=== PATIENT | male | born 1965 | race African-American/Black ===

== ENCOUNTER 2016-08-29 17:35 | Emergency (ER) | payer BC, OTHER ==
[2016-08-29 18:11] VITALS: BMI 27.8
--- NOTE | 2016-08-29 19:26 | PDOC ---
History of Present Illness - General History Source: Patient Exam Limitations: No Limitations - History of Present Illness Initial Comments: 08/29/16 20:18 The patient is a 51 year old male with a significant past medical history of hypertension, and ESRD on dialysis (, Thu), presenting to the Emergency Department with body ache, vomiting, and fever for four days. The patient reports that he has been vomiting multiple times per day, and is unable to keep down food. He also admits that it is difficult to keep down water, and admits to decreased urine output. He states that his fever was 101.8 at its highest. He reports that he is on dialysis, and went for treatment Thursday and this week. The patient denies sick contact. Patient denies cough. Patient denies chest pain , palpitations, and shortness of breath. Patient denies dysuria, or urinary urgency. PCP: Dr. 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) HTN: Yes Hypercholesterolemia: No HIV: No Liver Disease: No Suicide Attempt (Hx): No Seizures: No Thyroid Disease: No - Surgical History Abdominal Surgery: Yes (08/2007 KIDNEY TRANSPLANT-REJECTED) Appendectomy: No Cardiac Surgery: No Cholecystectomy: No Lung Surgery: No Neurologic Surgery: No Orthopedic Surgery: No - Immunization History Immunization Up to Date: Yes - Psycho/Social/Smoking Cessation Hx Anxiety: No Suicidal Ideation: No Smoking Status: No Smoking History: Never smoked Have you smoked in the past 12 months: No Number of Cigarettes Smoked Daily: 0 Cigars Per Day: 0 Hx Alcohol Use: No Drug/Substance Use Hx: No Substance Use Type: None Hx Substance Use Treatment: No <Peggy Foster - Last Filed: 08/30/16 04:21> - Past Medical History Allergies/Adverse Reactions: Allergies Allergy/AdvReac Type Severity Reaction Status Date / Time No Known Drug Allergies Allergy Verified 08/29/16 18:07 Home Medications: Ambulatory Orders Clonidine HCl [Catapres -] 0.3 mg PO BID tablet 11/19/14 Labetalol HCl [Normodyne -] 800 mg PO BID 01/11/15 Calcium Acetate [Phoslo -] 3 tab PO TIDCM 03/16/15 Amlodipine Besylate [Norvasc -] 10 mg PO DAILY tablet 11/17/15 Levofloxacin [Levaquin -] 500 mg PO DAILY #7 tablet 08/30/16 Metronidazole [Flagyl -] 500 mg PO TID #21 tablet 08/30/16 Review of Systems - Review of Systems Able to Perform ROS?: Yes Comments:: 08/29/16 20:19 GENERAL/CONSTITUTIONAL: + fever, + body aches. No weakness. HEAD, EYES, EARS, NOSE AND THROAT: No change in vision. No ear pain or discharge. No sore throat. CARDIOVASCULAR: No chest pain or shortness of breath. RESPIRATORY: No cough, wheezing, or hemoptysis. GASTROINTESTINAL: + nausea, + vomiting. No diarrhea or constipation. GENITOURINARY: No dysuria, frequency, or change in urination. MUSCULOSKELETAL: No joint or muscle swelling or pain. No neck or back pain. SKIN: No rash NEUROLOGIC: No headache, vertigo, loss of consciousness, or change in strength/ sensation. ENDOCRINE: + decreased urine output. No increased thirst. No abnormal weight change. HEMATOLOGIC/LYMPHATIC: No anemia, easy bleeding, or history of blood clots. ALLERGIC/IMMUNOLOGIC: No hives or skin allergy. <Martha Loomis - Last Filed: 08/29/16 20:17> *Physical Exam - Vital Signs Last Vital Signs Temp Pulse Resp BP Pulse Ox 101.8 F H 96 H 19 132/81 97 08/29/16 18:07 08/29/16 18:07 08/29/16 18:07 08/29/16 18:07 08/29/16 18:07 - Physical Exam Comments: 08/29/16 20:21 GENERAL: Warm to touch, awake, alert, and fully oriented, in no acute distress HEAD: No signs of trauma EYES: PERRLA, EOMI, sclera anicteric, conjunctiva clear ENT: Auricles normal inspection, hearing grossly normal, nares patent, oropharynx clear without exudates. Moist mucosa NECK: Neck lipoma at left trapezius. Normal ROM, supple, no lymphadenopathy, or JVD LUNGS: Breath sounds equal, clear to auscultation bilaterally. No wheezes, and no crackles HEART: Tachycardic and regular rhythm, normal S1 and S2, no murmurs, rubs or gallops ABDOMEN: Left and right sided abdominal tenderness. Soft, normoactive bowel sounds. No guarding, no rebound. No masses EXTREMITIES: Normal range of motion, no edema. No clubbing or cyanosis. No cords, erythema, or tenderness NEUROLOGICAL: Cranial nerves II through XII grossly intact. Normal speech, normal gait SKIN: Psoriatic rash to legs and arms bilaterally. Warm, Dry, normal turgor, no lesions noted. <Martha Loomis - Last Filed: 08/29/16 20:17> - Vital Signs Last Vital Signs Temp Pulse Resp BP Pulse Ox 101.8 F H 96 H 19 132/81 97 08/29/16 18:07 08/29/16 18:07 08/29/16 18:07 08/29/16 18:07 08/29/16 18:07 <Peggy Foster - Last Filed: 08/30/16 04:21> ED Treatment Course - LABORATORY CBC & Chemistry Diagram: 08/29/16 19:49 08/29/16 19:49 - ADDITIONAL ORDERS Additional order review: 08/29/16 19:49 RBC 3.78 L MCV 84.8 MCHC 33.2 RDW 15.0 MPV 7.9 Neutrophils % 85.5 H Lymphocytes % 4.1 L D Monocytes % 10.1 Eosinophils % 0.1 D Basophils % 0.2 <Martha Loomis - Last Filed: 08/29/16 20:17> - LABORATORY CBC & Chemistry Diagram: 08/29/16 19:49 08/29/16 20:58 <Peggy Foster - Last Filed: 08/30/16 04:21> Medical Decision Making - Medical Decision Making 08/30/16 03:12 Patient Name: Maryjo Clark THIS IS A PRELIMINARY REPORT FROM [facility] IMAGES: 397 EXAM DATE AND TIME: 2016-08-30 02:19:19.0 EXAM: CT ABDOMEN AND PELVIS WITHOUT CONTRAST Probable calcified right iliac fossa renal transplant. Atrophic [place] kidneys containing probable cysts. A 1.6 cm exophytic cyst in left lower pole is slightly complex, consider follow-up. Unremarkable pancreas and gallbladder. No bowel obstruction, colitis, diverticulitis or free air. Normal appendix. Small ascites. Small umbilical hernia containing fat. Small left pleural effusion. Renal osteodystrophy. Erosive changes bilateral sacroiliac joints. Liver dome incompletely seen. THIS DOCUMENT HAS BEEN ELECTRONICALLY SIGNED 08/30/16 04:16 Pt came with fever; nausea and vomiting x 4 days. Ongoing for 4 days and not getting better. Total body aches and pains, but he is influenza negative; CXR appears normal. CT abd/pelvis normal; however, I will treat with abx, as I cannot be certain that he does not have a bacterial infection of his gut. He doesnt seem to have a viral infection judging from the severity and length of his symptoms; not to mention the fact that his antibiotics will be removed from his blood stream every other day during dialysis. <Peggy Foster - Last Filed: 08/30/16 04:21> *DC/Admit/Observation/Transfer - Attestations Scribe Attestion: 08/29/16 20:28 Documentation prepared by Martha Loomis, acting as medical staff physician for Peggy Foster MD. <Martha Loomis - Last Filed: 08/29/16 20:17> - Discharge Dispostion Admit: No <Peggy Foster - Last Filed: 08/30/16 04:21> Diagnosis at time of Disposition: Gastroenteritis - Discharge Dispostion Disposition: HOME Condition at time of disposition: Stable - Prescriptions Prescriptions: Metronidazole [Flagyl -] 500 mg PO TID #21 tablet Levofloxacin [Levaquin -] 500 mg PO DAILY #7 tablet - Referrals Referrals: Magan Navarro MD [Primary Care Provider] - - Patient Instructions Printed Discharge Instructions: DI for Bacterial Gastroenteritis -- Adult
[2016-08-29] MEDS ORDERED: ACETAMINOPHEN 325 MG TABLET (FP) PO ONE (19:27)
[2016-08-29 19:59] LABS: BASOPHIL 0.2 % (0-2.0); EOSINOPHIL 0.1 % (0-4.5); MCH 28.2 pg (25.7-33.7); MCHC 33.2 g/dl (32.0-35.9); MEAN CELL VOLUME 84.8 fl (80-96); MEAN PLT VOLUME 7.9 fl (7.5-11.1); NEUTROPHILS 85.5 % (42.8-82.8); PLATELET COUNT 181 K/MM3 (134-434); WHITE BLOOD COUNT 9.5 K/mm3 (4.0-10.0)
[2016-08-29] MEDS ORDERED: ACETAMINOPHEN INJECTION 100 ML IVPB ONE (20:05)
[2016-08-29] MEDS ORDERED: ONDANSETRON 4 MG/2 ML VIAL ONE (20:05)
[2016-08-29] MEDS ORDERED: ONDANSETRON 4 MG/2 ML VIAL IVPB ONE (20:05)
[2016-08-29] MEDS ORDERED: ACETAMINOPHEN 1000 MG/100 ML VIAL (NON FORMULARY) IVPB ONE (20:05)
[2016-08-29] MEDS ORDERED: SODIUM CHLORIDE 0.9% 500 ML INFUS.BAG IV ONE (20:12)
[2016-08-29 20:23] LABS: ALBUMIN 3.5 g/dl (3.4-5.0); BILIRUBIN,TOTAL 0.7 mg/dL (0.2-1.0); CALCIUM 8.2 mg/dL (8.5-10.1); COCKROFT - GAULT 8.13; TOT PROT 7.5 g/dl (6.4-8.2)
[2016-08-29 20:58] LABS: CREATININE 12.9 mg/dL (0.7-1.3)
[2016-08-29 22:37] LABS: ALBUMIN 3.4 g/dl (3.4-5.0); BILIRUBIN,TOTAL 0.6 mg/dL (0.2-1.0); CALCIUM 8.1 mg/dL (8.5-10.1); TOT PROT 7.1 g/dl (6.4-8.2)
[2016-08-29 22:43] LABS: CREATININE 13.1 mg/dL (0.7-1.3)
[2016-08-29 23:53] VITALS: BP 128/68; PULSE 89; TEMP 99
[2016-08-29] MEDS ORDERED: METRONIDAZOLE 500 MG PREMIXED 100 ML IVPB ONE (23:59)
[2016-08-29] MEDS ORDERED: LEVOFLOXACIN 500 MG IVPB 100 ML IVPB ONE (23:59)
[2016-08-30] MEDS ORDERED: METRONIDAZOLE 500 MG PREMIXED 100 ML IVPB ONE (00:08)
[2016-08-30] MEDS ORDERED: LEVOFLOXACIN 500 MG IVPB 100 ML IVPB ONE (00:59)
--- NOTE | 2016-08-30 16:20 | EKG ---
Test Reason : Blood Pressure : / mmHG Vent. Rate : 085 BPM Atrial Rate : 085 BPM P-R Int : 170 ms QRS Dur : 102 ms QT Int : 436 ms P-R-T Axes : 074 -16 086 degrees QTc Int : 518 ms NORMAL SINUS RHYTHM POSSIBLE LEFT ATRIAL ENLARGEMENT LEFT VENTRICULAR HYPERTROPHY T WAVE ABNORMALITY, CONSIDER LATERAL ISCHEMIA PROLONGED QT ABNORMAL ECG WHEN COMPARED WITH ECG OF 15-DEC-2015 16:37, NON-SPECIFIC CHANGE IN ST SEGMENT IN LATERAL LEADS QT HAS LENGTHENED Confirmed by DILCIA ROMERO MD ([id number]) on 08/30/2016 4:20:03 PM Referred By: Confirmed By:DILCIA ROMERO MD
== END 2016-08-30 03:33 | disposition home or self-care (01) ==
LOC: JER 17:35
PROC: 3E03329 Introduction of Other Anti-infective into Peripheral Vein, Percutaneous Approach (ICD-10-PCS; principal; 2016-08-29)
PROC: 3E03329 Introduction of Other Anti-infective into Peripheral Vein, Percutaneous Approach (ICD-10-PCS; 2016-08-29)
PROC: 3E033NZ Introduction of Analgesics, Hypnotics, Sedatives into Peripheral Vein, Percutaneous Approach (ICD-10-PCS; 2016-08-29)
PROC: 3E033GC Introduction of Other Therapeutic Substance into Peripheral Vein, Percutaneous Approach (ICD-10-PCS; 2016-08-29)
DX: K52.9 Noninfective gastroenteritis and colitis, unspecified (principal); I12.0 Hypertensive chronic kidney disease with stage 5 chronic kidney disease or end stage renal disease; N18.6 End stage renal disease; N17.8 Other acute kidney failure; Z99.2 Dependence on renal dialysis
CPT/HCPCS: 36415; 71020-TC; 74176-TC; 80053; 82150; 83605; 83690; 85025; 87040; 87186; 87804; 93005; 93010; 99284-25

== ENCOUNTER 2016-08-30 09:02 | Inpatient (IN) | payer OTHER, BC ==
[2016-08-30 09:07] VITALS: BMI 27.8
[2016-08-30] MEDS ORDERED: ONDANSETRON 4 MG/2 ML VIAL IVPUSH ONE (09:58)
--- NOTE | 2016-08-30 09:58 | PDOC ---
History of Present Illness - General History Source: Patient, Old Records Exam Limitations: No Limitations <Jackie Romo - Last Filed: 08/30/16 11:40> - General History Source: Patient Exam Limitations: No Limitations - History of Present Illness Initial Comments: 08/30/16 10:08 The patient is a 51 year old male with a significant past medical history of ESRD (on dialysis Thursday, , Thursday) who presents to the ER as a revisit for positive culture. Patient visited this ER yesterday for generalized body ache, vomiting, and fever for several days. Patient states he was given a dose of vancomycin and gentamicin on . Blood cultures came back positive for gram positive bacteria today, and he was referred to the ER for admission. Patient states his body aches resolved today, but he reports feeling dizziness, nausea, and a headache. Patient says his fever at home was 98.3. He also has not been able to tolerate any solid PO for the past three days. Surgical History: Kidney Transplant in 2007, stopped functioning in 2010. Patient is not able to produce urine. PCP: Dr. 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) HTN: Yes Hypercholesterolemia: No HIV: No Liver Disease: No Suicide Attempt (Hx): No Seizures: No Thyroid Disease: No - Surgical History Abdominal Surgery: Yes (08/2007 KIDNEY TRANSPLANT-REJECTED) Appendectomy: No Cardiac Surgery: No Cholecystectomy: No Lung Surgery: No Neurologic Surgery: No Orthopedic Surgery: No - Immunization History Immunization Up to Date: Yes - Psycho/Social/Smoking Cessation Hx Anxiety: No Suicidal Ideation: No Smoking Status: No Smoking History: Never smoked Have you smoked in the past 12 months: No Number of Cigarettes Smoked Daily: 0 Cigars Per Day: 0 Hx Alcohol Use: No Drug/Substance Use Hx: No Substance Use Type: None Hx Substance Use Treatment: No <Jackie Romo - Last Filed: 08/30/16 11:40> <Darlene Lynch - Last Filed: 08/30/16 11:42> - Past Medical History Allergies/Adverse Reactions: Allergies Allergy/AdvReac Type Severity Reaction Status Date / Time No Known Drug Allergies Allergy Verified 08/30/16 09:07 Home Medications: Ambulatory Orders Amlodipine Besylate [Norvasc -] 10 mg PO DAILY 08/30/16 Clonidine HCl 0.3 mg PO Q12H 08/30/16 Labetalol HCl [Normodyne -] 200 mg PO Q8H 08/30/16 Review of Systems - Review of Systems Able to Perform ROS?: Yes Comments:: 08/30/16 10:08 GENERAL/CONSTITUTIONAL: Low grade fever. No chills. No weakness. HEAD, EYES, EARS, NOSE AND THROAT: No change in vision. No ear pain or discharge. No sore throat. CARDIOVASCULAR: No chest pain or shortness of breath. RESPIRATORY: No cough, wheezing, or hemoptysis. GASTROINTESTINAL: Nausea. No vomiting, diarrhea or constipation. GENITOURINARY: No dysuria, frequency, or change in urination. MUSCULOSKELETAL: No joint or muscle swelling or pain. No neck or back pain. SKIN: No rash NEUROLOGIC: Headache. No vertigo, loss of consciousness, or change in strength/ sensation. ENDOCRINE: No increased thirst. No abnormal weight change. HEMATOLOGIC/LYMPHATIC: No anemia, easy bleeding, or history of blood clots. ALLERGIC/IMMUNOLOGIC: No hives or skin allergy. <SyedDarlene - Last Filed: 08/30/16 11:42> *Physical Exam - Vital Signs Last Vital Signs Temp Pulse Resp BP Pulse Ox 98.3 F 79 20 116/65 98 08/30/16 09:03 08/30/16 09:03 08/30/16 09:03 08/30/16 09:03 08/30/16 09:03 <Jackie Romo - Last Filed: 08/30/16 11:40> - Vital Signs Last Vital Signs Temp Pulse Resp BP Pulse Ox 98.3 F 79 20 116/65 98 08/30/16 09:03 08/30/16 09:03 08/30/16 09:03 08/30/16 09:03 08/30/16 09:03 - Physical Exam Comments: GENERAL: Awake, alert, and fully oriented, in no acute distress HEAD: No signs of trauma EYES: PERRLA, EOMI, sclera anicteric, conjunctiva clear ENT: Auricles normal inspection, hearing grossly normal, nares patent, oropharynx clear without exudates. Moist mucosa NECK: Normal ROM, supple, no lymphadenopathy, JVD, or masses LUNGS: Breath sounds equal, clear to auscultation bilaterally. No wheezes, and no crackles HEART: Regular rate and rhythm, normal S1 and S2, no murmurs, rubs or gallops ABDOMEN: Superior pubic and RUQ tenderness, with no guarding, no rebound. Soft, normoactive bowel sounds. No masses. EXTREMITIES: Fistula in the left antecubital fossa. Normal range of motion, no edema. No clubbing or cyanosis. No cords, erythema, or tenderness NEUROLOGICAL: Cranial nerves II through XII grossly intact. Normal speech, normal gait SKIN: Warm, Dry, normal turgor, no rashes or lesions noted. <Darlene Lynch - Last Filed: 08/30/16 11:42> Heart Score/ECG Review - ST and T Comment:: 08/30/16 10:14 EKG read and reviewed by Dr. Romo: New ST depressions in 1L V5-V6 compared to the EKG in 2016. <Darlene Lynch - Last Filed: 08/30/16 11:42> ED Treatment Course - LABORATORY CBC & Chemistry Diagram: 08/30/16 10:00 08/30/16 10:00 <Jackie Romo - Last Filed: 08/30/16 11:40> - LABORATORY CBC & Chemistry Diagram: 08/30/16 10:00 08/30/16 10:00 <Darlene Lynch - Last Filed: 08/30/16 11:42> Medical Decision Making - Medical Decision Making 08/30/16 09:55 51-year-old male with history of hypertension, end-stage renal disease on hemodialysis Thursday and Thursday who presents to the emergency department for the second time in 24 hours for admission for positive blood cultures drawn in dialysis last . Differential diagnosis includes but is not limited to: Sepsis, bacteremia of unclear source, pneumonia electrolyte abnormality, toxic/metabolic derangement. Plan: 1. Labs 2. BP blood cultures 3. Lactate 4. Will admit to the hospital and the plan is to have the patient received vancomycin and gentamicin at dialysis later today 5. Observe and reevaluate <Jackie Romo - Last Filed: 08/30/16 11:40> *DC/Admit/Observation/Transfer - Discharge Dispostion Admit: Yes - Attestations Physician Attestion: 08/30/16 09:58 I, Dr. Jackie Romo, attest that the scribes documentation that appears above has been prepared under my direction and personally reviewed by me in its entirety. I confirmed that the note above accurately reflects all work, treatment, procedures, and medical decision-making performed by me. <Jackie Romo - Last Filed: 08/30/16 11:40> - Attestations Scribe Attestion: 08/30/16 10:19 Documentation prepared by Darlene Lynch, acting as medical instrument cable fabricator for Jackie Romo MD. <Darlene Lynch - Last Filed: 08/30/16 11:42> Diagnosis at time of Disposition: Bacteremia, Nausea, ESRD (end stage renal disease) on dialysis - Referrals Referrals: Magan Navarro MD [Primary Care Provider] -
[2016-08-30] MEDS ORDERED: ONDANSETRON 4 MG/2 ML VIAL ONE (10:09)
[2016-08-30 10:21] LABS: MCH 28.2 pg (25.7-33.7); MCHC 32.9 g/dl (32.0-35.9); MEAN CELL VOLUME 85.8 fl (80-96); PLATELET COUNT 159 K/MM3 (134-434); RDW 15.3 % (11.9-15.9); WHITE BLOOD COUNT 8.1 K/mm3 (4.0-10.0)
[2016-08-30 11:16] LABS: ALBUMIN 3.3 g/dl (3.4-5.0); BILIRUBIN,TOTAL 0.5 mg/dL (0.2-1.0); CALCIUM 8.1 mg/dL (8.5-10.1); COCKROFT - GAULT 7.18; TOT PROT 7.2 g/dl (6.4-8.2)
--- NOTE | 2016-08-30 11:22 | CONSULT ---
Consult - text type - Consultation Consultation Note: Renal Consult for ESRD on HD/Bactermia This is a 51 year old Gentleman with PMhx of ESRD on HD (TTS), Hypertension, Hx of Renal Transplant (now not functioning), Psoraisis who presents with Fever, Nausea, Abd dicomfort with blood cultures that were postive for Gram + Bactermia in HD unit. PMhx: as above Allergies: NKDA Family Hx: NC Social Hx: No T/A/D ROS: + Fever, abd pain, Nausea. + Loss of apetite. Home Meds: Home Medications Medication Instructions Recorded Amlodipine Besylate [Norvasc -] 10 mg PO DAILY 08/30/16 Clonidine HCl 0.3 mg PO Q12H 08/30/16 Labetalol HCl [Normodyne -] 200 mg PO Q8H 08/30/16 Vital Signs Temperature 98.3 F 08/30/16 09:03 Pulse Rate 79 08/30/16 09:03 Respiratory Rate 20 08/30/16 09:03 Blood Pressure 116/65 08/30/16 09:03 O2 Sat by Pulse Oximetry (%) 98 08/30/16 09:03 Intake & Output 08/27/16 08/28/16 08/29/16 08/30/16 23:59 23:59 23:59 23:59 Weight 183 lb Gen: NAD, awake and alert HEENT: NC/AT CVS: RRR, No M/R Lungs: CTA Abd" soft NT/ND Ext: No edmea, psorasis on legs Access: Left arm AVF CBC, BMP 08/30/16 10:00 Current Medications Epoetin Segun (Procrit -) 4,000 unit SQ ONCE ONE Stop: 08/30/16 10:58 Heparin Sodium (Porcine) (Heparin -) 1,000 unit IVPUSH ONCE ONE Stop: 08/30/16 10:58 Vancomycin HCl 1,000 mg/ (Dextrose) 250 mls @ 250 mls/hr IVPB ONCE ONE PRN Reason: Protocol Stop: 08/30/16 11:58 a/p 51 year old Gentleman with PMhx of ESRD on HD (TTS), Hypertension, Hx of Renal Transplant (now not functioning), Psoraisis who presents with Fever, Nausea, Abd dicomfort with blood cultures that were postive for Gram + Bactermia in HD unit. #Gram + Bactermia/Fever/Abd pain ? Source (skin vs. dialysis access related) Final Species not identified yet Will follow up with outpatient HD unit CT of the abd performed, results pending will redose Vanco after HD today repeat cultures sent today #ESRD on HD for HD today UF To dry weight Dose all meds for intermittent HD Full consult to follow Gonzalo Barros DO
[2016-08-30 11:29] LABS: CREATININE 14.6 mg/dL (0.7-1.3)
[2016-08-30 12:00] LABS: TROPONIN I 0.09 ng/ml (0.00-0.05)
[2016-08-30 13:15] LABS: ANISOCYTOSIS 1+; HYPOCHROMIA 1+; MICROCYTOSIS 1+; PLATELET ESTIMATE ADEQUATE (NORMAL); POIKILOCYTOSIS 1+; SCHISTOCYTES 1+; TEAR DROP CELLS RARE
[2016-08-30 13:16] LABS: BURR CELLS 1+; OVALOCYTES 1+
[2016-08-30] MEDS: LABETALOL HCL 200 MG TABLET (FP) PO SCH (15:27)
--- NOTE | 2016-08-30 16:19 | EKG ---
Test Reason : Blood Pressure : / mmHG Vent. Rate : 070 BPM Atrial Rate : 070 BPM P-R Int : 194 ms QRS Dur : 110 ms QT Int : 460 ms P-R-T Axes : 065 -13 076 degrees QTc Int : 496 ms NORMAL SINUS RHYTHM MINIMAL VOLTAGE CRITERIA FOR LVH, MAY BE NORMAL VARIANT SEPTAL INFARCT , AGE UNDETERMINED ABNORMAL ECG WHEN COMPARED WITH ECG OF 29-AUG-2016 20:52, NONSPECIFIC T WAVE ABNORMALITY NO LONGER EVIDENT IN ANTERIOR LEADS Confirmed by DILCIA ROMERO MD ([id number]) on 08/30/2016 4:18:41 PM Referred By: Confirmed By:DILCIA ROMERO MD
[2016-08-30 18:01] LABS: TROPONIN I 0.09 ng/ml (0.00-0.05)
[2016-08-30] MEDS ORDERED: PT OWN MED DRAWER 7, Y5N ONE ×2 (18:16→21:06)
[2016-08-30] MEDS ORDERED: HEPARIN NA (PORCINE) 5,000 UNITS/ML 1ML VIAL IVPUSH ONE (21:15)
[2016-08-30] MEDS ORDERED: VANCOMYCIN 1 GRAM (PRE-DOCKED) 250 ML IVPB ONE (21:15)
[2016-08-30] MEDS ORDERED: EPOETIN ALFA SQ ONE (21:15)
[2016-08-30 22:38] LABS: TROPONIN I 0.08 ng/ml (0.00-0.05)
[2016-08-31] MEDS: cloNIDine HCL 0.1 MG TABLET PO SCH ×3 (02:03→22:53)
[2016-08-31] MEDS: LABETALOL HCL 200 MG TABLET (FP) PO SCH ×4 (02:04→22:53)
[2016-08-31 08:07] LABS: MCH 29.1 pg (25.7-33.7); MCHC 34.5 g/dl (32.0-35.9); MEAN CELL VOLUME 84.5 fl (80-96); MEAN PLT VOLUME 7.8 fl (7.5-11.1); PLATELET COUNT 173 K/MM3 (134-434); RDW 15.2 % (11.9-15.9); WHITE BLOOD COUNT 6.3 K/mm3 (4.0-10.0)
--- NOTE | 2016-08-31 08:31 | HP ---
Admitting History and Physical - Primary Care Physician PCP: Magan Navarro - Admission Chief Complaint: ESRD. BACTEREMIA History Source: Medical Record - Past Medical History Cardiovascular: Yes: HTN, Hyperlipdemia Renal/: Yes: Renal Failure, Hemodialysis Dermatology: Yes: Psoriasis - Past Surgical History Past Surgical History: Yes: AV Fistula/Graft, Kidney Transplant (failed) - Advance Directives Advance Directives: Yes: Health Care Proxy - Smoking History Smoking history: Never smoked Have you smoked in the past 12 months: No Aproximately how many cigarettes per day: 0 - Alcohol/Substance Use Hx Alcohol Use: No - Social History ADL: Independent History of Recent Travel: No Home Medications - Allergies Allergies/Adverse Reactions: Allergies Allergy/AdvReac Type Severity Reaction Status Date / Time No Known Drug Allergies Allergy Verified 08/30/16 09:07 - Home Medications Home Medications: Ambulatory Orders Amlodipine Besylate [Norvasc -] 10 mg PO DAILY 08/30/16 Clonidine HCl 0.3 mg PO Q12H 08/30/16 Labetalol HCl [Normodyne -] 200 mg PO Q8H 08/30/16 Review of Systems - Review of Systems Constitutional: denies: Chills, Fever Cardiovascular: denies: Chest Pain Respiratory: denies: SOB Gastrointestinal: denies: Abdominal Pain Physical Examination Vital Signs: Vital Signs Temperature 98.4 F 08/31/16 06:10 Pulse Rate 80 08/31/16 06:10 Respiratory Rate 16 08/31/16 06:10 Blood Pressure 136/75 08/31/16 06:10 O2 Sat by Pulse Oximetry (%) 96 08/30/16 21:00 Constitutional: Yes: Calm Neck: Yes: WNL Cardiovascular: Yes: WNL Respiratory: Yes: WNL Gastrointestinal: Yes: WNL Edema: No Labs: CBC, BMP 08/31/16 07:00 Imaging - Results EKG: Report Reviewed Problem List - Problems (1) Bacteremia Code(s): R78.81 - BACTEREMIA (2) ESRD (end stage renal disease) on dialysis Code(s): N18.6 - END STAGE RENAL DISEASE Z99.2 - DEPENDENCE ON RENAL DIALYSIS (3) Nausea Code(s): R11.0 - NAUSEA (4) HTN (hypertension) Code(s): I10 - ESSENTIAL (PRIMARY) HYPERTENSION (5) Elevated troponin Code(s): R74.8 - ABNORMAL LEVELS OF OTHER SERUM ENZYMES Assessment/Plan The patient is a 51 year old male with a significant past medical history of ESRD (on dialysis Thursday, , Thursday) who presents to the ER as a revisit for positive culture. Patient visited this ER yesterday for generalized body ache, vomiting, and fever for several days. Patient states he was given a dose of vancomycin and gentamicin on . Blood cultures came back positive for gram positive bacteria today, and he was referred to the ER for admission. Patient states his body aches resolved today, but he reports feeling dizziness, nausea, and a headache. Patient says his fever at home was 98.3. He also has not been able to tolerate any solid PO for the past three days. Surgical History: Kidney Transplant in 2007, stopped functioning in 2010. Patient is not able to produce urine. PCP: Dr. Navarro (1) Bacteremia Code(s): R78.81 - BACTEREMIA ID CONSULTED Tmax 99 WBC NEG F/U CULTURES ABx ON HOLD (GIVEN IV ABx PRIOR TO ADMIT) (2) ESRD (end stage renal disease) on dialysis Code(s): N18.6 - END STAGE RENAL DISEASE Z99.2 - DEPENDENCE ON RENAL DIALYSIS RENAL ON CASE HD (3) Nausea Code(s): R11.0 - NAUSEA CONSIDER ZOFRAN IF REOCCUR (4) HTN (hypertension) Code(s): I10 - ESSENTIAL (PRIMARY) HYPERTENSION (5) Elevated troponin Code(s): R74.8 - ABNORMAL LEVELS OF OTHER SERUM ENZYMES NO HYPOTENSION EKG UNREMARKABLE -> F/U REPEAT LIKELY 2/2 ESRD BUT NOT ELEVATED 2015 CARDIO CONSULT APPRECIATED PASTOR JARRETT
--- NOTE | 2016-08-31 08:39 | CONSULT ---
Consult - text type - Consultation Consultation Note: CARDIOLOGY ASKED BY DR. Monsalve TO SEE PT. 51 YO MAN 08/30/16 POSITIVE BLOOD CULTURES. PT SEEN, EXAMINED ECG X RAYS REVIEWED. WORKING DX MINIMAL ELEVATION OF TROPONIN LEVEL DUE TO END STAGE RENAL DISEASE. HIGHLY DOUBT ASYMPTOMATIC ACUTE MYOCARDIAL ISCHEMIA/INFARCTION. STAPH BACTEREMIA DIFF DX: A-V FISTULA DIALYSIS NOST LIKELY SOURCE DOUBT SKIN ETIOLOGY. REC OBTAIN PRIOR DATA, ECG STRESS TEST ETC NOT PRESENTLY AVAILABLE FOR REVIEW. REPEAT ECG. ANTIBIOTICS DICTATED BY CULTURES. DIRECTED BY ID/IM. THANKS. FULL NOTE DICTATED. WILL FOLLOW
[2016-08-31 08:40] LABS: ALBUMIN 3.5 g/dl (3.4-5.0); BILIRUBIN,TOTAL 0.6 mg/dL (0.2-1.0); CALCIUM 8.1 mg/dL (8.5-10.1); TOT PROT 7.7 g/dl (6.4-8.2)
[2016-08-31 08:47] LABS: COCKROFT - GAULT 11.52
[2016-08-31 08:51] LABS: CREATININE 9.1 mg/dL (0.7-1.3)
[2016-08-31] MEDS: amLODIPine BESYLATE 10 MG TABLET (FP) PO SCH (10:28)
--- NOTE | 2016-08-31 15:04 | PN ---
Progress Note (short form) - Note Progress Note: ID Consult dictated Staph bacteremia ESRD Await final blood c/s result Start nafcillin 2gm q4h Echocardiogram Repeat BC, ESR CRP at HD
--- NOTE | 2016-08-31 15:58 | CONS ---
DATE OF CONSULTATION: 08/31/[address] Giraldo to see patient. PATIENT PROFILE: The patient is a 51-year-old man admitted on August 30, 2016, because of positive blood cultures. The patient has no known heart disease. There is no history of a myocardial infarction, angina, or congestive heart failure. He reports undergoing a stress approximately 1 year ago, which was normal. The details of that evaluation are not available. He has been maintained on hemodialysis now for about 10 years. A renal transplant had failed. He was admitted with complaints of fever and reports of a positive blood culture for gram-positive organisms. Because of the positive blood culture, the hemodialysis unit advised him to come to the emergency room for hospitalization. The patient never had chest pain, shortness of breath, palpitations, or syncope. A troponin level of 0.08 was detected and a cardiology consultation was requested. There is a prior history of hypertension. There is no history of diabetes. The present medications include amlodipine 10 mg per day, Catapres 0.3 mg b.i.d., and labetalol 200 mg b.i.d. ALLERGIES: None. FAMILY HISTORY: There is no family history of a myocardial infarction or sudden . Both his parents are alive. A sister has no known heart disease. SOCIAL HISTORY: There is no history of smoking or illicit drug use. PRIOR MEDICAL HISTORY: End-stage renal disease on hemodialysis, gastroesophageal reflux, anemia, secondary hyperparathyroidism, vitamin D deficiency. REVIEW OF SYSTEMS: General: Positive for fever. No chills. Gastrointestinal: No melena. Positive nausea. Pulmonary: No hemoptysis. Cardiac: No edema, no orthopnea. Neurological: No focal deficit. DATABASE: The electrocardiogram demonstrates sinus rhythm, left atrial abnormality, nonspecific ST and T-wave changes. Chest x-ray is pending at the time of this dictation. A CAT scan is also pending at the time of this dictation. Laboratory studies of note includes a white blood cell count of 6.3, hematocrit 31%, platelet count 173,000. The troponin level is 0.08 to 0.09. The CPK level is 254 to 198. The MV CPK is 1.5. The glucose is 115. IMPRESSION: The working diagnosis is minimal elevation of the troponin level secondary to end-stage renal disease. I highly doubt the presence of an asymptomatic acute myocardial ischemic infarct or infarction. The staphylococcus bacteremia would be most likely to be related to the AV fistula and dialysis procedure as the culprit source. A skin etiology would be a diagnostic consideration, however, the physical findings are not suggestive of this diagnosis. I doubt the presence of endocarditis. I have recommended the followin. Obtain prior data, electrocardiograms, previous stress test, etcetera, not presently available for review. 2. Repeat electrocardiogram. 3. Echocardiogram. 4. Antibiotics dictated by cultures. 5. Workup and therapy addressed by Internal Medicine and Infectious Disease. Thank you for allowing me to take part in the care of this pleasant patient. Will follow along with you. SANDRO PADILLA M.D. PRAVEEN/[id number] cc: Karin Dominguez MD
[2016-08-31 16:15] LABS: PLATELET ESTIMATE ADEQUATE (NORMAL); POLYCHROMASIA 1+
[2016-08-31 16:16] LABS: HYPOCHROMIA 1+
--- NOTE | 2016-08-31 16:36 | CONS ---
DATE OF CONSULTATION: DATE OF DICTATION: 08/31/2016 The patient is evaluated for positive blood cultures. The patient has a history of end-stage renal disease, on hemodialysis. He reports developing nausea and vomiting approximately 4 days prior to admission, associated with fever to 101.8. He had been seen in the emergency room, where he was evaluated. Cultures were obtained and were positive for staphylococcus species. He was asked to return. Preliminarily blood isolate is identified as methicillin-sensitive Staphylococcus aureus. He received a dose of vancomycin late last evening. Presently he feels much better. He has no complaints of abdominal pain. He denies any recurrent nausea or vomiting. He had been treated with Levaquin and Flagyl for suspected acute gastroenteritis. Patient has a history of bacteremias in the past. He had a polymicrobial bacteremia in July of 2014, which was from a suspected skin source. In addition, he was treated for bacteremia in 2005. Past medical history positive for end-stage renal disease, on hemodialysis; hypertension; psoriasis. PAST SURGICAL HISTORY: Status post renal transplant, with rejection, in 2007. No known allergies. Medication includes Catapres, Normodyne, Norvasc, Levaquin, Flagyl. SOCIAL HISTORY: Former smoker. SYSTEMS REVIEW: Neurologic: No loss of consciousness, seizure activity, focal weakness. Cardiac: Negative chest pain or palpitations. Respiratory: Negative cough or sputum production. Gastrointestinal: As per HPI. Genitourinary: End-stage renal disease, on hemodialysis. LABORATORY DATA: White count 6.3, hematocrit 30.8, platelet count 173. Blood cultures preliminarily methicillin-sensitive Staphylococcus aureus. PHYSICAL EXAMINATION: General: He is awake and alert. He is not acutely toxic appearing. Vital Signs: Temperature 98.3. T-max 101.8. Blood pressure 133/66. Pulse 74, regular. Respirations 16 per minute. Eyes: Sclerae anicteric. Heart Sounds: S1, S2. No murmur. Lungs: Clear. Abdomen: Soft. No tenderness elicited. No mass, rebound or rigidity. Extremities: An AV fistula is present in the left upper extremity. There is no erythema, warmth, or evidence of infection. He does have psoriasis involving both upper and lower extremities; however, there are no obvious areas of skin infection. IMPRESSION: 1. Positive blood culture, staphylococcus species, likely bacteremia secondary to skin source. 2. End-stage renal disease, on hemodialysis. 3. History of staphylococcus bacteremias in the past. 4. Psoriasis. Suspect skin source for staphylococcus bacteremia, namely his moderately severe psoriasis. The AV fistula does not appear to be infected at the time. Await final blood culture results. Start nafcillin 2 g IV piggyback every 4 hours. Echocardiogram. Repeat blood cultures. Add hemodialysis. Obtain sedimentation rate, C-reactive protein. Thank you for the kind referral. CORRINE LAST M.D. [id number]
[2016-08-31] MEDS: NAFCILLIN - 2 GM in DEXTROSE 5%-WATER - 100 ML IVPB SCH ×2 (18:20→22:53)
[2016-09-01] MEDS ORDERED: PT OWN MED DRAWER 7, Y5N ONE ×4 (01:32→21:04)
[2016-09-01] MEDS: NAFCILLIN - 2 GM in DEXTROSE 5%-WATER - 100 ML IVPB SCH ×6 (02:17→21:24)
[2016-09-01] MEDS: LABETALOL HCL 200 MG TABLET (FP) PO SCH ×3 (06:22→21:25)
[2016-09-01 08:56] LABS: BASOPHIL 1.1 % (0-2.0); EOSINOPHIL 11.5 % (0-4.5); MCHC 32.7 g/dl (32.0-35.9); MEAN CELL VOLUME 85.6 fl (80-96); MEAN PLT VOLUME 8.1 fl (7.5-11.1); NEUTROPHILS 50.8 % (42.8-82.8); PLATELET COUNT 193 K/MM3 (134-434); RDW 15.2 % (11.9-15.9); WHITE BLOOD COUNT 4.9 K/mm3 (4.0-10.0)
[2016-09-01 09:10] LABS: ALBUMIN 3.2 g/dl (3.4-5.0); CALCIUM 7.8 mg/dL (8.5-10.1)
[2016-09-01 09:19] LABS: BILIRUBIN,TOTAL 0.8 mg/dL (0.2-1.0); COCKROFT - GAULT 8.67; TOT PROT 6.9 g/dl (6.4-8.2)
[2016-09-01 09:35] LABS: CREATININE 12.1 mg/dL (0.7-1.3)
[2016-09-01] MEDS ORDERED: ASPIRIN COATED 81 MG TABLET.EC PO SCH (10:00)
[2016-09-01] MEDS: cloNIDine HCL 0.1 MG TABLET PO SCH ×2 (10:33→21:24)
[2016-09-01] MEDS: amLODIPine BESYLATE 10 MG TABLET (FP) PO SCH (10:33)
--- NOTE | 2016-09-01 10:36 | PN ---
Progress Note (short form) - Note Progress Note: Renal Follow up for ESRD on HD PT seen and examined at the bedside awake and alert no acute complaints feels better, no sob, chest pain, fever, chills Vital Signs Temperature 97.1 F L 09/01/16 08:44 Pulse Rate 62 09/01/16 08:44 Respiratory Rate 18 09/01/16 08:44 Blood Pressure 140/90 09/01/16 08:44 O2 Sat by Pulse Oximetry (%) 96 08/31/16 21:00 Intake & Output 08/29/16 08/30/16 08/31/16 09/01/16 23:59 23:59 23:59 23:59 Intake Total 120 1420 300 Balance 120 1420 300 Weight 183 lb Gen: NAD, awake and alert HEENT: NC/AT CVS: RRR, No M/R Lungs: CTA Abd" soft NT/ND Ext: No edmea, psorasis on legs Access: Left arm AVF CBC, BMP 09/01/16 07:10 09/01/16 07:10 Current Medications Amlodipine Besylate (Norvasc -) 10 mg PO DAILY [facility] Last Admin: 08/31/16 10:28 Dose: 10 mg Clonidine (Catapres -) 0.3 mg PO BID [facility] Last Admin: 08/31/16 22:53 Dose: 0.3 mg Epoetin Segun (Epogen -) 4,000 units IVPUSH ONCE ONE Stop: 09/02/16 06:01 Heparin Sodium (Porcine) (Heparin -) 1,000 unit IVPUSH ONCE ONE Stop: 09/02/16 06:01 Nafcillin Sodium 2 gm/ (Dextrose) 100 mls @ 100 mls/hr IVPB Q4H-IV [facility] PRN Reason: Protocol Last Admin: 09/01/16 06:22 Dose: 100 mls/hr Vancomycin HCl 1,000 mg/ (Dextrose) 250 mls @ 250 mls/hr IVPB ONCE ONE PRN Reason: Protocol Stop: 09/02/16 06:59 Labetalol HCl (Normodyne -) 200 mg PO TID [facility] Last Admin: 09/01/16 06:22 Dose: 200 mg a/p 51 year old Gentleman with PMhx of ESRD on HD (TTS), Hypertension, Hx of Renal Transplant (now not functioning), Psoraisis who presents with Fever, Nausea, Abd discomfort with blood cultures that were positive for Gram + Bactermia in HD unit. #Gram + Bactermia/Fever/Abd pain Blood cultures report from HD unit obtained : MSSA Culture report left in the front of the chart Will plan to redose Vanco with HD unless otherwise instructed by ID Check 2D ECHO Cultures from admission w/o growth to date #ESRD on HD for dialysis tomorrow with UF as tolerated will continue MWF schedule #CKD related Anemia Continue MALCOLM with HD Gonzalo Barros DO
--- NOTE | 2016-09-01 11:21 | PN ---
Progress Note, Physician Chief Complaint: No complaints. History of Present Illness: 51M hx HTN, ESRD on HD s/p RTX failed 2010 back on HD and off immunosupressives admitted with fever and gm positive cocci bacteremia. No chest pain, othopnea, pnd or edema. Baseline exercise tolerance is excellent. Reports normal EF by echo and normal stress test last year for RTX evaluation. - Current Medication List Current Medications: Active Medications Amlodipine Besylate (Norvasc -) 10 mg PO DAILY [facility] Last Admin: 09/01/16 10:33 Dose: 10 mg Clonidine (Catapres -) 0.3 mg PO BID [facility] Last Admin: 09/01/16 10:33 Dose: 0.3 mg Epoetin Segun (Epogen -) 4,000 units IVPUSH ONCE ONE Stop: 09/02/16 06:01 Heparin Sodium (Porcine) (Heparin -) 1,000 unit IVPUSH ONCE ONE Stop: 09/02/16 06:01 Nafcillin Sodium 2 gm/ (Dextrose) 100 mls @ 100 mls/hr IVPB Q4H-IV [facility] PRN Reason: Protocol Last Admin: 09/01/16 10:37 Dose: 100 mls/hr Vancomycin HCl 1,000 mg/ (Dextrose) 250 mls @ 250 mls/hr IVPB ONCE ONE PRN Reason: Protocol Stop: 09/02/16 06:59 Labetalol HCl (Normodyne -) 200 mg PO TID [facility] Last Admin: 09/01/16 06:22 Dose: 200 mg - Objective Vital Signs: Vital Signs Temperature 97.1 F L 09/01/16 08:44 Pulse Rate 62 09/01/16 08:44 Respiratory Rate 18 09/01/16 08:44 Blood Pressure 140/90 09/01/16 08:44 O2 Sat by Pulse Oximetry (%) 96 08/31/16 21:00 Eyes: Yes: WNL, Conjunctiva Clear HENT: Yes: WNL, Atraumatic, Normocephalic Neck: Yes: WNL, Supple, Trachea Midline Cardiovascular: Yes: WNL, Regular Rate and Rhythm Respiratory: Yes: WNL, Regular, CTA Bilaterally Gastrointestinal: Yes: WNL, Normal Bowel Sounds ...Rectal Exam: Yes: Deferred Musculoskeletal: Yes: WNL Extremities: Yes: WNL Edema: No Integumentary: Yes: WNL Neurological: Yes: WNL, Alert, Oriented ...Motor Strength: WNL Psychiatric: Yes: WNL Additional Findings/Remarks: left arm fistula Labs: CBC, BMP 09/01/16 07:10 09/01/16 07:10 - ....Imaging EKG: Report Reviewed (unremarkable for ischemia.) Problem List - Problems (1) Elevated troponin Assessment/Plan: Doubt ischemic heart disease. Reports stress test last year which was negative. No need for inpatient ischemia workup. Andi pattern is noncardiac, due to ESRD. Code(s): R74.8 - ABNORMAL LEVELS OF OTHER SERUM ENZYMES (2) Bacteremia Assessment/Plan: Echo pending, may need CONSTANCE if no source can be identified. Continue ABX per ID. Code(s): R78.81 - BACTEREMIA (3) HTN (hypertension) Assessment/Plan: Controlled on current medications. Code(s): I10 - ESSENTIAL (PRIMARY) HYPERTENSION Qualifiers: Hypertension type: essential hypertension Qualified Code(s): I10 - Essential (primary) hypertension
--- NOTE | 2016-09-01 21:19 | PN ---
Progress Note, Physician Chief Complaint: NO DISTRESS - Current Medication List Current Medications: Active Medications Amlodipine Besylate (Norvasc -) 10 mg PO DAILY [facility] Last Admin: 09/01/16 10:33 Dose: 10 mg Clonidine (Catapres -) 0.3 mg PO BID [facility] Last Admin: 09/01/16 10:33 Dose: 0.3 mg Epoetin Segun (Epogen -) 4,000 units IVPUSH ONCE ONE Stop: 09/02/16 06:01 Heparin Sodium (Porcine) (Heparin -) 1,000 unit IVPUSH ONCE ONE Stop: 09/02/16 06:01 Nafcillin Sodium 2 gm/ (Dextrose) 100 mls @ 100 mls/hr IVPB Q4H-IV [facility] PRN Reason: Protocol Last Admin: 09/01/16 17:32 Dose: 100 mls/hr Vancomycin HCl 1,000 mg/ (Dextrose) 250 mls @ 250 mls/hr IVPB ONCE ONE PRN Reason: Protocol Stop: 09/02/16 06:59 Labetalol HCl (Normodyne -) 200 mg PO TID [facility] Last Admin: 09/01/16 15:34 Dose: 200 mg - Objective Vital Signs: Vital Signs Temperature 98.3 F 09/01/16 19:02 Pulse Rate 77 09/01/16 19:02 Respiratory Rate 20 09/01/16 19:02 Blood Pressure 121/72 09/01/16 19:02 O2 Sat by Pulse Oximetry (%) 97 09/01/16 09:00 Constitutional: Yes: Calm Neck: Yes: WNL Cardiovascular: Yes: WNL Respiratory: Yes: WNL Gastrointestinal: Yes: WNL Edema: No Labs: CBC, BMP 09/01/16 07:10 09/01/16 07:10 Problem List - Problems (1) Bacteremia Code(s): R78.81 - BACTEREMIA (2) ESRD (end stage renal disease) on dialysis Code(s): N18.6 - END STAGE RENAL DISEASE Z99.2 - DEPENDENCE ON RENAL DIALYSIS (3) Nausea Code(s): R11.0 - NAUSEA (4) HTN (hypertension) Code(s): I10 - ESSENTIAL (PRIMARY) HYPERTENSION Qualifiers: Hypertension type: essential hypertension Qualified Code(s): I10 - Essential (primary) hypertension (5) Elevated troponin Code(s): R74.8 - ABNORMAL LEVELS OF OTHER SERUM ENZYMES Assessment/Plan The patient is a 51 year old male with a significant past medical history of ESRD (on dialysis Thursday, , Thursday) who presents to the ER as a revisit for positive culture. Patient visited this ER yesterday for generalized body ache, vomiting, and fever for several days. Patient states he was given a dose of vancomycin and gentamicin on . Blood cultures came back positive for gram positive bacteria today, and he was referred to the ER for admission. Patient states his body aches resolved today, but he reports feeling dizziness, nausea, and a headache. Patient says his fever at home was 98.3. He also has not been able to tolerate any solid PO for the past three days. Surgical History: Kidney Transplant in 2007, stopped functioning in 2010. Patient is not able to produce urine. PCP: Dr. Navarro (1) Bacteremia Code(s): R78.81 - BACTEREMIA ID CONSULT APPRECIATED CULTURES NEG ECHO DOES NOT SHOW VEGETATIONS -> F/U CONSTANCE (2) ESRD (end stage renal disease) on dialysis Code(s): N18.6 - END STAGE RENAL DISEASE Z99.2 - DEPENDENCE ON RENAL DIALYSIS RENAL ON CASE HD (3) Nausea Code(s): R11.0 - NAUSEA CONSIDER ZOFRAN IF REOCCUR (4) HTN (hypertension) Code(s): I10 - ESSENTIAL (PRIMARY) HYPERTENSION (5) Elevated troponin Code(s): R74.8 - ABNORMAL LEVELS OF OTHER SERUM ENZYMES NO HYPOTENSION EKG UNREMARKABLE -> F/U REPEAT LIKELY 2/2 ESRD BUT NOT ELEVATED 2015 CARDIO CONSULT APPRECIATED PASTOR JARRETT
[2016-09-02] MEDS: NAFCILLIN - 2 GM in DEXTROSE 5%-WATER - 100 ML IVPB SCH ×5 (02:50→15:31)
[2016-09-02 06:06] LABS: HEP B SURFACE AB Reactive (.)
--- NOTE | 2016-09-02 06:51 | PN ---
[id number] Besylate (Norvasc -) 10 mg PO DAILY [facility] Last Admin: 09/01/16 10:33 Dose: 10 mg Clonidine (Catapres -) 0.3 mg PO BID [facility] Last Admin: 09/01/16 21:24 Dose: 0.3 mg Epoetin Segun (Epogen -) 4,000 units IVPUSH ONCE ONE Stop: 09/02/16 08:01 Heparin Sodium (Porcine) (Heparin -) 1,000 unit IVPUSH ONCE ONE Stop: 09/02/16 07:01 Nafcillin Sodium 2 gm/ (Dextrose) 100 mls @ 100 mls/hr IVPB Q4H-IV [facility] PRN Reason: Protocol Last Admin: 09/02/16 02:50 Dose: 100 mls/hr Vancomycin HCl (Vancomycin (Pre-Docked)) 250 mls @ 250 mls/hr IVPB ONCE ONE PRN Reason: Protocol Stop: 09/02/16 08:59 Labetalol HCl (Normodyne -) 200 mg PO TID [facility] Last Admin: 09/01/16 21:25 Dose: 200 mg - Objective Vital Signs: Vital Signs Temperature 97.3 F L 09/01/16 22:00 Pulse Rate 63 09/01/16 22:00 Respiratory Rate 20 09/01/16 22:00 Blood Pressure 153/85 09/01/16 22:00 O2 Sat by Pulse Oximetry (%) 97 09/01/16 21:00 Neck: Yes: WNL Cardiovascular: Yes: WNL Respiratory: Yes: WNL Gastrointestinal: Yes: WNL Labs: CBC, BMP 09/01/16 07:10 09/01/16 07:10 Problem List - Problems (1) Bacteremia Code(s): R78.81 - BACTEREMIA (2) ESRD (end stage renal disease) on dialysis Code(s): N18.6 - END STAGE RENAL DISEASE Z99.2 - DEPENDENCE ON RENAL DIALYSIS (3) Nausea Code(s): R11.0 - NAUSEA (4) HTN (hypertension) Code(s): I10 - ESSENTIAL (PRIMARY) HYPERTENSION Qualifiers: Hypertension type: essential hypertension Qualified Code(s): I10 - Essential (primary) hypertension (5) Elevated troponin Code(s): R74.8 - ABNORMAL LEVELS OF OTHER SERUM ENZYMES Assessment/Plan The patient is a 51 year old male with a significant past medical history of ESRD (on dialysis Thursday, , Thursday) who presents to the ER as a revisit for positive culture. Patient visited this ER yesterday for generalized body ache, vomiting, and fever for several days. Patient states he was given a dose of vancomycin and gentamicin on . Blood cultures came back positive for gram positive bacteria today, and he was referred to the ER for admission. Patient states his body aches resolved today, but he reports feeling dizziness, nausea, and a headache. Patient says his fever at home was 98.3. He also has not been able to tolerate any solid PO for the past three days. Surgical History: Kidney Transplant in 2007, stopped functioning in 2010. Patient is not able to produce urine. PCP: Dr. Navarro (1) Bacteremia Code(s): R78.81 - BACTEREMIA ID CONSULT APPRECIATED CULTURES NEG ECHO DOES NOT SHOW VEGETATIONS -> F/U CONSTANCE (2) ESRD (end stage renal disease) on dialysis Code(s): N18.6 - END STAGE RENAL DISEASE Z99.2 - DEPENDENCE ON RENAL DIALYSIS RENAL ON CASE HD (3) Nausea Code(s): R11.0 - NAUSEA CONSIDER ZOFRAN IF REOCCUR (4) HTN (hypertension) Code(s): I10 - ESSENTIAL (PRIMARY) HYPERTENSION (5) Elevated troponin Code(s): R74.8 - ABNORMAL LEVELS OF OTHER SERUM ENZYMES LIKELY 2/2 ESRD BUT NOT ELEVATED 2015 CARDIO CONSULT APPRECIATED [facility]GE KOLBY
[2016-09-02] MEDS ORDERED: HEPARIN NA (PORCINE) 5,000 UNITS/ML 1ML VIAL IVPUSH ONE (07:00)
[2016-09-02] MEDS: LABETALOL HCL 200 MG TABLET (FP) PO SCH ×3 (07:18→13:36)
[2016-09-02] MEDS ORDERED: EPOETIN ALFA 2,000 UNITS/1 ML VIAL IVPUSH ONE (08:00)
[2016-09-02] MEDS ORDERED: VANCOMYCIN 1 GRAM (PRE-DOCKED) 250 ML IVPB ONE (08:00)
[2016-09-02 08:54] LABS: BASOPHIL 1.3 % (0-2.0); EOSINOPHIL 11.5 % (0-4.5); MCH 27.6 pg (25.7-33.7); MCHC 32.4 g/dl (32.0-35.9); MEAN CELL VOLUME 85.3 fl (80-96); MEAN PLT VOLUME 8.3 fl (7.5-11.1); NEUTROPHILS 55.4 % (42.8-82.8); PLATELET COUNT 212 K/MM3 (134-434); WHITE BLOOD COUNT 5.6 K/mm3 (4.0-10.0)
[2016-09-02 09:18] LABS: ALBUMIN 3.1 g/dl (3.4-5.0); BILIRUBIN,TOTAL 0.7 mg/dL (0.2-1.0); CALCIUM 7.5 mg/dL (8.5-10.1); COCKROFT - GAULT 7.13; MAGNESIUM 2.3 mg/dL (1.8-2.4); TOT PROT 6.7 g/dl (6.4-8.2)
[2016-09-02 09:44] LABS: PHOSPHOROUS 4.3 mg/dL (2.5-4.9)
--- NOTE | 2016-09-02 10:33 | PN ---
Progress Note (short form) - Note Progress Note: Renal Follow up for ESRD on HD PT seen and examined during dialysis no acute complaints no sob, chest pain, fever or chills BP stable, access with good function goal UF is 2.5L Vital Signs Temperature 97.4 F L 09/02/16 08:10 Pulse Rate 70 09/02/16 08:45 Respiratory Rate 18 09/02/16 08:45 Blood Pressure 160/101 09/02/16 08:45 O2 Sat by Pulse Oximetry (%) 97 09/01/16 21:00 Intake & Output 08/30/16 08/31/16 09/01/16 09/02/16 23:59 23:59 23:59 23:59 Intake Total 120 1420 1400 300 Balance 120 1420 1400 300 Weight 183 lb Gen: NAD, awake and alert HEENT: NC/AT CVS: RRR, No M/R Lungs: CTA Abd" soft NT/ND Ext: No edmea, psorasis on legs Access: Left arm AVF CBC, BMP 09/02/16 08:15 09/02/16 08:15 Laboratory Tests 09/02/16 08:15 Calcium 7.5 L Phosphorus 4.3 D Magnesium 2.3 Albumin 3.1 L Current Medications Amlodipine Besylate (Norvasc -) 10 mg PO DAILY [facility] Last Admin: 09/01/16 10:33 Dose: 10 mg Clonidine (Catapres -) 0.3 mg PO BID [facility] Last Admin: 09/01/16 21:24 Dose: 0.3 mg Nafcillin Sodium 2 gm/ (Dextrose) 100 mls @ 100 mls/hr IVPB Q4H-IV [facility] PRN Reason: Protocol Last Admin: 09/02/16 06:50 Dose: 100 mls/hr Labetalol HCl (Normodyne -) 200 mg PO TID [facility] Last Admin: 09/02/16 07:18 Dose: Not Given a/p 51 year old Gentleman with PMhx of ESRD on HD (TTS), Hypertension, Hx of Renal Transplant (now not functioning), Psoraisis who presents with Fever, Nausea, Abd discomfort with blood cultures that were positive for Gram + Bactermia in HD unit. #Gram + Bactermia/Fever/Abd pain MSSA seen in blood cultures from outside dialysis unit inpatient cultures w/o growth to get IV vanco today with HD ID to follow up for outpatient Abx recommendations #ESRD on HD tolerating HD well today UF as tolerated #Aneurysm in access arm Vascular follow up as outpatient #CKD related Anemia Continue MALCOLM with HD Gonzalo Barros DO
[2016-09-02 10:42] LABS: CREATININE 14.7 mg/dL (0.7-1.3)
--- NOTE | 2016-09-02 10:58 | PN ---
Progress Note, Physician Chief Complaint: No complaints. History of Present Illness: 51M hx HTN, ESRD on HD s/p RTX failed 2010 back on HD and off immunosupressives admitted with fever and gm positive cocci bacteremia. No chest pain, othopnea, pnd or edema. Baseline exercise tolerance is excellent. Reports normal EF by echo and normal stress test last year for RTX evaluation. - Current Medication List Current Medications: Active Medications Amlodipine Besylate (Norvasc -) 10 mg PO DAILY [facility] Last Admin: 09/01/16 10:33 Dose: 10 mg Clonidine (Catapres -) 0.3 mg PO BID [facility] Last Admin: 09/01/16 21:24 Dose: 0.3 mg Nafcillin Sodium 2 gm/ (Dextrose) 100 mls @ 100 mls/hr IVPB Q4H-IV [facility] PRN Reason: Protocol Last Admin: 09/02/16 06:50 Dose: 100 mls/hr Labetalol HCl (Normodyne -) 200 mg PO TID [facility] Last Admin: 09/02/16 07:18 Dose: Not Given - Objective Vital Signs: Vital Signs Temperature 97.4 F L 09/02/16 08:10 Pulse Rate 81 09/02/16 10:15 Respiratory Rate 18 09/02/16 10:15 Blood Pressure 143/75 09/02/16 10:15 O2 Sat by Pulse Oximetry (%) 97 09/01/16 21:00 Eyes: Yes: WNL, Conjunctiva Clear HENT: Yes: WNL, Atraumatic, Normocephalic Neck: Yes: WNL, Supple, Trachea Midline Cardiovascular: Yes: WNL, Regular Rate and Rhythm Respiratory: Yes: WNL, Regular, CTA Bilaterally Gastrointestinal: Yes: WNL, Normal Bowel Sounds Musculoskeletal: Yes: WNL Extremities: Yes: WNL Edema: No Integumentary: Yes: WNL Neurological: Yes: WNL, Alert, Oriented ...Motor Strength: WNL Psychiatric: Yes: WNL Additional Findings/Remarks: left arm fistula Labs: CBC, BMP 09/02/16 08:15 09/02/16 08:15 Problem List - Problems (1) Elevated troponin Assessment/Plan: Doubt ischemic heart disease. Reports stress test last year which was negative. No need for inpatient ischemia workup. Andi pattern is noncardiac, due to ESRD. Code(s): R74.8 - ABNORMAL LEVELS OF OTHER SERUM ENZYMES (2) Bacteremia Assessment/Plan: Echo pending, may need CONSTANCE if no source can be identified. Continue ABX per ID. Code(s): R78.81 - BACTEREMIA (3) HTN (hypertension) Assessment/Plan: Controlled on current medications. Code(s): I10 - ESSENTIAL (PRIMARY) HYPERTENSION Qualifiers: Hypertension type: essential hypertension Qualified Code(s): I10 - Essential (primary) hypertension
[2016-09-02 13:07] VITALS: BP 156/92; PULSE 69
[2016-09-02] MEDS ORDERED: ACETAMINOPHEN 325 MG TABLET (FP) PO PRN (13:13)
[2016-09-02] MEDS ORDERED: PT OWN MED DRAWER 7, Y5N ONE (13:25)
[2016-09-02] MEDS: cloNIDine HCL 0.1 MG TABLET PO SCH (13:29)
[2016-09-02] MEDS: amLODIPine BESYLATE 10 MG TABLET (FP) PO SCH (13:29)
[2016-09-02] MEDS ORDERED: ceFAZolin SODIUM 1 GM VIAL IM ONE (14:28)
--- NOTE | 2016-09-02 14:28 | PN ---
Progress Note, Physician History of Present Illness: Doing well No complaints No fever/ chills No c/o chest pain/ dyspnea - Current Medication List Current Medications: Active Medications Acetaminophen (Tylenol -) 650 mg PO Q6H PRN PRN Reason: FEVER OR PAIN Last Admin: 09/02/16 13:28 Dose: 650 mg Amlodipine Besylate (Norvasc -) 10 mg PO DAILY [facility] Last Admin: 09/02/16 13:29 Dose: 10 mg Clonidine (Catapres -) 0.3 mg PO BID [facility] Last Admin: 09/02/16 13:29 Dose: 0.3 mg Nafcillin Sodium 2 gm/ (Dextrose) 100 mls @ 100 mls/hr IVPB Q4H-IV [facility] PRN Reason: Protocol Last Admin: 09/02/16 12:14 Dose: Not Given Labetalol HCl (Normodyne -) 200 mg PO TID [facility] Last Admin: 09/02/16 13:36 Dose: Not Given - Objective Vital Signs: Vital Signs Temperature 97.4 F L 09/02/16 08:10 Pulse Rate 69 09/02/16 13:06 Respiratory Rate 18 09/02/16 13:06 Blood Pressure 156/92 09/02/16 13:06 O2 Sat by Pulse Oximetry (%) 98 09/02/16 09:00 Constitutional: Yes: No Distress Eyes: Yes: Conjunctiva Clear Cardiovascular: Yes: Regular Rate and Rhythm, S1, S2 Respiratory: Yes: CTA Bilaterally Gastrointestinal: Yes: Normal Bowel Sounds, Soft. No: Tenderness Edema: No Integumentary: Yes: Other (+ psoriasis) Labs: CBC, BMP 09/02/16 08:15 09/02/16 08:15 Assessment/Plan Staph aureus bacteremia, likely skin source ESRD Repeat BC, echo negative Substitute cefazolin 2gm after each HD x 4weeks
[2016-09-02 14:39] VITALS: TEMP 98.1
[2016-09-02] MEDS ORDERED: CEFAZOLIN 2 GM/D5W 50 ML IVPB ONE (15:15)
--- NOTE | 2016-09-02 18:44 | DS ---
Physical Examination Vital Signs: Vital Signs Temperature 98.1 F 09/02/16 14:39 Pulse Rate 69 09/02/16 13:06 Respiratory Rate 18 09/02/16 13:06 Blood Pressure 156/92 09/02/16 13:06 O2 Sat by Pulse Oximetry (%) 98 09/02/16 09:00 Neck: Yes: WNL Cardiovascular: Yes: WNL Respiratory: Yes: WNL Gastrointestinal: Yes: WNL Edema: No Labs: CBC, BMP 09/02/16 08:15 09/02/16 08:15 Discharge Summary Reason For Visit: BACTEREMIA, ESRD ON DIALYSIS, NAUSEA Current Active Problems Bacteremia (Acute) ESRD (end stage renal disease) on dialysis (Acute) Elevated troponin (Acute) Nausea (Acute) Hospital Course: The patient is a 51 year old male with a significant past medical history of ESRD (on dialysis Thursday, , Thursday) who presents to the ER as a revisit for positive culture. Patient visited this ER yesterday for generalized body ache, vomiting, and fever for several days. Patient states he was given a dose of vancomycin and gentamicin on . Blood cultures came back positive for gram positive bacteria today, and he was referred to the ER for admission. Patient states his body aches resolved today, but he reports feeling dizziness, nausea, and a headache. Patient says his fever at home was 98.3. He also has not been able to tolerate any solid PO for the past three days. Surgical History: Kidney Transplant in 2007, stopped functioning in 2010. Patient is not able to produce urine. PCP: Dr. Navarro (1) Bacteremia Code(s): R78.81 - BACTEREMIA ID CONSULT APPRECIATED -> LIKELY SKIN SOURCE CULTURES NEG ECHO DOES NOT SHOW VEGETATIONS -> CONSTANCE OUTPT IV ABx WITH HD x 4 WEEKS (2) ESRD (end stage renal disease) on dialysis Code(s): N18.6 - END STAGE RENAL DISEASE Z99.2 - DEPENDENCE ON RENAL DIALYSIS RENAL ON CASE HD (3) Nausea Code(s): R11.0 - NAUSEA CONSIDER ZOFRAN IF REOCCUR (4) HTN (hypertension) Code(s): I10 - ESSENTIAL (PRIMARY) HYPERTENSION (5) Elevated troponin Code(s): R74.8 - ABNORMAL LEVELS OF OTHER SERUM ENZYMES LIKELY 2/2 ESRD BUT NOT ELEVATED 2016 CARDIO CONSULT APPRECIATED DISCHARGE 1. F/U WITH PCP & CARDIO IN 1 WEEK 2. 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
== END 2016-09-02 19:33 | disposition home or self-care (01) | DRG 871 ==
LOC: JER 09:02 → JERBED 11:40 → J5S 14:59
PROVIDERS: ADMIT Family Medicine; ATTEND Family Medicine
PROC: 5A1D60Z (ICD-10-PCS; principal; 2016-09-02)
DX: R78.81 Bacteremia (principal); N18.6 End stage renal disease; I12.0 Hypertensive chronic kidney disease with stage 5 chronic kidney disease or end stage renal disease; Z99.2 Dependence on renal dialysis; D63.1 Anemia in chronic kidney disease
CPT/HCPCS: 36415; 80053; 82550; 82553; 83605; 83735; 84100; 84484; 85025; 86704; 86706; 86708; 87040; 87340; 93005; 93010; 93306-TC; 99283-25; J0885; J1644

== ENCOUNTER 2016-10-06 11:18 | Day surgery (SDC) | payer OTHER, BC ==
[2016-10-03 08:53] VITALS: BMI 27.8
[2016-10-06 12:05] LABS: INR 1.16 (0.82-1.09); PROTHROMBIN TIME (PATIENT) 12.8 SEC (9.98-11.88)
[2016-10-06 12:08] LABS: ACTIVATED PTT 36.6 SECONDS (26.9-34.4)
--- NOTE | 2016-10-06 12:41 | HP ---
Satellite H - Chief Complaint Chief Complaint: Left arm thrombosed venous aneurysm History of Present Illness: 51 yo male with ESRD on HD. Left arm fistula developed venous aneurysm. Exclusion and PTFE bybass performed several months ago. Residual thrombosed venous aneurysm now ready for excision. History Source: Medical Record Limitations to Obtaining History: No Limitations - Past Medical History Allergies/Adverse Reactions: Allergies Allergy/AdvReac Type Severity Reaction Status Date / Time No Known Drug Allergies Allergy Verified 10/06/16 11:58 Cardiovascular: Yes: HTN, Hyperlipdemia Renal/: Yes: Renal Failure, Hemodialysis Dermatology: Yes: Psoriasis Additional Medical History: hx mrsa and mssa bacteremia 2005 while he had permacath. hs bacteremia? with right chest wall cellulitis in 2011. CONSTANCE august 2011 is negative for vegetation - Current Medications Current Medications: Home Medications Medication Instructions Recorded Amlodipine Besylate [Norvasc -] 10 mg PO DAILY 08/30/16 Clonidine HCl 0.3 mg PO Q12H 08/30/16 Labetalol HCl [Normodyne -] 200 mg PO Q8H 08/30/16 Acetaminophen [Tylenol .Regular 650 mg PO Q6H PRN #0 tablet 09/02/16 Strength -] Satellite Physical Exam - Physical Examination Vital Signs: Vital Signs Period Temp Pulse Resp BP Sys/Romeo Pulse Ox Last 24 Hr 98.2 F 75 20 144/78 97 General Appearance: Alert & Oriented x3 Lung: Clear to auscultation Heart: Regular rate & rhythm Abdomen: Soft Extremities: No edema, Other (Large thrombosed venous aneurysm distal left upper arm. Patent AV graft underneath.) Satellite Impression/Plan - Impression/Plan Impression: Left arm thrombosed venous aneurysm Operative Procedure: Excision Left arm thrombosed venous aneurysm Date to be Performed: 10/06/16
[2016-10-06] MEDS ORDERED: LIDOCAINE HCL 1%, 10 MG/ML (20ML VIAL) IJ ONE (14:23)
[2016-10-06] MEDS ORDERED: POVIDONE-IODINE OINTMENT 10% - 28.4 GM TUBE TP ONE (14:23)
--- NOTE | 2016-10-06 14:23 | OP ---
Operative Note - Note: Operative Date: 10/06/16 Pre-Operative Diagnosis: Thrombosed venous aneurysm left arm Operation: Excsion venous aneurysm left arm Findings: Distal cephalic vein fistula with aneurysmal dilatation. Post-Operative Diagnosis: Same as Pre-op Surgeon: Joe Kaur Anesthesiologist/POLICE WORKER: Jack Raza Anesthesia: Fractional Specimens Removed: Vein aneurysm and skin Estimated Blood Loss (mls): 15
[2016-10-06] MEDS ORDERED: ACETAMINOPHEN 325 MG TABLET (FP) PO PRN ×2 (14:24→14:46)
[2016-10-06] MEDS ORDERED: OXYCODONE/APAP 5/325MG COMBO TABLET PO PRN (14:24)
[2016-10-06] MEDS ORDERED: oxyCODONE HCL 5 MG TABLET PO PRN (14:46)
[2016-10-06 15:14] VITALS: TEMP 97.8
[2016-10-06] MEDS ORDERED: oxyCODONE HCL 5 MG TABLET ONE (16:08)
[2016-10-06] MEDS ORDERED: ACETAMINOPHEN 325 MG TABLET (FP) ONE (17:03)
[2016-10-06 17:53] VITALS: BP 141/81; PULSE 66
--- NOTE | 2016-10-08 14:18 | PATH ---
Surgical Pathology Report Patient Name: AMANDA GONZÁLES [facility]. Rec. #: [id number] /Age/Gender: 1965 (Age: 51) / M Account: [id number] Location: [facility] SURGICAL Taken: 10/06/2016 Received: 10/07/2016 Reported: 10/08/2016 Physicians: Joe Kaur M.D. Specimen(s) Received VENOUS ANEURYSM LEFT ARM Clinical History Venous aneurysm left arm Final Diagnosis VENOUS ANEURYSM, LEFT ARM, EXCISION: MARKEDLY DILATED SUBCUTANEOUS BLOOD VESSEL WITH LUMINAL THROMBUS AND FOCAL INTIMAL CALCIFICATIONS, CONSISTENT WITH ANEURYSM. Electronically Signed Ken Garcia M.D. Gross Description Received in formalin labeled "aneurysm left arm" is a 6.5 cm in length x 3.7 cm in diameter dilated vessel with an attached 8.5 x 3.4 cm brown, elliptical portion of skin. Sectioning reveals red brown blood clot and focally calcified segura plaque within the vessel. Lacing Cutter sections are submitted in 2 cassettes DL/10/07/2016 saudi/10/07/2016
--- NOTE | 2016-10-18 12:37 | OP ---
DATE OF OPERATION: 10/06/2016 SURGEON: Joe Wade MD OPERATION: Excision of thrombosed venous aneurysm, left arm. PREOPERATIVE DIAGNOSIS: Thrombosed venous aneurysm, left arm. POSTOPERATIVE DIAGNOSIS: Thrombosed venous aneurysm, left arm. ANESTHESIA: Fractional. ANESTHESIOLOGIST: Jack Raza MD OPERATIVE FINDINGS: At the site of old AV fistula were several large venous aneurysms in the left upper arm. OPERATIVE PROCEDURE: Following routine patient identification with side and site verification, intravenous sedation was established. The left arm was prepped with ChloraPrep. Time-out was performed. Xylocaine 1% was infiltrated over the areas of venous aneurysm. An elliptical incision was made over the largest aneurysm. It was carried down using cautery through subcutaneous tissues to the wall of the vein. The vein was then with sharp and blunt dissection from the surrounding tissues and excised. The distal end was ligated with Vicryl tie. The wound was irrigated, closed with interrupted suture of 3-0 Vicryl in the subcutaneous tissues and skin lucía. Sterile dressing was applied, and the patient was taken to the recovery area in stable condition. JOE WADE M.D. [id number]
== END 2016-10-06 18:05 | disposition home or self-care (01) ==
LOC: JASU-SURG 11:18
PROVIDERS: ATTEND Surgery
PROC: 05BF0ZZ Excision of Left Cephalic Vein, Open Approach (ICD-10-PCS; principal; 2016-10-06 13:00)
DX: I77.0 Arteriovenous fistula, acquired (principal); I12.0 Hypertensive chronic kidney disease with stage 5 chronic kidney disease or end stage renal disease; N18.6 End stage renal disease; Z94.0 Kidney transplant status
CPT/HCPCS: 36415; 84132; 85610; 85730; 88304-TC; 94760

== ENCOUNTER 2016-10-19 10:44 | Inpatient (IN) | payer OTHER, BC ==
--- NOTE | 2016-10-19 11:03 | PDOC ---
History of Present Illness - General History Source: Patient, Old Records Exam Limitations: No Limitations - History of Present Illness Initial Comments: 10/19/16 11:44 The patient is a 51 year old male with past medical history of hypertension and ESRD (on dialysis TTS) who presents to the ED with complaints of fever and body aches for one day. Tmax was 102.6 in ER. The patient states his symptoms began after receiving dialysis yesterday. He also complains of diffuse abdominal pain and episodes of vomiting. He reports taking two tylenol at 9 am today. The patient relates his symptoms to a similar episode two months ago where he had positive blood cultures for Staph aureus. He also notes that he recently had surgery two weeks ago for an abscess on his left arm. He denies any chest pain or shortness of breath. 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 Patient is unable to produce urine. Supervisor Intermediates: Dr. Gonzalo Barros PCP: Dr. Navarro <Becka Larios - Last Filed: 10/19/16 15:20> <Brigida Dukes - Last Filed: 10/19/16 16:43> - General Chief Complaint: SIRS, Suspected/Possible Stated Complaint: BODYACHES Time Seen by Provider: 10/19/16 10:58 Past History <Becka Larios - Last Filed: 10/19/16 15:20> - Past Medical History Anemia: No Asthma: No Cancer: No Cardiac Disorders: No CVA: No COPD: No CHF: No Dementia: No Diabetes: No Dialysis: Yes (, , SAT) GI Disorders: No Disorders: Yes (DOES NOT VOID, ESRD, 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, t,t,sat) HTN: Yes Hypercholesterolemia: No HIV: No Liver Disease: No Suicide Attempt (Hx): No Seizures: No Thyroid Disease: No - Surgical History Abdominal Surgery: Yes (08/2007 KIDNEY TRANSPLANT-2011REJECTED) Appendectomy: No Cardiac Surgery: No Cholecystectomy: No Lung Surgery: No Neurologic Surgery: No Orthopedic Surgery: No - Immunization History Immunization Up to Date: Yes - Psycho/Social/Smoking Cessation Hx Anxiety: No Suicidal Ideation: No Smoking Status: No Smoking History: Never smoked Have you smoked in the past 12 months: No Number of Cigarettes Smoked Daily: 0 Cigars Per Day: 0 Information on smoking cessation initiated: No Hx Alcohol Use: No Drug/Substance Use Hx: No Substance Use Type: None Hx Substance Use Treatment: No <ErnstBrigida - Last Filed: 10/19/16 16:43> - Past Medical History Allergies/Adverse Reactions: Allergies Allergy/AdvReac Type Severity Reaction Status Date / Time No Known Drug Allergies Allergy Verified 10/19/16 10:50 Home Medications: Ambulatory Orders Amlodipine Besylate [Norvasc -] 10 mg PO DAILY 08/30/16 Clonidine HCl 0.3 mg PO Q12H 08/30/16 Labetalol HCl [Normodyne -] 200 mg PO Q8H 08/30/16 Review of Systems - Review of Systems Able to Perform ROS?: Yes Comments:: 10/19/16 11:45 GENERAL/CONSTITUTIONAL: Present: fever, chills HEAD, EYES, EARS, NOSE AND THROAT: No change in vision. No ear pain or discharge. No sore throat. CARDIOVASCULAR: No chest pain or shortness of breath. RESPIRATORY: No cough, wheezing, or hemoptysis. GASTROINTESTINAL: Present: nausea, vomiting, abdominal pain No diarrhea or constipation. GENITOURINARY: No dysuria, frequency, or change in urination. MUSCULOSKELETAL: Present: body aches SKIN: No rash NEUROLOGIC: No headache, vertigo, loss of consciousness, or change in strength/ sensation. ENDOCRINE: No increased thirst. No abnormal weight change. HEMATOLOGIC/LYMPHATIC: No anemia, easy bleeding, or history of blood clots. ALLERGIC/IMMUNOLOGIC: No hives or skin allergy. All Other Systems: Reviewed and Negative <Becka Larios - Last Filed: 10/19/16 15:20> *Physical Exam - Vital Signs Last Vital Signs Temp Pulse Resp BP Pulse Ox 102.6 F H 98 H 18 149/79 98 10/19/16 10:52 10/19/16 10:52 10/19/16 10:52 10/19/16 10:52 10/19/16 10:52 - Physical Exam Comments: 10/19/16 11:52 GENERAL: Well appearing. Awake, alert, and fully oriented, in no acute distress HEAD: No signs of trauma EYES: PERRLA, EOMI, sclera anicteric, conjunctiva clear ENT: Auricles normal inspection, hearing grossly normal, nares patent, oropharynx clear without exudates. Moist mucosa NECK: Normal ROM, supple, no lymphadenopathy, JVD, or masses LUNGS: Breath sounds equal, clear to auscultation bilaterally. No wheezes, and no crackles HEART: Tachycardic, regular rhythm no murmurs, no rubs or gallops ABDOMEN: Soft, diffuse mild tenderness, normoactive bowel sounds. No guarding, no rebound. No masses. EXTREMITIES: Left upper arm with AV fistula, positive thrill. Healing surgical wound to distal upper left arm, no cellulitis and no drainage. Normal range of motion, no edema. No clubbing or cyanosis. No cords, erythema, or tenderness NEUROLOGICAL: Cranial nerves II through XII grossly intact. Normal speech, normal gait SKIN: Warm, Dry, normal turgor, psoriatic rash to extremities bilaterally. <Becka Larios - Last Filed: 10/19/16 15:20> - Vital Signs Last Vital Signs Temp Pulse Resp BP Pulse Ox 102.6 F H 98 H 18 149/79 98 10/19/16 10:52 10/19/16 10:52 10/19/16 10:52 10/19/16 10:52 10/19/16 10:52 <Brigida Dukes - Last Filed: 10/19/16 16:43> Heart Score/ECG Review - ECG Intrepretation Comment:: 10/19/16 14:55 ECG obtained at 14:41 Normal sinus at [address] and T wave abnormality. <HarrietBecka - Last Filed: 10/19/16 15:20> ED Treatment Course - LABORATORY CBC & Chemistry Diagram: 10/19/16 11:40 10/19/16 11:40 - RADIOLOGY Radiograph Interpretation: 10/19/16 11:51 Chest X-ray as reviewed by Dr. Begum reports no acute pathology. 10/19/16 14:37 CT Scan of abdomen as reviewed by Dr. Gonzalez reports no definite acute pathology. <HarrietBecka - Last Filed: 10/19/16 15:20> - LABORATORY CBC & Chemistry Diagram: 10/19/16 11:40 10/19/16 11:40 <Brigida Dukes - Last Filed: 10/19/16 16:43> Medical Decision Making - Medical Decision Making 10/19/16 14:45 Phone call placed to Dr. Bahena, covering for Dr. Navarro. Awaiting call back. 10/19/16 15:[address] Bahena and case was discussed. <Becka Larios - Last Filed: 10/19/16 15:20> - Medical Decision Making Pt with prior history of bacteremia in August requiring inpatient hospitalization. He has recent history of LUE abscess that was I&D'd in the OR by Dr. Kaur. The wound is intact, no drainage, no cellulitis surrounding it. This may have been the point of entry for bacteria. No other obvious source of fever found. Patient does not make urine. CXR and CT a/p no acute findings. He has leukocytosis on CBC. Will treat with empiric abx and admit. <Brigida Dukes - Last Filed: 10/19/16 16:43> *DC/Admit/Observation/Transfer - Attestations Scribe Attestion: 10/19/16 11:46 Documentation prepared by Becka Larios, acting as emergency medical technician for Brigida Dukes MD. <Becka Larios - Last Filed: 10/19/16 15:20> - Discharge Dispostion Admit: Yes <Brigida Dukes - Last Filed: 10/19/16 16:43> Diagnosis at time of Disposition: Fever Qualifiers: Fever type: unspecified Qualified Code(s): R50.9 - Fever, unspecified - Discharge Dispostion Condition at time of disposition: Guarded - Referrals Referrals: Magan Navarro MD [Primary Care Provider] -
[2016-10-19] MEDS ORDERED: OXYCODONE/APAP 5/325MG COMBO TABLET PO ONE (11:41)
[2016-10-19] MEDS ORDERED: ACETAMINOPHEN 325 MG TABLET (FP) ONE ×2 (11:43→15:40)
[2016-10-19] MEDS ORDERED: OXYCODONE/APAP 5/325MG COMBO TABLET ONE (11:44)
[2016-10-19 11:53] LABS: MCH 28.5 pg (25.7-33.7); MCHC 32.6 g/dl (32.0-35.9); MEAN CELL VOLUME 87.5 fl (80-96); MEAN PLT VOLUME 7.9 fl (7.5-11.1); PLATELET COUNT 199 K/MM3 (134-434); RDW 18.2 % (11.9-15.9); WHITE BLOOD COUNT 16.2 K/mm3 (4.0-10.0)
[2016-10-19] MEDS ORDERED: VANCOMYCIN 1,000 MG in DEXTROSE 5%-WATER - 250 ML IVPB ONE (12:03)
[2016-10-19] MEDS ORDERED: PIPERACILLIN/TAZOB 3.375 GM 3.375 GM in DEXTROSE 5%-WATER - 50 ML IVPB ONE (12:03)
[2016-10-19 12:05] LABS: VENOUS PH 7.41 (7.32-7.42)
[2016-10-19 12:07] LABS: VENOUS BLOOD GAS HCO3 20.8 meq/L (19-25)
[2016-10-19 12:09] LABS: INR 1.51 (0.82-1.09); PROTHROMBIN TIME (PATIENT) 16.8 SEC (9.98-11.88)
[2016-10-19] MEDS ORDERED: PIPERACILLIN/TAZOB 3.375 GM 50 ML IVPB ONE (12:10)
[2016-10-19 12:11] LABS: ACTIVATED PTT 35.8 SECONDS (26.9-34.4)
[2016-10-19] MEDS ORDERED: VANCOMYCIN 1 GRAM (PRE-DOCKED) 250 ML IVPB ONE (12:11)
[2016-10-19 12:23] LABS: ANISOCYTOSIS 1+; METAMYELOCYTE 1 % (0-2); MICROCYTOSIS 1+; PLATELET COMMENT2 NO CLUMPING NOTED; PLATELET ESTIMATE ADEQUATE (NORMAL)
[2016-10-19 12:24] LABS: ALBUMIN 3.5 g/dl (3.4-5.0); ANION GAP 17 (8-16); BILIRUBIN,TOTAL 0.4 mg/dL (0.2-1.0); CALCIUM 8.2 mg/dL (8.5-10.1); CO2 21 mmol/L (21-32); GLUCOSE,RANDOM 95 mg/dL (74-106); SGPT/ALT 9 U/L (12-78); TOT PROT 7.4 g/dl (6.4-8.2)
[2016-10-19 12:30] LABS: ALK PHOS 152 U/L (45-117); COCKROFT - GAULT 8.59
[2016-10-19 12:37] LABS: SGOT/AST 16 U/L (15-37)
[2016-10-19 12:38] LABS: CREATININE 12.2 mg/dL (0.7-1.3)
[2016-10-19] MEDS ORDERED: morphine CARPU-JECT 2 MG/1 ML DISP.SYRIN IVPUSH ONE (15:29)
[2016-10-19] MEDS ORDERED: ACETAMINOPHEN 500 MG TABLET (FP) PO ONE (15:29)
[2016-10-19] MEDS ORDERED: morphine CARPU-JECT 2 MG/1 ML DISP.SYRIN ONE (15:38)
[2016-10-19] MEDS ORDERED: PATIENT'S OWN MEDICATION (NON-FORMULARY) (Clonidine Hcl [Clonidine Hcl] 0.2 MG) PO SCH (16:15)
[2016-10-19] MEDS ORDERED: cloNIDine HCL 0.1 MG TABLET PO SCH (16:15)
[2016-10-19] MEDS ORDERED: LABETALOL HCL 200 MG TABLET (FP) PO SCH (16:15)
[2016-10-19 20:52] VITALS: BMI 34.4
[2016-10-19] MEDS: ACETAMINOPHEN 325 MG TABLET (FP) PO PRN ×2 (21:29→21:31)
[2016-10-19] MEDS: LABETALOL HCL 200 MG TABLET (FP) PO SCH (21:31)
[2016-10-19] MEDS: HEPARIN NA (PORCINE) 5,000 UNITS/ML 1ML VIAL SQ SCH ×2 (21:31→21:34)
[2016-10-19] MEDS: cloNIDine HCL 0.1 MG TABLET PO SCH (21:43)
[2016-10-19] MEDS: oxyCODONE HCL 5 MG TABLET PO PRN (22:52)
[2016-10-20] MEDS: oxyCODONE HCL 5 MG TABLET PO PRN ×2 (06:14→22:17)
[2016-10-20] MEDS: LABETALOL HCL 200 MG TABLET (FP) PO SCH ×3 (06:14→22:16)
[2016-10-20 07:18] LABS: BASOPHIL 0.4 % (0-2.0); EOSINOPHIL 0.1 % (0-4.5); MCH 28.4 pg (25.7-33.7); MCHC 32.5 g/dl (32.0-35.9); MEAN CELL VOLUME 87.4 fl (80-96); MEAN PLT VOLUME 7.8 fl (7.5-11.1); NEUTROPHILS 87.1 % (42.8-82.8); PLATELET COUNT 176 K/MM3 (134-434); RDW 17.6 % (11.9-15.9)
[2016-10-20 07:23] LABS: ALBUMIN 3.1 g/dl (3.4-5.0); BILIRUBIN,TOTAL 0.5 mg/dL (0.2-1.0); CALCIUM 7.9 mg/dL (8.5-10.1); TOT PROT 6.9 g/dl (6.4-8.2)
--- NOTE | 2016-10-20 07:25 | EKG ---
Test Reason : Blood Pressure : / mmHG Vent. Rate : 084 BPM Atrial Rate : 084 BPM P-R Int : 190 ms QRS Dur : 098 ms QT Int : 378 ms P-R-T Axes : 075 -25 077 degrees QTc Int : 446 ms NORMAL SINUS RHYTHM LEFTWARD AXIS MINIMAL VOLTAGE CRITERIA FOR LVH, MAY BE NORMAL VARIANT NONSPECIFIC ST AND T WAVE ABNORMALITY ABNORMAL ECG WHEN COMPARED WITH ECG OF 30-AUG-2016 09:55, NO SIGNIFICANT CHANGE WAS FOUND Confirmed by BIRDIE DUMONT MD (2016) on 10/20/2016 7:24:45 AM Referred By: Confirmed By:BIRDIE DUMONT MD
[2016-10-20 07:29] LABS: COCKROFT - GAULT 8.41
[2016-10-20 07:37] LABS: CREATININE 15.4 mg/dL (0.7-1.3)
--- NOTE | 2016-10-20 10:13 | CONSULT ---
Consult - text type - Consultation Consultation Note: Renal Consult for ESRD on HD This is a 51 year old Gentleman with PMhx of ESRD on HD (TTS), Hypertension, Hx of Renal Transplant (now not functioning), Psoriasis who presents with subjective Fever, Nausea, Abd discomfort after dialysis and admitted for r/o recurrent bactermia. Pt s/p recent hospital admission for MSSA bactermia with suspected source as the skin breakdown from psoriasis. Last dose of Ancef as outpatient was 09/26. Pt states that he feels better today. No fevers now. s/p Vanco and Zosyn on presentation. Blood cultures sent, no results yet. No N/V/D. Has tenderness on left arm and back with noticeable swelling. Last dialysis was Thursday. PMhx: as above Allergies: NKDA Family Hx: NC Social Hx: No T/A/D ROS: + Fever, abd pain, Nausea. + Loss of apetite. Home Meds: Home Medications Medication Instructions Recorded RX: Amlodipine Besylate [Norvasc -] 10 mg PO DAILY 08/30/16 RX: Clonidine HCl 0.3 mg PO Q12H 08/30/16 RX: Labetalol HCl [Normodyne -] 200 mg PO Q8H 08/30/16 Vital Signs Temperature 98.8 F 10/20/16 06:00 Pulse Rate 79 10/20/16 06:00 Respiratory Rate 24 10/20/16 06:00 Blood Pressure 137/75 10/20/16 06:00 O2 Sat by Pulse Oximetry (%) 100 10/19/16 18:32 Intake & Output 10/17/16 10/18/16 10/19/16 10/20/16 23:59 23:59 23:59 23:59 Intake Total 300 400 Balance 300 400 Weight 226 lb 2 oz Gen: NAD HEENT: NC/AT, MMM, No JVD CVS: RRR, No M/R Lungs: CTA, no rales or wheeze Abd: soft NT/ND Ext: Trace edema, Psoriasis with some small cuts, Right UE swelling. Access: Left arm AVF + thrill, Rajan on Aneurysm removal site. CBC, BMP 10/20/16 06:15 10/20/16 06:15 Laboratory Tests 10/20/16 06:15 Calcium 7.9 L Albumin 3.1 L Current Medications Acetaminophen (Tylenol -) 650 mg PO Q4H PRN PRN Reason: FEVER OR PAIN Last Admin: 10/19/16 21:29 Dose: 650 mg Amlodipine Besylate (Norvasc -) 10 mg PO DAILY [facility] Clonidine (Catapres -) 0.2 mg PO BID [facility] Last Admin: 10/19/16 21:43 Dose: 0.2 mg Heparin Sodium (Porcine) (Heparin -) 5,000 unit SQ BID [facility] Last Admin: 10/19/16 21:34 Dose: Not Given Vancomycin HCl (Vancomycin (Pre-Docked)) 250 mls @ 166.667 mls/hr IVPB ONCE ONE PRN Reason: Protocol Stop: 10/20/16 10:45 Labetalol HCl (Normodyne -) 200 mg PO TID [facility] Last Admin: 10/20/16 06:14 Dose: 200 mg Oxycodone HCl (Roxicodone -) 5 mg PO Q6H PRN Last Admin: 10/20/16 06:14 Dose: 5 mg A/P 51 year old Gentleman with PMhx of ESRD on HD (TTS), Hypertension, Hx of Renal Transplant (now not functioning), Psoraisis who presents with Fever, Nausea, Abd discomfort after dialysis and admitted for r/o recurrent bactermia. #Fever r/o recurrent bactermia Cultures sent and are pending s/p Vanco and Zosyn Will redose vanco with HD today pending levels #ESRD on HD/Hyperkalemia Last Hd was Thursday Given moderate hyperkalemia will plan for dialysis today Renal diet Trend BMP daily #Hypertension Continue Clonidine, Labetalol, Amlodpine Goal BP < 140/90 Thank You Denny Barros
[2016-10-20] MEDS: cloNIDine HCL 0.1 MG TABLET PO SCH ×2 (11:01→22:16)
[2016-10-20] MEDS: amLODIPine BESYLATE 10 MG TABLET (FP) PO SCH (11:02)
[2016-10-20] MEDS: HEPARIN NA (PORCINE) 5,000 UNITS/ML 1ML VIAL SQ SCH ×2 (11:04→22:16)
--- NOTE | 2016-10-20 11:26 | PN ---
Progress Note (short form) - Note Progress Note: ID consult dictated imp/reccd 51 year old man with psoriasis on HD via left AVF recent excision of thrombosed aneurysm 10/06 left arm recently finished cefazolin on 09/26 for MSSA bacteremia felt to be secondary to skin source (psoriasis) now admitted with fever after HD on Thursday with myalgia, right arm pain and swelling extending to right chest wall and back also nausea and vomiting had ct abd/pelvis in ed- unrevealing- N/V resolved cultures drawn and given vanco/zosyn now feels better but with persistent swelling of the right upper arm and upper chest pe notable for the swelling of the right upper arm with induration and pain/ induration extending to the right chest wall no ecchymoses fever r/o recurrent bacteremia swelling right arm and chest wall- d/w renal, will get ct scan with contrast prior to HD today vanco by levels fortaz (empiric gn coverage) f/u cultures esrd/hd recent MSSA bacteremia Problem List - Problems (1) Fever Code(s): R50.9 - FEVER, UNSPECIFIED Qualifiers: Fever type: unspecified Qualified Code(s): R50.9 - Fever, unspecified (2) Cellulitis of right upper arm Code(s): L03.113 - CELLULITIS OF RIGHT UPPER LIMB (3) ESRD (end stage renal disease) on dialysis Code(s): N18.6 - END STAGE RENAL DISEASE Z99.2 - DEPENDENCE ON RENAL DIALYSIS (4) History of staph septicemia Code(s): Z86.19 - PERSONAL HISTORY OF OTHER INFECTIOUS AND PARASITIC DISEASES (5) Psoriasis Code(s): L40.9 - PSORIASIS, UNSPECIFIED
--- NOTE | 2016-10-20 13:03 | HP ---
Admitting History and Physical - Admission History of Present Illness: 51 year old male with past medical history of hypertension and ESRD (on dialysis TTS) who presents to the ED with complaints of fever and body aches for one day. Tmax was 102.6 in ER. The patient states his symptoms began after receiving dialysis yesterday. He also complains of diffuse abdominal pain and episodes of vomiting. He reports taking two tylenol at 9 am today. The patient relates his symptoms to a similar episode two months ago where he had positive blood cultures for Staph aureus. He also notes that he recently had surgery two weeks ago for an abscess on his left arm. He denies any chest pain or shortness of breath. This am c/o rt axilla swelling and pain - Past Medical History Cardiovascular: Yes: HTN, Hyperlipdemia Renal/: Yes: Renal Failure, Hemodialysis Dermatology: Yes: Psoriasis - Past Surgical History Past Surgical History: Yes: AV Fistula/Graft, Kidney Transplant (failed) - Smoking History Smoking history: Never smoked Have you smoked in the past 12 months: No Aproximately how many cigarettes per day: 0 - Alcohol/Substance Use Hx Alcohol Use: No - Social History ADL: Independent History of Recent Travel: No Home Medications - Allergies Allergies/Adverse Reactions: Allergies Allergy/AdvReac Type Severity Reaction Status Date / Time No Known Drug Allergies Allergy Verified 10/19/16 10:50 - Home Medications Home Medications: Ambulatory Orders Amlodipine Besylate [Norvasc -] 10 mg PO DAILY 08/30/16 Clonidine HCl 0.3 mg PO Q12H 08/30/16 Labetalol HCl [Normodyne -] 200 mg PO Q8H 08/30/16 Review of Systems - Review of Systems Constitutional: reports: Fever, Night Sweats Cardiovascular: denies: Chest Pain Respiratory: denies: SOB Gastrointestinal: denies: Abdominal Pain Musculoskeletal: reports: Extremity Pain, Other (rt axilla pain and swelling) Physical Examination Vital Signs: Vital Signs Temperature 98.7 F 10/20/16 09:00 Pulse Rate 79 10/20/16 09:00 Respiratory Rate 20 10/20/16 09:00 Blood Pressure 143/88 10/20/16 09:00 O2 Sat by Pulse Oximetry (%) 100 10/20/16 09:00 Cardiovascular: Yes: Regular Rate and Rhythm Respiratory: Yes: Regular, CTA Bilaterally Gastrointestinal: Yes: Normal Bowel Sounds, Soft Extremities: Yes: Other (rt axilla pain and swelling) Labs: CBC, BMP 10/20/16 06:15 10/20/16 06:15 Problem List - Problems (1) Fever Assessment/Plan: iv abx culturs id consult Code(s): R50.9 - FEVER, UNSPECIFIED Qualifiers: Fever type: unspecified Qualified Code(s): R50.9 - Fever, unspecified (2) Cellulitis of right upper arm Assessment/Plan: iv abx Code(s): L03.113 - CELLULITIS OF RIGHT UPPER LIMB (3) ESRD (end stage renal disease) on dialysis Assessment/Plan: renal consult dialysis Code(s): N18.6 - END STAGE RENAL DISEASE Z99.2 - DEPENDENCE ON RENAL DIALYSIS (4) Axillary swelling Assessment/Plan: ct scan Code(s): M79.89 - OTHER SPECIFIED SOFT TISSUE DISORDERS
[2016-10-20] MEDS ORDERED: VANCOMYCIN 1 GRAM (PRE-DOCKED) 250 ML IVPB ONE (15:45)
[2016-10-20] MEDS: CEFTAZIDIME PENTAHYDRATE 1 GM in DEXTROSE 5%-WATER - 50 ML IVPB SCH (19:02)
[2016-10-21] MEDS: LABETALOL HCL 200 MG TABLET (FP) PO SCH ×3 (06:24→21:58)
[2016-10-21 07:06] LABS: BASOPHIL 0.4 % (0-2.0); EOSINOPHIL 1.3 % (0-4.5); MCHC 33.3 g/dl (32.0-35.9); MEAN CELL VOLUME 87.2 fl (80-96); MEAN PLT VOLUME 7.8 fl (7.5-11.1); NEUTROPHILS 79.2 % (42.8-82.8); PLATELET COUNT 167 K/MM3 (134-434); RDW 17.8 % (11.9-15.9); WHITE BLOOD COUNT 8.3 K/mm3 (4.0-10.0)
[2016-10-21 07:28] LABS: CALCIUM 8.6 mg/dL (8.5-10.1); PHOSPHOROUS 7.8 mg/dL (2.5-4.9)
[2016-10-21 07:33] LABS: COCKROFT - GAULT 12.58
[2016-10-21 07:36] LABS: CREATININE 10.3 mg/dL (0.7-1.3)
[2016-10-21] MEDS ORDERED: PT OWN MED DRAWER 7, Y5N ONE (09:36)
[2016-10-21] MEDS: CEFTAZIDIME PENTAHYDRATE 1 GM in DEXTROSE 5%-WATER - 50 ML IVPB SCH (09:37)
[2016-10-21] MEDS: cloNIDine HCL 0.1 MG TABLET PO SCH ×2 (09:37→21:57)
[2016-10-21] MEDS: HEPARIN NA (PORCINE) 5,000 UNITS/ML 1ML VIAL SQ SCH ×3 (09:37→22:01)
[2016-10-21] MEDS: amLODIPine BESYLATE 10 MG TABLET (FP) PO SCH (09:37)
[2016-10-21] MEDS ORDERED: cefTAZidime PENTAHYDRATE 1 GM/50ML PRE-DOCKED (RESTRICTED TO ID) IVPB SCH (10:00)
--- NOTE | 2016-10-21 11:34 | PN ---
Progress Note (short form) - Note Progress Note: Renal Follow up for ESRD on HD Pt seen and examined at the bedside awake and alert no sob, chest pain right arm remains swollen US and CT findings noted Vital Signs Temperature 97.5 F L 10/21/16 05:53 Pulse Rate 76 10/21/16 05:53 Respiratory Rate 18 10/21/16 05:53 Blood Pressure 133/81 10/21/16 05:53 O2 Sat by Pulse Oximetry (%) 99 10/20/16 21:00 Intake & Output 10/18/16 10/19/16 10/20/16 10/21/16 23:59 23:59 23:59 23:59 Intake Total 300 950 200 Balance 300 950 200 Weight 226 lb 2 oz Gen: NAD CVS: RRR, No M/R Lungs: CTA, no rales or wheeze Abd: soft NT/ND Ext: Trace edema, Psoriasis with some small cuts, Right UE swelling. Access: Left arm AVF + thrill, Rajan on Aneurysm removal site. CBC, BMP 10/21/16 06:20 10/21/16 06:20 Laboratory Tests 10/21/16 06:20 Calcium 8.6 Phosphorus 7.8 H D Current Medications Acetaminophen (Tylenol -) 650 mg PO Q4H PRN PRN Reason: FEVER OR PAIN Last Admin: 10/19/16 21:29 Dose: 650 mg Amlodipine Besylate (Norvasc -) 10 mg PO DAILY [facility] Last Admin: 10/21/16 09:37 Dose: 10 mg Clonidine (Catapres -) 0.2 mg PO BID [facility] Last Admin: 10/21/16 09:37 Dose: 0.2 mg Heparin Sodium (Porcine) (Heparin -) 5,000 unit SQ BID [facility] Last Admin: 10/21/16 09:37 Dose: 5,000 unit Ceftazidime 1 gm/ Dextrose 50 mls @ 100 mls/hr IVPB DAILY [facility] Last Admin: 10/21/16 09:37 Dose: 100 mls/hr Labetalol HCl (Normodyne -) 200 mg PO TID [facility] Last Admin: 10/21/16 06:24 Dose: 200 mg Oxycodone HCl (Roxicodone -) 5 mg PO Q6H PRN Last Admin: 10/20/16 22:17 Dose: 5 mg A/P 51 year old Gentleman with PMhx of ESRD on HD (TTS), Hypertension, Hx of Renal Transplant (now not functioning), Psoraisis who presents with Fever, Nausea, Abd discomfort after dialysis and admitted for r/o recurrent bactermia. #Fever r/o recurrent bactermia Cultures w/o growth to date ID following s/p Vanco will redose as per ID recs #ESRD on HD/Hyperkalemia s/p HD yesterday (off schedule) because of high K no acute indication for dialysis today will check labs in am tomorrow, if K is acceptable will plan for next HD on #Hypertension Continue Clonidine, Labetalol, Amlodpine Goal BP < 140/90 #IJ/Subclavian thrombosis/Enlarged LN's ? related to prior Hd catheter placement will consult Vascular unclear if pt need intervention or A/C LNs likely enlarged due to poor drainage from arm Denny Barros
--- NOTE | 2016-10-21 12:45 | PN ---
Progress Note (short form) - Note Progress Note: still with right arm swelling, also right chest wall induration no fever Vital Signs Period Temp Pulse Resp BP Sys/Romeo Pulse Ox Last 24 Hr 97.5 F-98.2 F 70-82 18-20 125-160/74-100 99-99 cor-rrr lungs-clear abd soft, nt ext psoriasis plaques unchanged CBC, BMP 10/21/16 06:20 10/21/16 06:20 Microbiology 10/19/16 11:04 Blood - Peripheral Venous Blood Culture - Preliminary NO GROWTH OBTAINED AFTER 48 HOURS, INCUBATION TO CONTINUE FOR 3 DAYS. 10/19/16 11:04 Blood - Peripheral Venous Blood Culture - Preliminary NO GROWTH OBTAINED AFTER 48 HOURS, INCUBATION TO CONTINUE FOR 3 DAYS. imp/reccd fever/swelling right arm/chest/axilla area 51 year old man with psoriasis on HD via left AVF recent excision of thrombosed aneurysm 10/06 left arm recently finished cefazolin on 09/26 for MSSA bacteremia felt to be secondary to skin source (psoriasis) ct scan and duplex noted- agree with vascular evaluation continue vancomycin with HD, continue fortaz esrd/hd recent MSSA bacteremia Problem List - Problems (1) Fever Code(s): R50.9 - FEVER, UNSPECIFIED Qualifiers: Fever type: unspecified Qualified Code(s): R50.9 - Fever, unspecified (2) Cellulitis of right upper arm Code(s): L03.113 - CELLULITIS OF RIGHT UPPER LIMB (3) ESRD (end stage renal disease) on dialysis Code(s): N18.6 - END STAGE RENAL DISEASE Z99.2 - DEPENDENCE ON RENAL DIALYSIS (4) History of staph septicemia Code(s): Z86.19 - PERSONAL HISTORY OF OTHER INFECTIOUS AND PARASITIC DISEASES (5) Psoriasis Code(s): L40.9 - PSORIASIS, UNSPECIFIED
--- NOTE | 2016-10-21 13:55 | CONS ---
INFECTIOUS DISEASE CONSULTATION: DATE OF CONSULTATION: DATE OF DICTATION: 10/20/2016 REQUESTED BY: Faisal Bahena MD DICTATED BY: Bharat Macedo MD HISTORY OF PRESENT ILLNESS: This is a 51-year-old man who has been on dialysis since 2005. He did have a renal transplant that failed, and dialysis was resumed. He has a history of psoriasis as well. Recent methicillin staph bacteremia in August of 2016 at which time he was felt to have a skin source and treated with cephazolin, which he completed on September 26. He recently underwent an excision of a non-functioning thrombosed aneurysm in his left arm on the 06 of October. He went to dialysis on Thursday. Shortly thereafter he developed fevers, chills and myalgias. He started having a lot of body aches. His fever was 102.6 in the emergency room. He took some Tylenol. He started having abdominal pain and vomiting, and he presented to the emergency room. As well, he reports that at the same this happened, he noted he had pain and swelling of his right arm, which extended into his right chest wall. He had blood cultures drawn. He had a CAT scan of his abdomen and pelvis that was negative, and he received vancomycin and Zosyn in the emergency room. He is currently feeling better. PAST MEDICAL HISTORY: Notable for hypertension, end-stage renal disease/on dialysis. He has a history as well of hypertension. SURGICAL HISTORY: Notable for left AV fistula, and he is status post failed kidney transplant in 2010. ALLERGIES: He has no known drug allergies. MEDICATIONS: He takes amlodipine, clonidine and labetalol as an outpatient. SOCIAL HISTORY: He is . He lives with his . There is no history of any cigarette or substance use. PHYSICAL EXAM: General: He is awake and alert. Vital signs: His T-max is 102.6. Current temperature is 98.8. Pulse is 79. Blood pressure is 137/75. Respiratory rate is 24. HEENT exam: He is normocephalic. His eyes are anicteric. He has no conjunctival hemorrhages. His neck is supple. He has no thrush. Lungs: Clear to auscultation. Heart: Regular rate and rhythm. Abdomen: Soft, nontender. Extremities: Without edema. He has some induration of his right upper arm. He has some induration, as well, of his right chest wall extending to the area below his right axilla and around to his back. There is minimal erythema, and there is no fluctuance. Skin exam: He has some psoriasis of both his hands. He has large psoriatic plaques on his legs for which he is using steroids and getting further therapy, and he has some mild psoriasis of both his elbows. LABS: Notable for a white count on admission of 16.2, this morning 12. Hemoglobin is 12. Platelets are 176. INR is 1.5. His BUN and creatinine are 63 and 15.4. LFTs are normal. Blood cultures are pending. SUMMARY: In summary, this is a 51-year-old man with fever. Concerns would include recurrent bacteremia. The swelling of the right arm and chest wall is noted. End stage renal disease, on dialysis. PLAN: 1. Discussed with renal. 2. We will get a CAT scan with contrast prior to dialysis today. 3. Would follow his vancomycin dosing by levels, which I discussed with renal as well. 4. Would give him empiric gram negative coverage with Fortaz and follow up his cultures. BHARAT MACEDO M.D. [id number]
--- NOTE | 2016-10-21 16:59 | CONSULT ---
<Fabiola Marques - Last Filed: 10/22/16 15:26> - Consultation REQUESTING PROVIDER: Dr. Kaur CONSULT REQUEST: We have been asked to surgically evaluate this patient for right IJ clot. PCP:Douglas Zapata HISTORY OF PRESENT ILLNESS:The patient is a 51 yo male with ESRD on HD via a left upper extremity fistula. He had recent surgery at [facility] for an excision of LUE thrombosed venous aneurysm. On Thursday he developed joint villela, fever and abd pain with nausea. He came to the ER for evaluation and was admitted. During his admission his LUE was noted to be swollen and further studies were completed which revealed right internal jugular clot. He states that his right arm/chest/hand over the past years has been swollen from time to time and sypically improves on its own. He hasn't had any workup regarding this in the past. He has had previous permacath's in his right chest in the past. No fevers or coughs expect for this current illness/admission. He was noted to have a fever to 102.6 upon admission. PMHx: HTN, ESRD, psoriasis PSHx: Kidney transplant, LUE fistula Home Medications Medication Instructions Recorded Amlodipine Besylate [Norvasc -] 10 mg PO DAILY 08/30/16 Clonidine HCl 0.3 mg PO Q12H 08/30/16 Labetalol HCl [Normodyne -] 200 mg PO Q8H 08/30/16 Allergies Allergy/AdvReac Type Severity Reaction Status Date / Time No Known Drug Allergies Allergy Verified 10/19/16 10:50 REVIEW OF SYSTEMS: CONSTITUTIONAL: Improved: fever, chills CARDIOVASCULAR: Absent: chest pain, palpitations(recently seen by pre assembly wirer for routine appointment) RESPIRATORY: Absent: cough, shortness of breath GASTROINTESTINAL: Improved: abdominal pain, nausea, vomiting GENITOURINARY: Pt states that he doesn't make urine MUSCULOSKELETAL: Improved: joint pain. Right upper arm/chest tenderness with palpation SKIN: Present: chronic sores to lower ext HEMATOLOGIC/IMMUNOLOGIC: Absent: easily bleeding, bruising, denies history of clots/bleeding disorder in his family. NEUROLOGIC: Absent: headache, seizure PHYSICAL EXAM: GENERAL: Awake, alert, and fully oriented, in no acute distress. HEAD: Normal with no signs of trauma. EYES: sclera anicteric, conjunctiva clear. NECK: Normal ROM, supple without lymphadenopathy, JVD, or masses. left shoulder soft tissue mass, non-tender LUNGS: Clear to auscultation bilat anteriorly. No wheezes, and no crackles. No accessory muscle use. HEART: Regular rate and rhythm. No murmurs ABDOMEN: Soft, nontender, not distended, normoactive bowel sounds. Umbilical hernia defect, non-tender and reducible. MUSCULOSKELETAL: Normal ROM at all joints. No bony deformities or tenderness. No CVA tenderness. UPPER EXTREMITIES: 2+ pulses, warm, well-perfused. No cyanosis. Cap refill <2 seconds. LUE with palpable thrill. Rajan at anticubital region intact, clean and dry. RUE: with chronic changes to skin(thickened in appearance) no erythema from inner/upper aspect to right chest wall nipple line. Tissue appears soft, tender to right chest wall with fullnes/lymphandenopathy. Hand not swollen. LOWER EXTREMITIES: 2+ pulses, warm, well-perfused. No calf tenderness. No peripheral edema. chronic changes to lower ext, no erythema or drainged noted. NEUROLOGICAL: Normal speech, gait not observed. PSYCH: Cooperative. Good eye contact. Appropriate mood and affect. SKIN: Warm, dry, normal turgor, no rashes or lesions noted. Vital Signs Temperature 98.1 F 10/21/16 14:21 Pulse Rate 71 10/21/16 14:21 Respiratory Rate 18 10/21/16 09:00 Blood Pressure 122/72 10/21/16 14:21 O2 Sat by Pulse Oximetry (%) 99 10/21/16 09:00 Lab Results WBC 8.3 K/mm3 (4.0-10.0) D 10/21/16 06:20 RBC 4.21 M/mm3 (4.00-5.60) 10/21/16 06:20 Hgb 12.2 GM/dL (11.7-16.9) 10/21/16 06:20 Hct 36.7 % (35.4-49) 10/21/16 06:20 MCV 87.2 fl (80-96) 10/21/16 06:20 MCHC 33.3 g/dl (32.0-35.9) 10/21/16 06:20 RDW 17.8 % (11.9-15.9) H 10/21/16 06:20 Plt Count 167 K/MM3 (134-434) 10/21/16 06:20 Sodium 135 mmol/L (136-145) L 10/21/16 06:20 Potassium 4.2 mmol/L (3.5-5.1) D 10/21/16 06:20 Chloride 94 mmol/L (98-107) L 10/21/16 06:20 Carbon Dioxide 31 mmol/L (21-32) D 10/21/16 06:20 Anion Gap 10 (8-16) 10/21/16 06:20 BUN 42 mg/dL (7-18) H D 10/21/16 06:20 Creatinine 10.3 mg/dL (0.7-1.3) H* D 10/21/16 06:20 Random Glucose 88 mg/dL (74-106) 10/21/16 06:20 Calcium 8.6 mg/dL (8.5-10.1) 10/21/16 06:20 INR 1.51 (0.82-1.09) H D 10/19/16 11:40 Microbiology 10/19/16 11:04 Blood - Peripheral Venous Blood Culture - Preliminary NO GROWTH OBTAINED AFTER 48 HOURS, INCUBATION TO CONTINUE FOR 3 DAYS. 10/19/16 11:04 Blood - Peripheral Venous Blood Culture - Preliminary NO GROWTH OBTAINED AFTER 48 HOURS, INCUBATION TO CONTINUE FOR [address]: no pulmonary masses or effusion Upper ext CT: edematous changes to UE, axilla, chest wall with thrombus in the right IJ/subclavian junction. Right axilarry lymphadenopathy Duplex of right upper ext: nonocclusive right interna jugular clot. with patency of axillary, brachial, subclavian veins. Problem List - Problems (1) Axillary swelling Assessment/Plan: Pt with chronic right axillary/chest wall swelling. Admitted with sepsis and treated for a right upper extremity cellulitis. Studies revelaed chronic edematous changes to subcutaneous tissue in the region, right axially lymphadenopathy, and right IJ clot. I spoke with Dr. Kaur and he has reviewed the studies. The clot is most likely present because of the h/o of permcath placement and chronic venous hypertension to this area. At this time there is no need for anticoagulation. Plan as per the medical team is IX abx, reimage right arm and plan for possilbe right axillary biopsy Code(s): M79.89 - OTHER SPECIFIED SOFT TISSUE DISORDERS Visit type - Case Type Case Type: ED Admission - Emergency Emergency Visit: Yes ED Registration Date: 10/19/16 Care time: The patient presented to the Emergency Department on the above date and was hospitalized for further evaluation of their emergent condition. - New patient This patient is new to me today: Yes Date on this admission: 10/22/16 - Critical Care Critical Care patient: No <Joe Kaur - Last Filed: 10/22/16 18:19> - Consultation REQUESTING PROVIDER: CONSULT REQUEST: We have been asked to surgically evaluate this patient for ( specify). PCP:Douglas Zapata HISTORY OF PRESENT ILLNESS: PMHx: PSHx: Home Medications Medication Instructions Recorded Amlodipine Besylate [Norvasc -] 10 mg PO DAILY 08/30/16 Clonidine HCl 0.3 mg PO Q12H 08/30/16 Labetalol HCl [Normodyne -] 200 mg PO Q8H 08/30/16 Acetaminophen [Tylenol .Regular 650 mg PO Q4H PRN #0 tablet 10/22/16 Strength -] Labetalol HCl [Normodyne -] 200 mg PO TID tablet 10/22/16 Allergies Allergy/AdvReac Type Severity Reaction Status Date / Time No Known Drug Allergies Allergy Verified 10/19/16 10:50 REVIEW OF SYSTEMS: CONSTITUTIONAL: Absent: fever, chills, diaphoresis, generalized weakness, malaise, loss of appetite, weight change CARDIOVASCULAR: Absent: chest pain, syncope, palpitations, irregular heart rate, lightheadedness , peripheral edema RESPIRATORY: Absent: cough, shortness of breath, dyspnea with exertion, wheezing, stridor, hemoptysis GASTROINTESTINAL: Absent: abdominal pain, abdominal distension, nausea, vomiting, diarrhea, constipation, melena, hematochezia GENITOURINARY: Absent: dysuria, frequency, urgency, hesitancy, hematuria, flank pain, genital pain MUSCULOSKELETAL: Absent: myalgia, arthralgia, joint swelling, back pain, neck pain SKIN: Absent: rash, itching, pallor HEMATOLOGIC/IMMUNOLOGIC: Absent: easy bleeding, easy bruising, lymphadenopathy NEUROLOGIC: Absent: headache, focal weakness, paresthesias, dizziness, unsteady gait, seizure, mental status changes, bladder or bowel incontinence PSYCHIATRIC: Absent: anxiety, depression, suicidal or homicidal ideation, hallucinations. PHYSICAL EXAM: GENERAL: Awake, alert, and fully oriented, in no acute distress. HEAD: Normal with no signs of trauma. EYES: PERRL, sclera anicteric, conjunctiva clear. NECK: Normal ROM, supple without lymphadenopathy, JVD, or masses. LUNGS: Clear to auscultation bilat anteriorly. No wheezes, and no crackles. No accessory muscle use. HEART: Regular rate and rhythm. No murmurs ABDOMEN: Soft, nontender, not distended, normoactive bowel sounds, no guarding, no rebound, no masses. No organomegaly. MUSCULOSKELETAL: Normal ROM at all joints. No bony deformities or tenderness. No CVA tenderness. UPPER EXTREMITIES: 2+ pulses, warm, well-perfused. No cyanosis. Cap refill <2 seconds. No peripheral edema. LOWER EXTREMITIES: 2+ pulses, warm, well-perfused. No calf tenderness. No peripheral edema. NEUROLOGICAL: Normal speech, gait not observed. PSYCH: Cooperative. Good eye contact. Appropriate mood and affect. SKIN: Warm, dry, normal turgor, no rashes or lesions noted. Vital Signs Temperature 98.0 F 10/22/16 14:44 Pulse Rate 70 10/22/16 14:44 Respiratory Rate 20 10/22/16 06:24 Blood Pressure 133/62 10/22/16 14:44 O2 Sat by Pulse Oximetry (%) 99 10/21/16 21:00 Lab Results WBC 8.3 K/mm3 (4.0-10.0) D 10/21/16 06:20 RBC 4.21 M/mm3 (4.00-5.60) 10/21/16 06:20 Hgb 12.2 GM/dL (11.7-16.9) 10/21/16 06:20 Hct 36.7 % (35.4-49) 10/21/16 06:20 MCV 87.2 fl (80-96) 10/21/16 06:20 MCHC 33.3 g/dl (32.0-35.9) 10/21/16 06:20 RDW 17.8 % (11.9-15.9) H 10/21/16 06:20 Plt Count 167 K/MM3 (134-434) 10/21/16 06:20 Sodium 136 mmol/L (136-145) 10/22/16 07:30 Potassium 4.0 mmol/L (3.5-5.1) 10/22/16 07:30 Chloride 94 mmol/L (98-107) L 10/22/16 07:30 Carbon Dioxide 25 mmol/L (21-32) 10/22/16 07:30 Anion Gap 17 (8-16) H 10/22/16 07:30 BUN 59 mg/dL (7-18) H D 10/22/16 07:30 Creatinine 13.4 mg/dL (0.7-1.3) H* D 10/22/16 07:30 Random Glucose 81 mg/dL (74-106) 10/22/16 07:30 Calcium 8.3 mg/dL (8.5-10.1) L 10/22/16 07:30 INR 1.51 (0.82-1.09) H D 10/19/16 11:40 History and exam reviewed with staff. 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 No new thrombus identified on multiple imaging studies. Cause of right arm swelling, lymphadenopathy and fever unclear but is not likely due to venous disease. Left arm surgical site is clean and dry, wound healing well. AV graft is functioning well. No anticoagulation indicated at this time. I will follow in my office.
--- NOTE | 2016-10-21 19:31 | PN ---
Progress Note, Physician Chief Complaint: PATIENT AWAKE ALERT NAD - Current Medication List Current Medications: Active Medications Acetaminophen (Tylenol -) 650 mg PO Q4H PRN PRN Reason: FEVER OR PAIN Last Admin: 10/19/16 21:29 Dose: 650 mg Amlodipine Besylate (Norvasc -) 10 mg PO DAILY [facility] Last Admin: 10/21/16 09:37 Dose: 10 mg Clonidine (Catapres -) 0.2 mg PO BID [facility] Last Admin: 10/21/16 09:37 Dose: 0.2 mg Heparin Sodium (Porcine) (Heparin -) 5,000 unit SQ BID [facility] Last Admin: 10/21/16 09:37 Dose: 5,000 unit Ceftazidime 1 gm/ Dextrose 50 mls @ 100 mls/hr IVPB DAILY [facility] Last Admin: 10/21/16 09:37 Dose: 100 mls/hr Labetalol HCl (Normodyne -) 200 mg PO TID [facility] Last Admin: 10/21/16 13:43 Dose: 200 mg Oxycodone HCl (Roxicodone -) 5 mg PO Q6H PRN Last Admin: 10/20/16 22:17 Dose: 5 mg - Objective Vital Signs: Vital Signs Temperature 98.1 F 10/21/16 14:21 Pulse Rate 71 10/21/16 14:21 Respiratory Rate 18 10/21/16 09:00 Blood Pressure 122/72 10/21/16 14:21 O2 Sat by Pulse Oximetry (%) 99 10/21/16 09:00 Constitutional: Yes: No Distress Eyes: Yes: WNL HENT: Yes: WNL Neck: Yes: WNL Cardiovascular: Yes: WNL Respiratory: Yes: WNL Gastrointestinal: Yes: WNL Genitourinary: Yes: WNL, Other Musculoskeletal: Yes: WNL Extremities: Yes: WNL Edema: No Peripheral Pulses WNL: Yes Integumentary: Yes: Erythema, Other Wound/Incision: Yes: [place] Intact (LEFT ARM) Neurological: Yes: Other ...Motor Strength: LLE, RLE Psychiatric: Yes: WNL Labs: CBC, BMP 10/21/16 06:20 10/21/16 06:20 INR, PTT INR 1.51 (0.82-1.09) H D 10/19/16 11:40 Problem List - Problems (1) Axillary swelling Code(s): M79.89 - OTHER SPECIFIED SOFT TISSUE DISORDERS (2) Fever Code(s): R50.9 - FEVER, UNSPECIFIED Qualifiers: Fever type: unspecified Qualified Code(s): R50.9 - Fever, unspecified (3) History of staph septicemia Code(s): Z86.19 - PERSONAL HISTORY OF OTHER INFECTIOUS AND PARASITIC DISEASES (4) Psoriasis Code(s): L40.9 - PSORIASIS, UNSPECIFIED (5) Bacteremia Code(s): R78.81 - BACTEREMIA (6) Cellulitis of right upper arm Code(s): L03.113 - CELLULITIS OF RIGHT UPPER LIMB (7) ESRD (end stage renal disease) on dialysis Code(s): N18.6 - END STAGE RENAL DISEASE Z99.2 - DEPENDENCE ON RENAL DIALYSIS Assessment/Plan IV ABX PER ID VASC SX F/U APPRECIATED NO NEED TO TREAT UPPER EXTREMITY THROMBUS WHICH IS LIKELY SECONDARY TO PERMA CATH PLACEMENT HD PER RENAL CHANGE TO PO ABX PER ID DC PLANNING TOMORROW
[2016-10-22] MEDS: LABETALOL HCL 200 MG TABLET (FP) PO SCH ×2 (06:19→14:00)
[2016-10-22 09:21] LABS: CALCIUM 8.3 mg/dL (8.5-10.1); COCKROFT - GAULT 9.67
[2016-10-22 09:23] LABS: CREATININE 13.4 mg/dL (0.7-1.3)
[2016-10-22] MEDS ORDERED: PT OWN MED DRAWER 7, Y5N ONE (10:13)
[2016-10-22] MEDS: CEFTAZIDIME PENTAHYDRATE 1 GM in DEXTROSE 5%-WATER - 50 ML IVPB SCH (10:24)
[2016-10-22] MEDS: amLODIPine BESYLATE 10 MG TABLET (FP) PO SCH (10:24)
[2016-10-22] MEDS: cloNIDine HCL 0.1 MG TABLET PO SCH (10:26)
[2016-10-22] MEDS: HEPARIN NA (PORCINE) 5,000 UNITS/ML 1ML VIAL SQ SCH (10:27)
--- NOTE | 2016-10-22 10:31 | DS ---
Physical Examination Vital Signs: Vital Signs Temperature 97.5 F L 10/22/16 06:24 Pulse Rate 60 10/22/16 06:24 Respiratory Rate 20 10/22/16 06:24 Blood Pressure 148/88 10/22/16 06:24 O2 Sat by Pulse Oximetry (%) 99 10/21/16 21:00 Constitutional: Yes: No Distress Eyes: Yes: WNL HENT: Yes: WNL Neck: Yes: WNL Cardiovascular: Yes: WNL Respiratory: Yes: WNL Gastrointestinal: Yes: WNL Renal/: Yes: WNL Musculoskeletal: Yes: Joint Swelling Extremities: Yes: Deformity Edema: Yes Edema: RUE: 2+ Peripheral Pulses WNL: Yes Integumentary: Yes: Other Wound/Incision: Yes: Félix Intact (TENDER RIGHT UPPER EXTREMITY, WITH FÉLIX LEFT ARM INTACT ANC CLEAN) Neurological: Yes: Other ...Motor Strength: RUE Psychiatric: Yes: Other Labs: CBC, BMP 10/21/16 06:20 10/22/16 07:30 Discharge Summary Reason For Visit: FEVER Current Active Problems Axillary swelling (Acute) Fever (Acute) History of staph septicemia (Acute) Psoriasis (Acute) Procedures: Principal: DOPPLER RUE Other Procedures: LABS/HD Hospital Course: ADMITTED WITH RIGHT UPPER EXTREMITY SWELLING, WITH CHRONIC CHANGES TO RIGHT ARM FROM PERMA CATH AND VENOUS HTN IN PAST. VASC SX FOLLOW UP AND WORKUP OUTPATIENT Condition: Fair - Instructions Diet, Activity, Other Instructions: RENAL DIET VASC SX F/U SEE PMD DR TIDWELL IN 1 WEEK Referrals: Magan Tidwell MD [Primary Care Provider] - Disposition: HOME - Home Medications Comprehensive Discharge Medication List: Ambulatory Orders Amlodipine Besylate [Norvasc -] 10 mg PO DAILY 08/30/16 Clonidine HCl 0.3 mg PO Q12H 08/30/16 Labetalol HCl [Normodyne -] 200 mg PO Q8H 08/30/16
--- NOTE | 2016-10-22 12:40 | PN ---
Progress Note (short form) - Note Progress Note: feels well, less swelling of th right arm noted Vital Signs Period Temp Pulse Resp BP Sys/Romeo Pulse Ox Last 24 Hr 97.5 F-98.4 F 60-71 20-20 122-148/72-88 99 cor-rrr lungs clear abd soft,nt ext less swelling right upper arm CBC, BMP 10/21/16 06:20 10/22/16 07:30 Microbiology 10/19/16 11:04 Blood - Peripheral Venous Blood Culture - Preliminary NO GROWTH OBTAINED AFTER 48 HOURS, INCUBATION TO CONTINUE FOR 3 DAYS. 10/19/16 11:04 Blood - Peripheral Venous Blood Culture - Preliminary NO GROWTH OBTAINED AFTER 48 HOURS, INCUBATION TO CONTINUE FOR 3 DAYS. a/p fever/swelling right arm/chest/axilla area -improving 51 year old man with psoriasis on HD via left AVF recent excision of thrombosed aneurysm 10/06 left arm recently finished cefazolin on 09/26 for MSSA bacteremia felt to be secondary to skin source (psoriasis) awaiting vascular opinion regarding right IJ clot would continue vancomycin with HD another week for soft tissue infection will need f/u of axillary adenopathy as outpt esrd/hd recent MSSA bacteremia Problem List - Problems (1) Fever Code(s): R50.9 - FEVER, UNSPECIFIED Qualifiers: Fever type: unspecified Qualified Code(s): R50.9 - Fever, unspecified (2) Cellulitis of right upper arm Code(s): L03.113 - CELLULITIS OF RIGHT UPPER LIMB (3) ESRD (end stage renal disease) on dialysis Code(s): N18.6 - END STAGE RENAL DISEASE Z99.2 - DEPENDENCE ON RENAL DIALYSIS (4) History of staph septicemia Code(s): Z86.19 - PERSONAL HISTORY OF OTHER INFECTIOUS AND PARASITIC DISEASES (5) Psoriasis Code(s): L40.9 - PSORIASIS, UNSPECIFIED
--- NOTE | 2016-10-22 13:49 | PN ---
Progress Note (short form) - Note Progress Note: Renal Follow up for ESRD on HD Pt seen and examined at the bedside no acute complaints mild tenderness in Right ARM Vital Signs Temperature 97.5 F L 10/22/16 06:24 Pulse Rate 60 10/22/16 06:24 Respiratory Rate 20 10/22/16 06:24 Blood Pressure 148/88 10/22/16 06:24 O2 Sat by Pulse Oximetry (%) 99 10/21/16 21:00 Intake & Output 10/19/16 10/20/16 10/21/16 10/22/16 23:59 23:59 23:59 23:59 Intake Total 474 366 5974 200 Balance 742 273 7628 200 Weight 226 lb 2 oz Gen: NAD CVS: RRR, No M/R Lungs: CTA, no rales or wheeze Abd: soft NT/ND Ext: Trace edema, Psoriasis with some small cuts, Right UE swelling. Access: Left arm AVF + thrill, [place] on Aneurysm removal site. CBC, BMP 10/21/16 06:20 10/22/16 07:30 Laboratory Tests 10/22/16 07:30 Calcium 8.3 L Current Medications Acetaminophen (Tylenol -) 650 mg PO Q4H PRN PRN Reason: FEVER OR PAIN Last Admin: 10/19/16 21:29 Dose: 650 mg Amlodipine Besylate (Norvasc -) 10 mg PO DAILY [facility] Last Admin: 10/22/16 10:24 Dose: 10 mg Clonidine (Catapres -) 0.2 mg PO BID [facility] Last Admin: 10/22/16 10:26 Dose: 0.2 mg Heparin Sodium (Porcine) (Heparin -) 5,000 unit SQ BID [facility] Last Admin: 10/22/16 10:27 Dose: 5,000 unit Labetalol HCl (Normodyne -) 200 mg PO TID [facility] Last Admin: 10/22/16 06:19 Dose: 200 mg Oxycodone HCl (Roxicodone -) 5 mg PO Q6H PRN Last Admin: 10/20/16 22:17 Dose: 5 mg A/P 51 year old Gentleman with PMhx of ESRD on HD (TTS), Hypertension, Hx of Renal Transplant (now not functioning), Psoraisis who presents with Fever, Nausea, Abd discomfort after dialysis and admitted for r/o recurrent bactermia. #Fever/Cellulitis cultures w/o growth to continue Vanco with HD for 1 more week as per ID #ESRD on HD/Hyperkalemia no acute indication for [employer] today next treatment tomorrow as outpatient #Hypertension Continue Clonidine, Labetalol, Amlodpine Goal BP < 140/90 #IJ/Subclavian thrombosis/Enlarged LN's Vascular follow up repaet CT in 3-4 weeks no A/C as per vascular sx Denny Barros
[2016-10-22 14:49] VITALS: BP 133/62; PULSE 70; TEMP 98
--- NOTE | 2016-10-22 18:32 | PN ---
Progress Note (short form) - Note Progress Note: Pt seen with Dr. Leonard today. lucía removed from left UE incision and steri-strips, 4x4 and tegaderm applied. Problem List - Problems (1) Axillary swelling Code(s): M79.89 - OTHER SPECIFIED SOFT TISSUE DISORDERS
[2016-10-23 14:15] LABS: HEP B SURFACE AB Reactive (.)
== END 2016-10-22 19:36 | disposition home or self-care (01) | DRG 602 ==
LOC: JER 10:44 → JERBED 16:52 → J6S 19:58
PROVIDERS: ADMIT Family Medicine; ATTEND Family Medicine
PROC: 5A1D00Z (ICD-10-PCS; principal; 2016-10-20)
DX: L03.113 Cellulitis of right upper limb (principal); N18.6 End stage renal disease; I12.0 Hypertensive chronic kidney disease with stage 5 chronic kidney disease or end stage renal disease; Z94.0 Kidney transplant status; I82.C21 Chronic embolism and thrombosis of right internal jugular vein; R50.9 Fever, unspecified; Z99.2 Dependence on renal dialysis; E87.5 Hyperkalemia; L40.9 Psoriasis, unspecified
CPT/HCPCS: 36415; 71010-TC; 71260-TC; 73201-TC-RT; 74176-TC; 80048; 80053; 82550; 82553; 82803; 83605; 83615; 84100; 84484; 85025; 85610; 85730; 86611; 86704; 86706; 86708; 86803; 87040; 87340; 93005; 93010; 93971; 99285-25; G0480; J0735; J1644

== ENCOUNTER 2017-08-09 10:26 | Inpatient (IN) | payer OTHER, BC ==
[2017-08-09] MEDS ORDERED: ONDANSETRON 4 MG/2 ML VIAL IVPUSH ONE (10:55)
[2017-08-09] MEDS ORDERED: SODIUM CHLORIDE 1,000 ML IV STA (10:55)
--- NOTE | 2017-08-09 10:55 | PDOC ---
History of Present Illness - General Chief Complaint: Vomiting/Diarrhea Stated Complaint: PAIN Time Seen by Provider: 08/09/17 10:36 - History of Present Illness Initial Comments: 08/09/17 11:19 Pt. is a 52 y/o M Hx ESRD on Dialysis Tu, Marleny, Sat, HTN, who presents to the ED c/o fevers, body aches, N/V/D since Thursday08/07/17. Pt states he began to feel ill on Thursday with body aches and fevers. He measured his fever at home to be a MAXIMUM TEMPERATURE of 101.5. He states that he also had some vomiting associated with his body aches. Patient states he did not feel well yesterday so he missed his dialysis treatment. Today he states that his abdominal pain nausea and vomiting or worse. Denies hematemesis, hematochezia, lightheadedness , dizziness, chest pain, shortness of breath, difficulty breathing. PCP: Dr. Navarro Renal: Dr. 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, t,t,sat) GI Disorders: No Disorders: Yes HTN: Yes Hypercholesterolemia: No Liver Disease: No Seizures: No Thyroid Disease: No - Surgical History Abdominal Surgery: Yes (08/2007 KIDNEY TRANSPLANT-2011REJECTED) Appendectomy: No Cardiac Surgery: No Cholecystectomy: No Lung Surgery: No Neurologic Surgery: No Orthopedic Surgery: No - Immunization History Immunization Up to Date: Yes - Suicide/Smoking/Psychosocial Hx Smoking Status: No Smoking History: Never smoked Have you smoked in the past 12 months: No Number of Cigarettes Smoked Daily: 0 Cigars Per Day: 0 Hx Alcohol Use: No Drug/Substance Use Hx: No Substance Use Type: None Hx Substance Use Treatment: No Review of Systems - Review of Systems Able to Perform ROS?: Yes Comments:: 08/09/17 12:41 CONSTITUTIONAL: Present: fever, body aches Absent: chills, diaphoresis, generalized weakness, malaise, loss of appetite HEENT: Absent: rhinorrhea, nasal congestion, throat pain, throat swelling, difficulty swallowing, mouth swelling, ear pain, eye pain, visual Changes CARDIOVASCULAR: Absent: chest pain, loss of consciousness, palpitations, irregular heart rate, peripheral edema RESPIRATORY: Absent: cough, shortness of breath, dyspnea with exertion, orthopnea, wheezing, stridor, hemoptysis GASTROINTESTINAL: Present: abdominal pain, nausea, vomiting, diarrhea Absent: abdominal distension , constipation, melena, hematochezia GENITOURINARY: Absent: dysuria, frequency, urgency, hesitancy, hematuria, flank pain, genital pain MUSCULOSKELETAL: Absent: myalgia, arthralgia, joint swelling SKIN: Absent: rash, itching, pallor HEMATOLOGIC/IMMUNOLOGIC: Absent: easy bleeding, easy bruising, lymphadenopathy, frequent infections ENDOCRINE: Absent: unexplained weight gain, unexplained weight loss, heat intolerance, cold intolerance NEUROLOGIC: Absent: headache, focal weakness or paresthesias, dizziness, unsteady gait, seizure, mental status changes, bladder or bowel incontinence PSYCHIATRIC: Absent: anxiety, depression, suicidal or homicidal ideation, hallucinations. Is the patient limited [place] proficient: No *Physical Exam - Vital Signs Last Vital Signs Temp Pulse Resp BP Pulse Ox 100.2 F H 97 H 19 159/114 96 08/09/17 10:27 08/09/17 10:27 08/09/17 10:27 08/09/17 10:27 08/09/17 10:27 - Physical Exam Comments: 08/09/17 12:57 GENERAL: Well developed, well nourished. Awake and alert. Mild distress, holding abdomen. HEENT: Normocephalic, atraumatic. PERRLA, EOMI. No conjunctival pallor. Sclera are non- icteric. Moist mucous membranes. Oropharynx is clear. NECK: Supple. Full ROM. No JVD. Carotid pulses 2+ and symmetric, without bruits. No thyromegaly. No lymphadenopathy. CARDIOVASCULAR: Regular rate and rhythm. No murmurs, rubs, or gallops. Distal pulses are 2+ and symmetric. PULMONARY: No evidence of respiratory distress. Lungs clear to auscultation bilaterally. No wheezing, rales or rhonchi. ABDOMINAL: Diffuse abdominal tenderness with no focal findings. Soft. Non-distended. No rebound or guarding. No organomegaly. Normoactive bowel sounds. MUSCULOSKELETAL Normal range of motion at all joints. No bony deformities or tenderness. No CVA tenderness. EXTREMITIES: No cyanosis. No clubbing. No edema. No calf tenderness. SKIN: Warm and dry. Normal capillary refill. No rashes. No jaundice. NEUROLOGICAL: Alert, awake, appropriate. Cranial nerves 2-12 intact. No deficits to light touch and temperature in face, upper extremities and lower extremities. No motor deficits in the in face, upper extremities and lower extremities. Normoreflexic in the upper and lower extremities. Normal speech. Toes are down- going bilaterally. Gait is normal without ataxia. PSYCHIATRIC: Cooperative. Good eye contact. Appropriate mood and affect. Heart Score/ECG Review - ECG Intrepretation Rhythm: Regular Rhythm - Telferner Telferner: Normal - ST and T Non Specific ST-T Wave changes: Yes T Wave Elevation Suggest: Electrolyte Imbalance - ECG Impressions Normal ECG: No Electrolyte Imbalance: Electrolyte Imbalance (Hyperkalemia) ED Treatment Course - LABORATORY CBC & Chemistry Diagram: 08/09/17 10:59 08/09/17 10:59 Medical Decision Making - Medical Decision Making 08/09/17 11:29 Patient is a 52-year-old male past medical history end-stage renal disease, dialysis Thursday and Thursday, who presents emergency department today with 2 days of generalized body aches, fevers, nausea, vomiting and diarrhea. Exam shows diffuse abdominal tenderness with no focal findings. Given constitutional symptoms most likely a viral syndrome. We will obtain lab works as patient missed dialysis on Thursday. Potential uremia exacerbating the nausea and vomiting. 1.CBC, CMP, PT/INR, EKG, chest x-ray, blood cultures 2.IV fluids, Zofran, ofirmev 3.reevaluate 08/09/17 12:31 Potassium critically high at 6.5, BUN 82, sodium 130. Calcium gluconate, D50, 3 units of insulin, sodium bicarbonate, albuterol given to stabilize the potassium. Patient with EKG changes, peaked T waves most likely due to his hyperkalemia. No leukocytosis to suggest bacterial infection. Most likely viral syndrome. Spoke with patient's torpedo shooter Dr. Barros who recommends dialysis at this time. Will call in the dialysis team. We will admit patient to observation paged Dr. Zapata's service for Dr. Navarro 08/09/17 13:[address] Zapata's TERESA Jaramillo. Agrees with plan and will admit the patient to Med/Surg for observation s/p dialysis. 08/09/17 13:24 Pt. off of the floor for dialysis. 08/09/17 14:35 *DC/Admit/Observation/Transfer Diagnosis at time of Disposition: ESRD (end stage renal disease) on dialysis, Hyperkalemia, End-stage renal disease needing dialysis Abdominal pain Qualifiers: Abdominal location: generalized Qualified Code(s): R10.84 - Generalized abdominal pain - Discharge Dispostion Condition at time of disposition: Stable Admit: Yes - Referrals - Patient Instructions - Post Discharge Activity
[2017-08-09] MEDS ORDERED: ACETAMINOPHEN 1000 MG/100 ML VIAL (NON FORMULARY) IVPB ONE (10:56)
--- NOTE | 2017-08-09 11:02 | PDOC ---
*Physical Exam - Vital Signs Last Vital Signs Temp Pulse Resp BP Pulse Ox 100.2 F H 97 H 19 159/114 96 08/09/17 10:27 08/09/17 10:27 08/09/17 10:27 08/09/17 10:27 08/09/17 10:27 Heart Score/ECG Review #1 ECG reviewed & interpreted by me at: 11:10 08/09/17 11:24 NSR 90, LVH, peaked T waves V2-V4, biphasic T wave V5-V6, J point elevation V2- V3, QTC 457 msec ED Treatment Course - LABORATORY CBC & Chemistry Diagram: 08/13/17 10:30 08/13/17 10:30 Medical Decision Making - Medical Decision Making 08/09/17 11:02 Pt seen by the Advanced Practice Provider under my direct supervision Ancillary studies reviewed I agree with plan as outlined by the Advanced Practice Provider TERESA Sebastian *DC/Admit/Observation/Transfer Diagnosis at time of Disposition: ESRD (end stage renal disease) on dialysis, Hyperkalemia, Abdominal pain, End- stage renal disease needing dialysis - Discharge Dispostion Condition at time of disposition: Stable - Referrals - Patient Instructions - Post Discharge Activity
[2017-08-09] MEDS ORDERED: ACETAMINOPHEN INJECTION 100 ML IVPB ONE (11:06)
[2017-08-09] MEDS ORDERED: ONDANSETRON 4 MG/2 ML VIAL ONE (11:06)
[2017-08-09 11:30] LABS: HEMATOCRIT 33.7 % (35.4-49); RDW 17.3 % (11.9-15.9); WHITE BLOOD COUNT 9.9 K/mm3 (4.0-10.0)
[2017-08-09 11:42] LABS: INR 1.25 (0.82-1.09); PROTHROMBIN TIME (PATIENT) 14.1 SEC (9.98-11.88)
[2017-08-09 11:51] LABS: BASO % 0.8 % (0-2.0); HEMOGLOBIN 11.3 GM/dL (11.7-16.9); LYMPH % 3.7 % (8-40); MCH 29.5 pg (25.7-33.7); MCHC 33.5 g/dl (32.0-35.9); MEAN CELL VOLUME 88.2 fl (80-96); MEAN PLT VOLUME 8.5 fl (7.5-11.1); NEUT % 86.5 % (42.8-82.8); PLATELET COUNT 202 K/MM3 (134-434); RBC 3.82 M/mm3 (4.00-5.60)
[2017-08-09 11:53] LABS: ALBUMIN 3.6 g/dl (3.4-5.0); ANION GAP 23 (8-16); BLOOD UREA NITROGEN 87 mg/dL (7-18); CHLORIDE 95 mmol/L (98-107); CO2 12 mmol/L (21-32); GLUCOSE,RANDOM 96 mg/dL (74-106); SGOT/AST 15 U/L (15-37); SGPT/ALT 20 U/L (12-78); SODIUM 130 mmol/L (136-145)
[2017-08-09 12:00] LABS: ALK PHOS 261 U/L (45-117); BILIRUBIN,TOTAL 0.4 mg/dL (0.2-1.0); TOT PROT 7.7 g/dl (6.4-8.2)
[2017-08-09 12:02] LABS: CREATININE 18.5 mg/dL (0.7-1.3)
[2017-08-09 12:03] LABS: POTASSIUM 6.5 mmol/L (3.5-5.1)
[2017-08-09] MEDS ORDERED: CALCIUM GLUCONATE 10% - 1,000 MG/10 ML VIAL IVPUSH ONE (12:12)
[2017-08-09] MEDS ORDERED: DEXTROSE 50%-WATER - 25 GM/50 ML VIAL IVPUSH ONE (12:14)
[2017-08-09] MEDS ORDERED: ALBUTEROL SO4 2.5/IPRATROPIUM 0.5 INH SOL 3 ML VIAL.NEB. NEB ONE ×2 (12:14→12:29)
[2017-08-09] MEDS ORDERED: INSULIN REGULAR HUMAN 100 UNITS/ML *VIAL IVPUSH ONE (12:14)
[2017-08-09] MEDS ORDERED: DEXTROSE 50%-WATER 25 GM/50 ML DISP.SYRIN ONE (12:18)
[2017-08-09] MEDS ORDERED: CALCIUM GLUCONATE 10% - 1,000 MG/10 ML VIAL ONE (12:18)
[2017-08-09] MEDS ORDERED: INSULIN REGULAR HUMAN 100 UNITS/ML *VIAL ONE (12:19)
[2017-08-09] MEDS ORDERED: INSULIN (NOVOLOG) ASPART 100 UNITS/ML 10ML VIAL ONE (12:21)
[2017-08-09] MEDS ORDERED: SODIUM BICARBONATE 8.4% 50 MEQ/50 ML DISP.SYRIN IVPUSH ONE (12:26)
[2017-08-09] MEDS ORDERED: SODIUM BICARBONATE 8.4% - 50 ML ONE (12:34)
[2017-08-09 12:44] LABS: LIPASE 191 U/L (73-393)
[2017-08-09] MEDS ORDERED: SODIUM CHLORIDE 250 ML IV PRN (14:17)
[2017-08-09] MEDS ORDERED: HEPARIN NA (PORCINE) 5,000 UNITS/ML 1ML VIAL IVPUSH ONE (14:45)
[2017-08-09] MEDS: amLODIPine BESYLATE 10 MG TABLET (FP) PO SCH (15:28)
[2017-08-09] MEDS: cloNIDine HCL 0.1 MG TABLET PO SCH ×2 (15:28→23:16)
[2017-08-09 17:32] VITALS: BMI 28.3
--- NOTE | 2017-08-09 17:32 | EKG ---
Test Reason : Blood Pressure : / mmHG Vent. Rate : 090 BPM Atrial Rate : 090 BPM P-R Int : 192 ms QRS Dur : 114 ms QT Int : 374 ms P-R-T Axes : 077 -22 083 degrees QTc Int : 457 ms NORMAL SINUS RHYTHM POSSIBLE LEFT ATRIAL ENLARGEMENT LEFT VENTRICULAR HYPERTROPHY NONSPECIFIC T WAVE ABNORMALITY ABNORMAL ECG WHEN COMPARED WITH ECG OF 19-OCT-2016 14:41, NO SIGNIFICANT CHANGE WAS FOUND Confirmed by NICK SWEENEY, DILCIA ([id number]) on 08/09/2017 5:32:29 PM Referred By: Confirmed By:DILCIA ROMERO MD
--- NOTE | 2017-08-09 21:30 | HP ---
Admitting History and Physical - Primary Care Physician PCP: Douglas Zapata - Admission Chief Complaint: Missed Dialysis, Fever, Bodyaches History of Present Illness: This is a 52 y/o man with a past medical history of ESRD (HD- T, , ). Who presents to the ED s/p missed HD secondary to having subjective fevers 102 and generalized bodyaches x 4 days. Patient reports having flu- like symptoms. Patient denies SOB, CP, and palpitations. Patient denies N/V/D, constipation. History Source: Patient Limitations to Obtaining History: No Limitations - Past Medical History Cardiovascular: Yes: HTN, Hyperlipdemia Renal/: Yes: Renal Failure, Hemodialysis Dermatology: Yes: Psoriasis - Past Surgical History Past Surgical History: Yes: AV Fistula/Graft, Kidney Transplant (failed) - Smoking History Smoking history: Never smoked Have you smoked in the past 12 months: No Aproximately how many cigarettes per day: 0 - Alcohol/Substance Use Hx Alcohol Use: No History of Substance Use: reports: None - Social History Usual Living Arrangement: Yes: Alone ADL: Independent History of Recent Travel: No Home Medications - Allergies Allergies/Adverse Reactions: Allergies Allergy/AdvReac Type Severity Reaction Status Date / Time No Known Drug Allergies Allergy Verified 08/09/17 10:27 - Home Medications Home Medications: Ambulatory Orders Amlodipine Besylate [Norvasc -] 10 mg PO DAILY 08/30/16 Clonidine HCl 0.3 mg PO Q12H 08/30/16 Labetalol HCl [Normodyne -] 200 mg PO TID tablet 10/22/16 Calcium Acetate [Phoslo -] 1,334 mg PO TIDCM 08/09/17 Family Disease History - Family Disease History Family History: Unable to Obtain Review of Systems - Review of Systems Constitutional: reports: Chills, Fever, Loss of Appetite Eyes: reports: No Symptoms HENT: reports: Nasal Congestion Neck: reports: No Symptoms Cardiovascular: reports: No Symptoms Respiratory: reports: Cough Gastrointestinal: reports: No Symptoms Genitourinary: reports: Other (does not produce urine) Breasts: reports: No Symptoms Reported Musculoskeletal: reports: Back Pain Integumentary: reports: No Symptoms Neurological: reports: No Symptoms Endocrine: reports: No Symptoms Hematology/Lymphatic: reports: No Symptoms Psychiatric: reports: No Symptoms Pain Intensity: 7 Physical Examination Vital Signs: Vital Signs Temperature 100.2 F H 03/18/18 17:15 Pulse Rate 100 H 08/09/17 17:15 Respiratory Rate 18 08/09/17 17:15 Blood Pressure 157/75 08/09/17 17:15 O2 Sat by Pulse Oximetry (%) 96 08/09/17 17:15 Constitutional: Yes: Mild Distress Eyes: Yes: WNL, Conjunctiva Clear, EOM Intact, PERRL HENT: Yes: WNL, Atraumatic, Normocephalic Neck: Yes: WNL, Supple, Trachea Midline Cardiovascular: Yes: WNL, Regular Rate and Rhythm, S1, S2 Respiratory: Yes: WNL, Regular, CTA Bilaterally Gastrointestinal: Yes: WNL, Normal Bowel Sounds, Soft ...Rectal Exam: Yes: Deferred Renal/: Yes: Other (makes no urine) Breast(s): Yes: WNL Musculoskeletal: Yes: Back Pain Extremities: Yes: WNL Edema: No Peripheral Pulses WNL: Yes Integumentary: Yes: Venous Stasis Changes Neurological: Yes: WNL, Alert, Oriented, Cran Nerves II-XII Intact ...Motor Strength: WNL Psychiatric: Yes: WNL, Alert, Oriented Labs: CBC, BMP 08/09/17 10:59 08/09/17 10:59 Laboratory Results - last 24 hr 08/09/17 08/09/17 08/09/17 10:50 10:59 10:59 WBC 9.9 RBC 3.82 L Hgb 11.3 L Hct 33.7 L MCV 88.2 MCH 29.5 MCHC 33.5 RDW 17.3 H Plt Count 202 D MPV 8.5 Neutrophils % 86.5 H Lymphocytes % 3.7 L D Monocytes % 9.0 Eosinophils % 0.0 D Basophils % 0.8 PT with INR 14.10 H INR 1.25 H Sodium Potassium Chloride Carbon Dioxide Anion Gap BUN Creatinine Creat Clearance w eGFR POC Glucometer Random Glucose Lactic Acid 1.1 Calcium Total Bilirubin AST ALT Alkaline Phosphatase Total Protein Albumin Lipase Hep C Ab Diagnostic HCV RNA PCR w/Genot Rflx 08/09/17 08/09/17 08/09/17 10:59 14:10 22:15 WBC RBC Hgb Hct MCV MCH MCHC RDW Plt Count MPV Neutrophils % Lymphocytes % Monocytes % Eosinophils % Basophils % PT with INR INR Sodium 130 L 135 L Potassium 6.5 H* D 5.1 D Chloride 95 L 92 L Carbon Dioxide 12 L D 26 D Anion Gap 23 H 17 H BUN 87 H D 52 H D Creatinine 18.5 H* D 12.1 H* D Creat Clearance w eGFR 2.73 POC Glucometer Random Glucose 96 105 Lactic Acid Calcium 8.0 L 8.1 L Total Bilirubin 0.4 AST 15 D ALT 20 D Alkaline Phosphatase 261 H D Total Protein 7.7 Albumin 3.6 Lipase 191 Hep C Ab Diagnostic Cancelled HCV RNA PCR w/Genot Rflx Cancelled 08/09/17 22:29 WBC RBC Hgb Hct MCV MCH MCHC RDW Plt Count MPV Neutrophils % Lymphocytes % Monocytes % Eosinophils % Basophils % PT with INR INR Sodium Potassium Chloride Carbon Dioxide Anion Gap BUN Creatinine Creat Clearance w eGFR POC Glucometer 113 Random Glucose Lactic Acid Calcium Total Bilirubin AST ALT Alkaline Phosphatase Total Protein Albumin Lipase Hep C Ab Diagnostic HCV RNA PCR w/Genot Rflx Current Medications Generic Name Dose Route Start Last Admin Trade Name Freq PRN Reason Stop Dose Admin Acetaminophen 650 mg 08/09/17 21:34 Tylenol - PO Q6H PRN FEVER Amlodipine Besylate 10 mg 08/09/17 14:45 08/09/17 15:28 Norvasc - PO 10 mg DAILY ORIANA Administration Clonidine 0.3 mg 08/09/17 22:00 08/09/17 23:16 Catapres - PO 0.3 mg BID ORIANA Administration Sodium Chloride 250 mls @ 3,000 mls/hr 08/09/17 14:17 Normal Saline - IV 08/10/17 14:17 PRN PRN Hypotension during Dialysis Labetalol HCl 200 mg 08/09/17 22:00 08/09/17 22:07 Normodyne - PO 200 mg BID ORIANA Administration Miscellaneous 1 each 08/10/17 22:00 Lidoderm Patch Removal MC 08/10/17 22:01 ONCE@2200 ONE Intake & Output 08/07/17 08/08/17 08/09/17 08/10/17 23:59 23:59 23:59 23:59 Intake Total 200 Balance 200 Weight 84.368 kg Imaging - Results Chest X-ray: Report Reviewed, Image Reviewed EKG: Report Reviewed (NSR, possible left Atrial Enlargement, LVH, Nonspecific T wave abnormality), Image Reviewed Assessment/Plan This is a 52 y/o man with ESRD (HD), who missed HD. Placed on Observation for ESRD, Hyperkalemia, Back Pain. Plan: 1. ESRD- Fluid Overload secondary to missed HD, Nephrology following, pt was dialyzed today, HD pending for tomorrow, Monitor BMP 2. Hyperkalemia- Likely secondary to ESRD, Hyperkalemia protocol given in ED, repeat BMP pending tonight, EKG- peaked Ts, 3. Back Pain- Tylenol prn, Lidoderm Patch 4. Flu like symptoms- Rapid Flu- negative, blood cultures-pending Visit type - Emergency Visit Emergency Visit: Yes ED Registration Date: 08/09/17 Care time: The patient presented to the Emergency Department on the above date and was hospitalized for further evaluation of their emergent condition. - New Patient This patient is new to me today: Yes Date on this admission: 08/10/17 - Critical Care Critical Care patient: No Hospitalist Screening - Colonoscopy Questionnaire Colonoscopy Questionnaire: Colonoscopy Questionnaire - Patient: 50 - 75 years old and never had a screening colonoscopy: Unknown History of colon or rectal polyps, or CA: No History of IBD, Crohn's disease or UC: No History of abdominal radiation therapy as a child: No - Relative: 1 with colon or rectal CA, or polyps at age 60 or younger: No Colon or rectal CA diagnosed at age 45 or younger: No Multiple relatives with colon or rectal CA: No - Outcome: Screening Result: Negative Screen
[2017-08-09] MEDS: LABETALOL HCL 200 MG TABLET (FP) PO SCH (22:07)
[2017-08-09] MEDS ORDERED: oxyCODONE HCL 5 MG TABLET PO ONE (22:15)
[2017-08-09] MEDS ORDERED: LIDOCAINE 5% TOPICAL PATCH TP ONE (22:15)
[2017-08-09 23:18] LABS: ANION GAP 17 (8-16); BLOOD UREA NITROGEN 52 mg/dL (7-18); CALCIUM 8.1 mg/dL (8.5-10.1); CHLORIDE 92 mmol/L (98-107); CO2 26 mmol/L (21-32); GLUCOSE,RANDOM 105 mg/dL (74-106); POTASSIUM 5.1 mmol/L (3.5-5.1); SODIUM 135 mmol/L (136-145)
[2017-08-09 23:25] LABS: CREATININE 12.1 mg/dL (0.7-1.3)
[2017-08-10] MEDS ORDERED: SODIUM CHLORIDE 250 ML IV PRN (06:34)
[2017-08-10] MEDS ORDERED: HEPARIN NA (PORCINE) 5,000 UNITS/ML 1ML VIAL IVPUSH ONE (07:00)
[2017-08-10] MEDS: ACETAMINOPHEN 325 MG TABLET (FP) PO PRN ×2 (07:44→21:42)
[2017-08-10] MEDS ORDERED: oxyCODONE HCL 5 MG TABLET PO PRN (08:39)
[2017-08-10] MEDS ORDERED: VANCOMYCIN 1,000 MG in DEXTROSE 5%-WATER - 250 ML IVPB ONE (09:15)
[2017-08-10] MEDS ORDERED: PT OWN MED DRAWER 7, Y5N ONE (11:16)
[2017-08-10] MEDS: amLODIPine BESYLATE 10 MG TABLET (FP) PO SCH (11:28)
[2017-08-10] MEDS: LABETALOL HCL 200 MG TABLET (FP) PO SCH ×2 (11:28→21:41)
[2017-08-10] MEDS: cloNIDine HCL 0.1 MG TABLET PO SCH ×2 (11:28→21:42)
--- NOTE | 2017-08-10 11:56 | PN ---
Progress Note (short form) - Note Progress Note: ID consult dictated 52 year old man esrd/hd admitted from home 08/09 with fever, chills, myalgia he reports symptoms began on evening after HD and have worsened since that time he was seen in ED and admitted- he had HD yesterday after which he developed sever left sided flank pain that has persisted no paresthesias, no motor weakness vomiting has resolved has psoriasis and is receiving light treatment from derm- also uses a spray steroid now with positive blood cultures imp/reccd gram positive bacteremia- agree with vancomycin, f/u cultures f/u levels repeat blood cultures in am echo agree with mri given paraspinal pain r/o osteo/abscess ?skin source, psoriasis psoriasis esrd/hd- daily vanco levelse Problem List - Problems (1) Bacteremia Code(s): R78.81 - BACTEREMIA (2) Psoriasis Code(s): L40.9 - PSORIASIS, UNSPECIFIED (3) ESRD (end stage renal disease) on dialysis Code(s): N18.6 - END STAGE RENAL DISEASE; Z99.2 - DEPENDENCE ON RENAL DIALYSIS
[2017-08-10] MEDS: morphine SULFATE 4 MG/ML VIAL IVPUSH PRN ×2 (13:19→20:14)
--- NOTE | 2017-08-10 13:35 | CONS ---
DATE OF CONSULTATION: HISTORY: This is a 52-year-old man who has been in dialysis since 2005. He also has a history of psoriasis. I know him from past hospitalizations. He has done well for the last year. He goes to dialysis on Tuesdays, , and Saturdays. This past after dialysis he felt unwell. He started having fever, chills, and myalgias with some nausea and vomiting. He did not attend dialysis on Thursday. He presented to the emergency room on the with the above complaints. He was evaluated in the ER. He was noted to be in need of dialysis and underwent a dialysis session after which he developed severe pain in his left flank, left paraspinal area. He also has fever this morning of 102. Blood cultures are positive for gram-positive cocci in clusters, and I am asked by the shoe repairer to see him. He is awake and alert and has no complaints. Prior to night, he has been doing quite well. He has a history of psoriasis for which he is under care with a night order selector in [place]. He has phototherapy as well he uses a steroid spray. He has not had any recent manipulations of his AV fistula. 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 He has a history of methicillin-sensitive Staphylococcus aureus bacteremia in August 2016 for which he was treated with cefazolin. It felt secondary to a skin source. PAST MEDICAL HISTORY: Notable for hypertension, end-stage renal disease on dialysis, history of hypertension. 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 He is status post failed kidney transplant in 2010. ALLERGIES: No known drug allergies. SOCIAL HISTORY: He is . He lives with his and children. No history of cigarette or substance use. MEDICATIONS: As an outpatient include labetalol, clonidine, PhosLo, and Norvasc. REVIEW OF SYSTEMS: His vomiting has stopped. His main complaint at this time is pain in his left paraspinal area. He has no diarrhea, and he does not urinate. PHYSICAL EXAMINATION: Vital Signs: His temperature is 102, pulse 83, blood pressure 147/86, respiratory rate 20, saturation 96%. General: He is alert in no distress. HEENT: He is normocephalic. His eyes are anicteric. He has no conjunctival hemorrhages. He has no thrush. Neck: Supple. Lungs: Clear to auscultation. Heart: Regular rate and rhythm. Skin: AV fistula is without any erythema or induration. He has on both his hands multiple psoriatic plaques. As well, he has extensive plaques on the anterior tibial surface of both legs. Abdomen: Soft, nontender. Extremities: Without edema. LABORATORIES: Notable for a white count of 9.9, hemoglobin 11.3, platelets 202. On admission his potassium was 6.5 and after dialysis was 5.1. Alkaline phosphatase at 261. Otherwise, LFTs are normal. Blood cultures 2/4 bottles have gram-positive cocci in clusters. Influenza screen is negative. Chest x-ray is normal. There is no infiltrate. In summary, this is a 52-year-old man with end-stage renal disease on dialysis, psoriasis now with gram-positive bacteremia. Concerns would include Staphylococcus aureus bacteremia, prior history of MSSA. Would agree with vancomycin. Follow up cultures. Follow up vancomycin level. Repeat blood cultures in the morning. Would check an echocardiogram. As discussed with Nephrology, would agree with the MRI of his back given the paraspinal pain to rule out osteomyelitis or abscess. A skin source certainly is possible, again, given the extensive psoriasis. We will make further recommendations based on his clinical course. We will follow his vancomycin levels daily. BHARAT MACEDO M.D. [id number]
--- NOTE | 2017-08-10 14:17 | PN ---
Progress Note, Physician Chief Complaint: no c/o chest pain or SOB c/o para spinal pain History of Present Illness: This is a 52 y/o man with a past medical history of ESRD (HD- T, , ). Who presents to the ED s/p missed HD secondary to having subjective fevers 102 and generalized bodyaches x 4 days. - Current Medication List Current Medications: Active Medications Acetaminophen (Tylenol -) 650 mg PO Q6H PRN PRN Reason: FEVER Last Admin: 08/10/17 07:44 Dose: 650 mg Amlodipine Besylate (Norvasc -) 10 mg PO DAILY [facility] Last Admin: 08/10/17 11:28 Dose: 10 mg Clonidine (Catapres -) 0.3 mg PO BID [facility] Last Admin: 08/10/17 11:28 Dose: 0.3 mg Sodium Chloride (Normal Saline -) 250 mls @ 3,000 mls/hr IV PRN PRN PRN Reason: Hypotension during Dialysis Stop: 08/10/17 14:17 Sodium Chloride (Normal Saline -) 250 mls @ 3,000 mls/hr IV PRN PRN PRN Reason: Hypotension during Dialysis Stop: 08/11/17 06:34 Labetalol HCl (Normodyne -) 200 mg PO BID [facility] Last Admin: 08/10/17 11:28 Dose: 200 mg Miscellaneous (Lidoderm Patch Removal) 1 each MC ONCE@2200 ONE Stop: 08/10/17 22:01 Morphine Sulfate (Morphine Sulfate) 4 mg IVPUSH Q4H PRN PRN Reason: PAIN LEVEL 7 - 10 Last Admin: 08/10/17 13:19 Dose: 4 mg - Objective Vital Signs: Vital Signs Temperature 102 F H 08/10/17 11:13 Pulse Rate 83 08/10/17 11:27 Respiratory Rate 20 08/10/17 11:13 Blood Pressure 147/86 08/10/17 11:27 O2 Sat by Pulse Oximetry (%) 96 08/10/17 11:13 Middle afged man not in distress, HEENT: Mm moist, anemia NECK: JVD +, No Bruit CHEST: Minimal basal crepts CVS: S1S2 R ABD: No distention, non tender Bs + EXT: AV fistula t place with thrill [employer]: AOx3 non focal Labs: CBC, BMP 08/09/17 10:59 08/09/17 22:15 INR, PTT INR 1.25 (0.82-1.09) H 08/09/17 10:59 Microbiology 08/09/17 11:15 Blood Culture - Preliminary Blood - Peripheral Venous Pending Organism 08/09/17 10:30 Blood Culture - Preliminary Blood - Peripheral Venous Pending Organism 08/09/17 10:59 Influenza Types A,B Antigen (PAOLA) - Final Nasopharyngeal Swab - Final Problem List - Problems (1) Fever Assessment/Plan: present with fever T max 102 blood culture grew Gram + Cocci on cluster , ID recommonded Vanco by level F/U Blood culture, C/O Rt Flank pain MRI spine to r/ O OM Code(s): R50.9 - FEVER, UNSPECIFIED (2) ESRD (end stage renal disease) on dialysis Assessment/Plan: Missed dialysis will resume evaluated by Nephrology consult Code(s): N18.6 - END STAGE RENAL DISEASE; Z99.2 - DEPENDENCE ON RENAL DIALYSIS (3) HTN (hypertension) Assessment/Plan: Cont all home meds Code(s): I10 - ESSENTIAL (PRIMARY) HYPERTENSION Qualifiers: Hypertension type: essential hypertension Qualified Code(s): I10 - Essential (primary) hypertension (4) Anemia in CKD (chronic kidney disease) Assessment/Plan: H/H stable Code(s): N18.9 - CHRONIC KIDNEY DISEASE, UNSPECIFIED; D63.1 - ANEMIA IN CHRONIC KIDNEY DISEASE (5) Hyperkalemia Assessment/Plan: mild due for HD Code(s): E87.5 - HYPERKALEMIA
--- NOTE | 2017-08-10 14:55 | CONSULT ---
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 Pt last had dialysis as a outpatient on w/o complication. Missed dialysis on Thursday because he was unwell. + fever of 102 at home. No CP , SOB. NO arrhea. No skin lesions. Pt started to have focal back pain in the hospital. + chills wit dialysis yesterday as inpatient. PMhx: as above Allergies: NKDA Family Hx: NC Social Hx: No T/A/D ROS: as per HPI, all other pertinent ros negative Home Medications Medication Instructions Recorded Amlodipine Besylate [Norvasc -] 10 mg PO DAILY 08/30/16 Clonidine HCl 0.3 mg PO Q12H 08/30/16 Labetalol HCl [Normodyne -] 200 mg PO TID tablet 10/22/16 Calcium Acetate [Phoslo -] 1,334 mg PO TIDCM 08/09/17 Vital Signs Temperature 102 F H 08/10/17 11:13 Pulse Rate 83 08/10/17 11:27 Respiratory Rate 20 08/10/17 11:13 Blood Pressure 147/86 08/10/17 11:27 O2 Sat by Pulse Oximetry (%) 96 08/10/17 11:13 Intake & Output 08/07/17 08/08/17 08/09/17 08/10/17 23:59 23:59 23:59 23:59 Intake Total 200 200 Output Total 0 Balance 200 200 Weight 84.368 kg NAD awake and alert RRR, No M/R CTA soft NT/ND + tenderness left lateral aspect of thorasic spine No LE edema + Psoriasis CBC, BMP 08/09/17 10:59 08/09/17 22:15 Current Medications Acetaminophen (Tylenol -) 650 mg PO Q6H PRN PRN Reason: FEVER Last Admin: 08/10/17 07:44 Dose: 650 mg Amlodipine Besylate (Norvasc -) 10 mg PO DAILY [facility] Last Admin: 08/10/17 11:28 Dose: 10 mg Clonidine (Catapres -) 0.3 mg PO BID [facility] Last Admin: 08/10/17 11:28 Dose: 0.3 mg Sodium Chloride (Normal Saline -) 250 mls @ 3,000 mls/hr IV PRN PRN PRN Reason: Hypotension during Dialysis Stop: 08/11/17 06:34 Labetalol HCl (Normodyne -) 200 mg PO BID [facility] Last Admin: 08/10/17 11:28 Dose: 200 mg Miscellaneous (Lidoderm Patch Removal) 1 each [facility] ONCE@2200 ONE Stop: 08/10/17 22:01 Morphine Sulfate (Morphine Sulfate) 4 mg IVPUSH Q4H PRN PRN Reason: PAIN LEVEL 7 - 10 Last Admin: 08/10/17 13:19 Dose: 4 mg A/P 52 year old gentleman with PMhx of ESRD on HD (TTS), Hx of Renal transplant ( 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 #Gram Positive Bacteremia Final ID pending will give IV Vanco, dose by levels ID consulted will get MRI of the thorasic spine to r/o lesion/osteomylitis repeat blood cultures with dialysis today #ESRD on HD with hyperkalemia s/p short dialysis yesterday, to have full session today UF as tolerated Dose all meds for intermittent HD #CKD related Anemia will hold MALCOLM for now as Hgb > 11 #Hypertension continue Labetalol, Clonidine, Amlodpine Thank you Will follow Gonzalo Barros DO
[2017-08-10 16:04] LABS: ANION GAP 14 (8-16); BLOOD UREA NITROGEN 61 mg/dL (7-18); CALCIUM 7.6 mg/dL (8.5-10.1); CHLORIDE 93 mmol/L (98-107); CO2 24 mmol/L (21-32); GLUCOSE,RANDOM 101 mg/dL (74-106); PHOSPHOROUS 6.9 mg/dL (2.5-4.9); POTASSIUM 5.7 mmol/L (3.5-5.1); SODIUM 131 mmol/L (136-145)
[2017-08-10 16:26] LABS: CREATININE 14.6 mg/dL (0.7-1.3)
[2017-08-10 16:34] LABS: HEMATOCRIT 31.5 % (35.4-49); HEMOGLOBIN 10.6 GM/dL (11.7-16.9); MCH 29.5 pg (25.7-33.7); MCHC 33.8 g/dl (32.0-35.9); MEAN CELL VOLUME 87.3 fl (80-96); MEAN PLT VOLUME 8.5 fl (7.5-11.1); PLATELET COUNT 158 K/MM3 (134-434); RBC 3.61 M/mm3 (4.00-5.60); RDW 17.2 % (11.9-15.9); WHITE BLOOD COUNT 8.8 K/mm3 (4.0-10.0)
[2017-08-10] MEDS ORDERED: LIDOCAINE PATCH REMOVAL MC ONE (22:00)
[2017-08-11] MEDS: morphine SULFATE 4 MG/ML VIAL IVPUSH PRN (06:16)
--- NOTE | 2017-08-11 08:37 | PN ---
Progress Note, Physician History of Present Illness: C/O BACK PAIN - Current Medication List Current Medications: Active Medications Acetaminophen (Tylenol -) 650 mg PO Q6H PRN PRN Reason: FEVER Last Admin: 08/10/17 21:42 Dose: 650 mg Amlodipine Besylate (Norvasc -) 10 mg PO DAILY [facility] Last Admin: 08/10/17 11:28 Dose: 10 mg Clonidine (Catapres -) 0.3 mg PO BID [facility] Last Admin: 08/10/17 21:42 Dose: 0.3 mg Labetalol HCl (Normodyne -) 200 mg PO BID [facility] Last Admin: 08/10/17 21:41 Dose: 200 mg Morphine Sulfate (Morphine Sulfate) 4 mg IVPUSH Q4H PRN PRN Reason: PAIN LEVEL 7 - 10 Last Admin: 08/11/17 06:16 Dose: 4 mg - Objective Vital Signs: Vital Signs Temperature 99.0 F 08/11/17 05:26 Pulse Rate 84 08/11/17 05:26 Respiratory Rate 21 08/11/17 05:26 Blood Pressure 125/86 08/11/17 05:26 O2 Sat by Pulse Oximetry (%) 97 08/10/17 22:42 Cardiovascular: Yes: Regular Rate and Rhythm Respiratory: Yes: Regular, CTA Bilaterally Gastrointestinal: Yes: Normal Bowel Sounds, Soft Labs: INR, PTT INR 1.25 (0.82-1.09) H 08/09/17 10:59 Problem List - Problems (1) Back pain Assessment/Plan: R/O OSTEO PO ABX PER ID CT SCAN--COULD NOT TOLERATE MRI Code(s): M54.9 - DORSALGIA, UNSPECIFIED (2) Abdominal pain Assessment/Plan: CT NOTED Code(s): R10.9 - UNSPECIFIED ABDOMINAL PAIN Qualifiers: Abdominal location: generalized Qualified Code(s): R10.84 - Generalized abdominal pain (3) ESRD (end stage renal disease) on dialysis Assessment/Plan: RENAL ON CASE Code(s): N18.6 - END STAGE RENAL DISEASE; Z99.2 - DEPENDENCE ON RENAL DIALYSIS (4) Bacteremia Assessment/Plan: Microbiology 08/10/17 13:40 Blood Culture - Preliminary Blood - Pre-Dialysis Pending Organism 08/10/17 13:40 Blood Culture - Preliminary Blood - Pre-Dialysis Pending Organism 08/09/17 11:15 Blood Culture - Preliminary Blood - Peripheral Venous Presumptive Mssa (Pbp2a Neg) 08/09/17 10:30 Blood Culture - Preliminary Blood - Peripheral Venous Presumptive Mssa (Pbp2a Neg) ABX PER ID Code(s): R78.81 - BACTEREMIA (5) Abnormal echocardiogram Assessment/Plan: CARDIOLOGY ON ABX Code(s): R93.1 - ABNORMAL FINDINGS ON DX IMAGING OF HEART AND COR CIRC
[2017-08-11 08:43] LABS: ANION GAP 16 (8-16); BLOOD UREA NITROGEN 35 mg/dL (7-18); CALCIUM 7.9 mg/dL (8.5-10.1); CHLORIDE 90 mmol/L (98-107); CO2 27 mmol/L (21-32); GLUCOSE,RANDOM 97 mg/dL (74-106); POTASSIUM 4.7 mmol/L (3.5-5.1); SODIUM 133 mmol/L (136-145)
[2017-08-11 08:58] LABS: HEMATOCRIT 31.5 % (35.4-49); HEMOGLOBIN 10.6 GM/dL (11.7-16.9); MCH 29.7 pg (25.7-33.7); MCHC 33.7 g/dl (32.0-35.9); MEAN CELL VOLUME 88.1 fl (80-96); MEAN PLT VOLUME 8.3 fl (7.5-11.1); PLATELET COUNT 164 K/MM3 (134-434); RBC 3.57 M/mm3 (4.00-5.60); RDW 16.9 % (11.9-15.9); WHITE BLOOD COUNT 9.5 K/mm3 (4.0-10.0)
--- NOTE | 2017-08-11 09:10 | PN ---
Progress Note (short form) - Note Progress Note: temps trending down now with left sided back pain radiating to left leg refused MRI yesterday vanco level 27 yesterday Vital Signs Period Temp Pulse Resp BP Sys/Romeo Pulse Ox Last 24 Hr 98.6 F-102 F 60-97 18-21 125-155/59-100 96-97 cor-rrr 2/6 darryl lungs clear abd soft,nt ext psoriatic plaques unchanged left paraspinal pain from lower thoracic to lumbar- radiating to left leg CBC, BMP 08/11/17 07:35 08/11/17 07:35 Microbiology 08/09/17 11:15 Blood - Peripheral Venous Blood Culture - Preliminary Presumptive Mssa (Pbp2a Neg) 08/09/17 10:30 Blood - Peripheral Venous Blood Culture - Preliminary Presumptive Mssa (Pbp2a Neg) 08/09/17 10:59 Nasopharyngeal Swab Influenza Types A,B Antigen (APOLA) - Final 08/09/17 10:59 Nasopharyngeal Swab - Final echo-abnl mitral valve a/p gram positive bacteremia- agree with vancomycin, f/u cultures- will start cefazolin for presumptive MSSA f/u levels repeat blood cultures sent echo abnl mitral valve-will need cardiology evaluation for possible CONSTANCE refused MRI- will d/w renal- ?ct scan thoracic and lumbar spine with contrast if MRI not feasible esr/crp ?skin source, psoriasis psoriasis esrd/hd- HD per renal Problem List - Problems (1) Bacteremia Code(s): R78.81 - BACTEREMIA (2) Psoriasis Code(s): L40.9 - PSORIASIS, UNSPECIFIED (3) ESRD (end stage renal disease) on dialysis Code(s): N18.6 - END STAGE RENAL DISEASE; Z99.2 - DEPENDENCE ON RENAL DIALYSIS
[2017-08-11 09:17] LABS: CREATININE 9.4 mg/dL (0.7-1.3)
[2017-08-11] MEDS ORDERED: PT OWN MED DRAWER 7, Y5N ONE (10:11)
[2017-08-11] MEDS: LABETALOL HCL 200 MG TABLET (FP) PO SCH ×2 (10:16→21:21)
[2017-08-11] MEDS: CEFAZOLIN 1 GM/D5W 1 GM/50 ML BAG IVPB SCH (10:17)
[2017-08-11] MEDS: cloNIDine HCL 0.1 MG TABLET PO SCH ×2 (10:18→21:21)
[2017-08-11] MEDS: amLODIPine BESYLATE 10 MG TABLET (FP) PO SCH (10:19)
[2017-08-11 11:22] LABS: ANISOCYTOSIS 2+; PLATELET ESTIMATE DECREASED; TARGET CELLS 1+
[2017-08-11] MEDS: CYCLOBENZAPRINE HCL 10 MG TABLET (FP) PO SCH ×2 (14:12→21:21)
[2017-08-11] MEDS: ACETAMINOPHEN 325 MG TABLET (FP) PO PRN ×2 (16:40→23:40)
--- NOTE | 2017-08-11 17:20 | CON.CARD ---
Consult Consult Specialty:: Cardiology - History of Present Illness Chief Complaint: Fever and possible endocarditis. History of Present Illness: 52 year old with ESRD on HD (TTS), Hx of Renal transplant now back on HD, Psoriasis with open wounds, Hypertension who presented from home with complaints of fever, abd pain N/V and found to have MSSA bacteremia. Had dialysis as a outpatient on w/o complication. Started feeling unwell thursday and missed dialysis on Thursday because he was unwell. + fever of 102 at home. Pt started to have focal back pain in the hospital. + chills wit dialysis yesterday as inpatient. An echocardiogram here showed a small mobile echodensity attached to the MV chordae. THere is mild MR. LV function is preserved. He was febrile today. - History Source History Provided By: Patient, Medical Record - Past Medical History Cardio/Vascular: Yes: HTN, Hyperlipdemia Renal/: Yes: Renal Failure, Hemodialysis Dermatology: Yes: Psoriasis Additional Medical History: hx mrsa and mssa bacteremia 2005 while he had permacath. hs bacteremia? with right chest wall cellulitis in 2011. CONSTANCE august 2011 is negative for vegetation - Past Surgical History Past Surgical History: Yes: AV Fistula/Graft, Kidney Transplant (failed) - Alcohol/Substance Use Hx Alcohol Use: No History of Substance Use: reports: None - Smoking History Smoking history: Never smoked Have you smoked in the past 12 months: No Aproximately how many cigarettes per day: 0 - Social History Usual Living Arrangement: Other (with family) ADL: Independent History of Recent Travel: No Home Medications - Allergies Allergies/Adverse Reactions: Allergies Allergy/AdvReac Type Severity Reaction Status Date / Time No Known Drug Allergies Allergy Verified 08/09/17 10:27 - Home Medications Home Medications: Ambulatory Orders Amlodipine Besylate [Norvasc -] 10 mg PO DAILY 08/30/16 Clonidine HCl 0.3 mg PO Q12H 08/30/16 Labetalol HCl [Normodyne -] 200 mg PO TID tablet 10/22/16 Calcium Acetate [Phoslo -] 1,334 mg PO TIDCM 08/09/17 Review of Systems - Review of Systems Constitutional: reports: Chills, Fever, Lethargy, Loss of Appetite Eyes: reports: No Symptoms HENT: reports: No Symptoms Neck: reports: No Symptoms Cardiovascular: denies: Chest Pain, Edema, Shortness of Breath Respiratory: denies: Cough Gastrointestinal: reports: No Symptoms Vital Signs: Vital Signs Temperature 100.2 F H 08/11/17 14:29 Pulse Rate 88 08/11/17 09:30 Respiratory Rate 24 08/11/17 09:30 Blood Pressure 149/80 08/11/17 14:29 O2 Sat by Pulse Oximetry (%) 97 08/11/17 08:00 Constitutional: Yes: Well Nourished, Mild Distress Eyes: Yes: Conjunctiva Clear HENT: Yes: Atraumatic, Normocephalic Neck: Yes: Supple, Trachea Midline Respiratory: Yes: Regular, CTA Bilaterally Cardiovascular: Yes: Regular Rate and Rhythm JVD: No Carotid Bruit: No PMI: Non-Displaced Heart Sounds: Yes: S1, S2 Murmur: No: Systolic Murmur Edema: No - Other Data Labs, Other Data: CBC, BMP 08/11/17 07:35 08/11/17 07:35 INR, PTT INR 1.25 (0.82-1.09) H 08/09/17 10:59 Echo: Image Reviewed Problem List - Problems (1) Bacteremia Code(s): R78.81 - BACTEREMIA Assessment/Plan On review of echocardiograms the Mitral echodensity was present on the last echocardiogram form 2017 although it is more prominent and larger now. Given clinical and echocardiographic findings likely has bacterial endocarditis. There is no evidence of valvular insufficiency. Unclear to me if [facility]ST[facility] will add additional information. Abx per ID.
--- NOTE | 2017-08-11 18:15 | PN ---
Progress Note (short form) - Note Progress Note: Renal follow up for ESRD on HD Pt seen and examined at the bedside sleeping at the bedside s/p CT unable to do MRI because of claustrophobia Vital Signs Temperature 100.2 F H 08/11/17 14:29 Pulse Rate 88 08/11/17 09:30 Respiratory Rate 24 08/11/17 09:30 Blood Pressure 149/80 08/11/17 14:29 O2 Sat by Pulse Oximetry (%) 97 08/11/17 08:00 NAD Sleeping CBC, BMP 08/11/17 07:35 08/11/17 07:35 Current Medications Acetaminophen (Tylenol -) 650 mg PO Q6H PRN PRN Reason: FEVER Last Admin: 08/11/17 16:40 Dose: 650 mg Amlodipine Besylate (Norvasc -) 10 mg PO DAILY [facility] Last Admin: 08/11/17 10:19 Dose: 10 mg Clonidine (Catapres -) 0.3 mg PO BID [facility] Last Admin: 08/11/17 10:18 Dose: 0.3 mg Cyclobenzaprine HCl (Flexeril -) 5 mg PO TID [facility] Last Admin: 08/11/17 14:12 Dose: 5 mg Cefazolin Sodium (Ancef 1 Gm Premixed Ivpb -) 1 gm in 50 mls @ 100 mls/hr IVPB DAILY [facility] Last Admin: 08/11/17 10:17 Dose: 100 mls/hr Labetalol HCl (Normodyne -) 200 mg PO BID [facility] Last Admin: 08/11/17 10:16 Dose: 200 mg Morphine Sulfate (Morphine Sulfate) 4 mg IVPUSH Q4H PRN PRN Reason: PAIN LEVEL 7 - 10 Last Admin: 08/11/17 06:16 Dose: 4 mg A/P 52 year old gentleman with PMhx of ESRD on HD (TTS), Hx of Renal transplant ( 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 #Gram Positive Bacteremia Pt growing MSSA continue Ancef dosed daily repeat cultures tomorrow with HD CT showed no definate collection discitis may still need MRI cardiology evalulation appericated, likely with endocarditis #ESRD on HD with hyperkalemia for dialysis tomorrow #CKD related Anemia trend CBC will give MALCOLM if Hgb less then 10 #Hypertension continue Labetalol, Clonidine, Amlodpine Thank you Will follow Gonzalo Barros DO
--- NOTE | 2017-08-11 19:49 | CONSULT ---
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 ESRD on HD after failed transplant. Maintained on amlodipine, clonidine, labetolol, phoslo. Admitted 08/09/17 after few days of fever causing him to miss 1 HD. Around the same time as he noted fever he had onset of Low Back Pain worse with weight-baring. Now denying radiating pain in the legs but chart does note Left leg radiation. Denies change in gait or balance at home. Unable to tolerate MRI. CT of Thoracic and lumbar spines show renal osteodystrophy and spondylytic changes. NOMI: No bruits. AV Fistula in the left arm. Severe psoriatic changes both shins with open wounds. Neg SLR to 90. No LS Palp tenderness NEURO: Mild OMS. Pt does not know the day or date. Recalls 2 of 3 at 3 mins. CN II-XII: Normal Motor: No drift. Norkmal distal strength. Mild proximal weakness right leg. Absent R KJ, Normal L KJ. Both AJ's absent. Toes downgoing Coord: No FTN Dystaxia Sensory: Decreased Vib both feet. Gait: Must semi-Highland on right knee to get OO Bed. Shuffling gait. IMP: Possible L4 radiculopathy on the right. R/O osteomyelitis/discitis SUGGEST: Check ESR, CRP Consider Bone scan and/or repeat CT in 4 days Physiatry consultation and EMG/NCS Continue antibiotics. Thank you very much, Gaston Sargent MD
[2017-08-12 00:06] LABS: HBSAG SCREEN Negative (Negative); HEP A AB, IGM Negative (Negative); HEP B CORE AB, TOT Negative (Negative)
[2017-08-12] MEDS: CYCLOBENZAPRINE HCL 10 MG TABLET (FP) PO SCH ×3 (06:14→22:26)
[2017-08-12] MEDS ORDERED: HEPARIN NA (PORCINE) 5,000 UNITS/ML 1ML VIAL IVPUSH ONE (08:00)
[2017-08-12] MEDS ORDERED: SODIUM CHLORIDE 250 ML IV PRN (08:00)
--- NOTE | 2017-08-12 09:06 | PN ---
Progress Note, Physician - Current Medication List Current Medications: Active Medications Acetaminophen (Tylenol -) 650 mg PO Q6H PRN PRN Reason: FEVER Last Admin: 08/11/17 23:40 Dose: 650 mg Amlodipine Besylate (Norvasc -) 10 mg PO DAILY [facility] Last Admin: 08/11/17 10:19 Dose: 10 mg Clonidine (Catapres -) 0.3 mg PO BID [facility] Last Admin: 08/11/17 21:21 Dose: 0.3 mg Cyclobenzaprine HCl (Flexeril -) 5 mg PO TID [facility] Last Admin: 08/12/17 06:14 Dose: 5 mg Cefazolin Sodium (Ancef 1 Gm Premixed Ivpb -) 1 gm in 50 mls @ 100 mls/hr IVPB DAILY [facility] Last Admin: 08/11/17 10:17 Dose: 100 mls/hr Labetalol HCl (Normodyne -) 200 mg PO BID [facility] Last Admin: 08/11/17 21:21 Dose: 200 mg Morphine Sulfate (Morphine Sulfate) 4 mg IVPUSH Q4H PRN PRN Reason: PAIN LEVEL 7 - 10 Last Admin: 08/11/17 06:16 Dose: 4 mg - Objective Vital Signs: Vital Signs Temperature 99.3 F 08/12/17 08:10 Pulse Rate 81 08/12/17 08:45 Respiratory Rate 18 08/12/17 08:45 Blood Pressure 135/80 08/12/17 08:45 O2 Sat by Pulse Oximetry (%) 95 08/12/17 04:00 Labs: CBC, BMP 08/11/17 07:35 08/11/17 07:35 INR, PTT INR 1.25 (0.82-1.09) H 08/09/17 10:59 Problem List - Problems (1) Back pain Code(s): M54.9 - DORSALGIA, UNSPECIFIED (2) Abdominal pain Code(s): R10.9 - UNSPECIFIED ABDOMINAL PAIN Qualifiers: Abdominal location: generalized Qualified Code(s): R10.84 - Generalized abdominal pain (3) ESRD (end stage renal disease) on dialysis Code(s): N18.6 - END STAGE RENAL DISEASE; Z99.2 - DEPENDENCE ON RENAL DIALYSIS (4) Bacteremia Code(s): R78.81 - BACTEREMIA (5) Abnormal echocardiogram Code(s): R93.1 - ABNORMAL FINDINGS ON DX IMAGING OF HEART AND COR CIRC
--- NOTE | 2017-08-12 09:45 | PN ---
Progress Note (short form) - Note Progress Note: temps trending down still with severe back pain on dialysis this am Vital Signs Period Temp Pulse Resp BP Sys/Romeo Pulse Ox Last 24 Hr 99.2 F-102.9 F 80-96 18-22 116-149/66-83 95-96 cor-rrr 2/6 darryl lungs clear abd soft,nt ext psoriatic plaques unchanged CBC, BMP 08/11/17 07:35 08/11/17 07:35 Microbiology 08/09/17 11:15 Blood - Peripheral Venous Blood Culture - Final Staphylococcus Aureus 08/09/17 10:30 Blood - Peripheral Venous Blood Culture - Final Staphylococcus Aureus 08/10/17 13:40 Blood - Pre-Dialysis Blood Culture - Preliminary Presumptive Mssa (Pbp2a Neg) 08/10/17 13:40 Blood - Pre-Dialysis Blood Culture - Preliminary Presumptive Mssa (Pbp2a Neg) 08/09/17 10:59 Nasopharyngeal Swab Influenza Types A,B Antigen (PAOLA) - Final 08/09/17 10:59 Nasopharyngeal Swab - Final ct scan thoracic and lumbar spine -no epidural abscess, no definite osteo echo-abnl mitral valve a/p MSSA bacteremia- r/o endocarditis, r/o vertebral osteo repeat blood cultures sent from HD today esr/crp echo abnl mitral valve-will need cardiology evaluation for possible CONSTANCE continue cefazolin ?skin source, psoriasis psoriasis esrd/hd- HD per renal Problem List - Problems (1) Bacteremia Code(s): R78.81 - BACTEREMIA (2) Psoriasis Code(s): L40.9 - PSORIASIS, UNSPECIFIED (3) ESRD (end stage renal disease) on dialysis Code(s): N18.6 - END STAGE RENAL DISEASE; Z99.2 - DEPENDENCE ON RENAL DIALYSIS
[2017-08-12 11:00] LABS: HEMATOCRIT 29.9 % (35.4-49); HEMOGLOBIN 10.1 GM/dL (11.7-16.9); MCH 29.4 pg (25.7-33.7); MCHC 33.7 g/dl (32.0-35.9); MEAN CELL VOLUME 87.1 fl (80-96); MEAN PLT VOLUME 8.4 fl (7.5-11.1); PLATELET COUNT 176 K/MM3 (134-434); RBC 3.44 M/mm3 (4.00-5.60); RDW 16.9 % (11.9-15.9); WHITE BLOOD COUNT 12.1 K/mm3 (4.0-10.0)
[2017-08-12] MEDS: morphine SULFATE 4 MG/ML VIAL IVPUSH PRN (11:04)
--- NOTE | 2017-08-12 11:20 | PN ---
Progress Note, Physician Chief Complaint: ESRD Fevers History of Present Illness: seen during dialysis lethargic but awake febrile yesterday seen by ID IV abx cultures: Microbiology 08/09/17 11:15 Blood - Peripheral Venous Blood Culture - Final Staphylococcus Aureus 08/09/17 10:30 Blood - Peripheral Venous Blood Culture - Final Staphylococcus Aureus 08/10/17 13:40 Blood - Pre-Dialysis Blood Culture - Preliminary Presumptive Mssa (Pbp2a Neg) 08/10/17 13:40 Blood - Pre-Dialysis Blood Culture - Preliminary Presumptive Mssa (Pbp2a Neg) 08/09/17 10:59 Nasopharyngeal Swab Influenza Types A,B Antigen (PAOLA) - Final 08/09/17 10:59 Nasopharyngeal Swab - Final - Current Medication List Current Medications: Active Medications Acetaminophen (Tylenol -) 650 mg PO Q6H PRN PRN Reason: FEVER Last Admin: 08/11/17 23:40 Dose: 650 mg Amlodipine Besylate (Norvasc -) 10 mg PO DAILY [facility] Last Admin: 08/11/17 10:19 Dose: 10 mg Clonidine (Catapres -) 0.3 mg PO BID [facility] Last Admin: 08/11/17 21:21 Dose: 0.3 mg Cyclobenzaprine HCl (Flexeril -) 5 mg PO TID [facility] Last Admin: 08/12/17 06:14 Dose: 5 mg Cefazolin Sodium (Ancef 1 Gm Premixed Ivpb -) 1 gm in 50 mls @ 100 mls/hr IVPB DAILY [facility] Last Admin: 08/11/17 10:17 Dose: 100 mls/hr Labetalol HCl (Normodyne -) 200 mg PO BID [facility] Last Admin: 08/11/17 21:21 Dose: 200 mg Morphine Sulfate (Morphine Sulfate) 4 mg IVPUSH Q4H PRN PRN Reason: PAIN LEVEL 7 - 10 Last Admin: 08/12/17 11:04 Dose: 4 mg - Objective Vital Signs: Vital Signs Temperature 99.3 F 08/12/17 08:10 Pulse Rate 97 H 08/12/17 10:45 Respiratory Rate 18 08/12/17 10:45 Blood Pressure 117/70 08/12/17 10:45 O2 Sat by Pulse Oximetry (%) 95 08/12/17 04:00 Constitutional: Yes: Well Nourished, No Distress, Calm Cardiovascular: Yes: Regular Rate and Rhythm Respiratory: Yes: Regular Gastrointestinal: Yes: Normal Bowel Sounds, Soft Musculoskeletal: Yes: WNL Extremities: Yes: WNL Edema: No Neurological: Yes: Alert Psychiatric: Yes: Alert Labs: CBC, BMP 08/12/17 08:15 INR, PTT INR 1.25 (0.82-1.09) H 08/09/17 10:59 Problem List - Problems (1) ESRD (end stage renal disease) on dialysis Assessment/Plan: -on Dialysis -nephrology consult appreciated Code(s): N18.6 - END STAGE RENAL DISEASE; Z99.2 - DEPENDENCE ON RENAL DIALYSIS (2) Fever Assessment/Plan: -seen by ID Microbiology: Microbiology 08/09/17 11:15 Blood - Peripheral Venous Blood Culture - Final Staphylococcus Aureus 08/09/17 10:30 Blood - Peripheral Venous Blood Culture - Final Staphylococcus Aureus 08/10/17 13:40 Blood - Pre-Dialysis Blood Culture - Preliminary Presumptive Mssa (Pbp2a Neg) 08/10/17 13:40 Blood - Pre-Dialysis Blood Culture - Preliminary Presumptive Mssa (Pbp2a Neg) 08/09/17 10:59 Nasopharyngeal Swab Influenza Types A,B Antigen (PAOLA) - Final 08/09/17 10:59 Nasopharyngeal Swab - Final -repeat BC pending -CXR unremarkable -IV abx -Seen by cardiology, suspicion of bacterial endocarditis -also seen by Neurology, suspicion of osteomyelitis of sacroiliac joints BL -MRI or repeat CT in 4 days -acetaminophen for fever >100.0 F Code(s): R50.9 - FEVER, UNSPECIFIED (3) Bacteremia Assessment/Plan: -repeat BC -ID on board -IV abx -labs -acetaminophen for fever >100.0 F Code(s): R78.81 - BACTEREMIA (4) HTN (hypertension) Assessment/Plan: -better controlled Code(s): I10 - ESSENTIAL (PRIMARY) HYPERTENSION Qualifiers: Hypertension type: essential hypertension Qualified Code(s): I10 - Essential (primary) hypertension (5) Bacterial endocarditis Assessment/Plan: -seen by cardiology -IV abx as per ID Code(s): I33.0 - ACUTE AND SUBACUTE INFECTIVE ENDOCARDITIS Assessment/Plan see problem list
[2017-08-12] MEDS ORDERED: PT OWN MED DRAWER 7, Y5N ONE ×2 (11:30→14:32)
[2017-08-12 12:14] LABS: ANION GAP 16 (8-16); BLOOD UREA NITROGEN 54 mg/dL (7-18); CALCIUM 7.9 mg/dL (8.5-10.1); CHLORIDE 89 mmol/L (98-107); CO2 26 mmol/L (21-32); GLUCOSE,RANDOM 99 mg/dL (74-106); PHOSPHOROUS 7.9 mg/dL (2.5-4.9); POTASSIUM 5.4 mmol/L (3.5-5.1); SODIUM 131 mmol/L (136-145)
--- NOTE | 2017-08-12 13:26 | PN ---
Progress Note (short form) - Note Progress Note: Renal follow up for ESRD on HD Pt seen and examined during dialysis has severe back pain Vital Signs Temperature 100.2 F H 08/11/17 14:29 Pulse Rate 88 08/11/17 09:30 Respiratory Rate 24 08/11/17 09:30 Blood Pressure 149/80 08/11/17 14:29 O2 Sat by Pulse Oximetry (%) 97 08/11/17 08:00 NAD groggy (just got pain meds) RRR CTA No LE edema CBC, BMP 08/12/17 08:15 08/12/17 09:40 Current Medications Acetaminophen (Tylenol -) 650 mg PO Q6H PRN PRN Reason: FEVER Last Admin: 08/11/17 23:40 Dose: 650 mg Amlodipine Besylate (Norvasc -) 10 mg PO DAILY [facility] Last Admin: 08/11/17 10:19 Dose: 10 mg Clonidine (Catapres -) 0.3 mg PO BID [facility] Last Admin: 08/11/17 21:21 Dose: 0.3 mg Cyclobenzaprine HCl (Flexeril -) 5 mg PO TID [facility] Last Admin: 08/12/17 06:14 Dose: 5 mg Heparin Sodium (Porcine) (Heparin -) 5,000 unit SQ BID [facility] Cefazolin Sodium (Ancef 1 Gm Premixed Ivpb -) 1 gm in 50 mls @ 100 mls/hr IVPB DAILY [facility] Last Admin: 08/11/17 10:17 Dose: 100 mls/hr Labetalol HCl (Normodyne -) 200 mg PO BID [facility] Last Admin: 08/11/17 21:21 Dose: 200 mg Morphine Sulfate (Morphine Sulfate) 4 mg IVPUSH Q4H PRN PRN Reason: PAIN LEVEL 7 - 10 Last Admin: 08/12/17 11:04 Dose: 4 mg A/P 52 year old gentleman with PMhx of ESRD on HD (TTS), Hx of Renal transplant ( 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 #Gram Positive Bacteremia with back pain Pt growing MSSA CT T and L spine w/o gross abnormalities case discussed with Dr Birch bone scan is sensative but may not be specific if pt has renal osteodystrophy will attempt to get a MRI with sedation as that may help to see nerve root impingement if pt will allow or repeat CT continue Abx as per ID repeat cultures drawn this am #ESRD on HD with hyperkalemia tolerating dialysis well #CKD related Anemia trend CBC will give MALCOLM if Hgb less then 10 #Hypertension continue Labetalol, Clonidine, Amlodpine Thank you Will follow Gonzalo Barros DO
[2017-08-12] MEDS: cloNIDine HCL 0.1 MG TABLET PO SCH ×2 (14:45→22:25)
[2017-08-12] MEDS: CEFAZOLIN 1 GM/D5W 1 GM/50 ML BAG IVPB SCH (14:45)
[2017-08-12] MEDS: LABETALOL HCL 200 MG TABLET (FP) PO SCH ×2 (14:46→22:26)
[2017-08-12] MEDS: amLODIPine BESYLATE 10 MG TABLET (FP) PO SCH (14:46)
[2017-08-12] MEDS: ACETAMINOPHEN 325 MG TABLET (FP) PO PRN (14:49)
[2017-08-12] MEDS ORDERED: HEPARIN NA (PORCINE) 5,000 UNITS/ML 1ML VIAL SQ SCH (22:00)
[2017-08-13] MEDS: CYCLOBENZAPRINE HCL 10 MG TABLET (FP) PO SCH (05:48)
[2017-08-13] MEDS: ACETAMINOPHEN 325 MG TABLET (FP) PO PRN (08:11)
[2017-08-13 08:22] VITALS: TEMP 101.5
[2017-08-13 08:56] LABS: BASO % 0.3 % (0-2.0); EOS % 0.4 % (0-4.5); HEMATOCRIT 32.6 % (35.4-49); HEMOGLOBIN 10.7 GM/dL (11.7-16.9); LYMPH % 6.1 % (8-40); MCH 29.2 pg (25.7-33.7); MCHC 32.8 g/dl (32.0-35.9); MEAN PLT VOLUME 8.5 fl (7.5-11.1); MONO % 12.5 % (3.8-10.2); NEUT % 80.7 % (42.8-82.8); PLATELET COUNT 209 K/MM3 (134-434); RBC 3.67 M/mm3 (4.00-5.60); RDW 17.3 % (11.9-15.9); WHITE BLOOD COUNT 12.1 K/mm3 (4.0-10.0)
[2017-08-13 09:12] LABS: CHLORIDE 93 mmol/L (98-107); SODIUM 137 mmol/L (136-145)
[2017-08-13 09:26] LABS: ANION GAP 17 (8-16); BLOOD UREA NITROGEN 44 mg/dL (7-18); CALCIUM 8.8 mg/dL (8.5-10.1); CO2 27 mmol/L (21-32); GLUCOSE,RANDOM 96 mg/dL (74-106); MAGNESIUM 2.4 mg/dL (1.8-2.4); PHOSPHOROUS 7.6 mg/dL (2.5-4.9)
[2017-08-13 09:31] LABS: CREATININE 10.1 mg/dL (0.7-1.3)
--- NOTE | 2017-08-13 09:55 | RAPID ---
Physical Examination Vital Signs: Vital Signs Temperature 101.5 F H 08/13/17 08:00 Pulse Rate 98 H 08/13/17 08:00 Respiratory Rate 22 08/13/17 08:00 Blood Pressure 114/72 08/13/17 08:00 O2 Sat by Pulse Oximetry (%) 97 08/13/17 04:00 BP: 138/73 HR: 103 O2: 99 on 5L (88 on RA) Findings/Remarks: Rapid Response called overhead. RN stated that patient was lethargic and appeared to have a change in mental status with poor responsiveness. Patient was minimally able to follow some commands but unable to speak. Constitutional: Yes: Other (A&O X 0. No response to commands.) Cardiovascular: Yes: Regular Rate and Rhythm, S1, S2 Respiratory: Yes: Regular, CTA Bilaterally Gastrointestinal: Yes: Normal Bowel Sounds, Soft Neurological: Yes: Other (Unable to follow commands. 1/5 hand strength.) Labs: CBC, BMP 08/13/17 07:45 08/13/17 07:45 NIH Stroke Scale - Last Known Well Date/Time & Onset Date Last Known Well: 08/13/17 - Initial Evaluation Level of consciousness: Not alert, requires repeat stimulation to attend Ask patient the month and their age: Both incorrect Ask patient to open & close eyes; make fist and let go: Obeys one correctly Best gaze (horizontal eye movement): Forced deviation Visual field testing: Bilateral hemianopia (blind including cortical blindness) Facial paresis (Show teeth/raise eyebrows/close eyes tight): Minor paralysis ( flattened nasolabial fold, asymmetry on smiling) Motor Function: Left Arm: No effort against gravity Motor Function: Right Arm: Some effort against gravity Motor Function: Left Leg: No effort against gravity Motor Function: Right Leg: No effort against gravity Limb Ataxia: Untestable (Joint fused or limb amputated), explain: Sensory(Use pinprick test arms,legs,trunk,face/side to side): Severe to total sensory loss Best language (Describe picture, name items, read sentences): Mute Dysarthria (read several words): Intubated or other physical barrierr, explain: (MUTE) Extinction and Inattention: Profound silvia-inattention or extinction to more than one modality - Total Score NIH Stroke Scale Score: 29 Rapid Response - Rapid Response Assessment: 52 year old M with pmh of ESRD on HD admitted with MRSA bacteremia presented with acute mental status change. R/o acute CVA, possibly embolic with ? vegetations on echocardiogram Will order: CBC CMP EKG TSH CARDIAC PROFILE CXR HEAD CT LIPID PROFILE SPEECH/SWALLOW EVALUATION TRANSFER TO ICU NEURO CONSULTED, BRAIN/NECK CTA PER NEURO PCP INFORMED
[2017-08-13 09:59] LABS: ARTERIAL BLD GAS O2 SATURATION 98.4 % (90-98.9); ARTERIAL BLOOD GAS BASE EXCESS 4.4 meq/l (-2-2); ARTERIAL BLOOD GAS PCO2 36.8 mmHg (35-45); ARTERIAL BLOOD GAS pH 7.49 (7.35-7.45)
[2017-08-13 10:00] LABS: ALLENS TEST POSITIVE
[2017-08-13 10:45] LABS: BASO % 0.5 % (0-2.0); EOS % 0.3 % (0-4.5); HEMOGLOBIN 10.4 GM/dL (11.7-16.9); LYMPH % 6.2 % (8-40); MCH 28.7 pg (25.7-33.7); MCHC 32.4 g/dl (32.0-35.9); MEAN CELL VOLUME 88.7 fl (80-96); MEAN PLT VOLUME 8.3 fl (7.5-11.1); MONO % 11.9 % (3.8-10.2); NEUT % 81.1 % (42.8-82.8); PLATELET COUNT 228 K/MM3 (134-434); RBC 3.61 M/mm3 (4.00-5.60); RDW 16.8 % (11.9-15.9); WHITE BLOOD COUNT 12.7 K/mm3 (4.0-10.0)
--- NOTE | 2017-08-13 11:00 | CONSULT ---
Admitting History and Physical - Primary Care Physician PCP: Aidee Kim - Admission History of Present Illness: Per EMR admission: This is a 52 y/o man with a past medical history of ESRD (HD- T, , ). Who presents to the ED s/p missed HD secondary to having subjective fevers 102 and generalized bodyaches x 4 days. Patient reports having flu- like symptoms. Patient denies SOB, CP, and palpitations. Patient denies N/V/D, constipation. Per ID 08/12 a/p MSSA bacteremia- r/o endocarditis, r/o vertebral osteo Selected Entries 08/11/17 08/11/17 08/11/17 05:26 08:00 09:30 Breakfast Supper Temperature 99.0 F 100.2 F H 101.8 F H 08/11/17 08/11/17 08/12/17 14:29 22:40 05:47 Breakfast Supper Temperature 100.2 F H 102.9 F H 99.2 F 08/12/17 08/12/17 08/12/17 08:00 08:10 14:30 Breakfast 0 Supper Temperature 98.4 F 99.3 F 08/12/17 08/12/17 08/12/17 14:58 19:18 22:00 Breakfast Supper 0 0 Temperature 101.2 F H 08/13/17 08/13/17 08/13/17 00:00 06:08 08:00 Breakfast Supper Temperature 101.4 F H 98.2 F 101.5 F H Laboratory Tests 08/12/17 08/13/17 08:15 07:45 WBC 12.1 H 12.1 H Rapid Response today for extreme lethargy/ non communicative. CT noted (-) History Source: Medical Record Limitations to Obtaining History: Clinical Condition - Past Medical History Cardiovascular: Yes: HTN, Hyperlipdemia Renal/: Yes: Renal Failure, Hemodialysis Dermatology: Yes: Psoriasis - Past Surgical History Past Surgical History: Yes: AV Fistula/Graft, Kidney Transplant (failed) - Smoking History Smoking history: Never smoked Have you smoked in the past 12 months: No Aproximately how many cigarettes per day: 0 - Alcohol/Substance Use Hx Alcohol Use: No History of Substance Use: reports: None - Social History ADL: Independent History of Recent Travel: No History - Admission Reason For Visit: ESRD ON DIALYSIS; ABDOMINAL PAIN; HYPERKALEMIA - Diagnostics CT Scan: Report Reviewed - General Ability to Follow Directions: Poor - Hearing Hearing: Normal Speech Evaluation - Communication Primary Language: [place] Communication: Yes: Non-Communicable Oral Expression Ability: Yes: Non-Verbal, Non-Vocal - Language/Auditory Comprehension Observation: Able to respond to yes/no queries: No, Comprehends Conversational Speech: No (No attempt at response) - Language/Verbal Expression Able to Respond to Simple Queries: Yes: Severely Impaired Able to Communicate Wants and Needs: Yes: Severely Impaired Functional Communication Status: Yes: Severely Impaired - Swallow Evaluation/Bedside Assessment Oral Secretions: Yes: WFL Recommendations - Speech Evaluation, Impression/Plan Impression: Eyes open. Pt does not follow directions or respond to y/n commands. Lips tightly pursed closed. Non verbal. Non vocal. No clear facial asymmetry. Pending Neurology,MRI. r/o cva/seizures/encephalopathy - Dysphagia Impressions/Plan Dysphagia Impressions: Risk of Aspiration, Too Lethargic to Assess *Silent aspiration: cannot be R/O at bedside Recommendations: Neuro Consult (pending) - Recommendations Diet Consistency: NPO Liquids: NPO
[2017-08-13] MEDS ORDERED: PT OWN MED DRAWER 7, Y5N ONE (11:05)
[2017-08-13 11:10] LABS: ANION GAP 10 (8-16); BLOOD UREA NITROGEN 46 mg/dL (7-18); CHLORIDE 96 mmol/L (98-107); CO2 31 mmol/L (21-32); GLUCOSE,RANDOM 100 mg/dL (74-106); POTASSIUM 4.8 mmol/L (3.5-5.1); SODIUM 137 mmol/L (136-145)
[2017-08-13 11:12] LABS: CHOLESTEROL 128 mg/dL (50-200); LDL CHOLESTEROL (ONLY SJRH) 54 mg/dL (5-100); TRIGLYCERIDES 176 mg/dL (35-160)
--- NOTE | 2017-08-13 11:12 | PN ---
Progress Note, Physician Chief Complaint: temp of 101.5 patient seen and examined events noted of rapid response patient is not talking he does open his eyes, not following commands arms are shaking moving his right leg code cook called ct scan head done plan to transfer to ICU spoke to his in detail - Current Medication List Current Medications: Active Medications Acetaminophen (Tylenol -) 650 mg PO Q6H PRN PRN Reason: FEVER Last Admin: 08/13/17 08:11 Dose: 650 mg Amlodipine Besylate (Norvasc -) 10 mg PO DAILY [facility] Last Admin: 08/12/17 14:46 Dose: 10 mg Clonidine (Catapres -) 0.3 mg PO BID [facility] Last Admin: 08/12/17 22:25 Dose: 0.3 mg Cyclobenzaprine HCl (Flexeril -) 5 mg PO TID [facility] Last Admin: 08/13/17 05:48 Dose: Not Given Heparin Sodium (Porcine) (Heparin -) 5,000 unit SQ BID [facility] Last Admin: 08/12/17 22:26 Dose: 5,000 unit Cefazolin Sodium (Ancef 1 Gm Premixed Ivpb -) 1 gm in 50 mls @ 100 mls/hr IVPB DAILY [facility] Last Admin: 08/12/17 14:45 Dose: 100 mls/hr Labetalol HCl (Normodyne -) 200 mg PO BID [facility] Last Admin: 08/12/17 22:26 Dose: 200 mg Morphine Sulfate (Morphine Sulfate) 4 mg IVPUSH Q4H PRN PRN Reason: PAIN LEVEL 7 - 10 Last Admin: 08/12/17 11:04 Dose: 4 mg - Objective Vital Signs: Vital Signs Temperature 101.5 F H 08/13/17 08:00 Pulse Rate 98 H 08/13/17 08:00 Respiratory Rate 22 08/13/17 08:00 Blood Pressure 114/72 08/13/17 08:00 O2 Sat by Pulse Oximetry (%) 97 08/13/17 04:00 Cardiovascular: Yes: Regular Rate and Rhythm, S1, S2 Respiratory: Yes: Diminished Gastrointestinal: Yes: Normal Bowel Sounds, Soft Extremities: Yes: Other (left arm AVF thrill) Edema: No Integumentary: Yes: Other (psoaritic plaques) Neurological: Yes: Lethargy, Other (not talking able to move both arms and right leg left leg decreased motor strenght) Labs: CBC, BMP 08/13/17 10:30 INR, PTT INR 1.25 (0.82-1.09) H 08/09/17 10:59 Problem List - Problems (1) Fever Assessment/Plan: change in mental status- toxic metabolic encephalopathy r/o stroke vs febrile seizures iv abx ct head done transfer to ICU to get head and neck CTA neurochecks q4 hrs [address] scan of the LS spine / bone scan MRI if patient can tolerate it dvt ppx Code(s): R50.9 - FEVER, UNSPECIFIED (2) Anemia in CKD (chronic kidney disease) Assessment/Plan: h/h stable Code(s): N18.9 - CHRONIC KIDNEY DISEASE, UNSPECIFIED; D63.1 - ANEMIA IN CHRONIC KIDNEY DISEASE (3) ESRD (end stage renal disease) on dialysis Assessment/Plan: HD per renal Code(s): N18.6 - END STAGE RENAL DISEASE; Z99.2 - DEPENDENCE ON RENAL DIALYSIS (4) HTN (hypertension) Assessment/Plan: holding parameters entered for the BP meds Code(s): I10 - ESSENTIAL (PRIMARY) HYPERTENSION
[2017-08-13 11:13] LABS: HDL CHOLESTEROL 23 mg/dL (40-60)
[2017-08-13] MEDS ORDERED: amLODIPine BESYLATE 10 MG TABLET (FP) PO SCH (11:18)
[2017-08-13] MEDS ORDERED: LABETALOL HCL 200 MG TABLET (FP) PO SCH (11:19)
--- NOTE | 2017-08-13 11:26 | PN ---
Progress Note, Physician Chief Complaint: ID ICU followup for this 52 year old male with ESRD and MSSA bacteremia brought down to ICU just now becasue of dramatic chcnge in mental status found to be poorly responsive. Currently getting cefazolin adjusted Cr Cl Nonverbal but moving extremities - Current Medication List Current Medications: Active Medications Acetaminophen (Tylenol -) 650 mg PO Q6H PRN PRN Reason: FEVER Last Admin: 08/13/17 08:11 Dose: 650 mg Amlodipine Besylate (Norvasc -) 10 mg PO DAILY [facility] Clonidine (Catapres -) 0.3 mg PO BID [facility] Last Admin: 08/12/17 22:25 Dose: 0.3 mg Cyclobenzaprine HCl (Flexeril -) 5 mg PO TID [facility] Last Admin: 08/13/17 05:48 Dose: Not Given Heparin Sodium (Porcine) (Heparin -) 5,000 unit SQ BID [facility] Last Admin: 08/12/17 22:26 Dose: 5,000 unit Cefazolin Sodium (Ancef 1 Gm Premixed Ivpb -) 1 gm in 50 mls @ 100 mls/hr IVPB DAILY [facility] Last Admin: 08/12/17 14:45 Dose: 100 mls/hr Labetalol HCl (Normodyne -) 200 mg PO BID [facility] Morphine Sulfate (Morphine Sulfate) 4 mg IVPUSH Q4H PRN PRN Reason: PAIN LEVEL 7 - 10 Last Admin: 08/12/17 11:04 Dose: 4 mg - Objective Vital Signs: Vital Signs Temperature 101.5 F H 08/13/17 08:00 Pulse Rate 98 H 08/13/17 08:00 Respiratory Rate 22 08/13/17 08:00 Blood Pressure 114/72 08/13/17 08:00 O2 Sat by Pulse Oximetry (%) 97 08/13/17 04:00 Constitutional: Yes: Well Nourished, No Distress Eyes: Yes: Conjunctiva Clear, Other (Ne petechiae) Cardiovascular: Yes: S1, S2 Respiratory: Yes: WNL, Regular, CTA Bilaterally Gastrointestinal: Yes: WNL, Normal Bowel Sounds, Soft. No: Splenomegaly, Tenderness Edema: No Integumentary: Yes: Other (Psoriatic plaques) Labs: CBC, BMP 08/13/17 10:30 INR, PTT INR 1.25 (0.82-1.09) H 08/09/17 10:59 Assessment/Plan Microbiology 08/09/17 11:15 Blood - Peripheral Venous Blood Culture - Final Staphylococcus Aureus 08/09/17 10:30 Blood - Peripheral Venous Blood Culture - Final Staphylococcus Aureus 08/12/17 08:15 Blood - Pre-Dialysis Blood Culture - Preliminary Pending Organism 08/12/17 08:15 Blood - Pre-Dialysis Blood Culture - Preliminary NO GROWTH OBTAINED AFTER 24 HOURS, INCUBATION TO CONTINUE FOR 4 DAYS. 08/10/17 13:40 Blood - Pre-Dialysis Blood Culture - Preliminary Staphylococcus Aureus 08/10/17 13:40 Blood - Pre-Dialysis Blood Culture - Preliminary Presumptive Mssa (Pbp2a Neg) Laboratory Tests 08/12/17 08/12/17 08/13/17 08:15 08:15 10:30 WBC 12.7 H Hgb 10.4 L Plt Count 228 ESR 73 H C-Reactive Protein 29.1 H Assessment Clinically suspect MSSA endocarditis with an acute neurological event ? stroke TIA CRP elevated Bacteremia as of day 3 yesterday and febrile ? vegetation on the chord seen Elevated TNI noted now Plan Repeat his blood cultures Neurology evaluation Head CT shows no acute CVA (noncontrast) Increase Cefazolin 2grs daily and Ertepenem 500mg daily Discussed with cardiology regarding consideration of transfer to cardiothoracic service keeping in mind he is at high risk for cardiothoracic surgery Zhane [place]
[2017-08-13 11:39] LABS: CREATININE 10.6 mg/dL (0.7-1.3)
[2017-08-13] MEDS ORDERED: CEFAZOLIN 2 GM/D5W 2 GM/50 ML ML IVPB SCH (12:00)
--- NOTE | 2017-08-13 12:36 | CONSULT ---
Consultation: REQUESTING PROVIDER: CONSULT REQUEST: We have been asked to medically evaluate this patient for ( specify). HISTORY OF PRESENT ILLNESS: Mr. Clark is a 52 yo male w/ pmh of HTN, psoriasis, and ESRD on T/R/Sat dialysis who presented to ED 08/09 w/ complaints of 2 days of fevers, body aches, and N/V/ D. Had a maximum temperature at home of 101.5, presented to ED as abdominal pain and nausea found to have worsened. Initially thought to be a viral syndrome , he was admitted to unit for dialysis due to critically high K of 6.5 with elevated BUN of 82. Additionally had peaked T waves on EKG. Calcium gluconate given in ER as well. 08/10 patient was found to have positive blood cultures (gram positive), was started on vancomycin w/ f/u cultures. Patient status was improving on vancomycin with downtrending temperatures. 08/11 Cardiac echo revealed small mobile echodensity attached to MV chordae. 08/13 Rapid Response was called as patient experienced dramatic change in mental status - was poorly responsive; able to follow some commands but largely non- verbal. Currently getting cefazolin adjusted Cr Cl. Head CT revealed no acute process; Head/Neck CTA ordered for further evaluation. [facility] contacted to transfer patient to tertiary care facility with cardiothoracic capabilities. ID increased Cefazolin to 2grs daily and Ertepenem 500mg daily. Patient scheduled for transfer on presentation to ICU REVIEW OF SYSTEMS: +Unable to obtain further PHYSICAL EXAMINATION Vital Signs - 24 hr 08/12/17 08/13/17 08/13/17 14:58 00:00 04:00 Temperature 101.2 F H 101.4 F H Pulse Rate 101 H 80 Respiratory 20 Rate Blood Pressure 124/72 140/70 O2 Sat by Pulse 97 Oximetry (%) 08/13/17 08/13/17 06:08 08:00 Temperature 98.2 F 101.5 F H Pulse Rate 91 H 98 H Respiratory 20 22 Rate Blood Pressure 118/69 114/72 O2 Sat by Pulse 95 Oximetry (%) GENERAL: Awake and responsive to some commands. HEAD: Normal with no signs of trauma. EYES: Pupils equal, round and reactive to light, extraocular movements intact, sclera anicteric, conjunctiva clear. No lid lag. EARS, NOSE, THROAT: Ears normal, nares patent, oropharynx clear without exudates. Moist mucous membranes. NECK: Normal range of motion, supple without lymphadenopathy, JVD, or masses. LUNGS: Breath sounds equal, clear to auscultation bilaterally. No wheezes, and no crackles. No accessory muscle use. HEART: +Tachycardic, Regular rhythm. Normal S1 and S2 without murmur, rub or gallop. ABDOMEN: Soft, nontender, not distended, normoactive bowel sounds, no guarding, no rebound, no masses. No hepatomegaly or splenomegaly. MUSCULOSKELETAL: +Effusion noted to left shoulder of unclear origin. +Bilateral lower extremities noted to have significant open sores to shins. Long standing for patient. Normal range of motion at all joints. No bony deformities or tenderness. No CVA tenderness. UPPER EXTREMITIES: 2+ pulses, warm, well-perfused. No cyanosis. No clubbing. Cap refill <2 seconds. No peripheral edema. LOWER EXTREMITIES: 2+ pulses, warm, well-perfused. No calf tenderness. No peripheral edema. NEUROLOGICAL: +Patient follows some simple commands but cannot respond appropriately or repeat words PSYCHIATRIC: +Minimally responsive - unable to assess further. SKIN: Warm, dry, normal turgor, no rashes or lesions besides noted above Laboratory Results - last 24 hr 08/12/17 08/13/17 08/13/17 08:15 05:44 07:45 WBC 12.1 H RBC 3.67 L Hgb 10.7 L Hct 32.6 L MCV 89.0 MCH 29.2 MCHC 32.8 RDW 17.3 H Plt Count 209 MPV 8.5 Neutrophils % 80.7 Lymphocytes % 6.1 L D Monocytes % 12.5 H Eosinophils % 0.4 D Basophils % 0.3 Anticoagulation Therapy Puncture Site ABG pH ABG pCO2 at Pt Temp ABG pO2 at Pt Temp ABG HCO3 ABG O2 Sat (Measured) ABG O2 Content ABG Base Excess [place] Test O2 Delivery Device Oxygen Flow Rate Vent Mode Vent Rate Mechanical Rate Pressure Support Vent Sodium 131 L Potassium 5.4 H Chloride 89 L Carbon Dioxide 26 Anion Gap 16 BUN 54 H D Creatinine 13.0 H* D POC Glucometer 101 Random Glucose 99 Calcium 7.9 L Phosphorus 7.9 H Magnesium Creatine Kinase Creatine Kinase Index CK-MB (CK-2) Troponin I Triglycerides Cholesterol Total LDL Cholesterol HDL Cholesterol TSH 03/08/13/17 08/13/17 07:45 09:41 09:55 WBC RBC Hgb Hct MCV MCH MCHC RDW Plt Count MPV Neutrophils % Lymphocytes % Monocytes % Eosinophils % Basophils % Anticoagulation Therapy No Result Required. Puncture Site Right radial ABG pH 7.49 H ABG pCO2 at Pt Temp 36.8 ABG pO2 at Pt Temp 121.0 H D ABG HCO3 27.5 H ABG O2 Sat (Measured) 98.4 ABG O2 Content 14.8 L ABG Base Excess 4.4 H [place] Test Positive O2 Delivery Device No Result Required. Oxygen Flow Rate Yes Vent Mode No Result Required. Vent Rate No Result Required. Mechanical Rate No Result Required. Pressure Support Vent No Result Required. Sodium 137 Potassium 5.0 Chloride 93 L Carbon Dioxide 27 Anion Gap 17 H BUN 44 H Creatinine 10.1 H* D POC Glucometer 97 Random Glucose 96 Calcium 8.8 Phosphorus 7.6 H Magnesium 2.4 Creatine Kinase Creatine Kinase Index CK-MB (CK-2) Troponin I Triglycerides Cholesterol Total LDL Cholesterol HDL Cholesterol TSH 08/13/17 08/13/17 08/13/17 10:30 10:30 10:30 WBC 12.7 H RBC 3.61 L Hgb 10.4 L Hct 32.0 L MCV 88.7 MCH 28.7 MCHC 32.4 RDW 16.8 H Plt Count 228 MPV 8.3 Neutrophils % 81.1 Lymphocytes % 6.2 L Monocytes % 11.9 H Eosinophils % 0.3 Basophils % 0.5 Anticoagulation Therapy Puncture Site ABG pH ABG pCO2 at Pt Temp ABG pO2 at Pt Temp ABG HCO3 ABG O2 Sat (Measured) ABG O2 Content ABG Base Excess [place] Test O2 Delivery Device Oxygen Flow Rate Vent Mode Vent Rate Mechanical Rate Pressure Support Vent Sodium 137 Potassium 4.8 Chloride 96 L Carbon Dioxide 31 Anion Gap 10 BUN 46 H Creatinine 10.6 H* POC Glucometer Random Glucose 100 Calcium 9.0 Phosphorus Magnesium Creatine Kinase 356 H Creatine Kinase Index 0.4 CK-MB (CK-2) 1.653 Troponin I 2.83 H* D Triglycerides 176 H D Cholesterol 128 Total LDL Cholesterol 54 HDL Cholesterol 23 L D TSH 0.27 L D Active Medications Generic Name Dose Route Start Last Admin Trade Name Freq PRN Reason Stop Dose Admin Acetaminophen 650 mg 08/09/17 21:34 08/13/17 08:11 Tylenol - PO 650 mg Q6H PRN Administration FEVER Amlodipine Besylate 10 mg 08/13/17 11:18 Norvasc - PO DAILY [facility] Clonidine 0.3 mg 08/09/17 22:00 08/12/17 22:25 Catapres - PO 0.3 mg BID [facility] Administration Cyclobenzaprine HCl 5 mg 08/11/17 14:00 08/13/17 05:48 Flexeril - PO Not Given TID [facility] Heparin Sodium (Porcine) 5,000 unit 08/12/17 22:00 08/12/17 22:26 Heparin - SQ 5,000 unit BID [facility] Administration Cefazolin Sodium/Dextrose 2 gm in 50 mls @ 200 mls/hr 08/13/17 12:00 Ancef 2 Gm Premixed Ivpb - IVPB DAILY [facility] Ertapenem 0.5 gm/ Sodium 50 mls @ 50 mls/hr 08/13/17 12:00 Chloride IVPB DAILY [facility] Protocol Labetalol HCl 200 mg 08/13/17 11:19 Normodyne - PO BID [facility] ASSESSMENT/PLAN: Mr. Clark is a 52 yo male w/ pmh of HTN and ESRD on T/R/Sat dialysis w/ gram positive bacteremia and mitral valve vegetation noted to have acute change in mental status today concerning for toxic metabolic encephalopathy vs stroke vs febrile seizures. AMS -IV ABX -Head CT/ Head/neck CTA -Transfer to [facility] in progress Visit type - Emergency Visit Emergency Visit: Yes ED Registration Date: 08/10/17 Care time: The patient presented to the Emergency Department on the above date and was hospitalized for further evaluation of their emergent condition. - New Patient This patient is new to me today: Yes Date on this admission: 08/13/17 - Critical Care Critical Care patient: Yes Total Critical Care Time (in minutes): 45 Critical Care Statement: The care of this patient involved high complexity decision making to prevent further life threatening deterioration of the patient 's condition and/or to evaluate & treat vital organ system(s) failure or risk of failure.
--- NOTE | 2017-08-13 13:05 | PN ---
Progress Note, Physician Chief Complaint: Transferred to ICU today. Found to become nonverbal and with Rt arm twitching. He is awake and can follow commands. Telem Sinus tachycardia History of Present Illness: 52 year old with ESRD on HD (TTS), Hx of Renal transplant now back on HD, Psoriasis with open wounds, Hypertension who presented from home with complaints of fever, abd pain N/V and found to have MSSA bacteremia. Had dialysis as a outpatient on w/o complication. Started feeling unwell thursday and missed dialysis on Thursday because he was unwell. + fever of 102 at home. Pt started to have focal back pain in the hospital. + chills with dialysis. An echocardiogram here showed a mobile echodensity attached to the MV chordae. THere is mild MR. LV function is preserved. Being treated for mitral endocarditis. He was febrile today. Bld Cx form 08/10 positive MSSA, 08/12 NGTD Still febrile - Current Medication List Current Medications: Active Medications Acetaminophen (Tylenol -) 650 mg PO Q6H PRN PRN Reason: FEVER Last Admin: 08/13/17 08:11 Dose: 650 mg Amlodipine Besylate (Norvasc -) 10 mg PO DAILY [facility] Clonidine (Catapres -) 0.3 mg PO BID [facility] Last Admin: 08/12/17 22:25 Dose: 0.3 mg Cyclobenzaprine HCl (Flexeril -) 5 mg PO TID [facility] Last Admin: 08/13/17 05:48 Dose: Not Given Heparin Sodium (Porcine) (Heparin -) 5,000 unit SQ BID [facility] Last Admin: 08/12/17 22:26 Dose: 5,000 unit Cefazolin Sodium/Dextrose (Ancef 2 Gm Premixed Ivpb -) 2 gm in 50 mls @ 200 mls /hr IVPB DAILY [facility] Ertapenem 0.5 gm/ Sodium (Chloride) 50 mls @ 50 mls/hr IVPB DAILY [facility] PRN Reason: Protocol Labetalol HCl (Normodyne -) 200 mg PO BID [facility] - Objective Vital Signs: Vital Signs Temperature 101.5 F H 08/13/17 08:00 Pulse Rate 98 H 08/13/17 08:00 Respiratory Rate 22 08/13/17 08:00 Blood Pressure 114/72 08/13/17 08:00 O2 Sat by Pulse Oximetry (%) 95 08/13/17 08:00 Constitutional: Yes: No Distress, Anxious HENT: Yes: Atraumatic, Normocephalic Neck: Yes: Supple, Trachea Midline Cardiovascular: Yes: Regular Rate and Rhythm, Tachycardia, Murmur (3/6 SM), S1, S2 Respiratory: Yes: Regular, CTA Bilaterally Gastrointestinal: Yes: Normal Bowel Sounds Edema: No Neurological: Yes: Alert, Aphasia, Confusion. No: Oriented, Facial Droop Labs: CBC, BMP 08/13/17 10:30 08/13/17 10:30 INR, PTT INR 1.25 (0.82-1.09) H 08/09/17 10:59 Problem List - Problems (1) Bacteremia Code(s): R78.81 - BACTEREMIA Assessment/Plan Mitral echodensity with persistent fevers and postivive Bld Cx suggest endocarditis. In view of concerning neurological findings the possibility of septic emboli is raised. He will be transferred to [facility] MICU. A repeat TTE and CONSTANCE should be planned. Thoracic imaging given he acute and severe pain may be needed to exclude infection of the spine. He may require high risk heart surgery. Avoid further narcotic use. cont Abx.
[2017-08-13 13:21] LABS: INR 1.42 (0.82-1.09)
[2017-08-13] MEDS ORDERED: ERTAPENEM SODIUM 0.5 GM in SODIUM CHLORIDE 50 ML IVPB SCH (13:30)
[2017-08-13 13:48] VITALS: BP 161/94; PULSE 104
--- NOTE | 2017-08-13 14:22 | PN ---
Teaching Attending Note Name of Resident: Torito Thurston ATTENDING PHYSICIAN STATEMENT I saw and evaluated the patient. I reviewed the resident's note and discussed the case with the resident. I agree with the resident's findings and plan as documented. SUBJECTIVE: Patient seen and examined. Clinical impression of embolic [employer] events due to Mitral Valve Endocarditis. Has been accepted to [facility] for further management and input from CT surgery. Intake & Output 08/10/17 08/11/17 08/12/17 08/13/17 23:59 23:59 23:59 23:59 Intake Total 450 850 550 200 Output Total 0 Balance 450 850 550 200 Last Vital Signs Temp Pulse Resp BP Pulse Ox 101.5 F H 104 H 17 161/94 95 08/13/17 08:00 08/13/17 12:00 08/13/17 12:00 08/13/17 12:00 08/13/17 08:00 Active Medications Acetaminophen (Tylenol -) 650 mg PO Q6H PRN PRN Reason: FEVER Last Admin: 08/13/17 08:11 Dose: 650 mg Amlodipine Besylate (Norvasc -) 10 mg PO DAILY [facility] Clonidine (Catapres -) 0.3 mg PO BID [facility] Last Admin: 08/12/17 22:25 Dose: 0.3 mg Cyclobenzaprine HCl (Flexeril -) 5 mg PO TID [facility] Last Admin: 08/13/17 05:48 Dose: Not Given Heparin Sodium (Porcine) (Heparin -) 5,000 unit SQ BID [facility] Last Admin: 08/12/17 22:26 Dose: 5,000 unit Cefazolin Sodium/Dextrose (Ancef 2 Gm Premixed Ivpb -) 2 gm in 50 mls @ 200 mls /hr IVPB DAILY [facility] Ertapenem 0.5 gm/ Sodium (Chloride) 50 mls @ 50 mls/hr IVPB DAILY [facility] PRN Reason: Protocol Labetalol HCl (Normodyne -) 200 mg PO BID [facility] GENERAL: Confused, moves all extremities HEAD: Normal with no signs of trauma. EYES: Pupils equal, round and reactive to light, sclera anicteric, conjunctiva clear. EARS, NOSE, THROAT: Ears normal, nares patent, oropharynx clear without exudates. Moist mucous membranes. NECK: Normal range of motion, supple without lymphadenopathy, JVD, or masses. LUNGS: Breath sounds equal, clear to auscultation bilaterally. No wheezes, and no crackles. No accessory muscle use. HEART: (+) Tachycardia, (+) ESM ABDOMEN: Soft, nontender, not distended, normoactive bowel sounds, no guarding, no rebound, no masses. No hepatomegaly or splenomegaly. MUSCULOSKELETAL: +Effusion noted to left shoulder, Bilateral lower extremities open sores to shins. UPPER EXTREMITIES: 2+ pulses, warm, well-perfused. No cyanosis. No clubbing. Cap refill <2 seconds. No peripheral edema. LOWER EXTREMITIES: 2+ pulses, warm, well-perfused. No calf tenderness. No peripheral edema. NEUROLOGICAL: Confused, moves all extremities Laboratory Results - last 24 hr 08/12/17 08/13/17 08/13/17 08:15 05:44 07:45 WBC 12.1 H RBC 3.67 L Hgb 10.7 L Hct 32.6 L MCV 89.0 MCH 29.2 MCHC 32.8 RDW 17.3 H Plt Count 209 MPV 8.5 Neutrophils % 80.7 Lymphocytes % 6.1 L D Monocytes % 12.5 H Eosinophils % 0.4 D Basophils % 0.3 Anticoagulation Therapy Puncture Site ABG pH ABG pCO2 at Pt Temp ABG pO2 at Pt Temp ABG HCO3 ABG O2 Sat (Measured) ABG O2 Content ABG Base Excess [place] Test O2 Delivery Device Oxygen Flow Rate Vent Mode Vent Rate Mechanical Rate Pressure Support Vent Sodium 131 L Potassium 5.4 H Chloride 89 L Carbon Dioxide 26 Anion Gap 16 BUN 54 H D Creatinine 13.0 H* D POC Glucometer 101 Random Glucose 99 Calcium 7.9 L Phosphorus 7.9 H Magnesium Creatine Kinase Creatine Kinase Index CK-MB (CK-2) Troponin I Triglycerides Cholesterol Total LDL Cholesterol HDL Cholesterol TSH 08/13/17 08/13/17 08/13/17 07:45 09:41 09:55 WBC RBC Hgb Hct MCV MCH MCHC RDW Plt Count MPV Neutrophils % Lymphocytes % Monocytes % Eosinophils % Basophils % Anticoagulation Therapy No Result Required. Puncture Site Right radial ABG pH 7.49 H ABG pCO2 at Pt Temp 36.8 ABG pO2 at Pt Temp 121.0 H D ABG HCO3 27.5 H ABG O2 Sat (Measured) 98.4 ABG O2 Content 14.8 L ABG Base Excess 4.4 H [place] Test Positive O2 Delivery Device No Result Required. Oxygen Flow Rate Yes Vent Mode No Result Required. Vent Rate No Result Required. Mechanical Rate No Result Required. Pressure Support Vent No Result Required. Sodium 137 Potassium 5.0 Chloride 93 L Carbon Dioxide 27 Anion Gap 17 H BUN 44 H Creatinine 10.1 H* D POC Glucometer 97 Random Glucose 96 Calcium 8.8 Phosphorus 7.6 H Magnesium 2.4 Creatine Kinase Creatine Kinase Index CK-MB (CK-2) Troponin I Triglycerides Cholesterol Total LDL Cholesterol HDL Cholesterol TSH 08/13/17 08/13/17 08/13/17 10:30 10:30 10:30 WBC 12.7 H RBC 3.61 L Hgb 10.4 L Hct 32.0 L MCV 88.7 MCH 28.7 MCHC 32.4 RDW 16.8 H Plt Count 228 MPV 8.3 Neutrophils % 81.1 Lymphocytes % 6.2 L Monocytes % 11.9 H Eosinophils % 0.3 Basophils % 0.5 Anticoagulation Therapy Puncture Site ABG pH ABG pCO2 at Pt Temp ABG pO2 at Pt Temp ABG HCO3 ABG O2 Sat (Measured) ABG O2 Content ABG Base Excess [place] Test O2 Delivery Device Oxygen Flow Rate Vent Mode Vent Rate Mechanical Rate Pressure Support Vent Sodium 137 Potassium 4.8 Chloride 96 L Carbon Dioxide 31 Anion Gap 10 BUN 46 H Creatinine 10.6 H* POC Glucometer Random Glucose 100 Calcium 9.0 Phosphorus Magnesium Creatine Kinase 356 H Creatine Kinase Index 0.4 CK-MB (CK-2) 1.653 Troponin I 2.83 H* D Triglycerides 176 H D Cholesterol 128 Total LDL Cholesterol 54 HDL Cholesterol 23 L D TSH 0.27 L D Problem List - Problems (1) Fever Assessment/Plan: Code(s): R50.9 - FEVER, UNSPECIFIED (2) Anemia in CKD (chronic kidney disease) Assessment/Plan: Code(s): N18.9 - CHRONIC KIDNEY DISEASE, UNSPECIFIED; D63.1 - ANEMIA IN CHRONIC KIDNEY DISEASE (3) ESRD (end stage renal disease) on dialysis Assessment/Plan: Code(s): N18.6 - END STAGE RENAL DISEASE; Z99.2 - DEPENDENCE ON RENAL DIALYSIS (4) HTN (hypertension) Assessment/Plan: Code(s): I10 - ESSENTIAL (PRIMARY) HYPERTENSION ASSESSMENT/PLAN: Arrangements have been made for transfer to [facility] for further treatment and evaluation by CT surgery in light of new neurologic findings ABX per ID Aspiration precautions O2 as needed VTE prophylaxis Dr Nava Critical care time spent in reviewing chart, evaluating patient and formulating plan - 36 minutes.
--- NOTE | 2017-08-13 14:33 | EKG ---
Test Reason : Blood Pressure : / mmHG Vent. Rate : 096 BPM Atrial Rate : 096 BPM P-R Int : 172 ms QRS Dur : 098 ms QT Int : 352 ms P-R-T Axes : 070 -22 079 degrees QTc Int : 444 ms NORMAL SINUS RHYTHM MINIMAL VOLTAGE CRITERIA FOR LVH, MAY BE NORMAL VARIANT BORDERLINE ECG WHEN COMPARED WITH ECG OF 09-AUG-2017 11:11, NO SIGNIFICANT CHANGE WAS FOUND Confirmed by GERALDO SWEENEY, KARO ([id number]) on 08/13/2017 2:33:24 PM Referred By: Confirmed By:KARO CHOW MD
--- NOTE | 2017-08-13 15:35 | PN ---
Progress Note (short form) - Note Progress Note: Renal follow up for ESRD on HD Pt seen and examined in the ICU events from this morning reviewed s/p CT head with IV contrast pt is awake but confused, groggy is at the bedside febrile this am Vital Signs Temperature 101.5 F H 08/13/17 08:00 Pulse Rate 104 H 08/13/17 12:00 Respiratory Rate 17 08/13/17 12:00 Blood Pressure 161/94 08/13/17 12:00 O2 Sat by Pulse Oximetry (%) 95 08/13/17 12:00 Intake & Output 08/10/17 08/11/17 08/12/17 08/13/17 23:59 23:59 23:59 23:59 Intake Total 450 850 550 200 Output Total 0 Balance 450 850 550 200 NAD confused, groggy RRR CTA no LE edema CBC, BMP 08/13/17 10:30 08/13/17 10:30 Current Medications Acetaminophen (Tylenol -) 650 mg PO Q6H PRN PRN Reason: FEVER Last Admin: 08/13/17 08:11 Dose: 650 mg Amlodipine Besylate (Norvasc -) 10 mg PO DAILY [facility] Clonidine (Catapres -) 0.3 mg PO BID [facility] Last Admin: 08/12/17 22:25 Dose: 0.3 mg Cyclobenzaprine HCl (Flexeril -) 5 mg PO TID [facility] Last Admin: 08/13/17 05:48 Dose: Not Given Heparin Sodium (Porcine) (Heparin -) 5,000 unit SQ BID [facility] Last Admin: 08/12/17 22:26 Dose: 5,000 unit Cefazolin Sodium/Dextrose (Ancef 2 Gm Premixed Ivpb -) 2 gm in 50 mls @ 200 mls /hr IVPB DAILY [facility] Ertapenem 0.5 gm/ Sodium (Chloride) 50 mls @ 50 mls/hr IVPB DAILY [facility] PRN Reason: Protocol Labetalol HCl (Normodyne -) 200 mg PO BID [facility] A/P 52 year old gentleman with PMhx of ESRD on HD (TTS), Hx of Renal transplant ( 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 #Gram Positive Bacteremia with back pain Repeat cultures from yesterday showed persistent gram positive cocci in clusters continue Abx as per ID for transfer to tertiary care center for eval of endocarditis any pyretics as needed #AMS/Lethargy etiology uncertain CT headed, CTA of head and neck negative as well ? related to Flexaril (consider holding for now) Neurology follow up #ESRD on HD with hyperkalemia tolerating dialysis well #CKD related Anemia will trend CBC, transfuse as needed #Hypertension continue Labetalol, Clonidine, Amlodpine Gonzalo Barros DO
== END 2017-08-13 13:30 | disposition short-term general hospital (02) | DRG 288 ==
LOC: JER 10:26 → JERBED 13:31 → J6S 16:34 → OBSVTOIN 08-10 14:10 → JICU 08-13 11:19
PROVIDERS: ADMIT Family Medicine; ATTEND Family Medicine
PROC: 5A1D70Z Performance of Urinary Filtration, Intermittent, Less than 6 Hours Per Day (ICD-10-PCS; principal; 2017-08-09)
DX: I33.0 Acute and subacute infective endocarditis (principal); N18.6 End stage renal disease; G93.41 Metabolic encephalopathy; R78.81 Bacteremia; I76 Septic arterial embolism; I12.0 Hypertensive chronic kidney disease with stage 5 chronic kidney disease or end stage renal disease; E87.5 Hyperkalemia; D63.1 Anemia in chronic kidney disease; L40.9 Psoriasis, unspecified; N25.0 Renal osteodystrophy; Z99.2 Dependence on renal dialysis; B96.89 Other specified bacterial agents as the cause of diseases classified elsewhere; B95.61 Methicillin susceptible Staphylococcus aureus infection as the cause of diseases classified elsewhere; Z53.29 Procedure and treatment not carried out because of patient's decision for other reasons; F40.240 Claustrophobia; M54.14 Radiculopathy, thoracic region
CPT/HCPCS: 36415; 36600; 70450-TC; 70496-TC; 70498-TC; 71045-TC-FY; 72130-TC; 72133-TC; 80048; 80053; 80061; 82550; 82553; 82803; 82962; 83605; 83690; 83721; 83735; 84100; 84443; 84484; 85025; 85027; 85610; 85651; 86140; 86704; 86706; 86708; 87040; 87186; 87340; 87804; 93005; 93010; 93306-TC; 99283-25; G0378; G0480; J0131; J0735; J1644; J7030

== ENCOUNTER 2018-09-19 07:26 | Emergency (ER) | payer OTHER, BC ==
[2018-09-19 07:32] VITALS: TEMP 98.5; BMI 27.6
[2018-09-19] MEDS ORDERED: ACETAMINOPHEN 1000 MG/100 ML VIAL (NON FORMULARY) IVPB ONE (08:45)
--- NOTE | 2018-09-19 09:13 | PDOC ---
History of Present Illness - General Chief Complaint: Pain Stated Complaint: ABD PAIN Time Seen by Provider: 09/19/18 08:43 History Source: Patient Exam Limitations: No Limitations - History of Present Illness Travel History: No Initial Comments: 09/19/18 09:04 53 y/o male with history of end-stage renal disease currently on dialysis Thursday and Thursday along with hypertension and rejected kidney transplant in 2010. Patient states for the past 3 weeks has had lower abdominal cramping intermittently along with diarrhea for the past week which she describes as brown watery stool. Patient denies fever, chills, nausea, weakness , or history of GI disorders such as colitis IBS or diverticulitis. Patient denies recent travel, recent illness, recent change in dialysis schedule or medication or recent sick contacts. Timing/Duration: reports: changing over time Quality: reports: mild, cramping Abdominal Pain Onset Location: reports: LLQ, periumbilical (lower) Pain Radiation: reports: no radiation Activities at Onset: reports: none Aggravating Factors: improves with: None Alleviating Factors: improves with: None Past History - Travel Traveled outside of the country in the last 30 days: No Close contact w/someone who was outside of country & ill: No - Past Medical History Allergies/Adverse Reactions: Allergies Allergy/AdvReac Type Severity Reaction Status Date / Time No Known Drug Allergies Allergy Verified 09/19/18 07:32 Home Medications: Ambulatory Orders Amlodipine Besylate [Norvasc -] 10 mg PO DAILY 08/30/16 Clonidine HCl 0.3 mg PO Q12H 08/30/16 Labetalol HCl [Normodyne -] 200 mg PO TID tablet 10/22/16 Calcium Acetate [Phoslo -] 1,334 mg PO TIDCM 08/09/17 levoFLOXacin [Levaquin] 750 mg PO DAILY #13 tab 09/19/18 metroNIDAZOLE [Flagyl -] 500 mg PO TID #42 tablet 09/19/18 Anemia: No Asthma: No Cancer: No Cardiac Disorders: No CVA: No COPD: No CHF: No Dementia: No Diabetes: No Dialysis: Yes (DOES NOT VOID, ESRD, 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, t,t,sat) GI Disorders: No Disorders: Yes HTN: Yes Hypercholesterolemia: No Liver Disease: No Seizures: No Thyroid Disease: No - Surgical History Abdominal Surgery: Yes (08/2007 KIDNEY TRANSPLANT-2011REJECTED) Appendectomy: No Cardiac Surgery: No Cholecystectomy: No Lung Surgery: No Neurologic Surgery: No Orthopedic Surgery: No - Immunization History Immunization Up to Date: Yes - Suicide/Smoking/Psychosocial Hx Smoking Status: No Smoking History: Never smoked Have you smoked in the past 12 months: No Number of Cigarettes Smoked Daily: 0 Cigars Per Day: 0 Hx Alcohol Use: No Drug/Substance Use Hx: No Substance Use Type: None Hx Substance Use Treatment: No Patient Lives Alone: Yes Lives with/in: lives alone Review of Systems - Review of Systems Able to Perform ROS?: No Constitutional: No: Symptoms Reported HEENTM: No: Symptoms Reported Respiratory: No: Symptoms reported Cardiac (ROS): No: Symptoms Reported ABD/GI: Yes: Diarrhea, Abdominal cramping. No: Nausea, Poor Appetite, Poor Fluid Intake, Vomiting : No: Symptoms Reported Musculoskeletal: No: Symptoms Reported Integumentary: No: Symptoms Reported Neurological: No: Symptoms reported *Physical Exam - Vital Signs Last Vital Signs Temp Pulse Resp BP Pulse Ox 98.5 F 79 18 165/98 99 09/19/18 07:29 09/19/18 07:29 09/19/18 07:29 09/19/18 07:29 09/19/18 07:29 - Physical Exam General Appearance: Yes: Nourished, Appropriately Dressed. No: Apparent Distress HEENT: negative: Pale Conjunctivae, Scleral Icterus (R), Scleral Icterus (L) Neck: positive: Supple Respiratory/Chest: positive: Lungs Clear, Normal Breath Sounds. negative: Respiratory Distress, Accessory Muscle Use Cardiovascular: positive: Regular Rhythm, Regular Rate. negative: Murmur Gastrointestinal/Abdominal: positive: Soft, Tenderness (left lower quadrant no rebound no guarding no distentionbowel sounds present throughout 4). negative : Hernia, Mass Musculoskeletal: negative: CVA Tenderness Extremity: negative: Pedal Edema Integumentary: positive: Normal Color, Dry, Warm Neurologic: positive: Motor Strength 5/5 (ambulatory) Heart Score/ECG Review - ECG Intrepretation Rhythm: Regular Rhythm (rate 74, sinus rhythm w/ 1st degree AV block, left axis deviation) ED Treatment Course - LABORATORY CBC & Chemistry Diagram: 09/19/18 09:20 09/19/18 09:20 Medical Decision Making - Medical Decision Making 09/19/18 09:18 Chief complaint: Left lower quadrant cramping 3 weeks now associated brown watery diarrhea intermittently for the past week. No GI history patient with history of end-stage renal and last dialysis was yesterday Exam: Left lower quadrant tenderness. Abdomen soft vital signs stable Plan: Labs, IV Tylenol EKG cardiac profile secondary to patient's history of elevated troponins earlier this year despite denying chest pain. Abdominal CT ordered without contrast 09/19/18 14:13 Laboratory Tests 10/19/16 08/13/17 09/19/18 11:40 10:30 09:20 WBC 11.3 H Hgb 11.4 L Hct 35.5 Neutrophils % 85.8 H Sodium Potassium Chloride Carbon Dioxide Anion Gap BUN Random Glucose AST ALT Creatine Kinase Creatine Kinase Index Troponin I 0.10 H 2.83 H* D Lipase 09/19/18 09:20 WBC Hgb Hct Neutrophils % Sodium 140 Potassium 4.6 Chloride 104 Carbon Dioxide 25 Anion Gap 11 BUN 42 H Random Glucose 94 AST 14 L ALT 13 Creatine Kinase 237 Creatine Kinase Index 1.2 Troponin I 0.[address] shows sigmoid diverticulitis and small amt of free fluid in the pelvis. Pt given iv levaquin and flagyl. Pt to be discharged home with the same 09/19/18 14:13 09/19/18 14:21 Selected Entries 09/19/18 11:20 Pulse Rate [ 78 Apical] Blood Pressure 162/87 [Right Arm] *DC/Admit/Observation/Transfer Diagnosis at time of Disposition: Diverticulitis - Discharge Dispostion Disposition: HOME Condition at time of disposition: Good - Prescriptions Prescriptions: levoFLOXacin [Levaquin] 750 mg PO DAILY #13 tab metroNIDAZOLE [Flagyl -] 500 mg PO TID #42 tablet - Referrals Referrals: Magan Navarro MD [Primary Care Provider] - Raz Harrison MD [Staff Physician] - - Patient Instructions Printed Discharge Instructions: DI for Diverticulitis, DI for Diverticulosis Additional Instructions: Please take Flagyl tonight and start levaquin tomorrow. Follow up with referred GI physician. Read over information about diverticulosis/itis - Post Discharge Activity
[2018-09-19] MEDS ORDERED: ACETAMINOPHEN INJECTION 100 ML IVPB ONE (09:28)
[2018-09-19 09:44] LABS: BASO % 0.3 % (0-2.0); EOS % 2.3 % (0-4.5); HEMATOCRIT 35.5 % (35.4-49); HEMOGLOBIN 11.4 GM/dL (11.7-16.9); LYMPH % 4.7 % (8-40); MCH 29.4 pg (25.7-33.7); MCHC 32.2 g/dl (32.0-35.9); MEAN CELL VOLUME 91.4 fl (80-96); MONO % 6.9 % (3.8-10.2); NEUT % 85.8 % (42.8-82.8); PLATELET COUNT 252 K/MM3 (134-434); RBC 3.89 M/mm3 (4.00-5.60); RDW 15.8 % (11.9-15.9); WHITE BLOOD COUNT 11.3 K/mm3 (4.0-10.0)
[2018-09-19 10:32] LABS: ALBUMIN 3.4 g/dl (3.4-5.0); ALK PHOS 102 U/L (45-117); ANION GAP 11 MMOL/L (8-16); BILIRUBIN,TOTAL 0.4 mg/dL (0.2-1); BLOOD UREA NITROGEN 42 mg/dL (7-18); CHLORIDE 104 mmol/L (98-107); CO2 25 mmol/L (21-32); GLUCOSE,RANDOM 94 mg/dL (74-106); LIPASE 171 U/L (73-393); MAGNESIUM 2.4 mg/dL (1.8-2.4); POTASSIUM 4.6 mmol/L (3.5-5.1); SGOT/AST 14 U/L (15-37); SGPT/ALT 13 U/L (13-61); SODIUM 140 mmol/L (136-145)
[2018-09-19 11:01] LABS: CREATININE 10.4 mg/dL (0.55-1.3)
[2018-09-19 13:51] VITALS: BP 162/87; PULSE 78
--- NOTE | 2018-09-19 15:21 | EKG ---
Test Reason : Blood Pressure : / mmHG Vent. Rate : 074 BPM Atrial Rate : 074 BPM P-R Int : 218 ms QRS Dur : 110 ms QT Int : 426 ms P-R-T Axes : 072 -32 095 degrees QTc Int : 472 ms SINUS RHYTHM WITH 1ST DEGREE A-V BLOCK POSSIBLE LEFT ATRIAL ENLARGEMENT LEFT AXIS DEVIATION LEFT VENTRICULAR HYPERTROPHY T WAVE ABNORMALITY, CONSIDER LATERAL ISCHEMIA PROLONGED QT ABNORMAL ECG WHEN COMPARED WITH ECG OF 13-AUG-2017 10:57, [place] INTERVAL HAS INCREASED T WAVE INVERSION MORE EVIDENT IN LATERAL LEADS Confirmed by KENTON SANDY MD ([id number]) on 09/19/2018 3:21:06 PM Referred By: Confirmed By:KENTON SANDY MD
== END 2018-09-19 14:48 | disposition home or self-care (01) ==
LOC: JER 07:26
PROC: 3E03329 Introduction of Other Anti-infective into Peripheral Vein, Percutaneous Approach (ICD-10-PCS; principal; 2018-09-19)
PROC: 3E03329 Introduction of Other Anti-infective into Peripheral Vein, Percutaneous Approach (ICD-10-PCS; 2018-09-19)
PROC: 3E033NZ Introduction of Analgesics, Hypnotics, Sedatives into Peripheral Vein, Percutaneous Approach (ICD-10-PCS; 2018-09-19)
DX: K57.92 Diverticulitis of intestine, part unspecified, without perforation or abscess without bleeding (principal); I12.0 Hypertensive chronic kidney disease with stage 5 chronic kidney disease or end stage renal disease; N18.6 End stage renal disease; N17.8 Other acute kidney failure; Z99.2 Dependence on renal dialysis; T86.11 Kidney transplant rejection
CPT/HCPCS: 36415; 74176-TC; 80053; 82550; 82553; 83690; 83735; 84484; 85025; 93005; 93010; 96365; 96366; 96367; 96375; 99283-25; J0131

== ENCOUNTER 2018-09-23 10:08 | Inpatient (IN) | payer BC, OTHER ==
--- NOTE | 2018-09-23 10:44 | PDOC ---
History of Present Illness - General Chief Complaint: Chest Pain Stated Complaint: CHEST PAIN Time Seen by Provider: 09/23/18 10:36 - History of Present Illness Initial Comments: The pt is a 53M w/ a history of HTN and ESRD (iHD ,,) who presents for evaluation from [facility] today 2/2 chest pain. The pain is described as substernal, non-radiating, chest pressure that started at rest and resolved after approximately 15 seconds. He denies any associated symptoms including vision changes, CARMONA, SOB, abdominal pain, N/V, recent illness or fevers, or changes in sensation/weakness. Reports having similar pain approximately 1 year ago with a negative w/u. PCP: Dr. Navarro Social Welfare Administrator: Dr. Finney 09/23/18 10:40 Past History - Past Medical History Allergies/Adverse Reactions: Allergies Allergy/AdvReac Type Severity Reaction Status Date / Time No Known Drug Allergies Allergy Verified 09/19/18 07:32 Home Medications: Ambulatory Orders Amlodipine Besylate [Norvasc -] 10 mg PO DAILY 08/30/16 Clonidine HCl 0.3 mg PO Q12H 08/30/16 Labetalol HCl [Normodyne -] 200 mg PO TID tablet 10/22/16 Calcium Acetate [Phoslo -] 1,334 mg PO TIDCM 08/09/17 levoFLOXacin [Levaquin] 750 mg PO DAILY #13 tab 09/19/18 metroNIDAZOLE [Flagyl -] 500 mg PO TID #42 tablet 09/19/18 Anemia: No Asthma: No Cancer: No Cardiac Disorders: No CVA: No COPD: No CHF: No Dementia: No Diabetes: No Dialysis: Yes (DOES NOT VOID, ESRD, 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, t,t,sat) GI Disorders: No Disorders: Yes HTN: Yes Hypercholesterolemia: No Liver Disease: No Seizures: No Thyroid Disease: No - Surgical History Abdominal Surgery: Yes (08/2007 KIDNEY TRANSPLANT-2011REJECTED) Appendectomy: No Cardiac Surgery: No Cholecystectomy: No Lung Surgery: No Neurologic Surgery: No Orthopedic Surgery: No - Immunization History Immunization Up to Date: Yes - Suicide/Smoking/Psychosocial Hx Smoking Status: No Smoking History: Never smoked Have you smoked in the past 12 months: No Number of Cigarettes Smoked Daily: 0 Cigars Per Day: 0 Hx Alcohol Use: No Drug/Substance Use Hx: No Substance Use Type: None Hx Substance Use Treatment: No Review of Systems - Review of Systems Able to Perform ROS?: Yes Comments:: GENERAL/CONSTITUTIONAL: No fever or chills. No weakness HEAD, EYES, EARS, NOSE AND THROAT: No change in vision. No ear pain or discharge. No sore throat CARDIOVASCULAR: No shortness of breath RESPIRATORY: Denies cough, hemoptysis GASTROINTESTINAL: No nausea, vomiting, diarrhea or constipation GENITOURINARY: No dysuria, frequency, or change in urination MUSCULOSKELETAL: No joint or muscle swelling or pain. No neck or back pain SKIN: No rash NEUROLOGIC: No headache, vertigo, loss of consciousness, or change in strength/ sensation ENDOCRINE: No increased thirst. No abnormal weight change HEMATOLOGIC/LYMPHATIC: No anemia, easy bleeding, or history of blood clots ALLERGIC/IMMUNOLOGIC: No hives or skin allergy 09/23/18 10:42 Is the patient limited Mongolian proficient: No *Physical Exam - Vital Signs Last Vital Signs Temp Pulse Resp BP Pulse Ox 98.1 F 70 18 181/112 H 99 09/23/18 10:22 09/23/18 10:22 09/23/18 10:22 09/23/18 10:22 09/23/18 10:22 - Physical Exam Comments: GENERAL: Awake, alert, and oriented to person/place/time, in no acute distress HEAD: No signs of trauma, normocephalic, atraumatic EYES: PERRLA, EOMI, sclera anicteric, conjunctiva clear ENT: Hearing grossly normal, nares patent, oropharynx clear without exudates. Moist mucosa LUNGS: No distress, speaks full sentences, clear to auscultation bilaterally HEART: Regular rate and rhythm, normal S1 and S2, no murmurs appreciated, peripheral pulses normal and equal bilaterally ABDOMEN: Soft, nontender, normoactive bowel sounds. No guarding, no rebound EXTREMITIES: Normal inspection, Normal range of motion, no edema. No clubbing or cyanosis NEUROLOGICAL: Cranial nerves II through XII grossly intact. Normal speech, normal gait, no focal sensorimotor deficits SKIN: Warm, Dry, psoriasis noted on BLE 09/23/18 10:42 Heart Score/ECG Review - History History: Slightly suspicious - Electrocardiogram EKG: Normal - Age Age: 45-65 - Risk Factors Risk Factors Heart Score: Yes Hx Hypertension Based on the list above the patient has:: 1-2 risk factors - Troponin Troponin: 1-3x normal limit - Score Heart Score - Total: 3 ED Treatment Course - RADIOLOGY Radiology Studies Ordered: Category Date Time Status CHEST PA & LAT [RAD] Stat Radiology 09/23/18 10:37 Ordered Medical Decision Making - Medical Decision Making The pt is a 53M who presents for evaluation of chest pain while at iHD today Ddx: ACS, PNA, GERD, MSK ED Course Labs sent CXR ECG Pt asymptomatic at this time 09/23/18 10:43
[2018-09-23 11:14] LABS: HEMATOCRIT 31.5 % (35.4-49); HEMOGLOBIN 10.5 GM/dL (11.7-16.9); LYMPH % 12.8 % (8-40); MCH 29.6 pg (25.7-33.7); MCHC 33.3 g/dl (32.0-35.9); MEAN CELL VOLUME 88.7 fl (80-96); MEAN PLT VOLUME 7.3 fl (7.5-11.1); MONO % 9.3 % (3.8-10.2); NEUT % 73.9 % (42.8-82.8); PLATELET COUNT 295 K/MM3 (134-434); RBC 3.55 M/mm3 (4.00-5.60); RDW 15.2 % (11.9-15.9); WHITE BLOOD COUNT 5.7 K/mm3 (4.0-10.0)
[2018-09-23 11:42] LABS: ALBUMIN 3.3 g/dl (3.4-5.0); ALK PHOS 85 U/L (45-117); ANION GAP 10 MMOL/L (8-16); BILIRUBIN,TOTAL 0.4 mg/dL (0.2-1); BLOOD UREA NITROGEN 41 mg/dL (7-18); CALCIUM 9.1 mg/dL (8.5-10.1); CHLORIDE 103 mmol/L (98-107); CO2 24 mmol/L (21-32); GLUCOSE,RANDOM 91 mg/dL (74-106); POTASSIUM 3.8 mmol/L (3.5-5.1); SGOT/AST 8 U/L (15-37); SGPT/ALT 14 U/L (13-61); SODIUM 137 mmol/L (136-145); TOT PROT 6.9 g/dl (6.4-8.2)
[2018-09-23] MEDS ORDERED: ASPIRIN 81 MG CHEWABLE TABLETS PO ONE (11:52)
[2018-09-23] MEDS ORDERED: ASPIRIN 81 MG CHEWABLE TABLETS ONE (11:57)
[2018-09-23 12:15] LABS: CREATININE 8.3 mg/dL (0.55-1.3)
--- NOTE | 2018-09-23 14:53 | PDOC ---
Documentation entered by Darwin Ventura SCRIBE, acting as scribe for Shakeel Penny MD. Shakeel Penny MD: This documentation has been prepared by the Lorenzo palafox Nirvannie, SCRIBE, under my direction and personally reviewed by me in its entirety. I confirm that the documentation accurately reflects all work, treatment, procedures, and medical decision making performed by me. Attending Attestation - Resident Resident Name: ShellartieMani - ED Attending Attestation I have performed the following: I have examined & evaluated the patient, The case was reviewed & discussed with the resident, I agree w/resident's findings & plan - HPI HPI: 09/23/18 14:27 CC: Chest pain. HPI: The patient is a 53 year old male, with a significant past medical history of HTN and ESRD (iHD T,Th,Sa), who presents to the emergency department s/p transient episode of chest pain during dialysis. Patient endorses his pain has since resolved, however, he reported to the ED for further evaluation. He denies any recent fevers, chills, headache or dizziness. He denies any recent nausea, vomit, diarrhea or constipation. He denies any recent dysuria, frequency, urgency or hematuria. Allergies: NKDA Primary Care Physician: Dr. Navarro Flow Manager: Dr. Finney - Physicial Exam PE: 09/23/18 14:30 Vitals: Triage vital signs reviewed General Appearance: No acute distress, well nourished, well developed Head: Atraumatic Chest Wall: Nontender Cardiac: Regular rate and rhythm, no murmurs, no rubs, no gallops Lungs: Clear to auscultation bilateral, good air movement bilaterally Abdomen: Soft, nondistended, normal bowel sounds, nontender to palpation Extremities: Full range of motion to all extremities, no cyanosis, clubbing, or edema Skin: Warm and dry, no rashes or lesions, no rash, no petechiae Neuro: AOX3; Cranial Nerves 2-12 grossly intact, Strength intact to all extremities, Sensation intact to all extremities. Psych: Normal mood, normal affect - Medical Decision Making 09/23/18 16:53 Atypical chest discomfort during dialysis. Troponin of indeterminant value unclear if this is secondary to cardiac etiology versus renal disease Given age and risk factors we will observe for serial troponins and further management. Full dose aspirin given. Heart Score/ECG Review - History History: Slightly suspicious - Electrocardiogram EKG: Non specific repolarization disturbance - Age Age: 45-65 - Risk Factors Risk Factors Heart Score: Yes Hx Hypertension Based on the list above the patient has:: 1-2 risk factors - Troponin Troponin: 1-3x normal limit - Score Heart Score - Total: 4 - ECG Impressions Comment:: 09/23/18 16:[address] elevations, TWI laterally unchanged
--- NOTE | 2018-09-23 15:37 | HP ---
Admitting History and Physical - Primary Care Physician PCP: Magan Navarro - Admission Chief Complaint: chest pain History of Present Illness: The pt is a 53M w/ a history of psoarisis,HTN and ESRD (iHD T,Th,Sa) who presents for evaluation from HD today 2/2 chest pain. The pain is described as substernal, non-radiating, chest pressure that started at rest and resolved after approximately 15 seconds. He denies any associated symptoms including vision changes, CARMONA, SOB, abdominal pain, N/V, recent illness or fevers, or changes in sensation/weakness.patient had about one hour left on HD machine but session was stopped and he was sent to the ER Reports having similar pain approximately 1 year ago with a negative w/u. in ER he got aspirin History Source: Patient - Past Medical History Cardiovascular: Yes: HTN, Hyperlipdemia Renal/: Yes: Renal Failure, Hemodialysis Dermatology: Yes: Psoriasis - Past Surgical History Past Surgical History: Yes: AV Fistula/Graft, Kidney Transplant (failed) - Smoking History Smoking history: Never smoked Have you smoked in the past 12 months: No Aproximately how many cigarettes per day: 0 - Alcohol/Substance Use Hx Alcohol Use: No History of Substance Use: reports: None - Social History ADL: Independent History of Recent Travel: No Home Medications - Allergies Allergies/Adverse Reactions: Allergies Allergy/AdvReac Type Severity Reaction Status Date / Time No Known Drug Allergies Allergy Verified 09/19/18 07:32 - Home Medications Home Medications: Ambulatory Orders Amlodipine Besylate [Norvasc -] 10 mg PO DAILY 08/30/16 Clonidine HCl 0.3 mg PO Q12H 08/30/16 Labetalol HCl [Normodyne -] 200 mg PO TID tablet 10/22/16 Calcium Acetate [Phoslo -] 1,334 mg PO TIDCM 08/09/17 levoFLOXacin [Levaquin] 750 mg PO DAILY #13 tab 09/19/18 metroNIDAZOLE [Flagyl -] 500 mg PO TID #42 tablet 09/19/18 Review of Systems - Review of Systems Neck: reports: No Symptoms Cardiovascular: reports: No Symptoms Respiratory: reports: No Symptoms Gastrointestinal: reports: No Symptoms Physical Examination Vital Signs: Vital Signs Temperature 98.1 F 09/23/18 10:22 Pulse Rate 70 09/23/18 10:22 Respiratory Rate 18 09/23/18 10:22 Blood Pressure 181/112 H 09/23/18 10:22 O2 Sat by Pulse Oximetry (%) 99 09/23/18 10:22 Constitutional: Yes: Calm, Thin Cardiovascular: Yes: Regular Rate and Rhythm, S1, S2 Respiratory: Yes: CTA Bilaterally Gastrointestinal: Yes: Normal Bowel Sounds, Soft Extremities: Yes: Other (skin discolration LUE thrill) Edema: No Labs: CBC, BMP 09/23/18 10:49 09/23/18 10:49 Imaging - Results Chest X-ray: Report Reviewed (no active disease) Problem List - Problems (1) Chest pain Assessment/Plan: telemetry trend troponin ekg cardiology dr limon aspirin lipid panel echo dvt ppx Code(s): R07.9 - CHEST PAIN, UNSPECIFIED (2) HTN (hypertension) Assessment/Plan: clonidine 0.3mg bid norvasc 10mg labetolol 200mg bid Code(s): I10 - ESSENTIAL (PRIMARY) HYPERTENSION Qualifiers: Hypertension type: essential hypertension Qualified Code(s): I10 - Essential (primary) hypertension
[2018-09-23] MEDS: cloNIDine HCL 0.1 MG TABLET PO SCH (21:59)
[2018-09-23] MEDS: LABETALOL HCL 200 MG TABLET (FP) PO SCH (21:59)
[2018-09-23] MEDS ORDERED: ATORVASTATIN CA 20 MG TABLET (FP) PO SCH (22:00)
[2018-09-23] MEDS: HEPARIN NA (PORCINE) 5,000 UNITS/ML 1ML VIAL SQ SCH (22:00)
[2018-09-23 23:21] VITALS: BMI 26.6
[2018-09-24] MEDS ORDERED: MELATONIN 5 MG TABLETS PO ONE (00:48)
[2018-09-24] MEDS ORDERED: hydrALAZINE HCL 25 MG TABLET (FP) PO ONE (00:48)
[2018-09-24 07:10] LABS: BASO % 0.6 % (0-2.0); HEMATOCRIT 31.9 % (35.4-49); HEMOGLOBIN 10.5 GM/dL (11.7-16.9); MCH 29.5 pg (25.7-33.7); MCHC 33.1 g/dl (32.0-35.9); MEAN CELL VOLUME 89.3 fl (80-96); MONO % 9.8 % (3.8-10.2); NEUT % 71.6 % (42.8-82.8); PLATELET COUNT 271 K/MM3 (134-434); RBC 3.57 M/mm3 (4.00-5.60); RDW 15.5 % (11.9-15.9); WHITE BLOOD COUNT 5.2 K/mm3 (4.0-10.0)
[2018-09-24 07:46] LABS: ALBUMIN 3.2 g/dl (3.4-5.0); ALK PHOS 86 U/L (45-117); ANION GAP 12 MMOL/L (8-16); BILIRUBIN,TOTAL 0.4 mg/dL (0.2-1); BLOOD UREA NITROGEN 55 mg/dL (7-18); CALCIUM 8.9 mg/dL (8.5-10.1); CHLORIDE 103 mmol/L (98-107); CHOLESTEROL 131 mg/dL (50-200); CO2 24 mmol/L (21-32); GLUCOSE,RANDOM 98 mg/dL (74-106); HDL CHOLESTEROL 64 mg/dL (40-60); MAGNESIUM 2.4 mg/dL (1.8-2.4); PHOSPHOROUS 7.3 mg/dL (2.5-4.9); POTASSIUM 4.6 mmol/L (3.5-5.1); SGOT/AST 6 U/L (15-37); SGPT/ALT 10 U/L (13-61); SODIUM 139 mmol/L (136-145); TOT PROT 6.4 g/dl (6.4-8.2); TRIGLYCERIDES 61 mg/dL (0-150)
[2018-09-24 07:51] LABS: CREATININE 11.7 mg/dL (0.55-1.3)
--- NOTE | 2018-09-24 08:56 | CON.CARD ---
Consult Consult Specialty:: Cardiology Reason for Consultation:: cp - History of Present Illness History of Present Illness: The pt is a 53M w/ a history of psoarisis,HTN and ESRD (iHD T,Th,Sa) who presents for evaluation from HD today 2/2 chest pain. The pain is described as substernal, non-radiating, chest pressure that started at rest and resolved after approximately 15 seconds. He denies any associated symptoms including vision changes, CARMONA, SOB, abdominal pain, N/V, recent illness or fevers, or changes in sensation/weakness.patient had about one hour left on HD machine but session was stopped and he was sent to the ER Reports having similar pain approximately 1 year ago with a negative w/u. 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 - History Source History Provided By: Patient, Medical Record - Past Medical History Cardio/Vascular: Yes: HTN, Hyperlipdemia Renal/: Yes: Renal Failure, Hemodialysis Dermatology: Yes: Psoriasis Additional Medical History: hx mrsa and mssa bacteremia 2005 while he had permacath. hs bacteremia? with right chest wall cellulitis in 2011. CONSTANCE august 2011 is negative for vegetation - Past Surgical History Past Surgical History: Yes: AV Fistula/Graft, Kidney Transplant (failed) - Alcohol/Substance Use Hx Alcohol Use: No History of Substance Use: reports: None - Smoking History Smoking history: Never smoked Have you smoked in the past 12 months: No Aproximately how many cigarettes per day: 0 - Social History Usual Living Arrangement: Other (with family) ADL: Independent History of Recent Travel: No Home Medications - Allergies Allergies/Adverse Reactions: Allergies Allergy/AdvReac Type Severity Reaction Status Date / Time No Known Drug Allergies Allergy Verified 09/19/18 07:32 - Home Medications Home Medications: Ambulatory Orders Amlodipine Besylate [Norvasc -] 10 mg PO DAILY 08/30/16 Clonidine HCl 0.3 mg PO Q12H 08/30/16 Calcium Acetate [Phoslo -] 1,334 mg PO TIDCM 08/09/17 levoFLOXacin [Levaquin] 750 mg PO DAILY #13 tab 09/19/18 metroNIDAZOLE [Flagyl -] 500 mg PO TID #42 tablet 09/19/18 Labetalol HCl [Normodyne -] 800 mg PO TID 09/23/18 Review of Systems - Review of Systems Constitutional: reports: No Symptoms Eyes: reports: No Symptoms HENT: reports: No Symptoms Neck: reports: No Symptoms Cardiovascular: reports: Chest Pain Gastrointestinal: reports: No Symptoms Genitourinary: reports: No Symptoms Breasts: reports: No Symptoms Reported Musculoskeletal: reports: No Symptoms Integumentary: reports: No Symptoms Neurological: reports: No Symptoms Endocrine: reports: No Symptoms Hematology/Lymphatic: reports: No Symptoms Psychiatric: reports: No Symptoms Vital Signs: Vital Signs Temperature 98 F 09/24/18 05:52 Pulse Rate 66 09/24/18 05:52 Respiratory Rate 18 09/24/18 05:52 Blood Pressure 156/86 09/24/18 05:52 O2 Sat by Pulse Oximetry (%) 98 09/23/18 20:30 Constitutional: Yes: Well Nourished, No Distress, Calm Eyes: Yes: WNL, Conjunctiva Clear, EOM Intact HENT: Yes: WNL, Atraumatic, Normocephalic Neck: Yes: WNL, Supple, Trachea Midline Respiratory: Yes: WNL, Regular, CTA Bilaterally Gastrointestinal: Yes: WNL, Normal Bowel Sounds Renal/: Yes: WNL Cardiovascular: Yes: WNL, Regular Rate and Rhythm Musculoskeletal: Yes: WNL Extremities: Yes: WNL Integumentary: Yes: WNL Neurological: Yes: WNL, Alert, Oriented ...Motor Strength: WNL Psychiatric: Yes: WNL, Alert, Oriented - Other Data Labs, Other Data: CBC, BMP 09/24/18 05:30 09/24/18 05:30 Troponin, BNP 09/23/18 09/23/18 09/23/18 10:49 14:24 21:20 Troponin I 0.16 H 0.17 H 0.15 H B-Natriuretic Peptide 09/24/18 05:30 Troponin I 0.14 H B-Natriuretic Peptide 76288.0 H Troponin, BNP 09/23/18 09/23/18 09/23/18 10:49 14:24 21:20 Troponin I 0.16 H 0.17 H 0.15 H B-Natriuretic Peptide 09/24/18 05:30 Troponin I 0.14 H B-Natriuretic Peptide 76352.0 H Imaging - Results Chest X-ray: Image Reviewed (no i/e) EKG: Image Reviewed (sr lvh) Problem List - Problems (1) Chest pain Code(s): R07.9 - CHEST PAIN, UNSPECIFIED (2) Abdominal pain Code(s): R10.9 - UNSPECIFIED ABDOMINAL PAIN Qualifiers: Abdominal location: generalized Qualified Code(s): R10.84 - Generalized abdominal pain (3) Abnormal echocardiogram Code(s): R93.1 - ABNORMAL FINDINGS ON DX IMAGING OF HEART AND COR CIRC (4) Anemia in CKD (chronic kidney disease) Code(s): N18.9 - CHRONIC KIDNEY DISEASE, UNSPECIFIED; D63.1 - ANEMIA IN CHRONIC KIDNEY DISEASE (5) Axillary swelling Code(s): M79.89 - OTHER SPECIFIED SOFT TISSUE DISORDERS (6) Back pain Code(s): M54.9 - DORSALGIA, UNSPECIFIED (7) Bacteremia Code(s): R78.81 - BACTEREMIA (8) Bacterial endocarditis Code(s): I33.0 - ACUTE AND SUBACUTE INFECTIVE ENDOCARDITIS (9) Cellulitis of right upper arm Code(s): L03.113 - CELLULITIS OF RIGHT UPPER LIMB (10) Chest pain Code(s): R07.9 - CHEST PAIN, UNSPECIFIED (11) Constipation Code(s): K59.00 - CONSTIPATION, UNSPECIFIED (12) Diverticulitis Code(s): K57.92 - DVTRCLI OF INTEST, PART UNSP, W/O PERF OR ABSCESS W/O BLEED (13) ESRD (end stage renal disease) on dialysis Code(s): N18.6 - END STAGE RENAL DISEASE; Z99.2 - DEPENDENCE ON RENAL DIALYSIS (14) Elevated troponin Code(s): R74.8 - ABNORMAL LEVELS OF OTHER SERUM ENZYMES (15) End-stage renal disease needing dialysis Code(s): N18.6 - END STAGE RENAL DISEASE; Z99.2 - DEPENDENCE ON RENAL DIALYSIS (16) Fever Code(s): R50.9 - FEVER, UNSPECIFIED Qualifiers: Fever type: unspecified Qualified Code(s): R50.9 - Fever, unspecified (17) Fever Code(s): R50.9 - FEVER, UNSPECIFIED (18) Gallbladder sludge Code(s): K82.8 - OTHER SPECIFIED DISEASES OF GALLBLADDER (19) Gastroenteritis Code(s): K52.9 - NONINFECTIVE GASTROENTERITIS AND COLITIS, UNSPECIFIED (20) HTN (hypertension) Code(s): I10 - ESSENTIAL (PRIMARY) HYPERTENSION Qualifiers: Hypertension type: essential hypertension Qualified Code(s): I10 - Essential (primary) hypertension (21) HTN (hypertension) Code(s): I10 - ESSENTIAL (PRIMARY) HYPERTENSION (22) History of staph septicemia Code(s): Z86.19 - PERSONAL HISTORY OF OTHER INFECTIOUS AND PARASITIC DISEASES (23) Hyperkalemia Code(s): E87.5 - HYPERKALEMIA (24) Hypertensive urgency Code(s): I10 - ESSENTIAL (PRIMARY) HYPERTENSION (25) Myalgia Code(s): M79.1 - MYALGIA * DO NOT USE * (26) Nausea Code(s): R11.0 - NAUSEA (27) Palpitations Code(s): R00.2 - PALPITATIONS (28) Pancreatitis Code(s): K85.9 - ACUTE PANCREATITIS, UNSPECIFIED * DO NOT USE * Qualifiers: Chronicity: acute Pancreatitis type: unspecified pancreatitis type (29) Psoriasis Code(s): L40.9 - PSORIASIS, UNSPECIFIED (30) Right flank pain Code(s): R10.9 - UNSPECIFIED ABDOMINAL PAIN (31) Right lower quadrant abdominal pain Code(s): R10.31 - RIGHT LOWER QUADRANT PAIN Assessment/Plan cp sx pos tnis - stable not rising ? ESRD htn hlp ECHO mild ant wall hk Plan EST MIBI asa bb telemetry
[2018-09-24] MEDS: HEPARIN NA (PORCINE) 5,000 UNITS/ML 1ML VIAL SQ SCH ×2 (09:30→09:35)
[2018-09-24] MEDS: cloNIDine HCL 0.1 MG TABLET PO SCH (09:30)
[2018-09-24] MEDS: LABETALOL HCL 200 MG TABLET (FP) PO SCH (09:31)
[2018-09-24] MEDS ORDERED: amLODIPine BESYLATE 10 MG TABLET (FP) PO SCH (10:00)
[2018-09-24] MEDS ORDERED: ASPIRIN 81 MG CHEWABLE TABLETS PO SCH (10:00)
--- NOTE | 2018-09-24 10:34 | EKG ---
Test Reason : Blood Pressure : / mmHG Vent. Rate : 078 BPM Atrial Rate : 078 BPM P-R Int : 202 ms QRS Dur : 110 ms QT Int : 398 ms P-R-T Axes : 073 -24 094 degrees QTc Int : 453 ms NORMAL SINUS RHYTHM MINIMAL VOLTAGE CRITERIA FOR LVH, MAY BE NORMAL VARIANT T WAVE ABNORMALITY, CONSIDER LATERAL ISCHEMIA ABNORMAL ECG WHEN COMPARED WITH ECG OF 19-SEP-2018 08:52, NO SIGNIFICANT CHANGE WAS FOUND Confirmed by CORRINE ROSA MD ([id number]) on 09/24/2018 10:33:54 AM Referred By: CHELSEA BRADLEY Confirmed By:CORRINE ROSA MD
[2018-09-24 11:01] VITALS: BP 151/97; PULSE 74; TEMP 98.4
--- NOTE | 2018-09-24 11:23 | ECHO ---
Name: AMANDA GONZÁLES Exam:Adult Echocardiogram Study Date: 09/24/2018 10:25 AM Age: 53 yrs Reason For Study: LOOK FOR WALL MOTION Height: 69 in Weight: 189 lb BSA: 2.0 m2 MMode/2D Measurements & Calculations IVSd: 1.3 cm Ao root diam: 3.0 cm LVIDd: 5.5 cm LA dimension: 4.3 cm LVIDs: 3.9 cm LVPWd: 0.88 cm EDV(Teich): 146.0 ml LVOT diam: 2.1 cm ESV(Teich): 65.6 ml Doppler Measurements & Calculations MV E max jos: 166.6 cm/sec Ao V2 max: 254.9 cm/sec MV A max jos: 139.6 cm/sec Ao max P.0 mmHg MV E/A: 1.2 Ao V2 mean: 191.8 cm/sec MV dec time: 0.22 sec Ao mean P.5 mmHg Ao V2 VTI: 50.7 cm BONNIE(V,D): 1.3 cm2 LV V1 max P.4 mmHg MR max jos: 447.4 cm/sec LV V1 max: 92.8 cm/sec MR max P.1 mmHg TR max jos: 249.9 cm/sec Med Peak E' Jos: 4.1 cm/sec TR max P.1 mmHg Med E/e': 40.7 Lat Peak E' Jos: 3.1 cm/sec Lat E/e': 53.4 Left Ventricle There is mild concentric left ventricular hypertrophy. Left ventricular systolic function is borderli ne reduced. Ejection Fraction = 50%. There is mild anterior wall hypokinesis. Right Ventricle The right ventricle is normal in size and function. Atria The left atrium is mildly dilated. Mitral Valve There is moderate to severe mitral annular calcification. There is mild to moderate mitral valve thic kening. There is mild mitral regurgitation. Tricuspid Valve The tricuspid valve is not well visualized, but is grossly normal. There is mild tricuspid regurgitat ion. There was insufficient TR detected to calculate RV systolic pressure. Aortic Valve There is moderate aortic sclerosis.;. No hemodynamically significant valvular aortic stenosis. No aor tic regurgitation is present. Pulmonic Valve The pulmonic valve is not well visualized. Great Vessels The aortic root is normal size. Pericardium/Pleura There is no pericardial effusion. Interpretation Summary Left ventricular systolic function is borderline reduced. There is mild anterior wall hypokinesis. There is mild concentric left ventricular hypertrophy. The right ventricle is normal in size and function. The left atrium is mildly dilated. There is moderate to severe mitral annular calcification. There is mild to moderate mitral valve thickening. There is mild mitral regurgitation. There is mild tricuspid regurgitation. There is moderate aortic sclerosis.; There is no pericardial effusion. MD Kline *Nicole 09/24/2018 11:22 AM
--- NOTE | 2018-09-24 12:54 | PN ---
Progress Note, Physician Chief Complaint: patient seen and examiend no CP ,palpiations or SOB or chest discomfort going for stress test today History of Present Illness: got melatonin and hydralazine one dose last night - Current Medication List Current Medications: Active Medications Amlodipine Besylate (Norvasc -) 10 mg PO DAILY [facility] Last Admin: 09/24/18 09:30 Dose: 10 mg Aspirin (Asa -) 81 mg PO DAILY [facility] Last Admin: 09/24/18 09:31 Dose: 81 mg Atorvastatin Calcium (Lipitor -) 20 mg PO HS [facility] Last Admin: 09/23/18 21:59 Dose: 20 mg Clonidine (Catapres -) 0.3 mg PO BID [facility] Last Admin: 09/24/18 09:30 Dose: 0.3 mg Heparin Sodium (Porcine) (Heparin -) 5,000 unit SQ BID [facility] Last Admin: 09/24/18 09:35 Dose: Not Given Labetalol HCl (Normodyne -) 200 mg PO BID [facility] Last Admin: 09/24/18 09:31 Dose: 200 mg - Objective Vital Signs: Vital Signs Temperature 98.4 F 09/24/18 10:00 Pulse Rate 74 09/24/18 10:00 Respiratory Rate 20 09/24/18 10:00 Blood Pressure 151/97 09/24/18 10:00 O2 Sat by Pulse Oximetry (%) 97 09/24/18 09:00 Constitutional: Yes: Calm Cardiovascular: Yes: Regular Rate and Rhythm, S1, S2 Respiratory: Yes: CTA Bilaterally Gastrointestinal: Yes: Normal Bowel Sounds, Soft Edema: No Integumentary: Yes: Rash (skin rash) Psychiatric: Yes: Alert, Oriented Labs: CBC, BMP 09/24/18 05:30 09/24/18 05:30 Problem List - Problems (1) Chest pain Assessment/Plan: telemetry stress test today trend troponin 0.16-0.[address] limon consult noted aspirin lipid panel noted echo mild anterior wall hypokinesis dvt ppx Code(s): R07.9 - CHEST PAIN, UNSPECIFIED (2) HTN (hypertension) Assessment/Plan: clonidine 0.3mg bid norvasc 10mg labetolol 200mg bid Code(s): I10 - ESSENTIAL (PRIMARY) HYPERTENSION Qualifiers: Hypertension type: essential hypertension Qualified Code(s): I10 - Essential (primary) hypertension
[2018-09-24] MEDS ORDERED: REGADENOSON 0.4 MG/5 ML PRE-FILLED SYRINGE IVPUSH ONE ×2 (13:05→15:00)
--- NOTE | 2018-09-24 14:42 | CONSULT ---
Consult - text type - Consultation Consultation Note: Renal consult for ESRD on HD This is a 53 year old gentleman with hx of ESRD on HD, Prior renal transplant (now not functioning), psoriasis, hypertension who presented from HD unit with chest discomfort during dialysis. Denies any pain, sob, palpitations, N/V, diaphoresis at this time. ECHO showed some hypokaliness. For stress test today. No leg swelling. Pt had HD yesterday however terminated Tx 1 hour early. PMhx: as above Allergies: NKDA Family Hx: NC Social Hx: No T/A/D ROS: as per HPI Home Medications Medication Instructions Recorded Amlodipine Besylate [Norvasc -] 10 mg PO DAILY 08/30/16 Clonidine HCl 0.3 mg PO Q12H 08/30/16 Calcium Acetate [Phoslo -] 1,334 mg PO TIDCM 08/09/17 levoFLOXacin [Levaquin] 750 mg PO DAILY #13 tab 09/19/18 metroNIDAZOLE [Flagyl -] 500 mg PO TID #42 tablet 09/19/18 Labetalol HCl [Normodyne -] 800 mg PO TID 09/23/18 Vital Signs Temperature 98.4 F 09/24/18 10:00 Pulse Rate 74 09/24/18 10:00 Respiratory Rate 20 09/24/18 10:00 Blood Pressure 151/97 09/24/18 10:00 O2 Sat by Pulse Oximetry (%) 97 09/24/18 09:00 Intake & Output 09/21/18 09/22/18 09/23/18 09/24/18 23:59 23:59 23:59 23:59 Intake Total 240 Balance 240 Weight 81.919 kg 80.649 kg NAD awake and alert neck supple, no JVD RRR, no M/R CTA, no rales or wheeze soft NT/ND no LE edema Lipoma on left shoulder CBC, BMP 09/24/18 05:30 09/24/18 05:30 Current Medications Amlodipine Besylate (Norvasc -) 10 mg PO DAILY [facility] Last Admin: 09/24/18 09:30 Dose: 10 mg Aspirin (Asa -) 81 mg PO DAILY [facility] Last Admin: 09/24/18 09:31 Dose: 81 mg Atorvastatin Calcium (Lipitor -) 20 mg PO HS [facility] Last Admin: 09/23/18 21:59 Dose: 20 mg Clonidine (Catapres -) 0.3 mg PO BID [facility] Last Admin: 09/24/18 09:30 Dose: 0.3 mg Heparin Sodium (Porcine) (Heparin -) 5,000 unit SQ BID [facility] Last Admin: 09/24/18 09:35 Dose: Not Given Labetalol HCl (Normodyne -) 200 mg PO BID [facility] Last Admin: 09/24/18 09:31 Dose: 200 mg 53 year old gentleman with hx of ESRD on HD, Prior renal transplant (now not functioning), psoriasis, hypertension who presented from HD unit with chest discomfort during dialysis. 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
[2018-09-24] MEDS ORDERED: CLOPIDOGREL BISULFATE 75 MG TABLET (FP) PO SCH (16:00)
--- NOTE | 2018-09-24 16:02 | PN ---
Progress Note (short form) - Note Progress Note: patient has positve stress test d/w cardiology to start plavix and needs cardiac cath to get HD In AM Problem List - Problems (1) Chest pain Code(s): R07.9 - CHEST PAIN, UNSPECIFIED (2) HTN (hypertension) Code(s): I10 - ESSENTIAL (PRIMARY) HYPERTENSION Qualifiers: Hypertension type: essential hypertension Qualified Code(s): I10 - Essential (primary) hypertension
== END 2018-09-24 16:59 | disposition left against medical advice (07) | DRG 313 ==
LOC: JER 10:08 → JERBED 11:53 → OBSVTOIN 16:11 → J4W 20:28
PROVIDERS: ADMIT Student in an Organized Health Care Education/Training Program; ATTEND Student in an Organized Health Care Education/Training Program
DX: R07.89 Other chest pain (principal); N18.6 End stage renal disease; T86.12 Kidney transplant failure; I12.0 Hypertensive chronic kidney disease with stage 5 chronic kidney disease or end stage renal disease; E78.5 Hyperlipidemia, unspecified; L40.9 Psoriasis, unspecified; Z99.2 Dependence on renal dialysis
CPT/HCPCS: 36415; 71046-TC-FY; 78452-TC; 80053; 80061; 82550; 83721; 83735; 83880; 84100; 84484; 85025; 93005; 93010; 93017; 93306-TC; 97116-GP; 97161-GP; 99284-25; A9502; G0378; J0735; J1644; J2785

== ENCOUNTER 2018-09-25 08:08 | Inpatient (IN) | payer OTHER, BC ==
[2018-09-25 08:24] VITALS: BMI 28.8
--- NOTE | 2018-09-25 08:47 | PDOC ---
History of Present Illness - General Chief Complaint: Chest Pain Stated Complaint: CHEST PAIN Time Seen by Provider: 09/25/18 08:20 History Source: Patient Exam Limitations: No Limitations - History of Present Illness Initial Comments: 09/25/18 08:38 53 y/o male with PMH of HTN, ESRD (on HD //), presents to the ED with chest discomfort. Patient states that the discomfort started about 10 minutes into his dialysis session this AM, he describes it as a discomfort in his midsternal chest area- he feels that its more of a pressure and a heaviness on his chest- non radiating, does not change in intensity with exertion. Of note, he was here two days ago with the same exact chest pain, underwent both an echo and a stress test and was discharged home to see his software integrator on thursday and was started on plavix in addition to his other BP meds. He states the discomfort is around a 4/10 in intensity, however denies any systemic symptoms- no nasuea/ vomiting or diaphoresis. Denies any significant cardiac family history 09/25/18 08:57 Timing/Duration: 1-3 hours Associated Symptoms: reports: chest pain. denies: diaphoresis, nausea/vomiting Past History - Travel Traveled outside of the country in the last 30 days: No Close contact w/someone who was outside of country & ill: No - Past Medical History Allergies/Adverse Reactions: Allergies Allergy/AdvReac Type Severity Reaction Status Date / Time No Known Drug Allergies Allergy Verified 09/25/18 08:17 Home Medications: Ambulatory Orders Clonidine HCl 0.3 mg PO Q12H 08/30/16 Amlodipine Besylate [Norvasc -] 10 mg PO DAILY tablet 09/24/18 Labetalol HCl [Normodyne -] 200 mg PO BID tablet 09/24/18 Anemia: No Asthma: No Cancer: No Cardiac Disorders: No CVA: No COPD: No CHF: No Dementia: No Diabetes: No Dialysis: Yes GI Disorders: No Disorders: Yes (diverticulosis) HTN: Yes Hypercholesterolemia: No Liver Disease: No Seizures: No Thyroid Disease: No - Surgical History Abdominal Surgery: Yes (08/2007 KIDNEY TRANSPLANT-2011REJECTED) Appendectomy: No Cardiac Surgery: No Cholecystectomy: No Lung Surgery: No Neurologic Surgery: No Orthopedic Surgery: No - Immunization History Immunization Up to Date: Yes - Suicide/Smoking/Psychosocial Hx Smoking Status: No Smoking History: Never smoked Have you smoked in the past 12 months: No Number of Cigarettes Smoked Daily: 0 Cigars Per Day: 0 Information on smoking cessation initiated: No Hx Alcohol Use: No Drug/Substance Use Hx: No Substance Use Type: None Hx Substance Use Treatment: No Review of Systems - Review of Systems Able to Perform ROS?: Yes Is the patient limited Greenlandic proficient: No Constitutional: No: Diaphoresis HEENTM: No: Blurred Vision Respiratory: No: Shortness of Breath Cardiac (ROS): Yes: Chest Pain, Lightheadedness. No: Palpitations ABD/GI: No: Diarrhea, Vomiting : No: Burning, Dysuria Musculoskeletal: No: Muscle Weakness Neurological: Yes: Dizziness. No: Headache *Physical Exam - Vital Signs Last Vital Signs Temp Pulse Resp BP Pulse Ox 97.7 F 77 18 130/90 97 09/25/18 08:17 09/25/18 08:17 09/25/18 08:17 09/25/18 08:17 09/25/18 08:17 - Physical Exam General Appearance: Yes: Nourished Neck: positive: Normal Thyroid Respiratory/Chest: positive: Lungs Clear, Normal Breath Sounds Cardiovascular: positive: Regular Rhythm, Regular Rate, S1, S2 Gastrointestinal/Abdominal: positive: Normal Bowel Sounds, Flat, Soft. negative : Tender Musculoskeletal: negative: CVA Tenderness Extremity: positive: Normal Inspection. negative: Pedal Edema Integumentary: positive: Normal Color ED Treatment Course - LABORATORY CBC & Chemistry Diagram: 09/25/18 09:03 09/25/18 09:03 Medical Decision Making - Medical Decision Making 09/25/18 08:59 cbc/cmp/cardiac profile ekg will contact cards/nephro 2 trop; dispo *DC/Admit/Observation/Transfer Diagnosis at time of Disposition: Chest pain - Discharge Dispostion Condition at time of disposition: Stable Decision to Admit order: Yes - Referrals Referrals: Magan Navarro MD [Primary Care Provider] - - Patient Instructions - Post Discharge Activity - Attestations Physician Attestion: 09/25/18 11:13 Charis Austin
--- NOTE | 2018-09-25 09:20 | PDOC ---
Attending Attestation - Resident Resident Name: Charis Austin - ED Attending Attestation I have performed the following: I have examined & evaluated the patient, The case was reviewed & discussed with the resident, I agree w/resident's findings & plan - HPI HPI: 09/25/18 09:16 53-year-old male with history of end-stage renal disease on Thursday// Thursday dialysis, just discharged yesterday after chest pain admission notable for nuclear stress test that showed possible inferior wall ischemia, negative troponins and stable EKGs so discharged to follow up with Dr. Hinojosa, his telephone surveyor, on Thursday morning. Patient was in his usual state of health, went to his scheduled dialysis today, and prior to starting dialysis developed the same upper chest pressure with shortness of breath, initiated dialysis but his symptoms persisted and worsened, so he presents for evaluation. Currently states the pain is just a mild ache, denies any other symptoms at this time including shortness of breath. At baseline, has no exercise limitations. Denies any fevers or chills or cough. - Physicial Exam PE: 09/25/18 09:18 Vitals as noted and stable, well-appearing and conversant Heart is regular, 3/6 systolic ejection murmur throughout the precordium, lungs are clear Left upper extremity fistula with thrill Abdomen benign - Medical Decision Making 09/25/18 09:18 53-year-old male with end-stage renal disease presents with another episode of chest pain at dialysis, hemodynamically stable. Has risk factors for CAD, but just completed workup yesterday including nuclear stress test and is scheduled for outpatient management. EKG performed immediately upon arrival is unchanged from prior, only notable for T-wave inversion in V4 consistent with previous inferior and lateral ischemic changes. Check labs including troponin 2, discuss disposition with cardiology Check electrolytes, discuss plan to complete dialysis with nephrology Chest x-ray Reassess 09/25/18 10:29 Baseline mild anemia, elevated creatinine at baseline, troponin 0.1, unchanged from previous admission. Potassium normal. Discuss dialysis plan with nephrology, we'll discuss cardiology disposition with Dr. Hinojosa 09/25/18 10:49 Primary team clarified history. Pt was actually scheduled for cath but refused. Will readmit to tele, discussed with Dr. White, recommends initiating plavix in addition to asa. will admit to tele/HD bed. Heart Score/ECG Review #1 ECG reviewed & interpreted by me at: 08:19 General ECG Interpretation: Sinus Rhythm, Normal Rate (74), Normal Intervals ( qtc 470), No acute ischemic changes (TWI I/AVL, V4-V6) Compared to previous ECG there are: No significant change (c/w 09/24/18)
[2018-09-25 09:23] LABS: BASO % 0.6 % (0-2.0); EOS % 2.5 % (0-4.5); HEMATOCRIT 33.1 % (35.4-49); HEMOGLOBIN 10.7 GM/dL (11.7-16.9); LYMPH % 11.7 % (8-40); MCHC 32.2 g/dl (32.0-35.9); MEAN CELL VOLUME 90.1 fl (80-96); MEAN PLT VOLUME 7.3 fl (7.5-11.1); MONO % 9.1 % (3.8-10.2); NEUT % 76.1 % (42.8-82.8); PLATELET COUNT 257 K/MM3 (134-434); RBC 3.68 M/mm3 (4.00-5.60); RDW 15.4 % (11.9-15.9); WHITE BLOOD COUNT 4.5 K/mm3 (4.0-10.0)
--- NOTE | 2018-09-25 09:39 | EKG ---
Test Reason : Blood Pressure : / mmHG Vent. Rate : 074 BPM Atrial Rate : 074 BPM P-R Int : 212 ms QRS Dur : 110 ms QT Int : 424 ms P-R-T Axes : 069 -25 093 degrees QTc Int : 470 ms SINUS RHYTHM WITH 1ST DEGREE A-V BLOCK POSSIBLE LEFT ATRIAL ENLARGEMENT LEFT VENTRICULAR HYPERTROPHY T WAVE ABNORMALITY, CONSIDER LATERAL ISCHEMIA PROLONGED QT ABNORMAL ECG WHEN COMPARED WITH ECG OF 24-SEP-2018 08:46, NO SIGNIFICANT CHANGE WAS FOUND Confirmed by SAURABH SWEENEY, JOCELINE ([id number]) on 09/25/2018 9:38:35 AM Referred By: Confirmed By:JOCELINE WILEY MD
[2018-09-25 09:56] LABS: ALBUMIN 3.3 g/dl (3.4-5.0); ALK PHOS 82 U/L (45-117); ANION GAP 10 MMOL/L (8-16); BILIRUBIN,TOTAL 0.5 mg/dL (0.2-1); BLOOD UREA NITROGEN 52 mg/dL (7-18); CALCIUM 8.7 mg/dL (8.5-10.1); CHLORIDE 102 mmol/L (98-107); CO2 23 mmol/L (21-32); GLUCOSE,RANDOM 95 mg/dL (74-106); POTASSIUM 4.4 mmol/L (3.5-5.1); SGOT/AST 8 U/L (15-37); SGPT/ALT 13 U/L (13-61); SODIUM 136 mmol/L (136-145); TOT PROT 6.6 g/dl (6.4-8.2)
[2018-09-25 09:57] LABS: CREATININE 11.3 mg/dL (0.55-1.3)
--- NOTE | 2018-09-25 11:35 | PN ---
Progress Note, Physician History of Present Illness: 53-year-old male with history of end-stage renal disease on Thursday// Thursday dialysis, just discharged yesterday after chest pain admission notable for nuclear stress test that showed possible inferior wall ischemia, negative troponins and stable EKGs so discharged to follow up with Dr. Hinojosa, his christmas tree farm manager, on Thursday morning. Patient was in his usual state of health, went to his scheduled dialysis today, and prior to starting dialysis developed the same upper chest pressure with shortness of breath, initiated dialysis but his symptoms persisted and worsened, so he presents for evaluation. Currently states the pain is just a mild ache, denies any other symptoms at this time including shortness of breath. At baseline, has no exercise limitations. Denies any fevers or chills or cough. - Objective Vital Signs: Vital Signs Temperature 97.7 F 09/25/18 08:17 Pulse Rate 77 09/25/18 08:17 Respiratory Rate 18 09/25/18 08:17 Blood Pressure 130/90 09/25/18 08:17 O2 Sat by Pulse Oximetry (%) 98 09/25/18 08:35 Eyes: Yes: WNL, Conjunctiva Clear, EOM Intact HENT: Yes: WNL, Atraumatic, Normocephalic Neck: Yes: WNL, Supple, Trachea Midline Cardiovascular: Yes: WNL, Regular Rate and Rhythm Respiratory: Yes: WNL, Regular, CTA Bilaterally Gastrointestinal: Yes: WNL, Normal Bowel Sounds Genitourinary: Yes: WNL Musculoskeletal: Yes: WNL Extremities: Yes: WNL Edema: No Integumentary: Yes: WNL Neurological: Yes: WNL, Alert, Oriented ...Motor Strength: WNL Psychiatric: Yes: WNL Labs: CBC, BMP 09/25/18 09:03 09/25/18 09:03 Assessment/Plan recurrent angina pos tnis - stable not rising ? ESRD htn hlp ECHO mild ant wall hk EST MIBI positive for ischemia ( signed out AMA yesterday) asa bb telemetry c. cath
--- NOTE | 2018-09-25 12:21 | HP ---
Admitting History and Physical - Past Medical History Cardiovascular: Yes: HTN, Hyperlipdemia Renal/: Yes: Renal Failure, Hemodialysis Dermatology: Yes: Psoriasis - Past Surgical History Past Surgical History: Yes: AV Fistula/Graft, Kidney Transplant (failed) - Smoking History Smoking history: Never smoked Have you smoked in the past 12 months: No Aproximately how many cigarettes per day: 0 - Alcohol/Substance Use Hx Alcohol Use: No History of Substance Use: reports: None - Social History ADL: Independent History of Recent Travel: No Home Medications - Allergies Allergies/Adverse Reactions: Allergies Allergy/AdvReac Type Severity Reaction Status Date / Time No Known Drug Allergies Allergy Verified 09/25/18 08:17 - Home Medications Home Medications: Ambulatory Orders Clonidine HCl 0.3 mg PO Q12H 08/30/16 Amlodipine Besylate [Norvasc -] 10 mg PO DAILY tablet 09/24/18 Labetalol HCl [Normodyne -] 200 mg PO BID tablet 09/24/18 Review of Systems - Review of Systems Cardiovascular: reports: Chest Pain. denies: Edema Respiratory: denies: Hemoptysis, Snoring Gastrointestinal: denies: Abdominal Pain Physical Examination Vital Signs: Vital Signs Temperature 97.7 F 09/25/18 08:17 Pulse Rate 77 09/25/18 08:17 Respiratory Rate 18 09/25/18 08:17 Blood Pressure 130/90 09/25/18 08:17 O2 Sat by Pulse Oximetry (%) 98 09/25/18 08:35 Cardiovascular: Yes: S1, S2 Respiratory: Yes: Regular, CTA Bilaterally Gastrointestinal: Yes: Normal Bowel Sounds, Soft Labs: CBC, BMP 09/25/18 09:03 09/25/18 09:03 Problem List - Problems (1) Chest pain Assessment/Plan: positive stress test asa/statin caridac cath Code(s): R07.9 - CHEST PAIN, UNSPECIFIED (2) ESRD (end stage renal disease) on dialysis Assessment/Plan: -per renal Code(s): N18.6 - END STAGE RENAL DISEASE; Z99.2 - DEPENDENCE ON RENAL DIALYSIS (3) HTN (hypertension) Code(s): I10 - ESSENTIAL (PRIMARY) HYPERTENSION Qualifiers: Hypertension type: essential hypertension Qualified Code(s): I10 - Essential (primary) hypertension
[2018-09-25] MEDS ORDERED: PATIENT'S OWN MEDICATION (NON-FORMULARY) (Clonidine Hcl [Clonidine Hcl] 0.3 MG) PO SCH (12:30)
[2018-09-25 13:19] LABS: CHOLESTEROL 128 mg/dL (50-200); HDL CHOLESTEROL 62 mg/dL (40-60); TRIGLYCERIDES 89 mg/dL (0-150)
[2018-09-25] MEDS: ASPIRIN COATED 81 MG TABLET.EC PO SCH (14:26)
[2018-09-25] MEDS ORDERED: MAG HYDROX/AL HYDROX/SIMETH 30 ML UNIT-DOSE CUP PO ONE (14:29)
[2018-09-25] MEDS ORDERED: MAG HYDROX/AL HYDROX/SIMETH 30 ML UNIT-DOSE CUP ONE (14:32)
[2018-09-25] MEDS ORDERED: ASPIRIN COATED 81 MG TABLET.EC ONE (14:38)
[2018-09-25] MEDS ORDERED: LABETALOL HCL 100 MG TABLET (FP) ONE (21:15)
[2018-09-25] MEDS: LABETALOL HCL 200 MG TABLET (FP) PO SCH (21:18)
[2018-09-25] MEDS: cloNIDine HCL 0.1 MG TABLET PO SCH (21:18)
[2018-09-25] MEDS ORDERED: cloNIDine HCL 0.1 MG TABLET ONE (21:24)
[2018-09-25] MEDS ORDERED: ATORVASTATIN CA 40 MG TABLET (FP) ONE (22:05)
[2018-09-25] MEDS ORDERED: HEPARIN NA (PORCINE) 5,000 UNITS/ML 1ML VIAL ONE (22:05)
[2018-09-25] MEDS: HEPARIN NA (PORCINE) 5,000 UNITS/ML 1ML VIAL SQ SCH (22:16)
[2018-09-25] MEDS: ATORVASTATIN CA 40 MG TABLET (FP) PO SCH (22:16)
[2018-09-26 06:40] LABS: EOS % 3.5 % (0-4.5); HEMATOCRIT 32.5 % (35.4-49); HEMOGLOBIN 10.7 GM/dL (11.7-16.9); LYMPH % 17.5 % (8-40); MCH 29.5 pg (25.7-33.7); MCHC 33.1 g/dl (32.0-35.9); MEAN CELL VOLUME 89.3 fl (80-96); MEAN PLT VOLUME 7.7 fl (7.5-11.1); MONO % 11.8 % (3.8-10.2); NEUT % 66.2 % (42.8-82.8); PLATELET COUNT 262 K/MM3 (134-434); RBC 3.64 M/mm3 (4.00-5.60); RDW 15.2 % (11.9-15.9); WHITE BLOOD COUNT 4.5 K/mm3 (4.0-10.0)
[2018-09-26 06:57] LABS: ALBUMIN 3.3 g/dl (3.4-5.0); ALK PHOS 82 U/L (45-117); ANION GAP 11 MMOL/L (8-16); BILIRUBIN,TOTAL 0.4 mg/dL (0.2-1); BLOOD UREA NITROGEN 65 mg/dL (7-18); CALCIUM 8.9 mg/dL (8.5-10.1); CHLORIDE 101 mmol/L (98-107); CO2 24 mmol/L (21-32); GLUCOSE,RANDOM 88 mg/dL (74-106); SGOT/AST 8 U/L (15-37); SGPT/ALT 11 U/L (13-61); SODIUM 136 mmol/L (136-145); TOT PROT 6.6 g/dl (6.4-8.2)
[2018-09-26 07:06] LABS: CREATININE 14.1 mg/dL (0.55-1.3)
[2018-09-26] MEDS ORDERED: ASPIRIN COATED 81 MG TABLET.EC ONE (09:07)
[2018-09-26] MEDS ORDERED: cloNIDine HCL 0.1 MG TABLET ONE (09:07)
[2018-09-26] MEDS ORDERED: amLODIPine BESYLATE 5 MG TABLET (FP) ONE (09:07)
[2018-09-26] MEDS ORDERED: LABETALOL HCL 100 MG TABLET (FP) ONE (09:07)
[2018-09-26] MEDS ORDERED: HEPARIN NA (PORCINE) 5,000 UNITS/ML 1ML VIAL ONE (09:08)
[2018-09-26] MEDS: LABETALOL HCL 200 MG TABLET (FP) PO SCH ×3 (09:10→22:03)
[2018-09-26] MEDS: ASPIRIN COATED 81 MG TABLET.EC PO SCH (09:10)
[2018-09-26] MEDS: amLODIPine BESYLATE 10 MG TABLET (FP) PO SCH (09:10)
[2018-09-26] MEDS: cloNIDine HCL 0.1 MG TABLET PO SCH ×2 (09:10→22:02)
[2018-09-26] MEDS: HEPARIN NA (PORCINE) 5,000 UNITS/ML 1ML VIAL SQ SCH ×2 (09:14→22:03)
--- NOTE | 2018-09-26 09:43 | PN ---
Progress Note, Physician History of Present Illness: 53-year-old male with history of end-stage renal disease on Thursday// Thursday dialysis, just discharged yesterday after chest pain admission notable for nuclear stress test that showed possible inferior wall ischemia, negative troponins and stable EKGs so discharged to follow up with Dr. Hinojosa, his logging superintendent, on Thursday morning. Patient was in his usual state of health, went to his scheduled dialysis today, and prior to starting dialysis developed the same upper chest pressure with shortness of breath, initiated dialysis but his symptoms persisted and worsened, so he presents for evaluation. Currently states the pain is just a mild ache, denies any other symptoms at this time including shortness of breath. At baseline, has no exercise limitations. Denies any fevers or chills or cough. - Current Medication List Current Medications: Active Medications Amlodipine Besylate (Norvasc -) 10 mg PO DAILY [facility] Last Admin: 09/26/18 09:10 Dose: 10 mg Aspirin (Ecotrin -) 81 mg PO DAILY [facility] Last Admin: 09/26/18 09:10 Dose: 81 mg Atorvastatin Calcium (Lipitor -) 40 mg PO HS [facility] Last Admin: 09/25/18 22:16 Dose: Not Given Clonidine (Catapres -) 0.3 mg PO BID [facility] Last Admin: 09/26/18 09:10 Dose: 0.3 mg Heparin Sodium (Porcine) (Heparin -) 5,000 unit SQ BID [facility] Last Admin: 09/26/18 09:14 Dose: Not Given Labetalol HCl (Normodyne -) 200 mg PO BID [facility] Last Admin: 09/26/18 09:10 Dose: 200 mg - Objective Vital Signs: Vital Signs Temperature 98.2 F 09/26/18 06:17 Pulse Rate 68 09/26/18 06:17 Respiratory Rate 17 09/26/18 06:17 Blood Pressure 177/106 H 09/26/18 06:17 O2 Sat by Pulse Oximetry (%) 100 09/26/18 06:17 Eyes: Yes: WNL, Conjunctiva Clear, EOM Intact HENT: Yes: WNL, Atraumatic, Normocephalic Neck: Yes: WNL, Supple, Trachea Midline Cardiovascular: Yes: WNL, Regular Rate and Rhythm Respiratory: Yes: WNL, Regular, CTA Bilaterally Gastrointestinal: Yes: WNL, Normal Bowel Sounds Genitourinary: Yes: WNL Musculoskeletal: Yes: WNL Extremities: Yes: WNL Edema: No Integumentary: Yes: WNL Neurological: Yes: WNL, Alert, Oriented ...Motor Strength: WNL Psychiatric: Yes: WNL Labs: CBC, BMP 09/26/18 05:20 09/26/18 05:20 Assessment/Plan recurrent angina pos tnis - stable not rising ? ESRD htn hlp ECHO mild ant wall hk EST MIBI positive for ischemia ( signed out AMA yesterday) asa bb telemetry c. cath
--- NOTE | 2018-09-26 10:33 | PN ---
Progress Note (short form) - Note Progress Note: Renal follow up for ESRD on HD 53 year old gentleman with hx of ESRD on HD, Prior renal transplant (now not functioning), psoriasis, hypertension who presented from HD unit with chest discomfort during dialysis. Pt was intialy admitted on and had stress test 09/24 that showed mild apical ischemia and possible inferior ischemia. Pt signed out AMA. Went to dialysis on Thursday morning and experienced CP again. No in ED. No pain. No fever, chills, sob, N/V/D. Vital Signs Temperature 98.2 F 09/26/18 06:17 Pulse Rate 68 09/26/18 06:17 Respiratory Rate 17 09/26/18 06:17 Blood Pressure 177/106 H 09/26/18 06:17 O2 Sat by Pulse Oximetry (%) 100 09/26/18 06:17 Intake & Output 09/23/18 09/24/18 09/25/18 09/26/18 23:59 23:59 23:59 23:59 Weight 81 kg NAD awake and alert neck supple, no JVD RRR, + murmur CTA soft NT/ND no LE edema CBC, BMP 09/26/18 05:20 09/26/18 05:20 Current Medications Amlodipine Besylate (Norvasc -) 10 mg PO DAILY [facility] Last Admin: 09/26/18 09:10 Dose: 10 mg Aspirin (Ecotrin -) 81 mg PO DAILY [facility] Last Admin: 09/26/18 09:10 Dose: 81 mg Atorvastatin Calcium (Lipitor -) 40 mg PO HS [facility] Last Admin: 09/25/18 22:16 Dose: Not Given Clonidine (Catapres -) 0.3 mg PO BID [facility] Last Admin: 09/26/18 09:10 Dose: 0.3 mg Heparin Sodium (Porcine) (Heparin -) 5,000 unit SQ BID [facility] Last Admin: 09/26/18 09:14 Dose: Not Given Labetalol HCl (Normodyne -) 200 mg PO BID [facility] Last Admin: 09/26/18 09:10 Dose: 200 mg 53 year old gentleman with hx of ESRD on HD, Prior renal transplant (now not functioning), psoriasis, hypertension who presented from HD unit with chest discomfort during dialysis. #Chest pain r/o ACS with positive stress test #ESRD on HD #CKD related Anemia #Hyeprtension for transfer for cardiac cath anticipated in AM ideally should have dialysis after cardiac cath however will check BMP in AM to ensure pt does not have significant hyperkalemia BP is high, will incease Labetalolt to 200mg TID (monitor HR as pt also on Clonidine as well) Cardiology following Thank you Gonzalo Barros DO
[2018-09-26] MEDS ORDERED: ALPRAZolam 0.25 MG TABLET ONE (11:26)
[2018-09-26] MEDS ORDERED: ALPRAZolam 0.25 MG TABLET PO ONE (11:30)
--- NOTE | 2018-09-26 15:02 | EKG ---
Test Reason : Blood Pressure : / mmHG Vent. Rate : 069 BPM Atrial Rate : 069 BPM P-R Int : 214 ms QRS Dur : 114 ms QT Int : 436 ms P-R-T Axes : 076 -26 087 degrees QTc Int : 467 ms SINUS RHYTHM WITH 1ST DEGREE A-V BLOCK POSSIBLE LEFT ATRIAL ENLARGEMENT LEFT VENTRICULAR HYPERTROPHY WITH REPOLARIZATION ABNORMALITY CANNOT RULE OUT SEPTAL INFARCT (CITED ON OR BEFORE 25-SEP-2018) ABNORMAL ECG WHEN COMPARED WITH ECG OF 25-SEP-2018 13:49, SERIAL CHANGES OF SEPTAL INFARCT PRESENT Confirmed by SAURABH SWEENEY, JOCELINE ([id number]) on 09/26/2018 3:01:43 PM Referred By: Confirmed By:JOCELINE WILEY MD
[2018-09-26] MEDS ORDERED: ALPRAZolam 0.25 MG TABLET PO PRN (15:38)
--- NOTE | 2018-09-26 15:38 | PN ---
Progress Note, Physician - Current Medication List Current Medications: Active Medications Amlodipine Besylate (Norvasc -) 10 mg PO DAILY [facility] Last Admin: 09/26/18 09:10 Dose: 10 mg Aspirin (Ecotrin -) 81 mg PO DAILY [facility] Last Admin: 09/26/18 09:10 Dose: 81 mg Atorvastatin Calcium (Lipitor -) 40 mg PO HS [facility] Last Admin: 09/25/18 22:16 Dose: Not Given Clonidine (Catapres -) 0.3 mg PO BID [facility] Last Admin: 09/26/18 09:10 Dose: 0.3 mg Heparin Sodium (Porcine) (Heparin -) 5,000 unit SQ BID [facility] Last Admin: 09/26/18 09:14 Dose: Not Given Labetalol HCl (Normodyne -) 200 mg PO TID [facility] Last Admin: 09/26/18 14:43 Dose: 200 mg - Objective Vital Signs: Vital Signs Temperature 98.2 F 09/26/18 14:31 Pulse Rate 77 09/26/18 14:31 Respiratory Rate 20 09/26/18 14:31 Blood Pressure 127/94 09/26/18 14:31 O2 Sat by Pulse Oximetry (%) 97 09/26/18 12:46 Cardiovascular: Yes: Regular Rate and Rhythm Respiratory: Yes: Regular, CTA Bilaterally Gastrointestinal: Yes: Normal Bowel Sounds, Soft Labs: CBC, BMP 09/26/18 05:20 09/26/18 05:20 Problem List - Problems (1) Chest pain Assessment/Plan: positive stress test asa/statin caridac cath Code(s): R07.9 - CHEST PAIN, UNSPECIFIED (2) ESRD (end stage renal disease) on dialysis Assessment/Plan: -per renal Code(s): N18.6 - END STAGE RENAL DISEASE; Z99.2 - DEPENDENCE ON RENAL DIALYSIS (3) HTN (hypertension) Assessment/Plan: monitor Code(s): I10 - ESSENTIAL (PRIMARY) HYPERTENSION Qualifiers: Hypertension type: essential hypertension Qualified Code(s): I10 - Essential (primary) hypertension
[2018-09-26] MEDS: ATORVASTATIN CA 40 MG TABLET (FP) PO SCH (22:04)
[2018-09-27] MEDS: LABETALOL HCL 200 MG TABLET (FP) PO SCH ×4 (06:27→21:16)
[2018-09-27 06:50] LABS: ANION GAP 15 MMOL/L (8-16); BLOOD UREA NITROGEN 82 mg/dL (7-18); CALCIUM 8.6 mg/dL (8.5-10.1); CHLORIDE 101 mmol/L (98-107); CO2 23 mmol/L (21-32); GLUCOSE,RANDOM 96 mg/dL (74-106); POTASSIUM 5.8 mmol/L (3.5-5.1); SODIUM 138 mmol/L (136-145)
[2018-09-27 07:42] LABS: CREATININE 17.2 mg/dL (0.55-1.3)
--- NOTE | 2018-09-27 08:41 | PN ---
Progress Note, Physician History of Present Illness: 53-year-old male with history of end-stage renal disease on Thursday// Thursday dialysis, just discharged yesterday after chest pain admission notable for nuclear stress test that showed possible inferior wall ischemia, negative troponins and stable EKGs so discharged to follow up with Dr. Hinojosa, his philanthropy officer, on Thursday morning. Patient was in his usual state of health, went to his scheduled dialysis today, and prior to starting dialysis developed the same upper chest pressure with shortness of breath, initiated dialysis but his symptoms persisted and worsened, so he presents for evaluation. Currently states the pain is just a mild ache, denies any other symptoms at this time including shortness of breath. At baseline, has no exercise limitations. Denies any fevers or chills or cough. - Current Medication List Current Medications: Active Medications Alprazolam (Xanax -) 0.5 mg PO Q8H PRN PRN Reason: ANXIETY Amlodipine Besylate (Norvasc -) 10 mg PO DAILY [facility] Last Admin: 09/26/18 09:10 Dose: 10 mg Aspirin (Ecotrin -) 81 mg PO DAILY [facility] Last Admin: 09/26/18 09:10 Dose: 81 mg Atorvastatin Calcium (Lipitor -) 40 mg PO HS [facility] Last Admin: 09/26/18 22:04 Dose: Not Given Clonidine (Catapres -) 0.3 mg PO BID [facility] Last Admin: 09/26/18 22:02 Dose: 0.3 mg Heparin Sodium (Porcine) (Heparin -) 5,000 unit SQ BID [facility] Last Admin: 09/26/18 22:03 Dose: Not Given Labetalol HCl (Normodyne -) 200 mg PO TID [facility] Last Admin: 09/27/18 06:27 Dose: 200 mg - Objective Vital Signs: Vital Signs Temperature 97.9 F 09/27/18 02:00 Pulse Rate 69 09/27/18 05:46 Respiratory Rate 16 09/27/18 05:46 Blood Pressure 158/95 09/27/18 05:46 O2 Sat by Pulse Oximetry (%) 100 09/26/18 21:00 Eyes: Yes: WNL, Conjunctiva Clear, EOM Intact HENT: Yes: WNL, Atraumatic, Normocephalic Neck: Yes: WNL, Supple, Trachea Midline Cardiovascular: Yes: WNL, Regular Rate and Rhythm Respiratory: Yes: WNL, Regular, CTA Bilaterally Gastrointestinal: Yes: WNL, Normal Bowel Sounds Genitourinary: Yes: WNL Musculoskeletal: Yes: WNL Extremities: Yes: WNL Edema: No Integumentary: Yes: WNL Neurological: Yes: WNL, Alert, Oriented ...Motor Strength: WNL Psychiatric: Yes: WNL Labs: CBC, BMP 09/26/18 05:20 09/27/18 05:30 Assessment/Plan recurrent angina pos tnis - stable not rising ? ESRD htn hlp ECHO mild ant wall hk EST MIBI positive for ischemia ( signed out AMA yesterday) asa bb telemetry c. cath
[2018-09-27] MEDS ORDERED: PT OWN MED DRAWER 7, Y5N ONE ×2 (09:03→13:25)
[2018-09-27] MEDS: amLODIPine BESYLATE 10 MG TABLET (FP) PO SCH (09:06)
[2018-09-27] MEDS: cloNIDine HCL 0.1 MG TABLET PO SCH ×2 (09:06→21:09)
[2018-09-27] MEDS: ASPIRIN COATED 81 MG TABLET.EC PO SCH (09:06)
[2018-09-27] MEDS: HEPARIN NA (PORCINE) 5,000 UNITS/ML 1ML VIAL SQ SCH ×2 (09:07→21:09)
[2018-09-27] MEDS ORDERED: SODIUM CHLORIDE 250 ML IV PRN (10:42)
[2018-09-27] MEDS ORDERED: HEPARIN NA (PORCINE) 5,000 UNITS/ML 1ML VIAL IVPUSH ONE (11:30)
--- NOTE | 2018-09-27 11:57 | DS ---
Physical Examination Vital Signs: Vital Signs Temperature 97.9 F 09/27/18 02:00 Pulse Rate 69 09/27/18 05:46 Respiratory Rate 16 09/27/18 09:00 Blood Pressure 158/95 09/27/18 05:46 O2 Sat by Pulse Oximetry (%) 100 09/27/18 09:00 Constitutional: Yes: Calm Cardiovascular: Yes: Regular Rate and Rhythm, S1, S2 Respiratory: Yes: CTA Bilaterally Gastrointestinal: Yes: Normal Bowel Sounds, Soft Edema: No Neurological: Yes: Alert, Oriented Labs: CBC, BMP 09/26/18 05:20 09/27/18 05:30 Discharge Summary Reason For Visit: CHEST PAIN Current Active Problems Chest pain (Acute) Hospital Course: 53-year-old male with history of end-stage renal disease on Thursday// Thursday dialysis, just discharged yesterday after chest pain admission notable for nuclear stress test that showed possible inferior wall ischemia, negative troponins and stable EKGs -,he was supposed to stay for cardiac cath but signed out AMA and said he would follow up with Dr. Hinojosa, his farm facility manager, on Thursday morning. Patient was in his usual state of health, went to his scheduled dialysis thursday, and prior to starting dialysis developed the same upper chest pressure with shortness of breath, initiated dialysis but his symptoms persisted and worsened, so he presents for evaluation. Currently states the pain is just a mild ache, denies any other symptoms at this time including shortness of breath. admitted to telemetry to get HD and then transfer to cardiac cath in AM Condition: Stable - Instructions Disposition: TRANSFER ACUTE CARE/OTHER HOSP - Home Medications Comprehensive Discharge Medication List: Ambulatory Orders Clonidine HCl 0.3 mg PO Q12H 08/30/16 Amlodipine Besylate [Norvasc -] 10 mg PO DAILY tablet 09/24/18 Labetalol HCl [Normodyne -] 200 mg PO BID tablet 09/24/18
--- NOTE | 2018-09-27 11:58 | PN ---
Progress Note (short form) - Note Progress Note: spoke to dr Mosley plan to trasclaudiaer for cardiac cath in AM HD today per renal
--- NOTE | 2018-09-27 13:23 | PN ---
Progress Note, Physician History of Present Illness: 53-year-old male with history of end-stage renal disease on Thursday// Thursday dialysis, just discharged yesterday after chest pain admission notable for nuclear stress test that showed possible inferior wall ischemia, negative troponins and stable EKGs so discharged to follow up with Dr. 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 Patient was in his usual state of health, went to his scheduled dialysis today, and prior to starting dialysis developed the same upper chest pressure with shortness of breath, initiated dialysis but his symptoms persisted and worsened, so he presents for evaluation. Currently states the pain is just a mild ache, denies any other symptoms at this time including shortness of breath. At baseline, has no exercise limitations. Denies any fevers or chills or cough. - Current Medication List Current Medications: Active Medications Alprazolam (Xanax -) 0.5 mg PO Q8H PRN PRN Reason: ANXIETY Amlodipine Besylate (Norvasc -) 10 mg PO DAILY [facility] Last Admin: 09/27/18 09:06 Dose: 10 mg Aspirin (Ecotrin -) 81 mg PO DAILY [facility] Last Admin: 09/27/18 09:06 Dose: 81 mg Atorvastatin Calcium (Lipitor -) 40 mg PO HS [facility] Last Admin: 09/26/18 22:04 Dose: Not Given Bismuth Subsalicylate (Pepto-Bismol Liquid -) 30 ml PO ONCE ONE Stop: 09/27/18 13:31 Clonidine (Catapres -) 0.3 mg PO BID [facility] Last Admin: 09/27/18 09:06 Dose: 0.3 mg Heparin Sodium (Porcine) (Heparin -) 5,000 unit SQ BID [facility] Last Admin: 09/27/18 09:07 Dose: Not Given Sodium Chloride (Normal Saline -) 250 mls @ 3,000 mls/hr IV PRN PRN PRN Reason: Hypotension during Dialysis Stop: 09/28/18 10:41 Labetalol HCl (Normodyne -) 200 mg PO TID [facility] Last Admin: 09/27/18 06:27 Dose: 200 mg - Objective Vital Signs: Vital Signs Temperature 97.9 F 09/27/18 10:00 Pulse Rate 74 09/27/18 10:00 Respiratory Rate 16 09/27/18 10:00 Blood Pressure 149/74 09/27/18 10:00 O2 Sat by Pulse Oximetry (%) 100 09/27/18 09:00 Eyes: Yes: WNL, Conjunctiva Clear, EOM Intact HENT: Yes: WNL, Atraumatic, Normocephalic Neck: Yes: WNL, Supple, Trachea Midline Cardiovascular: Yes: WNL, Regular Rate and Rhythm Respiratory: Yes: WNL, Regular, CTA Bilaterally Gastrointestinal: Yes: WNL, Normal Bowel Sounds Genitourinary: Yes: WNL Musculoskeletal: Yes: WNL Extremities: Yes: WNL Edema: No Integumentary: Yes: WNL Neurological: Yes: WNL, Alert, Oriented ...Motor Strength: WNL Psychiatric: Yes: WNL Labs: CBC, BMP 09/26/18 05:20 09/27/18 05:30 Assessment/Plan recurrent angina pos tnis - stable not rising ? ESRD htn hlp ECHO mild ant wall hk EST MIBI positive for ischemia ( signed out AMA yesterday) asa bb telemetry c. cath tomorrow
[2018-09-27] MEDS ORDERED: BISMUTH SUBSALICYLATE 262 MG/15 ML BTL PO ONE (13:30)
[2018-09-27] MEDS: HEPARIN NA (PORCINE) 5,000 UNITS/ML 1ML VIAL IVPUSH SCH ×2 (15:04→17:42)
--- NOTE | 2018-09-27 15:10 | EKG ---
Test Reason : Blood Pressure : / mmHG Vent. Rate : 065 BPM Atrial Rate : 065 BPM P-R Int : 214 ms QRS Dur : 112 ms QT Int : 424 ms P-R-T Axes : 070 -13 120 degrees QTc Int : 440 ms SINUS RHYTHM WITH 1ST DEGREE A-V BLOCK POSSIBLE LEFT ATRIAL ENLARGEMENT LEFT VENTRICULAR HYPERTROPHY CANNOT RULE OUT SEPTAL INFARCT , AGE UNDETERMINED T WAVE ABNORMALITY, CONSIDER LATERAL ISCHEMIA ABNORMAL ECG WHEN COMPARED WITH ECG OF 25-SEP-2018 08:19, NO SIGNIFICANT CHANGE WAS FOUND Confirmed by FAREED AVITIA MD ([id number]) on 09/27/2018 3:09:59 PM Referred By: Confirmed By:FAREED AVITIA MD
--- NOTE | 2018-09-27 15:31 | PN ---
Progress Note (short form) - Note Progress Note: Renal follow up for ESRD on HD Pt seen and examined at the bedside no acute complaints no further episodes of chest pain no sob, abd pain, N/V/D Vital Signs Temperature 97.2 F L 09/27/18 14:40 Pulse Rate 74 09/27/18 14:45 Respiratory Rate 18 09/27/18 14:45 Blood Pressure 151/94 09/27/18 14:45 O2 Sat by Pulse Oximetry (%) 100 09/27/18 09:00 Intake & Output 09/24/18 09/25/18 09/26/18 09/27/18 23:59 23:59 23:59 23:59 Intake Total 400 920 Balance 400 920 Weight 81 kg 81 kg 81.737 kg NAD awake and alert neck supple, no JVD RRR, + murmur CTA soft NT/ND no LE edema CBC, BMP 09/26/18 05:20 09/27/18 05:30 Current Medications Alprazolam (Xanax -) 0.5 mg PO Q8H PRN PRN Reason: ANXIETY Amlodipine Besylate (Norvasc -) 10 mg PO DAILY [facility] Last Admin: 09/27/18 09:06 Dose: 10 mg Aspirin (Ecotrin -) 81 mg PO DAILY [facility] Last Admin: 09/27/18 09:06 Dose: 81 mg Atorvastatin Calcium (Lipitor -) 40 mg PO HS [facility] Last Admin: 09/26/18 22:04 Dose: Not Given Clonidine (Catapres -) 0.3 mg PO BID [facility] Last Admin: 09/27/18 09:06 Dose: 0.3 mg Heparin Sodium (Porcine) (Heparin -) 5,000 unit SQ BID [facility] Last Admin: 09/27/18 09:07 Dose: Not Given Sodium Chloride (Normal Saline -) 250 mls @ 3,000 mls/hr IV PRN PRN PRN Reason: Hypotension during Dialysis Stop: 09/28/18 10:41 Labetalol HCl (Normodyne -) 200 mg PO TID [facility] Last Admin: 09/27/18 06:27 Dose: 200 mg 53 year old gentleman with hx of ESRD on HD, Prior renal transplant (now not functioning), psoriasis, hypertension who presented from HD unit with chest discomfort during dialysis. #Chest pain r/o ACS with positive stress test #ESRD on HD #CKD related Anemia #Hyeprtension #Hyperkalemia For HD today as inpatient in Tele unit will use 2k bath and UF 2L as tolerated Renal diet, 1.2L fluid restriction for transfer for cardiac cath as per cardiology continue Clonidine, Amlodipine, Labetalolol for hypertension Thank you Gonzalo Barros DO
[2018-09-27] MEDS: ATORVASTATIN CA 40 MG TABLET (FP) PO SCH (21:09)
[2018-09-27] MEDS ORDERED: NITROGLYCERIN 2% OINTMENT - 1GM PACKET TD ONE (22:33)
[2018-09-27] MEDS ORDERED: ISOSORBIDE MONONITRATE 30 MG TAB.SR.24H (FP) PO ONE (23:30)
[2018-09-28] MEDS ORDERED: LABETALOL HCL 200 MG TABLET (FP) PO ONE ×3 (00:02→06:00)
[2018-09-28] MEDS: LABETALOL HCL 200 MG TABLET (FP) PO SCH ×3 (05:51→21:35)
--- NOTE | 2018-09-28 08:37 | DS ---
Physical Examination Vital Signs: Vital Signs Temperature 97.8 F 09/28/18 06:09 Pulse Rate 74 09/28/18 06:09 Respiratory Rate 18 09/28/18 06:09 Blood Pressure 143/87 09/28/18 06:09 O2 Sat by Pulse Oximetry (%) 98 09/27/18 20:12 Cardiovascular: Yes: Regular Rate and Rhythm Respiratory: Yes: Regular, CTA Bilaterally Gastrointestinal: Yes: Normal Bowel Sounds, Soft Labs: CBC, BMP 09/26/18 05:20 09/27/18 05:30 Discharge Summary Reason For Visit: CHEST PAIN Current Active Problems Chest pain (Acute) Hospital Course: 53-year-old male with history of end-stage renal disease on Thursday// Thursday dialysis, just discharged yesterday after chest pain admission notable for nuclear stress test that showed possible inferior wall ischemia, negative troponins and stable EKGs -,he was supposed to stay for cardiac cath but signed out AMA and said he would follow up with Dr. Hinojosa, his surg nurse, on Thursday morning. Patient was in his usual state of health, went to his scheduled dialysis thursday, and prior to starting dialysis developed the same upper chest pressure with shortness of breath, initiated dialysis but his symptoms persisted and worsened, so he presents for evaluation. Currently states the pain is just a mild ache, denies any other symptoms at this time including shortness of breath. admitted to telemetry to get HD and then transfer to cardiac cath Condition: Stable - Instructions Disposition: TRANSFER ACUTE CARE/OTHER HOSP - Home Medications Comprehensive Discharge Medication List: Ambulatory Orders Clonidine HCl 0.3 mg PO Q12H 08/30/16 Amlodipine Besylate [Norvasc -] 10 mg PO DAILY tablet 09/24/18 Atorvastatin Ca [Lipitor] 40 mg PO HS tablet 09/27/18 Labetalol HCl [Normodyne -] 800 mg PO TID tablet 09/28/18
[2018-09-28] MEDS: cloNIDine HCL 0.1 MG TABLET PO SCH ×2 (09:06→21:35)
[2018-09-28] MEDS: HEPARIN NA (PORCINE) 5,000 UNITS/ML 1ML VIAL SQ SCH ×2 (09:06→21:35)
[2018-09-28] MEDS: amLODIPine BESYLATE 10 MG TABLET (FP) PO SCH (09:06)
[2018-09-28] MEDS: ASPIRIN COATED 81 MG TABLET.EC PO SCH (09:06)
[2018-09-28] MEDS ORDERED: ACETAMINOPHEN 325 MG TABLET (FP) PO PRN (09:56)
--- NOTE | 2018-09-28 11:57 | PN ---
Progress Note, Physician Chief Complaint: Pt A&Ox3; anxious about need for coronary angiogram; otherwise asymptomatic. History of Present Illness: 53-year-old black man with history of end-stage renal disease (hx renal transplant that is no longer functioning), on Thursday//Thursday hemodialysis, just discharged yesterday after chest pain admission which was notable for nuclear stress test that showed possible inferior and apical wall ischemia, negative troponins and stable EKGs so discharged to follow up with me on Thursday morning. Patient was in his usual state of health, went to his scheduled dialysis today, and prior to starting dialysis developed the same upper chest pressure with shortness of breath, initiated dialysis but his symptoms persisted and worsened, so he presents for evaluation. Currently states the pain is just a mild ache, denies any other symptoms at this time including shortness of breath. At baseline, has no exercise limitations. Denies any fevers or chills or cough. H HTN, hyperlipoidemia. - Physicial Exam PE: 09/25/18 09:18 Vitals as noted and stable, well-appearing and conversant Heart is regular, 3/6 systolic ejection murmur throughout the precordium, lungs are clear Left upper extremity fistula with thrill Abdomen benign - Current Medication List Current Medications: Active Medications Acetaminophen (Tylenol -) 650 mg PO Q6H PRN PRN Reason: PAIN 1-5 Last Admin: 09/28/18 10:00 Dose: 650 mg Alprazolam (Xanax -) 0.5 mg PO Q8H PRN PRN Reason: ANXIETY Amlodipine Besylate (Norvasc -) 10 mg PO DAILY [facility] Last Admin: 09/28/18 09:06 Dose: 10 mg Aspirin (Ecotrin -) 81 mg PO DAILY [facility] Last Admin: 09/28/18 09:06 Dose: 81 mg Atorvastatin Calcium (Lipitor -) 40 mg PO HS [facility] Last Admin: 09/27/18 21:09 Dose: Not Given Clonidine (Catapres -) 0.3 mg PO BID [facility] Last Admin: 09/28/18 09:06 Dose: 0.3 mg Heparin Sodium (Porcine) (Heparin -) 5,000 unit SQ BID [facility] Last Admin: 09/28/18 09:06 Dose: Not Given Labetalol HCl (Normodyne -) 800 mg PO TID [facility] - Objective Vital Signs: Vital Signs Temperature 97.5 F L 09/28/18 09:09 Pulse Rate 69 09/28/18 09:09 Respiratory Rate 18 09/28/18 09:09 Blood Pressure 151/98 09/28/18 09:09 O2 Sat by Pulse Oximetry (%) 97 09/28/18 09:09 Constitutional: Yes: Anxious Eyes: Yes: WNL HENT: Yes: WNL Neck: Yes: WNL Cardiovascular: Yes: S1 (split), S2, S4 Respiratory: Yes: WNL Gastrointestinal: Yes: Soft ...Rectal Exam: Yes: Deferred Genitourinary: No: Anuria Breast(s): Yes: WNL Musculoskeletal: Yes: Joint Stiffness Extremities: Yes: WNL Edema: No Peripheral Pulses WNL: Yes Integumentary: Yes: WNL Neurological: Yes: WNL Psychiatric: Yes: Alert, Oriented, Other (anxiety) Labs: CBC, BMP 09/26/18 05:20 09/27/18 05:30 Abnormal Lab Results 09/28/18 15:25 TSH 0.27 L - ....Imaging Chest X-ray: Image Reviewed EKG: Image Reviewed Other: Image Reviewed (telemetry: NSR; no arrhythmias) Problem List - Problems (1) Chest pain Assessment/Plan: + chest pain/pressure before and after + stress MIBI, the last time while on hemodialysis. Pt will be transferred to [facility] for coronary angiogram. Code(s): R07.9 - CHEST PAIN, UNSPECIFIED (2) ESRD (end stage renal disease) on dialysis Code(s): N18.6 - END STAGE RENAL DISEASE; Z99.2 - DEPENDENCE ON RENAL DIALYSIS (3) Elevated troponin Assessment/Plan: 0.10; not significantly different for the past several years, except for 07/2017 , when the level was 2.8. Now with recurring chest pressure; stress MIBI shows possible apical and inferior ischemia. For coronary angiogram. Code(s): R74.8 - ABNORMAL LEVELS OF OTHER SERUM ENZYMES (4) HTN (hypertension) Assessment/Plan: On multiple antihypetensive classes. Consider adding hydralazine + isordil (HTN; borderline reduced LVEF). Code(s): I10 - ESSENTIAL (PRIMARY) HYPERTENSION Qualifiers: Hypertension type: essential hypertension Qualified Code(s): I10 - Essential (primary) hypertension (5) Systolic CHF Assessment/Plan: ECHO: borderlijne reduced LVEF; mild anterior myocardial ischemia. Code(s): I50.20 - UNSPECIFIED SYSTOLIC (CONGESTIVE) HEART FAILURE (6) Anxiety Code(s): F41.9 - ANXIETY DISORDER, UNSPECIFIED
--- NOTE | 2018-09-28 15:16 | PN ---
Progress Note (short form) - Note Progress Note: Renal follow up for ESRD on HD Pt seen and examined at the bedside no acute complaints had dialysis yesterday, tolerated it well. Did not have any chest pain during treatment awaiting transfer to [facility] for cardiac cath Vital Signs Temperature 97.5 F L 09/28/18 09:09 Pulse Rate 75 09/28/18 14:57 Respiratory Rate 18 09/28/18 14:57 Blood Pressure 131/82 09/28/18 14:57 O2 Sat by Pulse Oximetry (%) 97 09/28/18 09:09 Intake & Output 09/25/18 09/26/18 09/27/18 09/28/18 23:59 23:59 23:59 23:59 Intake Total 400 2019 Balance 400 2019 Weight 81 kg 81 kg 81.737 kg 79.832 kg NAD awake and alert neck supple, no JVD RRR, + murmur CTA soft NT/ND no LE edema CBC, BMP 09/26/18 05:20 09/27/18 05:30 Current Medications Acetaminophen (Tylenol -) 650 mg PO Q6H PRN PRN Reason: PAIN 1-5 Last Admin: 09/28/18 10:00 Dose: 650 mg Alprazolam (Xanax -) 0.5 mg PO Q8H PRN PRN Reason: ANXIETY Amlodipine Besylate (Norvasc -) 10 mg PO DAILY [facility] Last Admin: 09/28/18 09:06 Dose: 10 mg Aspirin (Ecotrin -) 81 mg PO DAILY [facility] Last Admin: 09/28/18 09:06 Dose: 81 mg Atorvastatin Calcium (Lipitor -) 40 mg PO HS [facility] Last Admin: 09/27/18 21:09 Dose: Not Given Clonidine (Catapres -) 0.3 mg PO BID [facility] Last Admin: 09/28/18 09:06 Dose: 0.3 mg Heparin Sodium (Porcine) (Heparin -) 5,000 unit SQ BID [facility] Last Admin: 09/28/18 09:06 Dose: Not Given Labetalol HCl (Normodyne -) 800 mg PO TID [facility] Last Admin: 09/28/18 14:56 Dose: 800 mg 53 year old gentleman with hx of ESRD on HD, Prior renal transplant (now not functioning), psoriasis, hypertension who presented from HD unit with chest discomfort during dialysis. #Chest pain r/o ACS with positive stress test #ESRD on HD #CKD related Anemia #Hyeprtension #Hyperkalemia no indication for ASSET ANALYST today Renal diet, 1.2L fluid restriction for transfer for cardiac cath as per cardiology continue Clonidine, Amlodipine, Labetalolol for hypertension next HD due tomorrow Thank you Gonzalo Barros DO
[2018-09-28] MEDS: ATORVASTATIN CA 40 MG TABLET (FP) PO SCH (21:36)
[2018-09-29] MEDS: LABETALOL HCL 200 MG TABLET (FP) PO SCH (05:46)
--- NOTE | 2018-09-29 08:32 | DS ---
Physical Examination Vital Signs: Vital Signs Temperature 98.2 F 09/29/18 08:30 Pulse Rate 74 09/29/18 08:30 Respiratory Rate 20 09/29/18 08:30 Blood Pressure 138/89 09/29/18 08:30 O2 Sat by Pulse Oximetry (%) 98 09/28/18 21:00 Cardiovascular: Yes: S1, S2 Respiratory: Yes: Regular, CTA Bilaterally Gastrointestinal: Yes: Normal Bowel Sounds, Soft Labs: CBC, BMP 09/26/18 05:20 09/27/18 05:30 Discharge Summary Reason For Visit: CHEST PAIN Current Active Problems Anxiety (Acute) Chest pain (Acute) Systolic CHF (Acute) Hospital Course: 53-year-old male with history of end-stage renal disease on Thursday// Thursday dialysis, just discharged yesterday after chest pain admission notable for nuclear stress test that showed possible inferior wall ischemia, negative troponins and stable EKGs -,he was supposed to stay for cardiac cath but signed out AMA and said he would follow up with Dr. 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 Patient was in his usual state of health, went to his scheduled dialysis thursday, and prior to starting dialysis developed the same upper chest pressure with shortness of breath, initiated dialysis but his symptoms persisted and worsened, so he presents for evaluation. Currently states the pain is just a mild ache, denies any other symptoms at this time including shortness of breath. admitted to telemetry to get HD and then transfer to cardiac cath Condition: Stable - Instructions Disposition: TRANSFER ACUTE CARE/OTHER HOSP - Home Medications Comprehensive Discharge Medication List: Ambulatory Orders Clonidine HCl 0.3 mg PO Q12H 08/30/16 Amlodipine Besylate [Norvasc -] 10 mg PO DAILY tablet 09/24/18 Atorvastatin Ca [Lipitor] 40 mg PO HS tablet 09/27/18 Labetalol HCl [Normodyne -] 800 mg PO TID tablet 09/28/18
[2018-09-29] MEDS: HEPARIN NA (PORCINE) 5,000 UNITS/ML 1ML VIAL SQ SCH (09:56)
[2018-09-29] MEDS ORDERED: SODIUM CHLORIDE 250 ML IV PRN (10:06)
[2018-09-29] MEDS ORDERED: HEPARIN NA (PORCINE) 5,000 UNITS/ML 1ML VIAL IVPUSH ONE (10:06)
[2018-09-29] MEDS ORDERED: HEPARIN NA (PORCINE) 5,000 UNITS/ML 1ML VIAL IVPUSH SCH (10:15)
[2018-09-29] MEDS: cloNIDine HCL 0.1 MG TABLET PO SCH (10:17)
[2018-09-29] MEDS: amLODIPine BESYLATE 10 MG TABLET (FP) PO SCH (10:17)
[2018-09-29] MEDS: ASPIRIN COATED 81 MG TABLET.EC PO SCH (10:17)
[2018-09-29 11:18] LABS: HBSAG SCREEN Negative (Negative); HEP A AB, IGM Negative (Negative); HEP B CORE AB, TOT Negative (Negative)
--- NOTE | 2018-09-29 11:54 | PN ---
Progress Note, Physician History of Present Illness: 53-year-old male with history of end-stage renal disease on Thursday// Thursday dialysis, just discharged yesterday after chest pain admission notable for nuclear stress test that showed possible inferior wall ischemia, negative troponins and stable EKGs so discharged to follow up with Dr. 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 Patient was in his usual state of health, went to his scheduled dialysis today, and prior to starting dialysis developed the same upper chest pressure with shortness of breath, initiated dialysis but his symptoms persisted and worsened, so he presents for evaluation. Currently states the pain is just a mild ache, denies any other symptoms at this time including shortness of breath. At baseline, has no exercise limitations. Denies any fevers or chills or cough. - Current Medication List Current Medications: Active Medications Acetaminophen (Tylenol -) 650 mg PO Q6H PRN PRN Reason: PAIN 1-5 Last Admin: 09/28/18 10:00 Dose: 650 mg Alprazolam (Xanax -) 0.5 mg PO Q8H PRN PRN Reason: ANXIETY Amlodipine Besylate (Norvasc -) 10 mg PO DAILY [facility] Last Admin: 09/29/18 10:17 Dose: 10 mg Aspirin (Ecotrin -) 81 mg PO DAILY [facility] Last Admin: 09/29/18 10:17 Dose: 81 mg Atorvastatin Calcium (Lipitor -) 40 mg PO HS [facility] Last Admin: 09/28/18 21:36 Dose: Not Given Clonidine (Catapres -) 0.3 mg PO BID [facility] Last Admin: 09/29/18 10:17 Dose: 0.3 mg Heparin Sodium (Porcine) (Heparin -) 5,000 unit SQ BID [facility] Last Admin: 09/29/18 09:56 Dose: Not Given Heparin Sodium (Porcine) (Heparin -) 500 unit IVPUSH ONCE ONE Stop: 09/29/18 10:07 Heparin Sodium (Porcine) (Heparin -) 300 unit IVPUSH Q1H [facility] Stop: 09/29/18 12:16 Sodium Chloride (Normal Saline -) 250 mls @ 3,000 mls/hr IV PRN PRN PRN Reason: Hypotension during Dialysis Stop: 09/30/18 10:06 Labetalol HCl (Normodyne -) 800 mg PO TID [facility] Last Admin: 09/29/18 05:46 Dose: 800 mg - Objective Vital Signs: Vital Signs Temperature 98.2 F 09/29/18 08:30 Pulse Rate 74 09/29/18 08:30 Respiratory Rate 20 09/29/18 08:30 Blood Pressure 138/89 09/29/18 08:30 O2 Sat by Pulse Oximetry (%) 100 09/29/18 08:31 Eyes: Yes: WNL, Conjunctiva Clear, EOM Intact HENT: Yes: WNL, Atraumatic, Normocephalic Neck: Yes: WNL, Supple, Trachea Midline Cardiovascular: Yes: WNL, Regular Rate and Rhythm Respiratory: Yes: WNL, Regular, CTA Bilaterally Gastrointestinal: Yes: WNL, Normal Bowel Sounds Genitourinary: Yes: WNL Musculoskeletal: Yes: WNL Extremities: Yes: WNL Edema: No Integumentary: Yes: WNL Neurological: Yes: WNL, Alert, Oriented ...Motor Strength: WNL Psychiatric: Yes: WNL Labs: CBC, BMP 09/26/18 05:20 Assessment/Plan Problems (1) Chest pain Assessment/Plan: + chest pain/pressure before and after + stress MIBI, the last time while on hemodialysis. Pt will be transferred to [facility] for coronary angiogram. Code(s): R07.9 - CHEST PAIN, UNSPECIFIED (2) ESRD (end stage renal disease) on dialysis Code(s): N18.6 - END STAGE RENAL DISEASE; Z99.2 - DEPENDENCE ON RENAL DIALYSIS (3) Elevated troponin Assessment/Plan: 0.10; not significantly different for the past several years, except for 07/2017 , when the level was 2.8. Now with recurring chest pressure; stress MIBI shows possible apical and inferior ischemia. For coronary angiogram. Code(s): R74.8 - ABNORMAL LEVELS OF OTHER SERUM ENZYMES (4) HTN (hypertension) Assessment/Plan: On multiple antihypetensive classes. Consider adding hydralazine + isordil (HTN; borderline reduced LVEF). Code(s): I10 - ESSENTIAL (PRIMARY) HYPERTENSION Qualifiers: Hypertension type: essential hypertension Qualified Code(s): I10 - Essential (primary) hypertension (5) Systolic CHF Assessment/Plan: ECHO: borderlijne reduced LVEF; mild anterior myocardial ischemia. Code(s): I50.20 - UNSPECIFIED SYSTOLIC (CONGESTIVE) HEART FAILURE (6) Anxiety Code(s): F41.9 - ANXIETY DISORDER, UNSPECIFIED
[2018-09-29 12:11] LABS: CALCIUM 8.1 mg/dL (8.5-10.1); POTASSIUM 4.7 mmol/L (3.5-5.1)
[2018-09-29 12:40] LABS: CREATININE 14.5 mg/dL (0.55-1.3)
[2018-09-29 13:18] VITALS: BP 147/94; PULSE 70; TEMP 97.4
== END 2018-09-29 13:29 | disposition short-term general hospital (02) | DRG 302 ==
LOC: JER 08:08 → JERBED 11:12 → J4S 09-26 12:19
PROVIDERS: ADMIT Family Medicine; ATTEND Family Medicine
PROC: 5A1D70Z Performance of Urinary Filtration, Intermittent, Less than 6 Hours Per Day (ICD-10-PCS; principal; 2018-09-27)
DX: I25.6 Silent myocardial ischemia (principal); N18.6 End stage renal disease; T86.11 Kidney transplant rejection; I50.20 Unspecified systolic (congestive) heart failure; I24.8 Other forms of acute ischemic heart disease; R07.89 Other chest pain; I25.119 Atherosclerotic heart disease of native coronary artery with unspecified angina pectoris; K57.90 Diverticulosis of intestine, part unspecified, without perforation or abscess without bleeding; E78.5 Hyperlipidemia, unspecified; L40.9 Psoriasis, unspecified; E87.5 Hyperkalemia; D63.1 Anemia in chronic kidney disease; F41.9 Anxiety disorder, unspecified; R74.8 Abnormal levels of other serum enzymes; Z99.2 Dependence on renal dialysis
CPT/HCPCS: 36415; 71045-TC-FY; 80048; 80053; 80061; 82550; 83721; 84439; 84443; 84484; 85025; 86704; 86706; 86708; 86803; 87340; 93005; 93010; 99285-25; J0735; J1644

== ENCOUNTER 2018-12-02 07:01 | Inpatient (IN) | payer OTHER, BC ==
--- NOTE | 2018-12-02 08:27 | PDOC ---
History of Present Illness - General Chief Complaint: Pain Stated Complaint: VOMITING,FAINT Time Seen by Provider: 12/02/18 08:01 History Source: Patient Exam Limitations: No Limitations - History of Present Illness Initial Comments: 53 yo M PH HTN, ESRD on dialysis [id number]-O[facility], psoriasis, p/w mid-sternum chest pain, 5/10, "feels like gas", abdominal pain, 5/10, dull, near umbilicus, and R hand pain, 7/10 in the palms, all which began yesterday. Patient had two episodes of vomiting yesterday and took Pepcid. Does not currently feel nauseous. Patient said his chest pain feels similar to previous episodes he has had; he had a "complete heart workup in July and they told me my heart was fine ". He has decreased ROM in the right hand (cannot fully extend), which he says is chronic. ROS Chest tightness Anuria 2/2 ESRD Denies SOB, current N/V, fever/chills, constipation/diarrhea, tingling in fingers, loss of sensation. 12/02/18 08:20 Past History - Past Medical History Allergies/Adverse Reactions: Allergies Allergy/AdvReac Type Severity Reaction Status Date / Time No Known Drug Allergies Allergy Verified 12/02/18 08:00 Home Medications: Ambulatory Orders RX: Clonidine HCl 0.3 mg PO Q12H 08/30/16 RX: Amlodipine Besylate [Norvasc -] 10 mg PO DAILY tablet 09/24/18 RX: Atorvastatin Ca [Lipitor] 40 mg PO HS tablet 09/27/18 RX: Labetalol HCl [Normodyne -] 800 mg PO TID tablet 09/28/18 Anemia: No Asthma: No Cancer: No Cardiac Disorders: No CVA: No COPD: No CHF: No Dementia: No Diabetes: No Dialysis: Yes GI Disorders: No Disorders: Yes (diverticulosis) HTN: Yes Hypercholesterolemia: No Liver Disease: No Seizures: No Thyroid Disease: No - Surgical History Abdominal Surgery: Yes (08/2007 KIDNEY TRANSPLANT-2011REJECTED) Appendectomy: No Cardiac Surgery: No Cholecystectomy: No Lung Surgery: No Neurologic Surgery: No Orthopedic Surgery: No - Immunization History Immunization Up to Date: Yes - Suicide/Smoking/Psychosocial Hx Smoking Status: No Smoking History: Former smoker Have you smoked in the past 12 months: No Number of Cigarettes Smoked Daily: 0 Cigars Per Day: 0 Information on smoking cessation initiated: No Hx Alcohol Use: No Drug/Substance Use Hx: No Substance Use Type: None Hx Substance Use Treatment: No Review of Systems - Review of Systems Constitutional: No: Chills, Fever HEENTM: No: Eye Pain, Blurred Vision, Recent change in vision, Hearing Loss, Difficulty Swallowing *Physical Exam - Vital Signs Last Vital Signs Temp Pulse Resp BP Pulse Ox 100.6 F H 88 20 142/91 97 12/02/18 07:58 12/02/18 07:58 12/02/18 07:58 12/02/18 07:58 12/02/18 07:58 - Physical Exam Comments: L AV fistula in place in AC fossa 12/02/18 08:33 General Appearance: Yes: Other (Lethargic). No: Disheveled HEENT: positive: EOMI, RAFAEL, Normal ENT Inspection, Normal Voice, Symmetrical, Pharynx Normal, Hearing Grossly Normal. negative: Hearing Decreased Neck: positive: Trachea midline, Normal Thyroid, Supple Respiratory/Chest: positive: Lungs Clear, Normal Breath Sounds. negative: Respiratory Distress Cardiovascular: positive: Regular Rhythm, Regular Rate Gastrointestinal/Abdominal: positive: Normal Bowel Sounds, Soft. negative: Guarding, Rebound, Tenderness Musculoskeletal: positive: Normal Inspection Extremity: positive: Normal Inspection, Normal Range of Motion (R hand, chronic) , Other Integumentary: positive: Normal Color, Dry, Warm Neurologic: positive: machine try out setter II-XII NML intact, Fully Oriented, Normal Mood/Affect , Motor Strength 5/5. negative: Alert (Lethargic) ED Treatment Course - LABORATORY CBC & Chemistry Diagram: 12/02/18 08:59 12/02/18 08:50 Medical Decision Making - Medical Decision Making Patient complaining of chest pain and dull abdominal pain. Will get EKG CBC CMP trops CXR PT/PTT. Give IV acetaminophen for pain control. 12/02/18 08:31 Patient states that he had his cardiac catheterization two months ago at a [facility], and he does not remember which one. He had a nuclear stress test here two months ago showing possible inferior wall ischemia, but with negative troponins and stable EKGs. 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 Hinojosa. The patient says that he instead got his cath at [facility]. He states that he did not get any stents placed and as told that his "heart was fine". 12/02/18 09:33 Patient states that he had a stroke in September 2017, confirmed by CT scan and treated at [facility]. Says that it was not a regular stroke and was "caused by a virus". Will follow up with [facility]. 12/02/18 09:40 CXR reviewed: cardiomegaly, limited due to patient rotation. Will get repeat CXR. 12/02/18 09:45 Labs reviewed. CR 14, in s/o ESRD with HD missed this morning. BNP 66933.9. Electrolytes WNL. 12/02/18 09:52 EKG reviewed. 1st degree heart block, QTc 490, HR 81 bpm, late R wave progression. No STEMI. 12/02/18 10:00 Trop 0.1, consistent with patient's baseline. 12/02/18 10:08 WBC 13.5, in s/o fever to 100.6. 12/02/18 10:18 CXR reviewed, shows cardiomegaly with mitral annular calcifications, no acute lung pathology or fracture. Tortuosity of descending thoracic aorta. 12/02/18 10:33 Add on lipase considering abdominal pain and WBC 12/02/18 10:48 Lipase 148[address] Going for CT abd/pelvis w/o contrast. 12/02/18 11:20 CT abd/pelvis reviewed. Hepatomegaly, atelectasis, atrophic kidneys, chronic colonic thickening. 12/02/18 12:30 Patient complaining of headache. Tylenol ordered. 12/02/18 13:12 *DC/Admit/Observation/Transfer Diagnosis at time of Disposition: ESRD (end stage renal disease) on dialysis - Discharge Dispostion Condition at time of disposition: Improved Decision to Admit order: Yes - Referrals - Patient Instructions - Post Discharge Activity
[2018-12-02] MEDS ORDERED: ACETAMINOPHEN 1000 MG/100 ML VIAL (NON FORMULARY) IVPB ONE ×2 (08:34→13:27)
[2018-12-02] MEDS ORDERED: ACETAMINOPHEN INJECTION 100 ML IVPB ONE (08:54)
[2018-12-02 09:25] LABS: HEMATOCRIT 35.3 % (35.4-49); HEMOGLOBIN 11.4 GM/dL (11.7-16.9); MCH 28.4 pg (25.7-33.7); MCHC 32.5 g/dl (32.0-35.9); MEAN CELL VOLUME 87.6 fl (80-96); MEAN PLT VOLUME 7.5 fl (7.5-11.1); RBC 4.03 M/mm3 (4.00-5.60); RDW 16.1 % (11.9-15.9); WHITE BLOOD COUNT 13.5 K/mm3 (4.0-10.0)
[2018-12-02 09:43] LABS: INR 1.18 (0.83-1.09)
[2018-12-02 09:46] LABS: ACTIVATED PTT 34.9 SECONDS (25.2-36.5); ALBUMIN 3.5 g/dl (3.4-5.0); BILIRUBIN,TOTAL 0.5 mg/dL (0.2-1); BLOOD UREA NITROGEN 47.5 mg/dL (7-18); CALCIUM 8.7 mg/dL (8.5-10.1); N-TERMINAL BNP 19664.9 pg/ml (5-125); POTASSIUM 4.4 mmol/L (3.5-5.1); TOT PROT 7.1 g/dl (6.4-8.2)
[2018-12-02 09:48] LABS: CREATININE 14.2 mg/dL (0.55-1.3)
[2018-12-02 10:13] LABS: PLATELET COUNT 298 K/MM3 (134-434)
[2018-12-02] MEDS ORDERED: SODIUM CHLORIDE 250 ML IV PRN (10:41)
--- NOTE | 2018-12-02 12:09 | CONSULT ---
Consult - text type - Consultation Consultation Note: Renal Consult for ESRD on HD This is a 53 year old gentleman with hx of ESRD on HD, Prior renal transplant (now not functioning), psoriasis, hypertension who presented with epigastric pain and admitted for r/o ACS and leukocytoiss. s/p Admission in September for chest pain, during which stress test was done (exercise stress no ishcemia, nuclear stress some apical ischemia). Pt reports Nausea and vomiting. Last time he ate something was yesterday morning. No diarrhea but he did not have a BM in the last 12 hours. Last dialysis was Thursday w/o complication. Denies any SOB. Tmax in the ED was 100.6. Has slight chest tightness. PMhx: as above Allergies: NKDA Family Hx: NC Social Hx: No T/A/D ROS: as per HPI, all other pertinent ros negative Home Medications Medication Instructions Recorded Clonidine HCl 0.3 mg PO Q12H 08/30/16 Amlodipine Besylate [Norvasc -] 10 mg PO DAILY tablet 09/24/18 Atorvastatin Ca [Lipitor] 40 mg PO HS tablet 09/27/18 Labetalol HCl [Normodyne -] 800 mg PO TID tablet 09/28/18 Vital Signs Temperature 100.6 F H 12/02/18 07:58 Pulse Rate 88 12/02/18 07:58 Respiratory Rate 20 12/02/18 07:58 Blood Pressure 142/91 12/02/18 07:58 O2 Sat by Pulse Oximetry (%) 97 12/02/18 07:58 Intake & Output 11/29/18 11/30/18 12/01/18 12/02/18 23:59 23:59 23:59 23:59 Weight 79.379 kg NAD awake and alert neck supple, no JVD RRR, no M/R CTA, no rales or wheeze mild abd tenderness no LE edema, clubbing or cyanosis left Arm AVF CBC, BMP 12/02/18 08:59 12/02/18 08:50 Chest X-ray: no effusions, consolidation Cardiomegaly. EKG- no acute ischemic changes (not office read) Current Medications Sodium Chloride (Normal Saline -) 250 mls @ 3,000 mls/hr IV PRN PRN PRN Reason: Hypotension during Dialysis Stop: 12/03/18 10:41 53 year old gentleman with hx of ESRD on HD, Prior renal transplant (now not functioning), psoriasis, hypertension who presented with epigastric pain and admitted for r/o ACS and leukocytoiss. #ESRD on HD (TTS) #Leukoctysois/Fever #Epigastic pain #Chronic Anemia related to CKD #Hypertension Will arrange for dialysis today via AVF with Uf as tolerated Renal diet as tolerated, 1.2L fluid restriction f/u CT of Abd/Pelvis F/u cultures pain control as needed No MALCOLM indicated as Hgb > 10 Continue amlodipine, Labetalol and Clonidine for hypertension as Troponin is not significantly elevated and no EKG changes ACS unlikely. Thank you Gonzalo Barros DO
[2018-12-02] MEDS ORDERED: ACETAMINOPHEN 500 MG TABLET (FP) PO ONE (13:11)
[2018-12-02] MEDS ORDERED: morphine CARPU-JECT 4 MG/1 ML DISP.SYRIN IVPUSH ONE (13:27)
[2018-12-02] MEDS ORDERED: MORPHINE SULFATE 2 MG/ML VIAL ONE (13:39)
--- NOTE | 2018-12-02 14:33 | PDOC ---
Documentation entered by Venkat Harden SCRIBE, acting as scribe for Katina Mata MD. Katina Mata MD: This documentation has been prepared by the Fina palafox Elijah, SCRIBE, under my direction and personally reviewed by me in its entirety. I confirm that the documentation accurately reflects all work, treatment, procedures, and medical decision making performed by me. Attending Attestation - Resident Resident Name: TimmonsAndreastiff - ED Attending Attestation I have performed the following: I have examined & evaluated the patient, The case was reviewed & discussed with the resident, I agree w/resident's findings & plan, Exceptions are as noted - HPI HPI: 12/02/18 10:00 Patient is a 53 year old male with a significant past medical history of HTN, ESRD (Dialysis ) who presents to the ED with localized chest pain beginning x4 hours ago. Pt reports chest pain is sternal, non radiating and feels like a pressure. He reports it has improved since arriving to the ED. He also reports epigastric pain yesteday a/w 2 episodes of NBNB emesis that resolved today. This morning the patient was going to be dialyzed but did not go due to the chest pain. Denies fever and chills, headaches, focal weakness/ numbness, abd pain, sob, LE edema. Allergies: NKA - Physicial Exam PE: 12/02/18 10:00 GENERAL: Awake, alert, and fully oriented, in no acute distress. Sleeping comfortably HEAD: No signs of trauma EYES: PERRLA, EOMI, sclera anicteric, conjunctiva clear ENT: Oropharynx clear without exudates. Moist mucosa NECK: Nontender, no stepoffs, Normal ROM, supple, no lymphadenopathy, JVD, or masses LUNGS: Breath sounds equal, clear to auscultation bilaterally. No wheezes, and no crackles HEART: Regular rate and rhythm, normal S1 and S2, no murmurs, rubs or gallops ABDOMEN: Soft, nontender, normoactive bowel sounds. No guarding, no rebound. No masses EXTREMITIES:+Left Upper Extremity fistula w/ palpable thrill. Normal range of motion, no edema. No clubbing or cyanosis. NEUROLOGICAL: Cranial nerves II through XII intact. 5/5 strength and sensation in all extremities, Normal speech, normal gait, normal cerebellar function SKIN: Warm, Dry, normal turgor, no rashes or lesions noted. - Medical Decision Making 12/02/18 14:23 53yo M hx ESRD, CAD presents to the ED with CP and resolved epigastric pain/ vomiting Labs unremarkable, K is normal Trop is 0.1 but pt often makes trop at this level EKG mostly stable, other than pseudonormalized V4 t wave Pt also febrile with white count. As such, dry CTAP was done w/o acute findings Pt c/o persistent CP, admitted to [facility]/Dr Zapata Case discussed in detail with admitting physician including history, physical exam and ancillary studies. Admitting physician has assumed care for the patient, will follow all pending diagnostics and will complete the evaluation and treatment. IMAGING: Chest X-Ray: Trachea midline with mild cardiomegaly and mitral annulus calcification noted. Significant degree mitral annulus calcification observed, correlation with echocardiogram recommended. Calcified aortic arch with ectasia and uncoiling of the descending thoracic aorta, correlate for aneurysmal caliber No infiltrate, mass or effusion in the lungs Impression: Cardiomegaly with significant mitral annulus calcification, echocardiogram recommended to evaluate. Tortuosity and marked uncoiling of the descending thoracic aorta. No acute changes in the lungs, no rib fracture or pneumothorax. Abdominal/Pelvis CT: There are mild bibasal atelectatic changes and a trace of bilateral pleural effusion. Cardiomegaly. The liver is enlarged measuring 19.4 cm in craniocaudal length with homogeneous attenuation. The spleen and pancreas appear unremarkable. Gallbladder is over distended without gross intraluminal stones or wall thickening. Nondistended stomach significantly limiting evaluation of its wall. Both adrenal glands appear unremarkable. Bilateral atrophic kidneys with cysts, mainly in the left kidney are again seen without interval change. There is no evidence of small bowel obstruction. Normal- appearing terminal ileum A few diverticula are again seen in the distal descending and proximal sigmoid colon with residual wall thickening is slightly chronic and without surrounding inflammatory changes to suggest acute diverticulitis. Normal stool burden in the colon. Empty urinary bladder is significantly limiting evaluation of its wall. Enlarged prostate gland. Previously visualized masslike density with dense calcifications in the right mid pelvis, laterally/anteriorly is again seen without change Mild to moderate degenerative disc disease at L5-S1 level. Schmorl's node along superior endplate of L2 vertebral body. Sclerotic bony changes again seen compatible with renal osteodystrophy. No acute compression fracture or subluxation are identified IMPRESSION: Interval mild bibasal atelectatic changes and a trace of bilateral pleural effusion. Cardiomegaly with dense annular calcification of the mitral and aortic valve. Hepatomegaly Bilateral atrophic kidneys with multiple cysts mainly in the left kidney that also contains punctate calcific densities. There is no evidence of small bowel obstruction. Residual wall thickening in the proximal sigmoid colon compatible with chronic thickening without CT evidence of acute diverticulitis. No free air or free fluid in the abdomen pelvis. IMPRESSION: Interval mild bibasal atelectatic changes and a trace of bilateral pleural effusion. Cardiomegaly with dense annular calcification of the mitral and aortic valve. Hepatomegaly Bilateral atrophic kidneys with multiple cysts mainly in the left kidney that also contains punctate calcific densities. There is no evidence of small bowel obstruction. Residual wall thickening in the proximal sigmoid colon compatible with chronic thickening without CT evidence of acute diverticulitis. No free air or free fluid in the abdomen pelvis. Heart Score/ECG Review #1 12/02/18 14:24 Twelve-lead EKG was performed and reviewed by me. Sinus rhythm with first- degree AV block. Normal axis. No ST elevations. T wave inversions in 1, aVL and V5 to V6. When compared to EKG from 09/25/2018 only change is T-wave in V4 has pseudo-normalized.
--- NOTE | 2018-12-02 14:52 | HP ---
Admitting History and Physical - Admission Chief Complaint: Chest pain History of Present Illness: Patient is a 53 y/o male with past medical history of ESRD on HD(), psoriasis, HTN. Patient came to ER with complaints of chest pain described as dull and non radiating accompanied with SOB. Also states experiencing mid abdominal pain accomapnied nausea and vomiting. Patient states his complaints began last night at 7pm and gradually worsened through the night. History Source: Patient Limitations to Obtaining History: No Limitations - Past Medical History Cardiovascular: Yes: HTN, Hyperlipdemia Renal/: Yes: Renal Failure, Hemodialysis Dermatology: Yes: Psoriasis - Past Surgical History Past Surgical History: Yes: AV Fistula/Graft, Kidney Transplant (failed) - Smoking History Smoking history: Former smoker Have you smoked in the past 12 months: No Aproximately how many cigarettes per day: 0 - Alcohol/Substance Use Hx Alcohol Use: No History of Substance Use: reports: None - Social History ADL: Independent History of Recent Travel: No Home Medications - Allergies Allergies/Adverse Reactions: Allergies Allergy/AdvReac Type Severity Reaction Status Date / Time No Known Drug Allergies Allergy Verified 12/02/18 08:00 - Home Medications Home Medications: Ambulatory Orders Clonidine HCl 0.3 mg PO Q12H 08/30/16 Amlodipine Besylate [Norvasc -] 10 mg PO DAILY tablet 09/24/18 Atorvastatin Ca [Lipitor] 40 mg PO HS tablet 09/27/18 Labetalol HCl [Normodyne -] 800 mg PO TID tablet 09/28/18 Review of Systems - Review of Systems Constitutional: reports: Loss of Appetite, Weakness Eyes: reports: No Symptoms HENT: reports: No Symptoms Neck: reports: No Symptoms Cardiovascular: reports: Chest Pain Respiratory: reports: SOB Gastrointestinal: reports: Abdominal Pain, Nausea Genitourinary: reports: No Symptoms Breasts: reports: No Symptoms Reported Musculoskeletal: reports: No Symptoms Integumentary: reports: Rash Neurological: reports: No Symptoms Endocrine: reports: No Symptoms Hematology/Lymphatic: reports: No Symptoms Psychiatric: reports: No Symptoms Physical Examination Vital Signs: Vital Signs Temperature 98.8 F 12/02/18 14:25 Pulse Rate 82 12/02/18 14:30 Respiratory Rate 18 12/02/18 14:30 Blood Pressure 113/74 12/02/18 14:30 O2 Sat by Pulse Oximetry (%) 100 12/02/18 14:14 Constitutional: Yes: Well Nourished, No Distress, Calm Eyes: Yes: Conjunctiva Clear HENT: Yes: Atraumatic Cardiovascular: Yes: Regular Rate and Rhythm Respiratory: Yes: Regular, CTA Bilaterally Gastrointestinal: Yes: Normal Bowel Sounds, Soft Musculoskeletal: Yes: Muscle Weakness, Other (joint pain) Extremities: Yes: WNL Edema: No Neurological: Yes: Alert, Oriented Psychiatric: Yes: Alert, Oriented Labs: CBC, BMP 12/02/18 08:59 12/02/18 08:50 Problem List - Problems (1) Leukocytosis Assessment/Plan: -ID consult -WBC 13.5 -monitor daily for downtrend -BC pending -CXR unremarkable Code(s): D72.829 - ELEVATED WHITE BLOOD CELL COUNT, UNSPECIFIED (2) ESRD (end stage renal disease) on dialysis Assessment/Plan: -renal on board -continue with dialysis on scheduled days -BUN/Cr 47.5/14.2 -continue to monitor renal function Code(s): N18.6 - END STAGE RENAL DISEASE; Z99.2 - DEPENDENCE ON RENAL DIALYSIS (3) Abdominal pain Assessment/Plan: -Abdominal CT scan shows hepatomegaly, residual wall thickening in the proximal sigmoid colon compatible with chronic thickening without CT evidence of acute diverticulitis -GI consult Code(s): R10.9 - UNSPECIFIED ABDOMINAL PAIN Qualifiers: Abdominal location: generalized Qualified Code(s): R10.84 - Generalized abdominal pain (4) HTN (hypertension) Assessment/Plan: -amlodipine, clonidine, labetolol -low Na diet Code(s): I10 - ESSENTIAL (PRIMARY) HYPERTENSION Qualifiers: Hypertension type: essential hypertension Qualified Code(s): I10 - Essential (primary) hypertension (5) Chest pain Assessment/Plan: -Cardiology consult -tele monitoring -Trop 0.10, repeat trop pending -aspirin Code(s): R07.9 - CHEST PAIN, UNSPECIFIED Assessment/Plan see problem list dvt ppx
--- NOTE | 2018-12-02 16:12 | CON.CARD ---
Consult Consult Specialty:: Cardiology - History of Present Illness Chief Complaint: cp History of Present Illness: Patient is a 53 y/o male with past medical history of ESRD on HD(), psoriasis, HTN. Patient came to ER with complaints of chest pain described as dull and non radiating accompanied with SOB. Also states experiencing mid abdominal pain accomapnied nausea and vomiting. Patient states his complaints began last night at 7pm and gradually worsened through the night. 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 Ongoing medical problems Dialysis HTN Psoriasis (causing hyerpigmentation of legs and arms) AV graft left arm C. cath September 2018 - nonobstructive cors. - History Source History Provided By: Patient, Medical Record - Past Medical History Cardio/Vascular: Yes: HTN, Hyperlipdemia Renal/: Yes: Renal Failure, Hemodialysis Dermatology: Yes: Psoriasis Additional Medical History: hx mrsa and mssa bacteremia 2005 while he had permacath. hs bacteremia? with right chest wall cellulitis in 2011. CONSTANCE august 2011 is negative for vegetation - Past Surgical History Past Surgical History: Yes: AV Fistula/Graft, Kidney Transplant (failed) - Alcohol/Substance Use Hx Alcohol Use: No History of Substance Use: reports: None - Smoking History Smoking history: Former smoker Have you smoked in the past 12 months: No Aproximately how many cigarettes per day: 0 - Social History Usual Living Arrangement: Other (with family) ADL: Independent History of Recent Travel: No Home Medications - Allergies Allergies/Adverse Reactions: Allergies Allergy/AdvReac Type Severity Reaction Status Date / Time No Known Drug Allergies Allergy Verified 12/02/18 08:00 - Home Medications Home Medications: Ambulatory Orders Clonidine HCl 0.3 mg PO Q12H 08/30/16 Amlodipine Besylate [Norvasc -] 10 mg PO DAILY tablet 09/24/18 Atorvastatin Ca [Lipitor] 40 mg PO HS tablet 09/27/18 Labetalol HCl [Normodyne -] 800 mg PO TID tablet 09/28/18 Review of Systems - Review of Systems Constitutional: reports: No Symptoms Eyes: reports: No Symptoms HENT: reports: No Symptoms Neck: reports: No Symptoms Cardiovascular: reports: Chest Pain Respiratory: reports: No Symptoms Gastrointestinal: reports: No Symptoms Genitourinary: reports: No Symptoms Breasts: reports: No Symptoms Reported Musculoskeletal: reports: No Symptoms Integumentary: reports: No Symptoms Neurological: reports: No Symptoms Endocrine: reports: No Symptoms Hematology/Lymphatic: reports: No Symptoms Psychiatric: reports: No Symptoms Vital Signs: Vital Signs Temperature 98.8 F 12/02/18 14:25 Pulse Rate 81 12/02/18 15:00 Respiratory Rate 18 12/02/18 15:00 Blood Pressure 128/77 12/02/18 15:00 O2 Sat by Pulse Oximetry (%) 100 12/02/18 14:14 Constitutional: Yes: Well Nourished, No Distress, Calm Eyes: Yes: WNL, Conjunctiva Clear, EOM Intact HENT: Yes: WNL, Atraumatic, Normocephalic Neck: Yes: WNL, Supple, Trachea Midline Respiratory: Yes: WNL, Regular, CTA Bilaterally Gastrointestinal: Yes: WNL, Normal Bowel Sounds Renal/: Yes: WNL Cardiovascular: Yes: WNL, Regular Rate and Rhythm, Rub Heart Sounds: Yes: S1, S2 Musculoskeletal: Yes: WNL Extremities: Yes: WNL Integumentary: Yes: WNL Neurological: Yes: WNL, Alert, Oriented ...Motor Strength: WNL Psychiatric: Yes: WNL, Alert, Oriented - Other Data Labs, Other Data: CBC, BMP 12/02/18 08:59 12/02/18 08:50 INR, PTT INR 1.18 (0.83-1.09) H 12/02/18 08:50 Troponin, BNP 12/02/18 12/02/18 08:50 08:50 Troponin I 0.10 H B-Natriuretic Peptide 64362.9 H Troponin, BNP 12/02/18 12/02/18 08:50 08:50 Troponin I 0.10 H B-Natriuretic Peptide 30180.9 H Imaging - Results Chest X-ray: Image Reviewed (cm mac) EKG: Image Reviewed (sr lvh) Problem List - Problems (1) ESRD (end stage renal disease) on dialysis Code(s): N18.6 - END STAGE RENAL DISEASE; Z99.2 - DEPENDENCE ON RENAL DIALYSIS (2) Leukocytosis Code(s): D72.829 - ELEVATED WHITE BLOOD CELL COUNT, UNSPECIFIED (3) Abdominal pain Code(s): R10.9 - UNSPECIFIED ABDOMINAL PAIN Qualifiers: Abdominal location: generalized Qualified Code(s): R10.84 - Generalized abdominal pain (4) Abnormal echocardiogram Code(s): R93.1 - ABNORMAL FINDINGS ON DX IMAGING OF HEART AND COR CIRC (5) Anemia in CKD (chronic kidney disease) Code(s): N18.9 - CHRONIC KIDNEY DISEASE, UNSPECIFIED; D63.1 - ANEMIA IN CHRONIC KIDNEY DISEASE (6) Anxiety Code(s): F41.9 - ANXIETY DISORDER, UNSPECIFIED (7) Axillary swelling Code(s): M79.89 - OTHER SPECIFIED SOFT TISSUE DISORDERS (8) Back pain Code(s): M54.9 - DORSALGIA, UNSPECIFIED (9) Bacteremia Code(s): R78.81 - BACTEREMIA (10) Bacterial endocarditis Code(s): I33.0 - ACUTE AND SUBACUTE INFECTIVE ENDOCARDITIS (11) Cellulitis of right upper arm Code(s): L03.113 - CELLULITIS OF RIGHT UPPER LIMB (12) Chest pain Code(s): R07.9 - CHEST PAIN, UNSPECIFIED (13) Chest pain Code(s): R07.9 - CHEST PAIN, UNSPECIFIED Qualifiers: Chest pain type: unspecified Qualified Code(s): R07.9 - Chest pain, unspecified (14) Constipation Code(s): K59.00 - CONSTIPATION, UNSPECIFIED (15) Diverticulitis Code(s): K57.92 - DVTRCLI OF INTEST, PART UNSP, W/O PERF OR ABSCESS W/O BLEED (16) Elevated troponin Code(s): R74.8 - ABNORMAL LEVELS OF OTHER SERUM ENZYMES (17) End-stage renal disease needing dialysis Code(s): N18.6 - END STAGE RENAL DISEASE; Z99.2 - DEPENDENCE ON RENAL DIALYSIS (18) Fever Code(s): R50.9 - FEVER, UNSPECIFIED Qualifiers: Fever type: unspecified Qualified Code(s): R50.9 - Fever, unspecified (19) Fever Code(s): R50.9 - FEVER, UNSPECIFIED (20) Gallbladder sludge Code(s): K82.8 - OTHER SPECIFIED DISEASES OF GALLBLADDER (21) Gastroenteritis Code(s): K52.9 - NONINFECTIVE GASTROENTERITIS AND COLITIS, UNSPECIFIED (22) HTN (hypertension) Code(s): I10 - ESSENTIAL (PRIMARY) HYPERTENSION Qualifiers: Hypertension type: essential hypertension Qualified Code(s): I10 - Essential (primary) hypertension (23) HTN (hypertension) Code(s): I10 - ESSENTIAL (PRIMARY) HYPERTENSION (24) History of staph septicemia Code(s): Z86.19 - PERSONAL HISTORY OF OTHER INFECTIOUS AND PARASITIC DISEASES (25) Hyperkalemia Code(s): E87.5 - HYPERKALEMIA (26) Hypertensive urgency Code(s): I10 - ESSENTIAL (PRIMARY) HYPERTENSION (27) Myalgia Code(s): M79.1 - MYALGIA * DO NOT USE * (28) Nausea Code(s): R11.0 - NAUSEA (29) Palpitations Code(s): R00.2 - PALPITATIONS (30) Pancreatitis Code(s): K85.9 - ACUTE PANCREATITIS, UNSPECIFIED * DO NOT USE * Qualifiers: Chronicity: acute Pancreatitis type: unspecified pancreatitis type (31) Psoriasis Code(s): L40.9 - PSORIASIS, UNSPECIFIED (32) Right flank pain Code(s): R10.9 - UNSPECIFIED ABDOMINAL PAIN (33) Right lower quadrant abdominal pain Code(s): R10.31 - RIGHT LOWER QUADRANT PAIN (34) Systolic CHF Code(s): I50.20 - UNSPECIFIED SYSTOLIC (CONGESTIVE) HEART FAILURE Assessment/Plan ESRD on HD(), psoriasis, HTN. Patient came to ER with complaints of chest pain described as dull and non radiating accompanied with SOB. recent c. cath - nonobstructive cors September 2018 Plan; r/o uremic pericarditis r/o mi hd for decompensated CHF asa ECHO
--- NOTE | 2018-12-02 17:11 | EKG ---
Test Reason : Blood Pressure : / mmHG Vent. Rate : 081 BPM Atrial Rate : 081 BPM P-R Int : 220 ms QRS Dur : 112 ms QT Int : 422 ms P-R-T Axes : 078 -15 073 degrees QTc Int : 490 ms SINUS RHYTHM WITH 1ST DEGREE A-V BLOCK POSSIBLE LEFT ATRIAL ENLARGEMENT NONSPECIFIC T WAVE ABNORMALITY PROLONGED QT ABNORMAL ECG WHEN COMPARED WITH ECG OF 26-SEP-2018 11:12, MINIMAL CRITERIA FOR SEPTAL INFARCT ARE NO LONGER PRESENT NONSPECIFIC T WAVE ABNORMALITY HAS REPLACED INVERTED T WAVES IN LATERAL LEADS Confirmed by KARO CHOW MD ([id number]) on 12/02/2018 5:11:49 PM Referred By: Confirmed By:KARO CHOW MD
[2018-12-02] MEDS ORDERED: VANCOMYCIN 1 GRAM (PRE-DOCKED) 1,000 MG/250 ML BAG IVPB ONE (17:30)
--- NOTE | 2018-12-02 17:38 | CON.ID ---
Consult Consult Specialty:: infectious disease Referred by:: thea Reason for Consultation:: fever, leukocytosis - History of Present Illness Chief Complaint: fever History of Present Illness: 53 yo man with esrd on HD, admitted from home with vamiting yesterday, no diarrhea and myalgias- per ED he reported chest pain no sob no cough no diarrhea currently on HD he reports bodyaches, all over no sick contacts no abdominal pain had an episode of diverticulitis in August that resolved has been going to HD regularly no travel has psoriasis of his legs and hands- sometimes bleeds no recent manipulations of his avf - History Source History Provided By: Patient Limitations to Obtaining History: Clinical Condition - Past Medical History Cardio/Vascular: Yes: HTN, Hyperlipdemia Renal/: Yes: Renal Failure, Hemodialysis Dermatology: Yes: Psoriasis Additional Medical History: hx mrsa and mssa bacteremia 2005 while he had permacath. hs bacteremia? with right chest wall cellulitis in 2011. CONSTANCE august 2011 is negative for vegetation. 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 History of Recent Travel: No Home Medications - Allergies Allergies/Adverse Reactions: Allergies Allergy/AdvReac Type Severity Reaction Status Date / Time No Known Drug Allergies Allergy Verified 12/02/18 08:00 - Home Medications Home Medications: Ambulatory Orders Clonidine HCl 0.3 mg PO Q12H 08/30/16 Amlodipine Besylate [Norvasc -] 10 mg PO DAILY tablet 09/24/18 Atorvastatin Ca [Lipitor] 40 mg PO HS tablet 09/27/18 Labetalol HCl [Normodyne -] 800 mg PO TID tablet 09/28/18 Review of Systems - Review of Systems Constitutional: reports: Chills, Fever Eyes: reports: No Symptoms HENT: reports: No Symptoms Neck: reports: No Symptoms Cardiovascular: reports: No Symptoms Respiratory: reports: No Symptoms. denies: Cough, SOB Gastrointestinal: reports: Vomiting. denies: Abdominal Pain, Diarrhea Musculoskeletal: reports: Other (diffuse myalgias) Physical Exam Vital Signs: Vital Signs Temperature 98.8 F 12/02/18 14:25 Pulse Rate 84 12/02/18 17:30 Respiratory Rate 18 12/02/18 17:30 Blood Pressure 106/65 12/02/18 17:30 O2 Sat by Pulse Oximetry (%) 100 12/02/18 14:14 Constitutional: Yes: Well Nourished, Calm, Mild Distress (cold) Eyes: Yes: Conjunctiva Clear (no conjunctival hemorrhages) HENT: No: Thrush Neck: Yes: Supple, Trachea Midline, Other (lipoma posterior cervical region) Cardiovascular: Yes: Regular Rate and Rhythm Respiratory: Yes: Regular, CTA Bilaterally Gastrointestinal: Yes: Normal Bowel Sounds, Soft. No: Tenderness, Epigastrium ...Rectal Exam: Yes: Deferred Extremities: Yes: WNL Edema: No (left AVF) Integumentary: Yes: Other (psoriasis of the plms of his hands, plaques on his legs) Neurological: Yes: Alert, Oriented Labs: CBC, BMP 12/02/18 08:59 12/02/18 08:50 blood cultures pending Imaging - Results Chest X-ray: Report Reviewed Cat Scan: Report Reviewed Problem List - Problems (1) Fever Code(s): R50.9 - FEVER, UNSPECIFIED Qualifiers: Fever type: unspecified Qualified Code(s): R50.9 - Fever, unspecified (2) Leukocytosis Code(s): D72.829 - ELEVATED WHITE BLOOD CELL COUNT, UNSPECIFIED (3) ESRD (end stage renal disease) on dialysis Code(s): N18.6 - END STAGE RENAL DISEASE; Z99.2 - DEPENDENCE ON RENAL DIALYSIS (4) Psoriasis Code(s): L40.9 - PSORIASIS, UNSPECIFIED Assessment/Plan imaging unremarkable concern for bacteremia in this man on HD with psoriasis- has had multiple episodes of bacteremia in the past will order vanco and zosyn and f/u in am vanco trough in am
[2018-12-02 20:55] VITALS: BMI 24.0
[2018-12-02] MEDS ORDERED: DEXTROSE 5%-WATER - 50 ML IVPB ONE (21:06)
[2018-12-02] MEDS ORDERED: PIPERACILLIN/TAZOBACTAM 2.25 GM VIAL IVPB ONE (21:06)
[2018-12-02] MEDS: PIPERACILLIN/TAZOB 2.25 GM 2.25 GM in DEXTROSE 5%-WATER - 50 ML IVPB SCH (21:17)
[2018-12-02] MEDS: LABETALOL HCL 200 MG TABLET (FP) PO SCH (21:18)
[2018-12-02] MEDS: cloNIDine HCL 0.1 MG TABLET PO SCH (21:18)
[2018-12-02] MEDS ORDERED: ACETAMINOPHEN 1000 MG/100 ML VIAL (NON FORMULARY) IVPB PRN ×2 (21:42→21:45)
[2018-12-02] MEDS: ASPIRIN COATED 81 MG TABLET.EC PO SCH (22:12)
[2018-12-03] MEDS ORDERED: PIPERACILLIN/TAZOBACTAM 2.25 GM VIAL IVPB ONE ×3 (01:12→18:15)
[2018-12-03] MEDS ORDERED: DEXTROSE 5%-WATER - 50 ML IVPB ONE ×3 (01:12→18:15)
[2018-12-03] MEDS: PIPERACILLIN/TAZOB 2.25 GM 2.25 GM in DEXTROSE 5%-WATER - 50 ML IVPB SCH ×3 (01:18→19:13)
[2018-12-03] MEDS ORDERED: traMADol HCL 50 MG TABLET PO ONE ×2 (06:36→20:57)
[2018-12-03] MEDS: LABETALOL HCL 200 MG TABLET (FP) PO SCH ×3 (07:00→21:36)
[2018-12-03 07:19] LABS: BASO % 0.1 % (0-2.0); EOS % 0.1 % (0-4.5); HEMATOCRIT 35.9 % (35.4-49); HEMOGLOBIN 11.8 GM/dL (11.7-16.9); LYMPH % 4.2 % (8-40); MCH 28.8 pg (25.7-33.7); MCHC 32.9 g/dl (32.0-35.9); MEAN CELL VOLUME 87.5 fl (80-96); MEAN PLT VOLUME 7.5 fl (7.5-11.1); MONO % 8.9 % (3.8-10.2); NEUT % 86.7 % (42.8-82.8); PLATELET COUNT 282 K/MM3 (134-434); RDW 16.9 % (11.9-15.9); WHITE BLOOD COUNT 15.6 K/mm3 (4.0-10.0)
--- NOTE | 2018-12-03 08:00 | PN ---
Progress Note, Physician History of Present Illness: Patient is a 53 y/o male with past medical history of ESRD on HD(), psoriasis, HTN. Patient came to ER with complaints of chest pain described as dull and non radiating accompanied with SOB. Also states experiencing mid abdominal pain accomapnied nausea and vomiting. Patient states his complaints began last night at 7pm and gradually worsened through the night. 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 Ongoing medical problems Dialysis HTN Psoriasis (causing hyerpigmentation of legs and arms) AV graft left arm C. cath September 2018 - nonobstructive cors. - Current Medication List Current Medications: Active Medications Acetaminophen (Ofirmev Injection -) 1,000 mg IVPB Q6H PRN PRN Reason: PAIN OR FEVER Last Admin: 12/02/18 22:21 Dose: 1,000 mg Amlodipine Besylate (Norvasc -) 10 mg PO DAILY [facility] Aspirin (Ecotrin -) 81 mg PO DAILY [facility] Last Admin: 12/02/18 22:12 Dose: Not Given Clonidine (Catapres -) 0.3 mg PO BID [facility] Last Admin: 12/02/18 21:18 Dose: 0.3 mg Sodium Chloride (Normal Saline -) 250 mls @ 3,000 mls/hr IV PRN PRN PRN Reason: Hypotension during Dialysis Stop: 12/03/18 10:41 Piperacillin Sod/Tazobactam (Sod 2.25 gm/ Dextrose) 50 mls @ 100 mls/hr IVPB Q8H-IV [place]; Protocol Last Admin: 12/03/18 01:18 Dose: 100 mls/hr Labetalol HCl (Normodyne -) 800 mg PO TID [facility] Last Admin: 12/03/18 07:00 Dose: Not Given - Objective Vital Signs: Vital Signs Temperature 98.9 F 12/03/18 06:00 Pulse Rate 92 H 12/03/18 06:00 Respiratory Rate 20 12/03/18 06:00 Blood Pressure 102/66 12/03/18 06:00 O2 Sat by Pulse Oximetry (%) 98 12/02/18 20:50 Eyes: Yes: WNL, Conjunctiva Clear, EOM Intact HENT: Yes: WNL, Atraumatic, Normocephalic Neck: Yes: WNL, Supple, Trachea Midline Cardiovascular: Yes: WNL, Regular Rate and Rhythm Respiratory: Yes: WNL, Regular, CTA Bilaterally Gastrointestinal: Yes: WNL, Normal Bowel Sounds Genitourinary: Yes: WNL Musculoskeletal: Yes: WNL Extremities: Yes: WNL Edema: No Integumentary: Yes: WNL Neurological: Yes: WNL, Alert, Oriented ...Motor Strength: WNL Psychiatric: Yes: WNL Labs: CBC, BMP 12/03/18 06:30 INR, PTT INR 1.18 (0.83-1.09) H 12/02/18 08:50 Problem List - Problems (1) ESRD (end stage renal disease) on dialysis Code(s): N18.6 - END STAGE RENAL DISEASE; Z99.2 - DEPENDENCE ON RENAL DIALYSIS (2) Leukocytosis Code(s): D72.829 - ELEVATED WHITE BLOOD CELL COUNT, UNSPECIFIED (3) Abdominal pain Code(s): R10.9 - UNSPECIFIED ABDOMINAL PAIN Qualifiers: Abdominal location: generalized Qualified Code(s): R10.84 - Generalized abdominal pain (4) Abnormal echocardiogram Code(s): R93.1 - ABNORMAL FINDINGS ON DX IMAGING OF HEART AND COR CIRC (5) Anemia in CKD (chronic kidney disease) Code(s): N18.9 - CHRONIC KIDNEY DISEASE, UNSPECIFIED; D63.1 - ANEMIA IN CHRONIC KIDNEY DISEASE (6) Anxiety Code(s): F41.9 - ANXIETY DISORDER, UNSPECIFIED (7) Axillary swelling Code(s): M79.89 - OTHER SPECIFIED SOFT TISSUE DISORDERS (8) Back pain Code(s): M54.9 - DORSALGIA, UNSPECIFIED (9) Bacteremia Code(s): R78.81 - BACTEREMIA (10) Bacterial endocarditis Code(s): I33.0 - ACUTE AND SUBACUTE INFECTIVE ENDOCARDITIS (11) Cellulitis of right upper arm Code(s): L03.113 - CELLULITIS OF RIGHT UPPER LIMB (12) Chest pain Code(s): R07.9 - CHEST PAIN, UNSPECIFIED (13) Chest pain Code(s): R07.9 - CHEST PAIN, UNSPECIFIED Qualifiers: Chest pain type: unspecified Qualified Code(s): R07.9 - Chest pain, unspecified (14) Constipation Code(s): K59.00 - CONSTIPATION, UNSPECIFIED (15) Diverticulitis Code(s): K57.92 - DVTRCLI OF INTEST, PART UNSP, W/O PERF OR ABSCESS W/O BLEED (16) Elevated troponin Code(s): R74.8 - ABNORMAL LEVELS OF OTHER SERUM ENZYMES (17) End-stage renal disease needing dialysis Code(s): N18.6 - END STAGE RENAL DISEASE; Z99.2 - DEPENDENCE ON RENAL DIALYSIS (18) Fever Code(s): R50.9 - FEVER, UNSPECIFIED Qualifiers: Fever type: unspecified Qualified Code(s): R50.9 - Fever, unspecified (19) Fever Code(s): R50.9 - FEVER, UNSPECIFIED (20) Gallbladder sludge Code(s): K82.8 - OTHER SPECIFIED DISEASES OF GALLBLADDER (21) Gastroenteritis Code(s): K52.9 - NONINFECTIVE GASTROENTERITIS AND COLITIS, UNSPECIFIED (22) HTN (hypertension) Code(s): I10 - ESSENTIAL (PRIMARY) HYPERTENSION Qualifiers: Hypertension type: essential hypertension Qualified Code(s): I10 - Essential (primary) hypertension (23) HTN (hypertension) Code(s): I10 - ESSENTIAL (PRIMARY) HYPERTENSION (24) History of staph septicemia Code(s): Z86.19 - PERSONAL HISTORY OF OTHER INFECTIOUS AND PARASITIC DISEASES (25) Hyperkalemia Code(s): E87.5 - HYPERKALEMIA (26) Hypertensive urgency Code(s): I10 - ESSENTIAL (PRIMARY) HYPERTENSION (27) Myalgia Code(s): M79.1 - MYALGIA * DO NOT USE * (28) Nausea Code(s): R11.0 - NAUSEA (29) Palpitations Code(s): R00.2 - PALPITATIONS (30) Pancreatitis Code(s): K85.9 - ACUTE PANCREATITIS, UNSPECIFIED * DO NOT USE * Qualifiers: Chronicity: acute Pancreatitis type: unspecified pancreatitis type (31) Psoriasis Code(s): L40.9 - PSORIASIS, UNSPECIFIED (32) Right flank pain Code(s): R10.9 - UNSPECIFIED ABDOMINAL PAIN (33) Right lower quadrant abdominal pain Code(s): R10.31 - RIGHT LOWER QUADRANT PAIN (34) Systolic CHF Code(s): I50.20 - UNSPECIFIED SYSTOLIC (CONGESTIVE) HEART FAILURE Assessment/Plan ESRD on HD(), psoriasis, HTN. Patient came to ER with complaints of chest pain described as dull and non radiating accompanied with SOB. recent c. cath - nonobstructive cors September 2018 Plan; r/o uremic pericarditis r/o mi hd for decompensated CHF asa ECHO
[2018-12-03 08:01] LABS: ALBUMIN 3.2 g/dl (3.4-5.0); BILIRUBIN,TOTAL 0.6 mg/dL (0.2-1); BLOOD UREA NITROGEN 31.5 mg/dL (7-18); CALCIUM 8.3 mg/dL (8.5-10.1); MAGNESIUM 2.2 mg/dL (1.8-2.4); PHOSPHOROUS 6.9 mg/dL (2.5-4.9)
[2018-12-03 08:05] LABS: CREATININE 9.5 mg/dL (0.55-1.3)
--- NOTE | 2018-12-03 09:35 | CON.GI ---
Consult Consult Specialty:: GI Referred by:: Dr. Zapata Reason for Consultation:: Nausea/vomiting - History of Present Illness Chief Complaint: Nausea/Vomiting History of Present Illness: 53M admitted through [facility] for evaluation of diffuse body aches, nausea and vomiting x 2 and pleuritic chest pain. He states that he was in his usual state of health up until the evening prior to admission. He denies associated abdominal pain, diarrhea, rectal bleeding, post prandial pain, food fear, melena. he states that the nausea improved up until this morning, when he began to feel nauseous again. He had fever last night to 101.9 and was placed on empiric antibiotics by ID (has h/o recurrent staph bacteremia). He described an episode of diverticulitis in 09/10 (1st episode) and having had a significant cardiac work-up in 10/10. On admission, non contrast CT scan of the abdomen and pelvis without contrast revealed a distended gallbladder without evidenice of wall thickening / stones and thickened sigmoid folds. He had colonoscopy / endoscopy in 2005 w/ Dr. Lebron. Colon was normal, EGD revealed h. pylori gastritis (uncertain if treated) and led to removal of a benign hyperplastic nahomi's gland. There is no family history of colorectal cancer or other GI malignancy. He is currently being transferred to telemetry given rising troponins. - History Source History Provided By: Patient, Medical Record - Past Medical History Cardio/Vascular: Yes: HTN, Hyperlipdemia Renal/: Yes: Renal Failure, Hemodialysis Dermatology: Yes: Psoriasis Additional Medical History: hx mrsa and mssa bacteremia 2005 while he had permacath. hs bacteremia? with right chest wall cellulitis in 2011. 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 Place of : [facility] History of Recent Travel: No Home Medications - Allergies Allergies/Adverse Reactions: Allergies Allergy/AdvReac Type Severity Reaction Status Date / Time No Known Drug Allergies Allergy Verified 12/02/18 08:00 - Home Medications Home Medications: Ambulatory Orders Clonidine HCl 0.3 mg PO Q12H 08/30/16 Amlodipine Besylate [Norvasc -] 10 mg PO DAILY tablet 09/24/18 Atorvastatin Ca [Lipitor] 40 mg PO HS tablet 09/27/18 Labetalol HCl [Normodyne -] 800 mg PO TID tablet 09/28/18 Family Disease History - Family Disease History Family Disease History: Other: Father (: 70: Diabetic complications), Mother (Alive: healthy), Sister (1, healthy), Son (1, healthy), Daughter (3, healthy) Review of Systems - Review of Systems Constitutional: reports: Chills, Weakness Cardiovascular: reports: Chest Pain (pleuritic) Respiratory: denies: Cough, SOB Gastrointestinal: reports: Nausea, Vomiting. denies: Abdominal Pain, Constipation, Diarrhea, Dysphagia, Indigestion, Melena, Rectal Bleeding Physical Exam-GI Vital Signs: Vital Signs Temperature 98.9 F 12/03/18 06:00 Pulse Rate 92 H 12/03/18 06:00 Respiratory Rate 20 12/03/18 06:00 Blood Pressure 102/66 12/03/18 06:00 O2 Sat by Pulse Oximetry (%) 98 12/02/18 20:50 Constitutional: Yes: Calm Eyes: No: Sclera Icterus Cardiovascular: Yes: Regular Rate and Rhythm Respiratory: Yes: CTA Bilaterally Gastrointestinal Inspection: Yes: Scars (RLQ scar (site of renal xplant)) ...Auscultate: Yes: Normoactive Bowel Sounds ...Palpate: Yes: Soft. No: Hepatomegaly, Splenomegaly, Tenderness ...Percussion: No: Tympanitic Extremities: Yes: Other (left leg dressing) Edema: No (No LE edema) Neurological: Yes: Alert Labs: CBC, BMP 12/03/18 06:30 12/03/18 06:30 INR, PTT INR 1.18 (0.83-1.09) H 12/02/18 08:50 Hepatic Panel Total Bilirubin 0.6 mg/dL (0.2-1) 12/03/18 06:30 AST 8 U/L (15-37) L 12/03/18 06:30 ALT 10 U/L (13-61) L 07/12/19 06:30 Alkaline Phosphatase 84 U/L (45-117) 12/03/18 06:30 Albumin 3.2 g/dl (3.4-5.0) L 12/03/18 06:30 Imaging - Results Cat Scan: Report Reviewed, Image Reviewed Problem List - Problems (1) Nausea & vomiting Assessment/Plan: Suspect that this is a manifestation of a systemic process given the other complaints that accompanied this. Given current fevers and history of bacteremia, agree with ID that recurrent bacteremia needs to be considered. Ordered abdominal US to evaluate gallbladder, however no focal findings noted on exam that would suggest acute cholecystitis. No LLQ tenderness that would be suggestive of persistent diverticulitis Further work-up of fevers by ID / Primary team Being transferred to telemetry given rising troponins Code(s): R11.2 - NAUSEA WITH VOMITING, UNSPECIFIED
[2018-12-03] MEDS ORDERED: amLODIPine BESYLATE 10 MG TABLET (FP) PO SCH (10:00)
[2018-12-03] MEDS: cloNIDine HCL 0.1 MG TABLET PO SCH ×2 (10:09→21:35)
[2018-12-03] MEDS: ASPIRIN COATED 81 MG TABLET.EC PO SCH (10:11)
--- NOTE | 2018-12-03 11:50 | PN ---
Progress Note, Physician - Current Medication List Current Medications: Active Medications Acetaminophen (Ofirmev Injection -) 1,000 mg IVPB Q6H PRN PRN Reason: PAIN OR FEVER Last Admin: 12/02/18 22:21 Dose: 1,000 mg Amlodipine Besylate (Norvasc -) 10 mg PO DAILY [facility] Last Admin: 12/03/18 10:09 Dose: Not Given Aspirin (Ecotrin -) 81 mg PO DAILY [facility] Last Admin: 12/03/18 10:11 Dose: 81 mg Clonidine (Catapres -) 0.3 mg PO BID [facility] Last Admin: 12/03/18 10:09 Dose: Not Given Sodium Chloride (Normal Saline -) 250 mls @ 3,000 mls/hr IV PRN PRN PRN Reason: Hypotension during Dialysis Stop: 12/03/18 10:41 Piperacillin Sod/Tazobactam (Sod 2.25 gm/ Dextrose) 50 mls @ 100 mls/hr IVPB Q8H-IV [facility]; Protocol Last Admin: 12/03/18 10:15 Dose: 100 mls/hr Labetalol HCl (Normodyne -) 800 mg PO TID [facility] Last Admin: 12/03/18 07:00 Dose: Not Given - Objective Vital Signs: Vital Signs Temperature 98.9 F 12/03/18 06:00 Pulse Rate 142 H 12/03/18 09:30 Respiratory Rate 20 12/03/18 06:00 Blood Pressure 128/65 12/03/18 09:30 O2 Sat by Pulse Oximetry (%) 98 12/02/18 20:50 Cardiovascular: Yes: S1, S2 Respiratory: Yes: Regular, CTA Bilaterally Gastrointestinal: Yes: Normal Bowel Sounds, Soft Labs: CBC, BMP 12/03/18 06:30 12/03/18 06:30 INR, PTT INR 1.18 (0.83-1.09) H 12/02/18 08:50 Assessment/Plan - Problems (1) Leukocytosis Assessment/Plan: -ID consult -WBC 13.5 -monitor daily for downtrend -BC pending -CXR unremarkable Code(s): D72.829 - ELEVATED WHITE BLOOD CELL COUNT, UNSPECIFIED (2) ESRD (end stage renal disease) on dialysis Assessment/Plan: -renal on board -continue with dialysis on scheduled days -BUN/Cr 47.5/14.2 -continue to monitor renal function Code(s): N18.6 - END STAGE RENAL DISEASE; Z99.2 - DEPENDENCE ON RENAL DIALYSIS (3) Abdominal pain Assessment/Plan: -Abdominal CT scan shows hepatomegaly, residual wall thickening in the proximal sigmoid colon compatible with chronic thickening without CT evidence of acute diverticulitis -GI consult Code(s): R10.9 - UNSPECIFIED ABDOMINAL PAIN Qualifiers: Abdominal location: generalized Qualified Code(s): R10.84 - Generalized abdominal pain (4) HTN (hypertension) Assessment/Plan: -amlodipine, clonidine, labetolol -low Na diet Code(s): I10 - ESSENTIAL (PRIMARY) HYPERTENSION Qualifiers: Hypertension type: essential hypertension Qualified Code(s): I10 - Essential (primary) hypertension (5) Chest pain Assessment/Plan: -Cardiology consult -tele monitoring -Trop rising--initially refused tele --i discussed and now agrees -aspirin Code(s): R07.9 - CHEST PAIN, UNSPECIFIED Assessment/Plan see problem list dvt ppx
[2018-12-03] MEDS ORDERED: SODIUM CHLORIDE 250 ML IV PRN ×2 (12:12→17:52)
[2018-12-03] MEDS: ACETAMINOPHEN 1000 MG/100 ML VIAL (NON FORMULARY) IVPB PRN ×2 (13:06→20:32)
--- NOTE | 2018-12-03 14:29 | PN ---
Progress Note (short form) - Note Progress Note: Renal follow up for ESRD on HD Pt seen and examined at the bedside awake and alert feels better had fever yesterday evening no sob, abd pain, diarrhea, N/V had diffuse body aches Vital Signs Temperature 98.3 F 12/03/18 14:00 Pulse Rate 86 12/03/18 14:00 Respiratory Rate 18 12/03/18 11:50 Blood Pressure 103/62 12/03/18 14:00 O2 Sat by Pulse Oximetry (%) 96 12/03/18 09:00 Intake & Output 11/30/18 12/01/18 12/02/18 12/03/18 23:59 23:59 23:59 23:59 Intake Total 100 450 Balance 100 450 Weight 73.936 kg NAD RRR, no M/R CTA, no rales or wheeze mild abd tenderness no LE edema, clubbing or cyanosis left Arm AVF CBC, BMP 12/03/18 06:30 12/03/18 06:30 Current Medications Acetaminophen (Ofirmev Injection -) 1,000 mg IVPB Q6H PRN PRN Reason: PAIN OR FEVER Last Admin: 12/03/18 13:06 Dose: 1,000 mg Amlodipine Besylate (Norvasc -) 10 mg PO DAILY [facility] Aspirin (Ecotrin -) 81 mg PO DAILY [facility] Clonidine (Catapres -) 0.3 mg PO BID [facility] Sodium Chloride (Normal Saline -) 250 mls @ 3,000 mls/hr IV PRN PRN PRN Reason: Hypotension during Dialysis Piperacillin Sod/Tazobactam (Sod 2.25 gm/ Dextrose) 50 mls @ 100 mls/hr IVPB Q8H-IV [facility]; Protocol Vancomycin HCl (Vancomycin (Pre-Docked)) 1,000 mg in 250 mls @ 166.667 mls/hr IVPB ONCE ONE; Protocol Stop: 12/03/18 17:55 Last Admin: 12/03/18 17:16 Dose: 166.667 mls/hr Labetalol HCl (Normodyne -) 800 mg PO TID [facility] Last Admin: 12/03/18 14:49 Dose: Not Given 53 year old gentleman with hx of ESRD on HD, Prior renal transplant (now not functioning), psoriasis, hypertension who presented with epigastric pain and admitted for r/o ACS and leukocytoiss. #ESRD on HD (TTS) #Leukoctysois/Fever #Epigastic pain #Chronic Anemia related to CKD #Hypertension no acute need for dialysis today, next treatment due tomorrow Renal diet as tolerated, 1.2L fluid restriction CT of the Abd w/o overt pathology blood cultures negative thus far Abx as per ID pain control as needed No MALCOLM indicated as Hgb > 10 Continue amlodipine, Labetalol and Clonidine for hypertension trend cardiac enzymes Thank you Gonzalo Barros DO
--- NOTE | 2018-12-03 14:40 | ECHO ---
Name: NIVIASAROJAR Exam:Adult Echocardiogram Study Date: 12/03/2018 01:01 PM Age: 53 yrs Reason For Study: R/O PERICARDITIS Height: 69 in Weight: 163 lb BSA: 1.9 m2 MMode/2D Measurements & Calculations IVSd: 1.3 cm Ao root diam: 2.7 cm LVIDd: 5.1 cm LA dimension: 4.0 cm LVIDs: 3.5 cm LVPWd: 1.2 cm EDV(Teich): 123.3 ml LVOT diam: 2.0 cm ESV(Teich): 50.5 ml LAV (MOD-bp): 108.0 ml Doppler Measurements & Calculations MV E max jos: 159.1 cm/sec Ao V2 max: 240.3 cm/sec MV A max jos: 127.2 cm/sec Ao max P.1 mmHg MV E/A: 1.3 Ao V2 mean: 170.8 cm/sec Ao mean P.5 mmHg Ao V2 VTI: 42.1 cm BONNIE(I,D): 1.1 cm2 BONNIE(V,D): 1.3 cm2 LV V1 max P.7 mmHg MR max jos: 417.0 cm/sec LV V1 mean P.1 mmHg MR max P.6 mmHg LV V1 max: 95.8 cm/sec LV V1 mean: 70.6 cm/sec LV V1 VTI: 15.2 cm SV(LVOT): 48.0 ml TR max jos: 248.9 cm/sec TR max P.8 mmHg Med Peak E' Jos: 5.9 cm/sec Med E/e': 27.1 Lat Peak E' Jos: 3.8 cm/sec Lat E/e': 42.2 Left Ventricle There is moderate concentric left ventricular hypertrophy. Left ventricular systolic function is bord antony reduced. The transmitral spectral Doppler flow pattern is suggestive of impaired LV relaxation. Right Ventricle The right ventricle is grossly normal size. The right ventricular systolic function is grossly normal . Atria The left atrium is moderately dilated. Right atrial size is normal. Mitral Valve There is severe mitral annular calcification. There is moderate to severe mitral valve thickening. Fu nctional mitral valve stenosis secondary to MAC. There is mild mitral regurgitation. Tricuspid Valve The tricuspid valve is normal in structure and function. There is mild tricuspid regurgitation. Right ventricular systolic pressure is normal. Aortic Valve There is mild to moderate aortic sclerosis.;. No hemodynamically significant valvular aortic stenosis . No aortic regurgitation is present. Pulmonic Valve The pulmonic valve is not well seen, but is grossly normal. There is no pulmonic valvular stenosis. Great Vessels The aortic root is normal size. Pericardium/Pleura There is no pericardial effusion. Interpretation Summary There is moderate concentric left ventricular hypertrophy. Left ventricular systolic function is borderline reduced. The left atrium is moderately dilated. There is severe mitral annular calcification. There is moderate to severe mitral valve thickening. Functional mitral valve stenosis secondary to MAC There is mild mitral regurgitation. There is mild tricuspid regurgitation. There is mild to moderate aortic sclerosis.; There is no pericardial effusion. MD Kline *Nicole 12/03/2018 02:40 PM
[2018-12-03] MEDS ORDERED: VANCOMYCIN 1,000 MG in DEXTROSE 5%-WATER - 250 ML IVPB ONE (16:26)
--- NOTE | 2018-12-03 16:28 | PN ---
Progress Note (short form) - Note Progress Note: still with myalgias febrile to 101.9 overnight no diarrhea poor appetite no abdominal pain Vital Signs Period Temp Pulse Resp BP Sys/Romeo Pulse Ox Last 24 Hr 98.3 F-101.9 F 75-142 18-20 100-152/62-91 96-98 cor-rrr lungs clear abd soft,nt ext no edema left AVF CBC, BMP 12/03/18 06:30 12/03/18 06:30 Microbiology 12/02/18 14:10 Blood - Peripheral Venous Blood Culture - Preliminary NO GROWTH OBTAINED AFTER 24 HOURS, INCUBATION TO CONTINUE FOR 4 DAYS. 12/02/18 14:10 Blood - Peripheral Venous Blood Culture - Preliminary NO GROWTH OBTAINED AFTER 24 HOURS, INCUBATION TO CONTINUE FOR 4 DAYS. vanco trough 6.9 a/p FUO ?bacteremia repeat blood cultures with HD in am scheduled for gb ultrasound continue vanco by level continue zosyn crp esrd/hd Problem List - Problems (1) Fever Code(s): R50.9 - FEVER, UNSPECIFIED Qualifiers: Fever type: unspecified Qualified Code(s): R50.9 - Fever, unspecified (2) Leukocytosis Code(s): D72.829 - ELEVATED WHITE BLOOD CELL COUNT, UNSPECIFIED (3) ESRD (end stage renal disease) on dialysis Code(s): N18.6 - END STAGE RENAL DISEASE; Z99.2 - DEPENDENCE ON RENAL DIALYSIS (4) Psoriasis Code(s): L40.9 - PSORIASIS, UNSPECIFIED
[2018-12-03] MEDS ORDERED: VANCOMYCIN 1 GRAM (PRE-DOCKED) 1,000 MG/250 ML BAG IVPB ONE (16:55)
[2018-12-04] MEDS ORDERED: TRIMETHOBENZAMIDE HCL 200MG/2ML INJ IM ONE (01:06)
[2018-12-04] MEDS ORDERED: DEXTROSE 5%-WATER - 50 ML IVPB ONE ×3 (01:10→18:23)
[2018-12-04] MEDS ORDERED: PIPERACILLIN/TAZOBACTAM 2.25 GM VIAL IVPB ONE ×3 (01:10→18:23)
[2018-12-04] MEDS: PIPERACILLIN/TAZOB 2.25 GM 2.25 GM in DEXTROSE 5%-WATER - 50 ML IVPB SCH ×3 (02:00→18:34)
[2018-12-04] MEDS: LABETALOL HCL 200 MG TABLET (FP) PO SCH ×3 (06:07→21:44)
[2018-12-04 07:51] LABS: BASO % 0.4 % (0-2.0); EOS % 0.1 % (0-4.5); HEMATOCRIT 35.5 % (35.4-49); HEMOGLOBIN 11.5 GM/dL (11.7-16.9); LYMPH % 4.5 % (8-40); MCH 28.8 pg (25.7-33.7); MCHC 32.5 g/dl (32.0-35.9); MEAN CELL VOLUME 88.6 fl (80-96); MEAN PLT VOLUME 8.2 fl (7.5-11.1); RBC 4.01 M/mm3 (4.00-5.60); RDW 16.7 % (11.9-15.9); WHITE BLOOD COUNT 14.8 K/mm3 (4.0-10.0)
[2018-12-04 08:32] LABS: PLATELET COUNT 283 K/MM3 (134-434)
--- NOTE | 2018-12-04 08:42 | PN ---
Progress Note, Physician History of Present Illness: Patient is a 53 y/o male with past medical history of ESRD on HD(), psoriasis, HTN. Patient came to ER with complaints of chest pain described as dull and non radiating accompanied with SOB. Also states experiencing mid abdominal pain accomapnied nausea and vomiting. Patient states his complaints began last night at 7pm and gradually worsened through the night. 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 Ongoing medical problems Dialysis HTN Psoriasis (causing hyerpigmentation of legs and arms) AV graft left arm C. cath September 2018 - nonobstructive cors. - Current Medication List Current Medications: Active Medications Acetaminophen (Ofirmev Injection -) 1,000 mg IVPB Q6H PRN PRN Reason: PAIN OR FEVER Last Admin: 12/03/18 20:32 Dose: 1,000 mg Amlodipine Besylate (Norvasc -) 10 mg PO DAILY [facility] Aspirin (Ecotrin -) 81 mg PO DAILY [facility] Clonidine (Catapres -) 0.3 mg PO BID [facility] Last Admin: 12/03/18 21:35 Dose: Not Given Sodium Chloride (Normal Saline -) 250 mls @ 3,000 mls/hr IV PRN PRN PRN Reason: Hypotension during Dialysis Piperacillin Sod/Tazobactam (Sod 2.25 gm/ Dextrose) 50 mls @ 100 mls/hr IVPB Q8H-IV [facility]; Protocol Last Admin: 12/04/18 02:00 Dose: 100 mls/hr Sodium Chloride (Normal Saline -) 250 mls @ 3,000 mls/hr IV PRN PRN PRN Reason: Hypotension during Dialysis Stop: 12/04/18 17:52 Labetalol HCl (Normodyne -) 800 mg PO TID [facility] Last Admin: 12/04/18 06:07 Dose: Not Given - Objective Vital Signs: Vital Signs Temperature 98.2 F 12/04/18 07:25 Pulse Rate 89 12/04/18 07:30 Respiratory Rate 18 12/04/18 07:30 Blood Pressure 114/78 12/04/18 07:30 O2 Sat by Pulse Oximetry (%) 98 12/03/18 21:00 Eyes: Yes: WNL, Conjunctiva Clear, EOM Intact HENT: Yes: WNL, Atraumatic, Normocephalic Neck: Yes: WNL, Supple, Trachea Midline Cardiovascular: Yes: WNL, Regular Rate and Rhythm Respiratory: Yes: WNL, Regular, CTA Bilaterally Gastrointestinal: Yes: WNL, Normal Bowel Sounds Genitourinary: Yes: WNL Musculoskeletal: Yes: WNL Extremities: Yes: WNL Edema: No Integumentary: Yes: WNL Neurological: Yes: WNL, Alert, Oriented ...Motor Strength: WNL Psychiatric: Yes: WNL Labs: CBC, BMP 12/04/18 05:28 INR, PTT INR 1.18 (0.83-1.09) H 12/02/18 08:50 Problem List - Problems (1) ESRD (end stage renal disease) on dialysis Code(s): N18.6 - END STAGE RENAL DISEASE; Z99.2 - DEPENDENCE ON RENAL DIALYSIS (2) Leukocytosis Code(s): D72.829 - ELEVATED WHITE BLOOD CELL COUNT, UNSPECIFIED (3) Abdominal pain Code(s): R10.9 - UNSPECIFIED ABDOMINAL PAIN Qualifiers: Abdominal location: generalized Qualified Code(s): R10.84 - Generalized abdominal pain (4) Abnormal echocardiogram Code(s): R93.1 - ABNORMAL FINDINGS ON DX IMAGING OF HEART AND COR CIRC (5) Anemia in CKD (chronic kidney disease) Code(s): N18.9 - CHRONIC KIDNEY DISEASE, UNSPECIFIED; D63.1 - ANEMIA IN CHRONIC KIDNEY DISEASE (6) Anxiety Code(s): F41.9 - ANXIETY DISORDER, UNSPECIFIED (7) Axillary swelling Code(s): M79.89 - OTHER SPECIFIED SOFT TISSUE DISORDERS (8) Back pain Code(s): M54.9 - DORSALGIA, UNSPECIFIED (9) Bacteremia Code(s): R78.81 - BACTEREMIA (10) Bacterial endocarditis Code(s): I33.0 - ACUTE AND SUBACUTE INFECTIVE ENDOCARDITIS (11) Cellulitis of right upper arm Code(s): L03.113 - CELLULITIS OF RIGHT UPPER LIMB (12) Chest pain Code(s): R07.9 - CHEST PAIN, UNSPECIFIED (13) Chest pain Code(s): R07.9 - CHEST PAIN, UNSPECIFIED Qualifiers: Chest pain type: unspecified Qualified Code(s): R07.9 - Chest pain, unspecified (14) Constipation Code(s): K59.00 - CONSTIPATION, UNSPECIFIED (15) Diverticulitis Code(s): K57.92 - DVTRCLI OF INTEST, PART UNSP, W/O PERF OR ABSCESS W/O BLEED (16) Elevated troponin Code(s): R74.8 - ABNORMAL LEVELS OF OTHER SERUM ENZYMES (17) End-stage renal disease needing dialysis Code(s): N18.6 - END STAGE RENAL DISEASE; Z99.2 - DEPENDENCE ON RENAL DIALYSIS (18) Fever Code(s): R50.9 - FEVER, UNSPECIFIED Qualifiers: Fever type: unspecified Qualified Code(s): R50.9 - Fever, unspecified (19) Fever Code(s): R50.9 - FEVER, UNSPECIFIED (20) Gallbladder sludge Code(s): K82.8 - OTHER SPECIFIED DISEASES OF GALLBLADDER (21) Gastroenteritis Code(s): K52.9 - NONINFECTIVE GASTROENTERITIS AND COLITIS, UNSPECIFIED (22) HTN (hypertension) Code(s): I10 - ESSENTIAL (PRIMARY) HYPERTENSION Qualifiers: Hypertension type: essential hypertension Qualified Code(s): I10 - Essential (primary) hypertension (23) HTN (hypertension) Code(s): I10 - ESSENTIAL (PRIMARY) HYPERTENSION (24) History of staph septicemia Code(s): Z86.19 - PERSONAL HISTORY OF OTHER INFECTIOUS AND PARASITIC DISEASES (25) Hyperkalemia Code(s): E87.5 - HYPERKALEMIA (26) Hypertensive urgency Code(s): I10 - ESSENTIAL (PRIMARY) HYPERTENSION (27) Myalgia Code(s): M79.1 - MYALGIA * DO NOT USE * (28) Nausea Code(s): R11.0 - NAUSEA (29) Palpitations Code(s): R00.2 - PALPITATIONS (30) Pancreatitis Code(s): K85.9 - ACUTE PANCREATITIS, UNSPECIFIED * DO NOT USE * Qualifiers: Chronicity: acute Pancreatitis type: unspecified pancreatitis type (31) Psoriasis Code(s): L40.9 - PSORIASIS, UNSPECIFIED (32) Right flank pain Code(s): R10.9 - UNSPECIFIED ABDOMINAL PAIN (33) Right lower quadrant abdominal pain Code(s): R10.31 - RIGHT LOWER QUADRANT PAIN (34) Systolic CHF Code(s): I50.20 - UNSPECIFIED SYSTOLIC (CONGESTIVE) HEART FAILURE Assessment/Plan ESRD on HD(), psoriasis, HTN. Patient came to ER with complaints of chest pain described as dull and non radiating accompanied with SOB. recent c. cath - nonobstructive cors September 2018 cp free TNI elevated doubdt MT. Most likely uremic pericarditis Plan; telemetry ekg dialiisis
[2018-12-04 09:00] LABS: ANION GAP 13 MMOL/L (8-16); BLOOD UREA NITROGEN 54.4 mg/dL (7-18); CALCIUM 8.4 mg/dL (8.5-10.1); CHLORIDE 94 mmol/L (98-107); CO2 28 mmol/L (21-32); GLUCOSE,RANDOM 91 mg/dL (74-106); SODIUM 134 mmol/L (136-145)
[2018-12-04 09:07] LABS: CREATININE 12.1 mg/dL (0.55-1.3); PHOSPHOROUS > 9.0 mg/dL (2.5-4.9)
--- NOTE | 2018-12-04 11:54 | PN ---
Progress Note, Physician Chief Complaint: ESRD Chest Pain Elevated Troponin History of Present Illness: Previous notes and events reviewed awake and alert NAD sts chest pain is better, reproducible on exam denies SOB receiving dialysis at bedside on examination leukocytosis - Current Medication List Current Medications: Active Medications Acetaminophen (Ofirmev Injection -) 1,000 mg IVPB Q6H PRN PRN Reason: PAIN OR FEVER Last Admin: 12/03/18 20:32 Dose: 1,000 mg Amlodipine Besylate (Norvasc -) 10 mg PO DAILY [facility] Aspirin (Ecotrin -) 81 mg PO DAILY [facility] Clonidine (Catapres -) 0.3 mg PO BID [facility] Last Admin: 12/03/18 21:35 Dose: Not Given Sodium Chloride (Normal Saline -) 250 mls @ 3,000 mls/hr IV PRN PRN PRN Reason: Hypotension during Dialysis Piperacillin Sod/Tazobactam (Sod 2.25 gm/ Dextrose) 50 mls @ 100 mls/hr IVPB Q8H-IV [facility]; Protocol Last Admin: 12/04/18 02:00 Dose: 100 mls/hr Labetalol HCl (Normodyne -) 800 mg PO TID [facility] Last Admin: 12/04/18 06:07 Dose: Not Given - Objective Vital Signs: Vital Signs Temperature 98.2 F 12/04/18 07:25 Pulse Rate 62 12/04/18 11:30 Respiratory Rate 18 12/04/18 11:30 Blood Pressure 118/70 12/04/18 11:30 O2 Sat by Pulse Oximetry (%) 98 12/03/18 21:00 Constitutional: Yes: No Distress, Calm Eyes: Yes: Conjunctiva Clear HENT: Yes: Atraumatic Cardiovascular: Yes: Regular Rate and Rhythm Respiratory: Yes: Regular, CTA Bilaterally Gastrointestinal: Yes: Normal Bowel Sounds, Soft Musculoskeletal: Yes: Muscle Weakness Extremities: Yes: WNL Edema: No Wound/Incision: Yes: Dressing Dry and Intact Neurological: Yes: Alert, Oriented Psychiatric: Yes: Alert, Oriented Labs: CBC, BMP 12/04/18 05:28 12/04/18 05:28 INR, PTT INR 1.18 (0.83-1.09) H 12/02/18 08:50 Problem List - Problems (1) Leukocytosis Assessment/Plan: -ID on board -WBC 14.8 -monitor daily for downtrend -BC neg, repeat BC drawn today after HD -CXR unremarkable -Vancomycin and Zosyn Code(s): D72.829 - ELEVATED WHITE BLOOD CELL COUNT, UNSPECIFIED (2) ESRD (end stage renal disease) on dialysis Assessment/Plan: -renal on board -continue with dialysis on scheduled days -BUN/Cr 54.4/12.1 -continue to monitor renal function -renal diet Code(s): N18.6 - END STAGE RENAL DISEASE; Z99.2 - DEPENDENCE ON RENAL DIALYSIS (3) Abdominal pain Assessment/Plan: -Abdominal CT scan shows hepatomegaly, residual wall thickening in the proximal sigmoid colon compatible with chronic thickening without CT evidence of acute diverticulitis -GI on board -Abdominal US reviewed Code(s): R10.9 - UNSPECIFIED ABDOMINAL PAIN Qualifiers: Abdominal location: generalized Qualified Code(s): R10.84 - Generalized abdominal pain (4) HTN (hypertension) Assessment/Plan: -amlodipine, clonidine, labetolol -low Na diet Code(s): I10 - ESSENTIAL (PRIMARY) HYPERTENSION Qualifiers: Hypertension type: essential hypertension Qualified Code(s): I10 - Essential (primary) hypertension (5) Chest pain Assessment/Plan: -Cardiology consult -tele monitoring -Trop 0.10, 0.16, 0.32 -aspirin -Echo reviewed Code(s): R07.9 - CHEST PAIN, UNSPECIFIED Assessment/Plan see problem list dvt ppx
--- NOTE | 2018-12-04 12:01 | PN ---
Progress Note (short form) - Note Progress Note: still with myalgias but improved no fevers s/p HD blood cultures repeated Vital Signs Period Temp Pulse Resp BP Sys/Romeo Pulse Ox Last 24 Hr 97.9 F-98.7 F 60-98 18-18 81-130/50-82 98 cor-rrr lungs clear abd soft,nt ext psoriasis unchanged CBC, BMP 12/04/18 05:28 12/04/18 05:28 Microbiology 12/02/18 14:10 Blood - Peripheral Venous Blood Culture - Preliminary NO GROWTH OBTAINED AFTER 24 HOURS, INCUBATION TO CONTINUE FOR 4 DAYS. 12/02/18 14:10 Blood - Peripheral Venous Blood Culture - Preliminary NO GROWTH OBTAINED AFTER 24 HOURS, INCUBATION TO CONTINUE FOR 4 DAYS. crp 37 a/p FUO ?bacteremia repeat blood cultures with HD sent scheduled for gb ultrasound continue vanco by level continue zosyn crp is high esrd/hd Problem List - Problems (1) Fever Code(s): R50.9 - FEVER, UNSPECIFIED Qualifiers: Fever type: unspecified Qualified Code(s): R50.9 - Fever, unspecified (2) Leukocytosis Code(s): D72.829 - ELEVATED WHITE BLOOD CELL COUNT, UNSPECIFIED (3) ESRD (end stage renal disease) on dialysis Code(s): N18.6 - END STAGE RENAL DISEASE; Z99.2 - DEPENDENCE ON RENAL DIALYSIS (4) Psoriasis Code(s): L40.9 - PSORIASIS, UNSPECIFIED
--- NOTE | 2018-12-04 13:52 | PN ---
Progress Note (short form) - Note Progress Note: covering dr damian ESRD on HD, Prior renal transplant (now not functioning), psoriasis, hypertension r/o ACS and leukocytoiss. anemia FUO/?bacteremia seen while on dialysis Active Medications Acetaminophen (Ofirmev Injection -) 1,000 mg IVPB Q6H PRN PRN Reason: PAIN OR FEVER Last Admin: 12/03/18 20:32 Dose: 1,000 mg Amlodipine Besylate (Norvasc -) 10 mg PO DAILY [facility] Aspirin (Ecotrin -) 81 mg PO DAILY [facility] Clonidine (Catapres -) 0.3 mg PO BID [facility] Last Admin: 12/03/18 21:35 Dose: Not Given Sodium Chloride (Normal Saline -) 250 mls @ 3,000 mls/hr IV PRN PRN PRN Reason: Hypotension during Dialysis Piperacillin Sod/Tazobactam (Sod 2.25 gm/ Dextrose) 50 mls @ 100 mls/hr IVPB Q8H-IV [facility]; Protocol Last Admin: 12/04/18 02:00 Dose: 100 mls/hr Labetalol HCl (Normodyne -) 800 mg PO TID [facility] Last Admin: 12/04/18 06:07 Dose: Not Given Last Vital Signs Temp Pulse Resp BP Pulse Ox 98.2 F 62 18 118/70 98 12/04/18 07:25 12/04/18 11:30 12/04/18 11:30 12/04/18 11:30 12/03/18 21:00 CBC, BMP 12/04/18 05:28 12/04/18 05:28 IMP- s/p uneventful HD
[2018-12-04] MEDS: amLODIPine BESYLATE 10 MG TABLET (FP) PO SCH (14:45)
[2018-12-04] MEDS: ASPIRIN COATED 81 MG TABLET.EC PO SCH (14:45)
[2018-12-04] MEDS: cloNIDine HCL 0.1 MG TABLET PO SCH ×2 (14:45→21:44)
--- NOTE | 2018-12-04 15:01 | PN ---
Progress Note (short form) - Note Progress Note: covering for Jean Elvira transferred to telemetry because of elevated troponin no nausea,no vomitng, no abdominal pain Abd: soft non-teder, no masses A. N?V resolved R> FUO w/u in progress abd US--hepatomegaly--further w/u as an outpatient CKD
--- NOTE | 2018-12-04 16:00 | EKG ---
Test Reason : Blood Pressure : / mmHG Vent. Rate : 099 BPM Atrial Rate : 099 BPM P-R Int : 206 ms QRS Dur : 102 ms QT Int : 378 ms P-R-T Axes : 076 -22 074 degrees QTc Int : 485 ms SINUS RHYTHM WITH PREMATURE ATRIAL COMPLEXES POSSIBLE LEFT ATRIAL ENLARGEMENT LEFT VENTRICULAR HYPERTROPHY WITH REPOLARIZATION ABNORMALITY ST ELEVATION, CONSIDER EARLY REPOLARIZATION, PERICARDITIS, OR INJURY PROLONGED QT ABNORMAL ECG WHEN COMPARED WITH ECG OF 02-DEC-2018 08:51, PREMATURE ATRIAL COMPLEXES ARE NOW PRESENT ST ELEVATION NOW PRESENT IN INFERIOR LEADS ST ELEVATION NOW PRESENT IN LATERAL LEADS T WAVE INVERSION LESS EVIDENT IN LATERAL LEADS Confirmed by SAURABH SWEENEY, JOCELINE ([id number]) on 12/04/2018 3:59:37 PM Referred By: Julio CLARK Confirmed By:JOCELINE WILEY MD
[2018-12-04] MEDS: traMADol HCL 50 MG TABLET PO PRN (18:35)
[2018-12-05] MEDS ORDERED: PIPERACILLIN/TAZOBACTAM 2.25 GM VIAL IVPB ONE ×2 (01:27→07:55)
[2018-12-05] MEDS ORDERED: DEXTROSE 5%-WATER - 50 ML IVPB ONE ×2 (01:27→07:56)
[2018-12-05] MEDS: PIPERACILLIN/TAZOB 2.25 GM 2.25 GM in DEXTROSE 5%-WATER - 50 ML IVPB SCH ×2 (02:09→09:29)
[2018-12-05] MEDS: traMADol HCL 50 MG TABLET PO PRN (02:16)
[2018-12-05] MEDS: LABETALOL HCL 200 MG TABLET (FP) PO SCH (06:10)
[2018-12-05 07:01] LABS: BASO % 0.5 % (0-2.0); EOS % 0.9 % (0-4.5); HEMATOCRIT 32.3 % (35.4-49); HEMOGLOBIN 10.7 GM/dL (11.7-16.9); LYMPH % 9.4 % (8-40); MCHC 33.2 g/dl (32.0-35.9); MEAN CELL VOLUME 87.4 fl (80-96); MEAN PLT VOLUME 8.2 fl (7.5-11.1); MONO % 11.1 % (3.8-10.2); NEUT % 78.1 % (42.8-82.8); PLATELET COUNT 266 K/MM3 (134-434); RDW 16.4 % (11.9-15.9); WHITE BLOOD COUNT 9.7 K/mm3 (4.0-10.0)
[2018-12-05 07:40] LABS: ALBUMIN 2.5 g/dl (3.4-5.0); BILIRUBIN,TOTAL 0.6 mg/dL (0.2-1); BLOOD UREA NITROGEN 32.2 mg/dL (7-18); CALCIUM 8.6 mg/dL (8.5-10.1); TOT PROT 6.4 g/dl (6.4-8.2)
[2018-12-05 08:02] LABS: CREATININE 8.4 mg/dL (0.55-1.3)
--- NOTE | 2018-12-05 08:18 | PN ---
Progress Note, Physician History of Present Illness: Patient is a 53 y/o male with past medical history of ESRD on HD(), psoriasis, HTN. Patient came to ER with complaints of chest pain described as dull and non radiating accompanied with SOB. Also states experiencing mid abdominal pain accomapnied nausea and vomiting. Patient states his complaints began last night at 7pm and gradually worsened through the night. 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 Ongoing medical problems Dialysis HTN Psoriasis (causing hyerpigmentation of legs and arms) AV graft left arm C. cath September 2018 - nonobstructive cors. - Current Medication List Current Medications: Active Medications Acetaminophen (Ofirmev Injection -) 1,000 mg IVPB Q6H PRN PRN Reason: PAIN OR FEVER Last Admin: 12/03/18 20:32 Dose: 1,000 mg Amlodipine Besylate (Norvasc -) 10 mg PO DAILY [facility] Last Admin: 12/04/18 14:45 Dose: 10 mg Aspirin (Ecotrin -) 81 mg PO DAILY [facility] Last Admin: 12/04/18 14:45 Dose: 81 mg Clonidine (Catapres -) 0.3 mg PO BID [facility] Last Admin: 12/04/18 21:44 Dose: Not Given Sodium Chloride (Normal Saline -) 250 mls @ 3,000 mls/hr IV PRN PRN PRN Reason: Hypotension during Dialysis Piperacillin Sod/Tazobactam (Sod 2.25 gm/ Dextrose) 50 mls @ 100 mls/hr IVPB Q8H-IV [facility]; Protocol Last Admin: 12/05/18 02:09 Dose: 100 mls/hr Labetalol HCl (Normodyne -) 800 mg PO TID [facility] Last Admin: 12/05/18 06:10 Dose: Not Given Tramadol HCl (Ultram -) 50 mg PO Q8H PRN PRN Reason: PAIN LEVEL 6-10 Last Admin: 12/05/18 02:16 Dose: 50 mg - Objective Vital Signs: Vital Signs Temperature 98.6 F 12/05/18 05:39 Pulse Rate 90 12/05/18 05:39 Respiratory Rate 18 12/05/18 05:39 Blood Pressure 121/73 12/05/18 05:39 O2 Sat by Pulse Oximetry (%) 98 12/04/18 21:00 Eyes: Yes: WNL, Conjunctiva Clear, EOM Intact HENT: Yes: WNL, Atraumatic, Normocephalic Neck: Yes: WNL, Supple, Trachea Midline Cardiovascular: Yes: Regular Rate and Rhythm, Rub Respiratory: Yes: WNL, Regular, CTA Bilaterally Gastrointestinal: Yes: WNL, Normal Bowel Sounds Genitourinary: Yes: WNL Musculoskeletal: Yes: WNL Extremities: Yes: WNL Edema: No Integumentary: Yes: WNL Neurological: Yes: WNL, Alert, Oriented ...Motor Strength: WNL Psychiatric: Yes: WNL Labs: CBC, BMP 12/05/18 05:25 12/05/18 05:25 INR, PTT INR 1.18 (0.83-1.09) H 12/02/18 08:50 Problem List - Problems (1) ESRD (end stage renal disease) on dialysis Code(s): N18.6 - END STAGE RENAL DISEASE; Z99.2 - DEPENDENCE ON RENAL DIALYSIS (2) Leukocytosis Code(s): D72.829 - ELEVATED WHITE BLOOD CELL COUNT, UNSPECIFIED (3) Abdominal pain Code(s): R10.9 - UNSPECIFIED ABDOMINAL PAIN Qualifiers: Abdominal location: generalized Qualified Code(s): R10.84 - Generalized abdominal pain (4) Abnormal echocardiogram Code(s): R93.1 - ABNORMAL FINDINGS ON DX IMAGING OF HEART AND COR CIRC (5) Anemia in CKD (chronic kidney disease) Code(s): N18.9 - CHRONIC KIDNEY DISEASE, UNSPECIFIED; D63.1 - ANEMIA IN CHRONIC KIDNEY DISEASE (6) Anxiety Code(s): F41.9 - ANXIETY DISORDER, UNSPECIFIED (7) Axillary swelling Code(s): M79.89 - OTHER SPECIFIED SOFT TISSUE DISORDERS (8) Back pain Code(s): M54.9 - DORSALGIA, UNSPECIFIED (9) Bacteremia Code(s): R78.81 - BACTEREMIA (10) Bacterial endocarditis Code(s): I33.0 - ACUTE AND SUBACUTE INFECTIVE ENDOCARDITIS (11) Cellulitis of right upper arm Code(s): L03.113 - CELLULITIS OF RIGHT UPPER LIMB (12) Chest pain Code(s): R07.9 - CHEST PAIN, UNSPECIFIED (13) Chest pain Code(s): R07.9 - CHEST PAIN, UNSPECIFIED Qualifiers: Chest pain type: unspecified Qualified Code(s): R07.9 - Chest pain, unspecified (14) Constipation Code(s): K59.00 - CONSTIPATION, UNSPECIFIED (15) Diverticulitis Code(s): K57.92 - DVTRCLI OF INTEST, PART UNSP, W/O PERF OR ABSCESS W/O BLEED (16) Elevated troponin Code(s): R74.8 - ABNORMAL LEVELS OF OTHER SERUM ENZYMES (17) End-stage renal disease needing dialysis Code(s): N18.6 - END STAGE RENAL DISEASE; Z99.2 - DEPENDENCE ON RENAL DIALYSIS (18) Fever Code(s): R50.9 - FEVER, UNSPECIFIED Qualifiers: Fever type: unspecified Qualified Code(s): R50.9 - Fever, unspecified (19) Fever Code(s): R50.9 - FEVER, UNSPECIFIED (20) Gallbladder sludge Code(s): K82.8 - OTHER SPECIFIED DISEASES OF GALLBLADDER (21) Gastroenteritis Code(s): K52.9 - NONINFECTIVE GASTROENTERITIS AND COLITIS, UNSPECIFIED (22) HTN (hypertension) Code(s): I10 - ESSENTIAL (PRIMARY) HYPERTENSION Qualifiers: Hypertension type: essential hypertension Qualified Code(s): I10 - Essential (primary) hypertension (23) HTN (hypertension) Code(s): I10 - ESSENTIAL (PRIMARY) HYPERTENSION (24) History of staph septicemia Code(s): Z86.19 - PERSONAL HISTORY OF OTHER INFECTIOUS AND PARASITIC DISEASES (25) Hyperkalemia Code(s): E87.5 - HYPERKALEMIA (26) Hypertensive urgency Code(s): I10 - ESSENTIAL (PRIMARY) HYPERTENSION (27) Myalgia Code(s): M79.1 - MYALGIA * DO NOT USE * (28) Nausea Code(s): R11.0 - NAUSEA (29) Palpitations Code(s): R00.2 - PALPITATIONS (30) Pancreatitis Code(s): K85.9 - ACUTE PANCREATITIS, UNSPECIFIED * DO NOT USE * Qualifiers: Chronicity: acute Pancreatitis type: unspecified pancreatitis type (31) Psoriasis Code(s): L40.9 - PSORIASIS, UNSPECIFIED (32) Right flank pain Code(s): R10.9 - UNSPECIFIED ABDOMINAL PAIN (33) Right lower quadrant abdominal pain Code(s): R10.31 - RIGHT LOWER QUADRANT PAIN (34) Systolic CHF Code(s): I50.20 - UNSPECIFIED SYSTOLIC (CONGESTIVE) HEART FAILURE Assessment/Plan ESRD on HD(), psoriasis, HTN. Patient came to ER with complaints of chest pain described as dull and non radiating accompanied with SOB. recent c. cath - nonobstructive cors September 2018 cp free TNI elevated doubdt [place]. 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 No cp/sob today. TNIs increased to 0.7. 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 Physical exam significant for cardiac rub. Plan; telemetry ekg dialiisis labetalol on hold will add colchicine.
--- NOTE | 2018-12-05 09:22 | PN ---
Progress Note, Physician Chief Complaint: ESRD Chest Pain Elevated Troponin History of Present Illness: Previous notes and events reviewed awake and alert NAD denies chest pain denies SOB noted with elevated trop 0.70 no leukocytosis - Current Medication List Current Medications: Active Medications Acetaminophen (Ofirmev Injection -) 1,000 mg IVPB Q6H PRN PRN Reason: PAIN OR FEVER Last Admin: 12/03/18 20:32 Dose: 1,000 mg Amlodipine Besylate (Norvasc -) 10 mg PO DAILY [facility] Last Admin: 12/04/18 14:45 Dose: 10 mg Aspirin (Ecotrin -) 81 mg PO DAILY [facility] Last Admin: 12/04/18 14:45 Dose: 81 mg Clonidine (Catapres -) 0.3 mg PO BID [facility] Last Admin: 12/04/18 21:44 Dose: Not Given Colchicine (Colcrys) 0.6 mg PO DAILY [facility] Sodium Chloride (Normal Saline -) 250 mls @ 3,000 mls/hr IV PRN PRN PRN Reason: Hypotension during Dialysis Piperacillin Sod/Tazobactam (Sod 2.25 gm/ Dextrose) 50 mls @ 100 mls/hr IVPB Q8H-IV [facility]; Protocol Last Admin: 12/05/18 02:09 Dose: 100 mls/hr Tramadol HCl (Ultram -) 50 mg PO Q8H PRN PRN Reason: PAIN LEVEL 6-10 Last Admin: 12/05/18 02:16 Dose: 50 mg - Objective Vital Signs: Vital Signs Temperature 98.6 F 12/05/18 08:28 Pulse Rate 100 H 12/05/18 08:28 Respiratory Rate 18 12/05/18 08:31 Blood Pressure 118/70 12/05/18 08:28 O2 Sat by Pulse Oximetry (%) 98 12/05/18 08:31 Constitutional: Yes: No Distress, Calm Eyes: Yes: Conjunctiva Clear HENT: Yes: Atraumatic Cardiovascular: Yes: Regular Rate and Rhythm Respiratory: Yes: Regular, CTA Bilaterally Gastrointestinal: Yes: Normal Bowel Sounds, Soft Musculoskeletal: Yes: WNL Extremities: Yes: WNL Edema: No Neurological: Yes: Alert, Oriented Psychiatric: Yes: Alert, Oriented Labs: CBC, BMP 12/05/18 05:25 12/05/18 05:25 INR, PTT INR 1.18 (0.83-1.09) H 12/02/18 08:50 Microbiology 12/02/18 14:10 Blood - Peripheral Venous Blood Culture - Preliminary NO GROWTH OBTAINED AFTER 72 HOURS, INCUBATION TO CONTINUE FOR 2 DAYS. 12/02/18 14:10 Blood - Peripheral Venous Blood Culture - Preliminary NO GROWTH OBTAINED AFTER 72 HOURS, INCUBATION TO CONTINUE FOR 2 DAYS. 12/03/18 20:00 Blood - Pre-Dialysis Blood Culture - Preliminary NO GROWTH OBTAINED AFTER 24 HOURS, INCUBATION TO CONTINUE FOR 4 DAYS. 12/03/18 20:00 Blood - Pre-Dialysis Blood Culture - Preliminary NO GROWTH OBTAINED AFTER 24 HOURS, INCUBATION TO CONTINUE FOR 4 DAYS. Problem List - Problems (1) Leukocytosis Assessment/Plan: -ID on board -WBC 9.7 -monitor daily for downtrend -BC neg x2 -CXR unremarkable -observe off antibiotics Code(s): D72.829 - ELEVATED WHITE BLOOD CELL COUNT, UNSPECIFIED (2) ESRD (end stage renal disease) on dialysis Assessment/Plan: -renal on board -continue with dialysis on scheduled days -BUN/Cr 32.2/8.4 -continue to monitor renal function -renal diet Code(s): N18.6 - END STAGE RENAL DISEASE; Z99.2 - DEPENDENCE ON RENAL DIALYSIS (3) Abdominal pain Assessment/Plan: -Abdominal CT scan shows hepatomegaly, residual wall thickening in the proximal sigmoid colon compatible with chronic thickening without CT evidence of acute diverticulitis -GI on board -Abdominal US reviewed Code(s): R10.9 - UNSPECIFIED ABDOMINAL PAIN Qualifiers: Abdominal location: generalized Qualified Code(s): R10.84 - Generalized abdominal pain (4) HTN (hypertension) Assessment/Plan: -amlodipine, clonidine -low Na diet Code(s): I10 - ESSENTIAL (PRIMARY) HYPERTENSION Qualifiers: Hypertension type: essential hypertension Qualified Code(s): I10 - Essential (primary) hypertension (5) Chest pain Assessment/Plan: -Cardiology consult -tele monitoring -Trop 0.10, 0.16, 0.32, 0.70 -aspirin -Echo reviewed Code(s): R07.9 - CHEST PAIN, UNSPECIFIED (6) Uremic pericarditis Assessment/Plan: -cardiology recommendations appreciated -Colchicine 0.6mg daily -Motrin 400mg TID -Echocardiogram reviewed -troponin 0.70--will trend -aggressive HD for fluid removal Code(s): N18.9 - CHRONIC KIDNEY DISEASE, UNSPECIFIED; I32 - PERICARDITIS IN DISEASES CLASSIFIED ELSEWHERE Assessment/Plan see problem list dvt ppx
[2018-12-05] MEDS: ASPIRIN COATED 81 MG TABLET.EC PO SCH (09:28)
[2018-12-05] MEDS: cloNIDine HCL 0.1 MG TABLET PO SCH ×2 (09:28→21:37)
[2018-12-05] MEDS: COLCHICINE 0.6 MG CAP PO SCH (09:28)
[2018-12-05] MEDS: amLODIPine BESYLATE 10 MG TABLET (FP) PO SCH (09:29)
[2018-12-05] MEDS ORDERED: IBUPROFEN 400 MG TABLET (FP) PO PRN ×2 (09:42→13:45)
[2018-12-05] MEDS ORDERED: COLCHICINE 0.6 MG CAP PO SCH ×2 (10:00)
--- NOTE | 2018-12-05 13:17 | PN ---
Progress Note (short form) - Note Progress Note: overall improved chest discomfort is resolving Vital Signs Period Temp Pulse Resp BP Sys/Romeo Pulse Ox Last 24 Hr 98.6 F-99.1 F 90-109 18-20 88-131/60-79 98-98 cor-rrr lungs clear abd soft,nt ext no edema psoriasis unchanged CBC, BMP 12/05/18 05:25 12/05/18 05:25 Microbiology 12/03/18 20:00 Blood - Pre-Dialysis Blood Culture - Preliminary NO GROWTH OBTAINED AFTER 24 HOURS, INCUBATION TO CONTINUE FOR 4 DAYS. 12/03/18 20:00 Blood - Pre-Dialysis Blood Culture - Preliminary NO GROWTH OBTAINED AFTER 24 HOURS, INCUBATION TO CONTINUE FOR 4 DAYS. 12/02/18 14:10 Blood - Peripheral Venous Blood Culture - Preliminary NO GROWTH OBTAINED AFTER 48 HOURS, INCUBATION TO CONTINUE FOR 3 DAYS. 12/02/18 14:10 Blood - Peripheral Venous Blood Culture - Preliminary NO GROWTH OBTAINED AFTER 48 HOURS, INCUBATION TO CONTINUE FOR 3 DAYS. crp 37 a/p notes reviewed- c/w uremic pericarditis cultures negative will d/c antiiboitcs and observe esrd/hd Problem List - Problems (1) Fever Code(s): R50.9 - FEVER, UNSPECIFIED Qualifiers: Fever type: unspecified Qualified Code(s): R50.9 - Fever, unspecified (2) Leukocytosis Code(s): D72.829 - ELEVATED WHITE BLOOD CELL COUNT, UNSPECIFIED (3) ESRD (end stage renal disease) on dialysis Code(s): N18.6 - END STAGE RENAL DISEASE; Z99.2 - DEPENDENCE ON RENAL DIALYSIS (4) Psoriasis Code(s): L40.9 - PSORIASIS, UNSPECIFIED
--- NOTE | 2018-12-05 13:43 | PN ---
Progress Note (short form) - Note Progress Note: covering dr damian diagnosis today is uremic pericarditis cxr and ekg reviewed i am unable to locate the echo report ESRD on HD, Prior renal transplant (now not functioning), psoriasis, hypertension r/o ACS and leukocytoiss. anemia FUO/?bacteremia seen while on dialysis Current Medications Acetaminophen (Ofirmev Injection -) 1,000 mg IVPB Q6H PRN PRN Reason: PAIN OR FEVER Last Admin: 12/03/18 20:32 Dose: 1,000 mg Amlodipine Besylate (Norvasc -) 10 mg PO DAILY [facility] Last Admin: 12/05/18 09:29 Dose: 10 mg Aspirin (Ecotrin -) 81 mg PO DAILY [facility] Last Admin: 12/05/18 09:28 Dose: 81 mg Clonidine (Catapres -) 0.3 mg PO BID [facility] Last Admin: 12/05/18 09:28 Dose: 0.3 mg Colchicine (Colcrys) 0.6 mg PO DAILY [facility] Last Admin: 12/05/18 09:28 Dose: 0.6 mg Sodium Chloride (Normal Saline -) 250 mls @ 3,000 mls/hr IV PRN PRN PRN Reason: Hypotension during Dialysis Ibuprofen (Motrin -) 400 mg PO Q8H [facility] Last Vital Signs Temp Pulse Resp BP Pulse Ox 98.6 F 100 H 18 118/70 98 12/05/18 08:28 12/05/18 08:28 12/05/18 08:31 12/05/18 08:28 12/05/18 08:31 feels better Lungs cleaar Heart reg no rub Abd soft nontender ext no edema CBC, BMP 12/05/18 05:25 12/05/18 05:25 CBC, BMP 12/04/18 05:28 12/04/18 05:28 IMP- uremic pericarditis no clear risk factors- on 3h45 duration, no missed treatments, "good av access" , no pattern of fluid overload Plan- will start increased dialysis intensity today extra treatment patient understands the rational add recirculation test , pre and post hd labs
[2018-12-05] MEDS ORDERED: SODIUM CHLORIDE 250 ML IV PRN ×2 (13:45→22:11)
[2018-12-05 19:30] LABS: BLOOD UREA NITROGEN 14.6 mg/dL (7-18); CREATININE 4.3 mg/dL (0.55-1.3)
--- NOTE | 2018-12-06 07:51 | PN ---
Progress Note, Physician History of Present Illness: Patient is a 53 y/o male with past medical history of ESRD on HD(), psoriasis, HTN. Patient came to ER with complaints of chest pain described as dull and non radiating accompanied with SOB. Also states experiencing mid abdominal pain accomapnied nausea and vomiting. Patient states his complaints began last night at 7pm and gradually worsened through the night. 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 2014 (s/p small apical and moderate inferior ischemia) Coronary angiogram at [place] 09/20/2014 (normal coronary arteries) ECHO 09/01/2016 ([facility]): normal LVEF and LV size; trace MR; trace-mild TR; mild biatrial enlargement; discrete nodular thickening of the right coronary cusp of the trileaflet aortic valve, with no evidence of vegetation or mass (and no significant change from 07/2014 ECHO report). Ongoing medical problems Dialysis HTN Psoriasis (causing hyerpigmentation of legs and arms) AV graft left arm C. cath September 2018 - nonobstructive cors. - Current Medication List Current Medications: Active Medications Acetaminophen (Ofirmev Injection -) 1,000 mg IVPB Q6H PRN PRN Reason: PAIN OR FEVER Last Admin: 12/03/18 20:32 Dose: 1,000 mg Amlodipine Besylate (Norvasc -) 10 mg PO DAILY [facility] Last Admin: 12/05/18 09:29 Dose: 10 mg Aspirin (Ecotrin -) 81 mg PO DAILY [facility] Last Admin: 12/05/18 09:28 Dose: 81 mg Clonidine (Catapres -) 0.3 mg PO BID [facility] Last Admin: 12/05/18 21:37 Dose: 0.3 mg Colchicine (Colcrys) 0.6 mg PO DAILY [facility] Last Admin: 12/05/18 09:28 Dose: 0.6 mg Sodium Chloride (Normal Saline -) 250 mls @ 3,000 mls/hr IV PRN PRN PRN Reason: Hypotension during Dialysis Stop: 12/06/18 13:45 Sodium Chloride (Normal Saline -) 250 mls @ 3,000 mls/hr IV PRN PRN PRN Reason: Hypotension during Dialysis Stop: 12/06/18 22:11 Ibuprofen (Motrin -) 400 mg PO Q8H PRN PRN Reason: PAIN 1-3 - Objective Vital Signs: Vital Signs Temperature 98.6 F 12/06/18 06:00 Pulse Rate 88 12/06/18 06:00 Respiratory Rate 18 12/06/18 06:00 Blood Pressure 114/60 12/06/18 06:00 O2 Sat by Pulse Oximetry (%) 99 12/05/18 20:36 Eyes: Yes: WNL, Conjunctiva Clear, EOM Intact HENT: Yes: WNL, Atraumatic, Normocephalic Neck: Yes: WNL, Supple, Trachea Midline Cardiovascular: Yes: Regular Rate and Rhythm, Rub Respiratory: Yes: WNL, Regular, CTA Bilaterally Gastrointestinal: Yes: WNL, Normal Bowel Sounds Genitourinary: Yes: WNL Musculoskeletal: Yes: WNL Extremities: Yes: WNL Edema: No Integumentary: Yes: WNL Neurological: Yes: WNL, Alert, Oriented ...Motor Strength: WNL Psychiatric: Yes: WNL Labs: INR, PTT INR 1.18 (0.83-1.09) H 12/02/18 08:50 Problem List - Problems (1) ESRD (end stage renal disease) on dialysis Code(s): N18.6 - END STAGE RENAL DISEASE; Z99.2 - DEPENDENCE ON RENAL DIALYSIS (2) Leukocytosis Code(s): D72.829 - ELEVATED WHITE BLOOD CELL COUNT, UNSPECIFIED (3) Abdominal pain Code(s): R10.9 - UNSPECIFIED ABDOMINAL PAIN Qualifiers: Abdominal location: generalized Qualified Code(s): R10.84 - Generalized abdominal pain (4) Abnormal echocardiogram Code(s): R93.1 - ABNORMAL FINDINGS ON DX IMAGING OF HEART AND COR CIRC (5) Anemia in CKD (chronic kidney disease) Code(s): N18.9 - CHRONIC KIDNEY DISEASE, UNSPECIFIED; D63.1 - ANEMIA IN CHRONIC KIDNEY DISEASE (6) Anxiety Code(s): F41.9 - ANXIETY DISORDER, UNSPECIFIED (7) Axillary swelling Code(s): M79.89 - OTHER SPECIFIED SOFT TISSUE DISORDERS (8) Back pain Code(s): M54.9 - DORSALGIA, UNSPECIFIED (9) Bacteremia Code(s): R78.81 - BACTEREMIA (10) Bacterial endocarditis Code(s): I33.0 - ACUTE AND SUBACUTE INFECTIVE ENDOCARDITIS (11) Cellulitis of right upper arm Code(s): L03.113 - CELLULITIS OF RIGHT UPPER LIMB (12) Chest pain Code(s): R07.9 - CHEST PAIN, UNSPECIFIED (13) Chest pain Code(s): R07.9 - CHEST PAIN, UNSPECIFIED Qualifiers: Chest pain type: unspecified Qualified Code(s): R07.9 - Chest pain, unspecified (14) Constipation Code(s): K59.00 - CONSTIPATION, UNSPECIFIED (15) Diverticulitis Code(s): K57.92 - DVTRCLI OF INTEST, PART UNSP, W/O PERF OR ABSCESS W/O BLEED (16) Elevated troponin Code(s): R74.8 - ABNORMAL LEVELS OF OTHER SERUM ENZYMES (17) End-stage renal disease needing dialysis Code(s): N18.6 - END STAGE RENAL DISEASE; Z99.2 - DEPENDENCE ON RENAL DIALYSIS (18) Fever Code(s): R50.9 - FEVER, UNSPECIFIED Qualifiers: Fever type: unspecified Qualified Code(s): R50.9 - Fever, unspecified (19) Fever Code(s): R50.9 - FEVER, UNSPECIFIED (20) Gallbladder sludge Code(s): K82.8 - OTHER SPECIFIED DISEASES OF GALLBLADDER (21) Gastroenteritis Code(s): K52.9 - NONINFECTIVE GASTROENTERITIS AND COLITIS, UNSPECIFIED (22) HTN (hypertension) Code(s): I10 - ESSENTIAL (PRIMARY) HYPERTENSION Qualifiers: Hypertension type: essential hypertension Qualified Code(s): I10 - Essential (primary) hypertension (23) HTN (hypertension) Code(s): I10 - ESSENTIAL (PRIMARY) HYPERTENSION (24) History of staph septicemia Code(s): Z86.19 - PERSONAL HISTORY OF OTHER INFECTIOUS AND PARASITIC DISEASES (25) Hyperkalemia Code(s): E87.5 - HYPERKALEMIA (26) Hypertensive urgency Code(s): I10 - ESSENTIAL (PRIMARY) HYPERTENSION (27) Myalgia Code(s): M79.1 - MYALGIA * DO NOT USE * (28) Nausea Code(s): R11.0 - NAUSEA (29) Palpitations Code(s): R00.2 - PALPITATIONS (30) Pancreatitis Code(s): K85.9 - ACUTE PANCREATITIS, UNSPECIFIED * DO NOT USE * Qualifiers: Chronicity: acute Pancreatitis type: unspecified pancreatitis type (31) Psoriasis Code(s): L40.9 - PSORIASIS, UNSPECIFIED (32) Right flank pain Code(s): R10.9 - UNSPECIFIED ABDOMINAL PAIN (33) Right lower quadrant abdominal pain Code(s): R10.31 - RIGHT LOWER QUADRANT PAIN (34) Systolic CHF Code(s): I50.20 - UNSPECIFIED SYSTOLIC (CONGESTIVE) HEART FAILURE Assessment/Plan ESRD on HD(), psoriasis, HTN. Patient came to ER with complaints of chest pain described as dull and non radiating accompanied with SOB. recent c. cath - nonobstructive cors September 2018 cp free TNI elevated doubdt [place]. 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 No cp/sob today. TNIs increased to 0.7. 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 Physical exam significant for cardiac rub. Tnis trending down Plan; telemetry ekg dialiisis labetalol on hold concolchicine.
[2018-12-06 07:58] LABS: HEMATOCRIT 32.8 % (35.4-49); MCH 29.2 pg (25.7-33.7); MCHC 33.4 g/dl (32.0-35.9); MEAN CELL VOLUME 87.6 fl (80-96); MEAN PLT VOLUME 8.1 fl (7.5-11.1); PLATELET COUNT 286 K/MM3 (134-434); RBC 3.75 M/mm3 (4.00-5.60); RDW 16.3 % (11.9-15.9); WHITE BLOOD COUNT 7.1 K/mm3 (4.0-10.0)
[2018-12-06 08:32] LABS: ALBUMIN 2.4 g/dl (3.4-5.0); BILIRUBIN,TOTAL 0.5 mg/dL (0.2-1); BLOOD UREA NITROGEN 25.3 mg/dL (7-18); CALCIUM 8.5 mg/dL (8.5-10.1); CREATININE 6.8 mg/dL (0.55-1.3); POTASSIUM 3.8 mmol/L (3.5-5.1); TOT PROT 6.4 g/dl (6.4-8.2)
--- NOTE | 2018-12-06 11:27 | PN ---
Progress Note, Physician Chief Complaint: Chest pain Uremic pericarditis ESRD History of Present Illness: NAD Chest pain resolved with colchicine HD today Seen by nephrology Echo done shows- moderate concentric LVH, moderate LA dilation,severe mitral annular calcification, mod to severe MV thickening, MV stenosis, mild mitral+ tricuspid regurg, mild to moderate aortic regurg - Current Medication List Current Medications: Active Medications Acetaminophen (Ofirmev Injection -) 1,000 mg IVPB Q6H PRN PRN Reason: PAIN OR FEVER Last Admin: 12/03/18 20:32 Dose: 1,000 mg Amlodipine Besylate (Norvasc -) 10 mg PO DAILY [facility] Last Admin: 12/05/18 09:29 Dose: 10 mg Aspirin (Ecotrin -) 81 mg PO DAILY [facility] Last Admin: 12/05/18 09:28 Dose: 81 mg Clonidine (Catapres -) 0.3 mg PO BID [facility] Last Admin: 12/05/18 21:37 Dose: 0.3 mg Colchicine (Colcrys) 0.6 mg PO DAILY [facility] Last Admin: 12/05/18 09:28 Dose: 0.6 mg Sodium Chloride (Normal Saline -) 250 mls @ 3,000 mls/hr IV PRN PRN PRN Reason: Hypotension during Dialysis Stop: 12/06/18 13:45 Sodium Chloride (Normal Saline -) 250 mls @ 3,000 mls/hr IV PRN PRN PRN Reason: Hypotension during Dialysis Stop: 12/06/18 22:11 Ibuprofen (Motrin -) 400 mg PO Q8H PRN PRN Reason: PAIN 1-3 - Objective Vital Signs: Vital Signs Temperature 98.2 F 12/06/18 08:09 Pulse Rate 81 12/06/18 10:45 Respiratory Rate 18 12/06/18 10:45 Blood Pressure 121/80 12/06/18 10:45 O2 Sat by Pulse Oximetry (%) 99 12/06/18 08:09 Constitutional: Yes: Well Nourished, No Distress, Calm Cardiovascular: Yes: Regular Rate and Rhythm, Murmur (grade III/) Respiratory: Yes: Regular Gastrointestinal: Yes: Normal Bowel Sounds, Soft Genitourinary: Yes: Oliguria Musculoskeletal: Yes: WNL Extremities: Yes: WNL Edema: No Peripheral Pulses WNL: Yes Neurological: Yes: Alert, Oriented Psychiatric: Yes: Alert, Oriented Labs: CBC, BMP 12/06/18 06:25 12/06/18 06:25 INR, PTT INR 1.18 (0.83-1.09) H 12/02/18 08:50 Assessment/Plan (1) Leukocytosis Assessment/Plan: -resolved -ID on board -monitor daily for downtrend -BC neg x2 -CXR unremarkable -observe off antibiotics Code(s): D72.829 - ELEVATED WHITE BLOOD CELL COUNT, UNSPECIFIED (2) ESRD (end stage renal disease) on dialysis Assessment/Plan: -renal on board -continue with dialysis on scheduled days -continue to monitor renal function -renal diet Code(s): N18.6 - END STAGE RENAL DISEASE; Z99.2 - DEPENDENCE ON RENAL DIALYSIS (3) Abdominal pain Assessment/Plan: -resolved -Abdominal CT scan shows hepatomegaly, residual wall thickening in the proximal sigmoid colon compatible with chronic thickening without CT evidence of acute diverticulitis -GI on board -Abdominal US reviewed Code(s): R10.9 - UNSPECIFIED ABDOMINAL PAIN Qualifiers: Abdominal location: generalized Qualified Code(s): R10.84 - Generalized abdominal pain (4) HTN (hypertension) Assessment/Plan: -amlodipine, clonidine -low Na diet Code(s): I10 - ESSENTIAL (PRIMARY) HYPERTENSION Qualifiers: Hypertension type: essential hypertension Qualified Code(s): I10 - Essential (primary) hypertension (5) Chest pain Assessment/Plan: -Cardiology consult -tele monitoring -Trop 0.10, 0.16, 0.32, 0.70 -aspirin -Echo reviewed -On colchicine -2/2 to uremic pericarditis Code(s): R07.9 - CHEST PAIN, UNSPECIFIED (6) Uremic pericarditis Assessment/Plan: -cardiology recommendations appreciated -Colchicine 0.6mg daily -Motrin 400mg TID -Echocardiogram reviewed -troponin 0.70--will trend -HD for fluid removal Code(s): N18.9 - CHRONIC KIDNEY DISEASE, UNSPECIFIED; I32 - PERICARDITIS IN DISEASES CLASSIFIED ELSEWHERE Monitor overnight, if no complains, D/C home in AM
[2018-12-06] MEDS: COLCHICINE 0.6 MG CAP PO SCH (11:53)
[2018-12-06] MEDS: cloNIDine HCL 0.1 MG TABLET PO SCH ×2 (11:53→21:55)
[2018-12-06] MEDS: ASPIRIN COATED 81 MG TABLET.EC PO SCH (11:54)
[2018-12-06] MEDS: amLODIPine BESYLATE 10 MG TABLET (FP) PO SCH (11:54)
--- NOTE | 2018-12-06 14:09 | PN ---
Progress Note (short form) - Note Progress Note: overall improved chest discomfort is resolving s/p HD today Vital Signs Period Temp Pulse Resp BP Sys/Romeo Pulse Ox Last 24 Hr 97.7 F-99.3 F 68-97 18-20 106-138/60-95 99-99 cor-rrr +rub lungs clear abd soft,nt ext no edema psoriasis unchanged CBC, BMP 12/06/18 06:25 12/06/18 06:25 Microbiology 12/03/18 20:00 Blood - Pre-Dialysis Blood Culture - Preliminary NO GROWTH OBTAINED AFTER 48 HOURS, INCUBATION TO CONTINUE FOR 3 DAYS. 12/03/18 20:00 Blood - Pre-Dialysis Blood Culture - Preliminary NO GROWTH OBTAINED AFTER 48 HOURS, INCUBATION TO CONTINUE FOR 3 DAYS. 12/02/18 14:10 Blood - Peripheral Venous Blood Culture - Preliminary NO GROWTH OBTAINED AFTER 72 HOURS, INCUBATION TO CONTINUE FOR 2 DAYS. 12/02/18 14:10 Blood - Peripheral Venous Blood Culture - Preliminary NO GROWTH OBTAINED AFTER 72 HOURS, INCUBATION TO CONTINUE FOR 2 DAYS. Current Medications Acetaminophen (Ofirmev Injection -) 1,000 mg IVPB Q6H PRN PRN Reason: PAIN OR FEVER Last Admin: 12/03/18 20:32 Dose: 1,000 mg Amlodipine Besylate (Norvasc -) 10 mg PO DAILY [facility] Last Admin: 12/06/18 11:54 Dose: 10 mg Aspirin (Ecotrin -) 81 mg PO DAILY [facility] Last Admin: 12/06/18 11:54 Dose: 81 mg Clonidine (Catapres -) 0.3 mg PO BID [facility] Last Admin: 12/06/18 11:53 Dose: 0.3 mg Colchicine (Colcrys) 0.6 mg PO DAILY [facility] Last Admin: 12/06/18 11:53 Dose: 0.6 mg Sodium Chloride (Normal Saline -) 250 mls @ 3,000 mls/hr IV PRN PRN PRN Reason: Hypotension during Dialysis Stop: 12/06/18 13:45 Sodium Chloride (Normal Saline -) 250 mls @ 3,000 mls/hr IV PRN PRN PRN Reason: Hypotension during Dialysis Stop: 12/06/18 22:11 Ibuprofen (Motrin -) 400 mg PO Q8H PRN PRN Reason: PAIN 1-3 a/p d/w cardiology- uremic pericarditis-patient with rub and ekg changes cultures negative stable off antibiotics esrd/hd please call back if needed Problem List - Problems (1) Fever Code(s): R50.9 - FEVER, UNSPECIFIED Qualifiers: Fever type: unspecified Qualified Code(s): R50.9 - Fever, unspecified (2) Leukocytosis Code(s): D72.829 - ELEVATED WHITE BLOOD CELL COUNT, UNSPECIFIED (3) ESRD (end stage renal disease) on dialysis Code(s): N18.6 - END STAGE RENAL DISEASE; Z99.2 - DEPENDENCE ON RENAL DIALYSIS (4) Psoriasis Code(s): L40.9 - PSORIASIS, UNSPECIFIED
--- NOTE | 2018-12-06 15:30 | PN ---
Progress Note (short form) - Note Progress Note: Renal follow up for ESRD on HD Pt seen and examined at the bedside awake and alert s/p dialysis this am, tolerated it well concerned about getting too much dialysis no sob, cp, abd pain, N/V at the present time Vital Signs Temperature 98.2 F 12/06/18 08:09 Pulse Rate 93 H 12/06/18 11:54 Respiratory Rate 18 12/06/18 11:54 Blood Pressure 126/69 12/06/18 11:54 O2 Sat by Pulse Oximetry (%) 99 12/06/18 08:09 Intake & Output 12/03/18 12/04/18 12/05/18 12/06/18 23:59 23:59 23:59 23:59 Intake Total 860 1450 1150 250 Output Total 10 Balance 860 1440 1150 250 NAD RRR, no M/R CTA, no rales or wheeze mild abd tenderness no LE edema, clubbing or cyanosis left Arm AVF CBC, BMP 12/06/18 06:25 12/06/18 06:25 Current Medications Acetaminophen (Ofirmev Injection -) 1,000 mg IVPB Q6H PRN PRN Reason: PAIN OR FEVER Last Admin: 12/03/18 20:32 Dose: 1,000 mg Amlodipine Besylate (Norvasc -) 10 mg PO DAILY [facility] Last Admin: 12/06/18 11:54 Dose: 10 mg Aspirin (Ecotrin -) 81 mg PO DAILY [facility] Last Admin: 12/06/18 11:54 Dose: 81 mg Clonidine (Catapres -) 0.2 mg PO BID [facility] Colchicine (Colcrys) 0.6 mg PO DAILY [facility] Last Admin: 12/06/18 11:53 Dose: 0.6 mg Sodium Chloride (Normal Saline -) 250 mls @ 3,000 mls/hr IV PRN PRN PRN Reason: Hypotension during Dialysis Stop: 12/06/18 13:45 Sodium Chloride (Normal Saline -) 250 mls @ 3,000 mls/hr IV PRN PRN PRN Reason: Hypotension during Dialysis Stop: 12/06/18 22:11 Ibuprofen (Motrin -) 400 mg PO Q8H PRN PRN Reason: PAIN 1-3 Metoprolol Tartrate (Lopressor -) 50 mg PO BID [facility] 53 year old gentleman with hx of ESRD on HD, Prior renal transplant (now not functioning), psoriasis, hypertension who presented with epigastric pain and admitted for r/o ACS and leukocytoiss. #ESRD on HD (TTS) #Leukoctysois/Fever #Epigastic pain #Chronic Anemia related to CKD #Hypertension #Uremic pericarditis tolerated dialysis well this am s/p HD for the past 3 days for treatment of uremic pericarditis will repat EKG today ECHO done on admission showed no pericardial effusion will reaccess for HD in AM based on labs and clinical presentation Thank you Gonzalo Barros DO
[2018-12-06] MEDS: METOPROLOL TARTRATE 50 MG TABLET (FP) PO SCH ×2 (15:42→21:55)
[2018-12-06] MEDS ORDERED: METOPROLOL TARTRATE 50 MG TABLET (FP) PO SCH (22:00)
[2018-12-07 06:57] LABS: BASO % 0.9 % (0-2.0); EOS % 4.3 % (0-4.5); HEMATOCRIT 30.3 % (35.4-49); HEMOGLOBIN 9.9 GM/dL (11.7-16.9); LYMPH % 12.1 % (8-40); MCH 28.7 pg (25.7-33.7); MCHC 32.8 g/dl (32.0-35.9); MEAN CELL VOLUME 87.5 fl (80-96); MONO % 12.1 % (3.8-10.2); NEUT % 70.6 % (42.8-82.8); RBC 3.46 M/mm3 (4.00-5.60); RDW 16.5 % (11.9-15.9); WHITE BLOOD COUNT 6.3 K/mm3 (4.0-10.0)
[2018-12-07 07:31] LABS: BLOOD UREA NITROGEN 24.8 mg/dL (7-18); CALCIUM 8.1 mg/dL (8.5-10.1); CREATININE 6.1 mg/dL (0.55-1.3); PHOSPHOROUS 4.9 mg/dL (2.5-4.9); POTASSIUM 3.4 mmol/L (3.5-5.1)
[2018-12-07 08:02] LABS: PLATELET COUNT 273 K/MM3 (134-434)
--- NOTE | 2018-12-07 08:04 | PN ---
Progress Note, Physician Chief Complaint: Pt A&Ox3; no chest pain, even with postional changes; no palpitations. History of Present Illness: Patient is a 53 year old black male with a significant past medical history of HTN, ESRD (Dialysis ), borderline reduced systolic LVEF, who presents to the ED with localized chest pain beginning x4 hours ago. Pt reports chest pain is sternal, non radiating and feels like a pressure. He reports it has improved since arriving to the ED. He also reports epigastric pain yesteday a/w 2 episodes of NBNB emesis that resolved today. This morning the patient was going to be dialyzed but did not go due to the chest pain. Denies fever and chills, headaches, focal weakness/numbness, abd pain, sob, LE edema. Allergies: NKA - Current Medication List Current Medications: Active Medications Acetaminophen (Ofirmev Injection -) 1,000 mg IVPB Q6H PRN PRN Reason: PAIN OR FEVER Last Admin: 12/03/18 20:32 Dose: 1,000 mg Amlodipine Besylate (Norvasc -) 10 mg PO DAILY [facility] Last Admin: 12/06/18 11:54 Dose: 10 mg Aspirin (Ecotrin -) 81 mg PO DAILY [facility] Last Admin: 12/06/18 11:54 Dose: 81 mg Clonidine (Catapres -) 0.2 mg PO BID [facility] Last Admin: 12/06/18 21:55 Dose: 0.2 mg Colchicine (Colcrys) 0.6 mg PO DAILY [facility] Last Admin: 12/06/18 11:53 Dose: 0.6 mg Sodium Chloride (Normal Saline -) 250 mls @ 3,000 mls/hr IV PRN PRN PRN Reason: Hypotension during Dialysis Stop: 12/06/18 13:45 Sodium Chloride (Normal Saline -) 250 mls @ 3,000 mls/hr IV PRN PRN PRN Reason: Hypotension during Dialysis Stop: 12/06/18 22:11 Ibuprofen (Motrin -) 400 mg PO Q8H PRN PRN Reason: PAIN 1-3 Metoprolol Tartrate (Lopressor -) 50 mg PO BID [facility] Last Admin: 12/06/18 21:55 Dose: 50 mg - Objective Vital Signs: Vital Signs Temperature 98.5 F 12/07/18 07:58 Pulse Rate 83 12/07/18 06:00 Respiratory Rate 20 12/07/18 07:58 Blood Pressure 124/77 12/07/18 06:00 O2 Sat by Pulse Oximetry (%) 96 12/07/18 07:55 Constitutional: Yes: Anxious Eyes: Yes: WNL HENT: Yes: WNL Neck: Yes: WNL Cardiovascular: Yes: Regular Rate and Rhythm, Murmur (2/6 diastoic murmur, LSB-- >apex), Rub Respiratory: Yes: WNL Gastrointestinal: Yes: Soft ...Rectal Exam: Yes: Deferred Genitourinary: No: Anuria Musculoskeletal: Yes: WNL Extremities: Yes: WNL Edema: No Peripheral Pulses WNL: Yes Integumentary: Yes: WNL, Other (AV graft) Neurological: Yes: WNL ...Motor Strength: WNL Psychiatric: Yes: WNL Labs: CBC, BMP 12/07/18 05:45 12/07/18 05:45 INR, PTT INR 1.18 (0.83-1.09) H 12/02/18 08:50 Abnormal Lab Results 12/07/18 12/07/18 05:45 05:45 RBC 3.46 L Hgb 9.9 L Hct 30.3 L RDW 16.5 H Monocytes % 12.1 H Potassium 3.4 L BUN 24.8 H Creatinine 6.1 H Calcium 8.1 L - ....Imaging EKG: Image Reviewed Problem List - Problems (1) ESRD (end stage renal disease) on dialysis Code(s): N18.6 - END STAGE RENAL DISEASE; Z99.2 - DEPENDENCE ON RENAL DIALYSIS (2) Uremic pericarditis Code(s): N18.9 - CHRONIC KIDNEY DISEASE, UNSPECIFIED; I32 - PERICARDITIS IN DISEASES CLASSIFIED ELSEWHERE (3) Abnormal echocardiogram Code(s): R93.1 - ABNORMAL FINDINGS ON DX IMAGING OF HEART AND COR CIRC (4) Anemia in CKD (chronic kidney disease) Code(s): N18.9 - CHRONIC KIDNEY DISEASE, UNSPECIFIED; D63.1 - ANEMIA IN CHRONIC KIDNEY DISEASE (5) HTN (hypertension) Assessment/Plan: see "systolic CHF". Code(s): I10 - ESSENTIAL (PRIMARY) HYPERTENSION Qualifiers: Hypertension type: essential hypertension Qualified Code(s): I10 - Essential (primary) hypertension (6) Palpitations Code(s): R00.2 - PALPITATIONS (7) Psoriasis Code(s): L40.9 - PSORIASIS, UNSPECIFIED (8) Systolic CHF Assessment/Plan: On metoprolol for H control and reduced LVEF. (Taper off clonidine due to potential adverse interaction with beta griselda). Start lisinopril (follow K+ serially). Code(s): I50.20 - UNSPECIFIED SYSTOLIC (CONGESTIVE) HEART FAILURE (9) PAF (paroxysmal atrial fibrillation) Assessment/Plan: Pt felt sudden onset of palpitations yesterday afternoon, and was noted to be in atrial fibrlation. Now on beta blockers; converted to sinus rhythm after several hours. Anticoagulation was not started due to short duration of PAF and present pericarditis. Replete K+, and keep level 4.0-4.5 Keep Mg level 2.0-2.4 F/u on telemetry. Code(s): I48.0 - PAROXYSMAL ATRIAL FIBRILLATION
[2018-12-07] MEDS: cloNIDine HCL 0.1 MG TABLET PO SCH ×3 (09:12→21:47)
[2018-12-07] MEDS: METOPROLOL TARTRATE 50 MG TABLET (FP) PO SCH ×2 (09:13→21:48)
[2018-12-07] MEDS ORDERED: POTASSIUM CHLORIDE ORAL LIQUID 20 MEQ/15 ML PO ONE (09:13)
[2018-12-07] MEDS: amLODIPine BESYLATE 10 MG TABLET (FP) PO SCH (09:13)
[2018-12-07] MEDS: ASPIRIN COATED 81 MG TABLET.EC PO SCH (09:13)
[2018-12-07] MEDS: COLCHICINE 0.6 MG CAP PO SCH (09:13)
[2018-12-07] MEDS ORDERED: POTASSIUM CHLORIDE TABS 20 MEQ TABLET.ER (FP) PO ONE (10:00)
[2018-12-07] MEDS ORDERED: ACETAMINOPHEN 325 MG TABLET (FP) PO PRN (11:13)
--- NOTE | 2018-12-07 11:14 | PN ---
Progress Note, Physician Chief Complaint: Chest pain Uremic pericarditis ESRD History of Present Illness: NAD Chest pain resolved with colchicine HD today Seen by nephrology Echo done shows- moderate concentric LVH, moderate LA dilation,severe mitral annular calcification, mod to severe MV thickening, MV stenosis, mild mitral+ tricuspid regurg, mild to moderate aortic regurg - Current Medication List Current Medications: Active Medications Acetaminophen (Ofirmev Injection -) 1,000 mg IVPB Q6H PRN PRN Reason: PAIN OR FEVER Last Admin: 12/03/18 20:32 Dose: 1,000 mg Amlodipine Besylate (Norvasc -) 10 mg PO DAILY [facility] Last Admin: 12/07/18 09:13 Dose: 10 mg Aspirin (Ecotrin -) 81 mg PO DAILY [facility] Last Admin: 12/07/18 09:13 Dose: 81 mg Clonidine (Catapres -) 0.1 mg PO BID [facility] Sodium Chloride (Normal Saline -) 250 mls @ 3,000 mls/hr IV PRN PRN PRN Reason: Hypotension during Dialysis Stop: 12/06/18 13:45 Sodium Chloride (Normal Saline -) 250 mls @ 3,000 mls/hr IV PRN PRN PRN Reason: Hypotension during Dialysis Stop: 12/06/18 22:11 Ibuprofen (Motrin -) 400 mg PO Q8H PRN PRN Reason: PAIN 1-3 Metoprolol Tartrate (Lopressor -) 50 mg PO BID [facility] Last Admin: 12/07/18 09:13 Dose: 50 mg - Objective Vital Signs: Vital Signs Temperature 98.5 F 12/07/18 07:58 Pulse Rate 83 12/07/18 06:00 Respiratory Rate 20 12/07/18 07:58 Blood Pressure 124/77 12/07/18 06:00 O2 Sat by Pulse Oximetry (%) 96 12/07/18 07:55 Constitutional: Yes: Well Nourished, No Distress, Calm Cardiovascular: Yes: Regular Rate and Rhythm Respiratory: Yes: Regular Gastrointestinal: Yes: WNL Genitourinary: Yes: Oliguria Musculoskeletal: Yes: WNL Extremities: Yes: WNL Edema: No Peripheral Pulses WNL: Yes Neurological: Yes: Alert, Oriented Psychiatric: Yes: Alert, Oriented Labs: CBC, BMP 12/07/18 05:45 12/07/18 05:45 INR, PTT INR 1.18 (0.83-1.09) H 12/02/18 08:50 Problem List - Problems (1) Hyperthyroidism Assessment/Plan: -mild, contributing factor to PAF -TSH low, T4 elevated-consistent with hyperthyroidism -Endocrine consult -Start methimazole 5 mg po daily -repeat thyroid profile in 4-6 weeks Code(s): E05.90 - THYROTOXICOSIS, UNSP WITHOUT THYROTOXIC CRISIS OR STORM (2) PAF (paroxysmal atrial fibrillation) Assessment/Plan: -Cardiology on board -Tele monitor -K+ replenished, Hyperthyroidism being corrected -[id number], low thromboembolic risk, no AC indicated Code(s): I48.0 - PAROXYSMAL ATRIAL FIBRILLATION Assessment/Plan (1) Leukocytosis Assessment/Plan: -resolved -ID on board -monitor daily for downtrend -BC neg x2 -CXR unremarkable -observe off antibiotics Code(s): D72.829 - ELEVATED WHITE BLOOD CELL COUNT, UNSPECIFIED (2) ESRD (end stage renal disease) on dialysis Assessment/Plan: -renal on board -continue with dialysis on scheduled days -continue to monitor renal function -renal diet Code(s): N18.6 - END STAGE RENAL DISEASE; Z99.2 - DEPENDENCE ON RENAL DIALYSIS (3) Abdominal pain Assessment/Plan: -resolved -Abdominal CT scan shows hepatomegaly, residual wall thickening in the proximal sigmoid colon compatible with chronic thickening without CT evidence of acute diverticulitis -GI on board -Abdominal US reviewed Code(s): R10.9 - UNSPECIFIED ABDOMINAL PAIN Qualifiers: Abdominal location: generalized Qualified Code(s): R10.84 - Generalized abdominal pain (4) HTN (hypertension) Assessment/Plan: -amlodipine, clonidine -low Na diet Code(s): I10 - ESSENTIAL (PRIMARY) HYPERTENSION Qualifiers: Hypertension type: essential hypertension Qualified Code(s): I10 - Essential (primary) hypertension (5) Chest pain Assessment/Plan: -Cardiology consult -tele monitoring -Trop 0.10, 0.16, 0.32, 0.70 -aspirin -Echo reviewed -d/c colchicine and ibuprofen-no evidence of effectiveness, however, colchicine may reduce risk of recurrence, but patient seems comfortable after being aggressively dialyzed. -2/2 to uremic pericarditis Code(s): R07.9 - CHEST PAIN, UNSPECIFIED (6) Uremic pericarditis Assessment/Plan: -cardiology recommendations appreciated -Echocardiogram reviewed -troponin 0.70--will trend -HD for fluid removal Code(s): N18.9 - CHRONIC KIDNEY DISEASE, UNSPECIFIED; I32 - PERICARDITIS IN DISEASES CLASSIFIED ELSEWHERE Monitor overnight, if no complains, D/C home in AM
[2018-12-07] MEDS: LOSARTAN POTASSIUM 25 MG TABLET PO SCH (13:37)
--- NOTE | 2018-12-07 14:44 | EKG ---
Test Reason : Blood Pressure : / mmHG Vent. Rate : 083 BPM Atrial Rate : 117 BPM P-R Int : 000 ms QRS Dur : 110 ms QT Int : 428 ms P-R-T Axes : 000 -07 080 degrees QTc Int : 502 ms ATRIAL FIBRILLATION MODERATE VOLTAGE CRITERIA FOR LVH, MAY BE NORMAL VARIANT ST ELEVATION, CONSIDER EARLY REPOLARIZATION, PERICARDITIS, OR INJURY NONSPECIFIC T WAVE ABNORMALITY PROLONGED QT ABNORMAL ECG WHEN COMPARED WITH ECG OF 04-DEC-2018 13:10, ATRIAL FIBRILLATION HAS REPLACED SINUS RHYTHM Confirmed by Jung Rios MD ([id number]) on 12/07/2018 2:43:27 PM Referred By: Confirmed By:Jung Rios MD
--- NOTE | 2018-12-07 17:04 | PN ---
Progress Note (short form) - Note Progress Note: Renal follow up for ESRD on HD Pt seen and examined at the bedside awake and alert no acute complaints no sob, cp, abd pain noted to have short runs of afib on tele overnight Vital Signs Temperature 99.2 F 12/07/18 14:00 Pulse Rate 83 12/07/18 14:00 Respiratory Rate 20 12/07/18 14:00 Blood Pressure 111/83 12/07/18 14:00 O2 Sat by Pulse Oximetry (%) 96 12/07/18 07:55 Intake & Output 12/04/18 12/05/18 12/06/18 12/07/18 23:59 23:59 23:59 23:59 Intake Total 1450 1150 260 10 Output Total 10 Balance 1440 1150 260 10 NAD RRR, no M/R CTA, no rales or wheeze mild abd tenderness no LE edema, clubbing or cyanosis left Arm AVF CBC, BMP 12/07/18 05:45 12/07/18 05:45 Current Medications Acetaminophen (Tylenol -) 650 mg PO Q4H PRN PRN Reason: FEVER Amlodipine Besylate (Norvasc -) 10 mg PO DAILY [facility] Last Admin: 12/07/18 09:13 Dose: 10 mg Aspirin (Ecotrin -) 81 mg PO DAILY [facility] Last Admin: 12/07/18 09:13 Dose: 81 mg Clonidine (Catapres -) 0.1 mg PO BID [facility] Last Admin: 12/07/18 11:25 Dose: Not Given Sodium Chloride (Normal Saline -) 250 mls @ 3,000 mls/hr IV PRN PRN PRN Reason: Hypotension during Dialysis Stop: 12/06/18 13:45 Sodium Chloride (Normal Saline -) 250 mls @ 3,000 mls/hr IV PRN PRN PRN Reason: Hypotension during Dialysis Stop: 12/06/18 22:11 Losartan Potassium (Cozaar -) 25 mg PO DAILY [facility] Last Admin: 12/07/18 13:37 Dose: 25 mg Metoprolol Tartrate (Lopressor -) 50 mg PO BID [facility] Last Admin: 12/07/18 09:13 Dose: 50 mg 53 year old gentleman with hx of ESRD on HD, Prior renal transplant (now not functioning), psoriasis, hypertension who presented with epigastric pain and admitted for r/o ACS and leukocytoiss. #ESRD on HD (TTS) #Leukoctysois/Fever #Epigastic pain #Chronic Anemia related to CKD #Hypertension #Uremic pericarditis Case discussed with cardiology, will check ECHO in AM for pericardial effusion EKG in AM as well if there is residual evidence of pericarditis will plan additional HD tomorrow check BMP in AM Thank you Gonzalo Barros DO
[2018-12-07] MEDS: METHIMAZOLE 5 MG TABLET (FP) PO SCH (21:47)
[2018-12-08 06:41] LABS: BLOOD UREA NITROGEN 44.2 mg/dL (7-18); CALCIUM 8.8 mg/dL (8.5-10.1); POTASSIUM 3.9 mmol/L (3.5-5.1)
[2018-12-08 06:56] LABS: CREATININE 9.1 mg/dL (0.55-1.3)
[2018-12-08] MEDS ORDERED: PT OWN MED DRAWER 7, Y5N ONE (09:40)
[2018-12-08] MEDS: METHIMAZOLE 5 MG TABLET (FP) PO SCH (09:49)
[2018-12-08] MEDS: ASPIRIN COATED 81 MG TABLET.EC PO SCH (09:50)
--- NOTE | 2018-12-08 10:27 | EKG ---
Test Reason : Blood Pressure : / mmHG Vent. Rate : 083 BPM Atrial Rate : 083 BPM P-R Int : 200 ms QRS Dur : 116 ms QT Int : 394 ms P-R-T Axes : 076 -07 088 degrees QTc Int : 462 ms NORMAL SINUS RHYTHM POSSIBLE LEFT ATRIAL ENLARGEMENT ST ELEVATION, CONSIDER EARLY REPOLARIZATION, PERICARDITIS, OR INJURY ABNORMAL ECG Confirmed by JOCELINE WILEY MD ([id number]) on 12/08/2018 10:27:26 AM Referred By: Julio CLARK Confirmed By:JOCELINE WILEY MD
--- NOTE | 2018-12-08 10:57 | PN ---
Progress Note, Physician History of Present Illness: Patient is a 53 y/o male with past medical history of ESRD on HD(), psoriasis, HTN. Patient came to ER with complaints of chest pain described as dull and non radiating accompanied with SOB. Also states experiencing mid abdominal pain accomapnied nausea and vomiting. Patient states his complaints began last night at 7pm and gradually worsened through the night. 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 Ongoing medical problems Dialysis HTN Psoriasis (causing hyerpigmentation of legs and arms) AV graft left arm C. cath September 2018 - nonobstructive cors. - Current Medication List Current Medications: Active Medications Acetaminophen (Tylenol -) 650 mg PO Q4H PRN PRN Reason: FEVER Amlodipine Besylate (Norvasc -) 10 mg PO DAILY [facility] Last Admin: 12/07/18 09:13 Dose: 10 mg Aspirin (Ecotrin -) 81 mg PO DAILY [facility] Last Admin: 12/08/18 09:50 Dose: 81 mg Clonidine (Catapres -) 0.1 mg PO BID [facility] Last Admin: 12/07/18 21:47 Dose: 0.1 mg Sodium Chloride (Normal Saline -) 250 mls @ 3,000 mls/hr IV PRN PRN PRN Reason: Hypotension during Dialysis Stop: 12/06/18 13:45 Sodium Chloride (Normal Saline -) 250 mls @ 3,000 mls/hr IV PRN PRN PRN Reason: Hypotension during Dialysis Stop: 12/06/18 22:11 Losartan Potassium (Cozaar -) 25 mg PO DAILY [facility] Last Admin: 12/07/18 13:37 Dose: 25 mg Methimazole (Tapazole -) 5 mg PO DAILY [facility] Last Admin: 12/08/18 09:49 Dose: 5 mg Metoprolol Tartrate (Lopressor -) 50 mg PO BID [facility] Last Admin: 12/07/18 21:48 Dose: 50 mg - Objective Vital Signs: Vital Signs Temperature 98.5 F 12/08/18 06:00 Pulse Rate 84 12/08/18 06:00 Respiratory Rate 18 12/08/18 06:00 Blood Pressure 145/88 12/08/18 06:00 O2 Sat by Pulse Oximetry (%) 97 12/07/18 21:00 Eyes: Yes: WNL, Conjunctiva Clear, EOM Intact HENT: Yes: WNL, Atraumatic, Normocephalic Neck: Yes: WNL, Supple, Trachea Midline Cardiovascular: Yes: Regular Rate and Rhythm, Rub Respiratory: Yes: WNL, Regular, CTA Bilaterally Gastrointestinal: Yes: WNL, Normal Bowel Sounds Genitourinary: Yes: WNL Musculoskeletal: Yes: WNL Extremities: Yes: WNL Edema: No Integumentary: Yes: WNL Neurological: Yes: WNL, Alert, Oriented ...Motor Strength: WNL Psychiatric: Yes: WNL Labs: CBC, BMP 12/07/18 05:45 12/08/18 06:00 INR, PTT INR 1.18 (0.83-1.09) H 12/02/18 08:50 Problem List - Problems (1) ESRD (end stage renal disease) on dialysis Code(s): N18.6 - END STAGE RENAL DISEASE; Z99.2 - DEPENDENCE ON RENAL DIALYSIS (2) Leukocytosis Code(s): D72.829 - ELEVATED WHITE BLOOD CELL COUNT, UNSPECIFIED (3) Abdominal pain Code(s): R10.9 - UNSPECIFIED ABDOMINAL PAIN Qualifiers: Abdominal location: generalized Qualified Code(s): R10.84 - Generalized abdominal pain (4) Abnormal echocardiogram Code(s): R93.1 - ABNORMAL FINDINGS ON DX IMAGING OF HEART AND COR CIRC (5) Anemia in CKD (chronic kidney disease) Code(s): N18.9 - CHRONIC KIDNEY DISEASE, UNSPECIFIED; D63.1 - ANEMIA IN CHRONIC KIDNEY DISEASE (6) Anxiety Code(s): F41.9 - ANXIETY DISORDER, UNSPECIFIED (7) Axillary swelling Code(s): M79.89 - OTHER SPECIFIED SOFT TISSUE DISORDERS (8) Back pain Code(s): M54.9 - DORSALGIA, UNSPECIFIED (9) Bacteremia Code(s): R78.81 - BACTEREMIA (10) Bacterial endocarditis Code(s): I33.0 - ACUTE AND SUBACUTE INFECTIVE ENDOCARDITIS (11) Cellulitis of right upper arm Code(s): L03.113 - CELLULITIS OF RIGHT UPPER LIMB (12) Chest pain Code(s): R07.9 - CHEST PAIN, UNSPECIFIED (13) Chest pain Code(s): R07.9 - CHEST PAIN, UNSPECIFIED Qualifiers: Chest pain type: unspecified Qualified Code(s): R07.9 - Chest pain, unspecified (14) Constipation Code(s): K59.00 - CONSTIPATION, UNSPECIFIED (15) Diverticulitis Code(s): K57.92 - DVTRCLI OF INTEST, PART UNSP, W/O PERF OR ABSCESS W/O BLEED (16) Elevated troponin Code(s): R74.8 - ABNORMAL LEVELS OF OTHER SERUM ENZYMES (17) End-stage renal disease needing dialysis Code(s): N18.6 - END STAGE RENAL DISEASE; Z99.2 - DEPENDENCE ON RENAL DIALYSIS (18) Fever Code(s): R50.9 - FEVER, UNSPECIFIED Qualifiers: Fever type: unspecified Qualified Code(s): R50.9 - Fever, unspecified (19) Fever Code(s): R50.9 - FEVER, UNSPECIFIED (20) Gallbladder sludge Code(s): K82.8 - OTHER SPECIFIED DISEASES OF GALLBLADDER (21) Gastroenteritis Code(s): K52.9 - NONINFECTIVE GASTROENTERITIS AND COLITIS, UNSPECIFIED (22) HTN (hypertension) Code(s): I10 - ESSENTIAL (PRIMARY) HYPERTENSION Qualifiers: Hypertension type: essential hypertension Qualified Code(s): I10 - Essential (primary) hypertension (23) HTN (hypertension) Code(s): I10 - ESSENTIAL (PRIMARY) HYPERTENSION (24) History of staph septicemia Code(s): Z86.19 - PERSONAL HISTORY OF OTHER INFECTIOUS AND PARASITIC DISEASES (25) Hyperkalemia Code(s): E87.5 - HYPERKALEMIA (26) Hypertensive urgency Code(s): I10 - ESSENTIAL (PRIMARY) HYPERTENSION (27) Myalgia Code(s): M79.1 - MYALGIA * DO NOT USE * (28) Nausea Code(s): R11.0 - NAUSEA (29) Palpitations Code(s): R00.2 - PALPITATIONS (30) Pancreatitis Code(s): K85.9 - ACUTE PANCREATITIS, UNSPECIFIED * DO NOT USE * Qualifiers: Chronicity: acute Pancreatitis type: unspecified pancreatitis type (31) Psoriasis Code(s): L40.9 - PSORIASIS, UNSPECIFIED (32) Right flank pain Code(s): R10.9 - UNSPECIFIED ABDOMINAL PAIN (33) Right lower quadrant abdominal pain Code(s): R10.31 - RIGHT LOWER QUADRANT PAIN (34) Systolic CHF Code(s): I50.20 - UNSPECIFIED SYSTOLIC (CONGESTIVE) HEART FAILURE Assessment/Plan - Problems (1) ESRD (end stage renal disease) on dialysis Code(s): N18.6 - END STAGE RENAL DISEASE; Z99.2 - DEPENDENCE ON RENAL DIALYSIS (2) Uremic pericarditis Code(s): N18.9 - CHRONIC KIDNEY DISEASE, UNSPECIFIED; I32 - PERICARDITIS IN DISEASES CLASSIFIED ELSEWHERE (3) Abnormal echocardiogram Code(s): R93.1 - ABNORMAL FINDINGS ON DX IMAGING OF HEART AND COR CIRC (4) Anemia in CKD (chronic kidney disease) Code(s): N18.9 - CHRONIC KIDNEY DISEASE, UNSPECIFIED; D63.1 - ANEMIA IN CHRONIC KIDNEY DISEASE (5) HTN (hypertension) Assessment/Plan: see "systolic CHF". Code(s): I10 - ESSENTIAL (PRIMARY) HYPERTENSION Qualifiers: Hypertension type: essential hypertension Qualified Code(s): I10 - Essential (primary) hypertension (6) Palpitations Code(s): R00.2 - PALPITATIONS (7) Psoriasis Code(s): L40.9 - PSORIASIS, UNSPECIFIED (8) Systolic CHF Assessment/Plan: On metoprolol for H control and reduced LVEF. (Taper off clonidine due to potential adverse interaction with beta griselda). Start lisinopril (follow K+ serially). Code(s): I50.20 - UNSPECIFIED SYSTOLIC (CONGESTIVE) HEART FAILURE (9) PAF (paroxysmal atrial fibrillation) Assessment/Plan: Pt felt sudden onset of palpitations yesterday afternoon, and was noted to be in atrial fibrlation. Now on beta blockers; converted to sinus rhythm after several hours. Anticoagulation was not started due to short duration of PAF and present pericarditis. Replete K+, and keep level 4.0-4.5 Keep Mg level 2.0-2.4 F/u on telemetry. Code(s): I48.0 - PAROXYSMAL ATRIAL FIBRILLATION
[2018-12-08] MEDS: METOPROLOL TARTRATE 50 MG TABLET (FP) PO SCH (11:56)
--- NOTE | 2018-12-08 12:30 | PN ---
Progress Note (short form) - Note Progress Note: PULMONARY CONSULTATION DICTATED 12/08/18 IMP CHEST PAIN LIKELY SECONDARY TO UREMIC PERICARDITIS RESOLVED DYSPNEA IMPROVED LIKELY MILD VOLUME OVERLOAD ESRD ON HD HTN ANEMIA PSORIASIS ABDOMINAL PAIN N/V RESOLVED FEVER RESOLVED CULTURES NEGATIVE PLAN HD PER RENAL ECHO MONITOR SONA [place]RO[place] COMPLETED DR ZEPEDA Problem List - Problems (1) ESRD (end stage renal disease) on dialysis Code(s): N18.6 - END STAGE RENAL DISEASE; Z99.2 - DEPENDENCE ON RENAL DIALYSIS (2) Hyperthyroidism Code(s): E05.90 - THYROTOXICOSIS, UNSP WITHOUT THYROTOXIC CRISIS OR STORM (3) Nausea & vomiting Code(s): R11.2 - NAUSEA WITH VOMITING, UNSPECIFIED (4) Uremic pericarditis Code(s): N18.9 - CHRONIC KIDNEY DISEASE, UNSPECIFIED; I32 - PERICARDITIS IN DISEASES CLASSIFIED ELSEWHERE (5) Abdominal pain Code(s): R10.9 - UNSPECIFIED ABDOMINAL PAIN Qualifiers: Abdominal location: generalized Qualified Code(s): R10.84 - Generalized abdominal pain (6) Anemia in CKD (chronic kidney disease) Code(s): N18.9 - CHRONIC KIDNEY DISEASE, UNSPECIFIED; D63.1 - ANEMIA IN CHRONIC KIDNEY DISEASE (7) Chest pain Code(s): R07.9 - CHEST PAIN, UNSPECIFIED Qualifiers: Chest pain type: unspecified Qualified Code(s): R07.9 - Chest pain, unspecified (8) Fever Code(s): R50.9 - FEVER, UNSPECIFIED Qualifiers: Fever type: unspecified Qualified Code(s): R50.9 - Fever, unspecified (9) HTN (hypertension) Code(s): I10 - ESSENTIAL (PRIMARY) HYPERTENSION Qualifiers: Hypertension type: essential hypertension Qualified Code(s): I10 - Essential (primary) hypertension (10) Psoriasis Code(s): L40.9 - PSORIASIS, UNSPECIFIED
--- NOTE | 2018-12-08 12:45 | ECHO ---
Name: AMANDA GONZÁLES Exam:Adult Echocardiogram Study Date: 12/08/2018 12:09 PM Age: 53 yrs Reason For Study: Pericardial Effusion Height: 69 in Weight: 163 lb BSA: 1.9 m2 Procedure A two-dimensional transthoracic echocardiogram with color flow and Doppler was performed. Left Ventricle There is moderate concentric left ventricular hypertrophy. Left ventricular systolic function is bord antony reduced. Right Ventricle The right ventricle is normal in size and function. Mitral Valve There is moderate mitral valve thickening. Calcified mitral apparatus. Calcified mitral apparatus cau sing mitral stenosis. Functional mitral valve stenosis secondary to MAC. There is mild mitral regurgitatio n. Tricuspid Valve The tricuspid valve is normal in structure and function. Aortic Valve The aortic valve is trileaflet. There is moderate aortic valve thickening. There is moderate aortic sclerosis.;. Mild to moderate valvular aortic stenosis. Mild to moderate aortic regurgitation. Pulmonic Valve The pulmonic valve is not well visualized. Pericardium/Pleura There is a moderate pericardial effusion. There are no echocardiographic indications of cardiac tampo nade. Interpretation Summary There is moderate concentric left ventricular hypertrophy. There is moderate aortic valve thickening. The aortic valve is trileaflet. There is moderate aortic sclerosis.; There is moderate mitral valve thickening. Calcified mitral apparatus. Functional mitral valve stenosis secondary to MAC Calcified mitral apparatus causing mitral stenosis. Left ventricular systolic function is borderline reduced. There is a moderate pericardial effusion. There are no echocardiographic indications of cardiac tamponade. There is mild mitral regurgitation. MD Jem White 12/08/2018 12:44 PM
[2018-12-08] MEDS ORDERED: SODIUM CHLORIDE 250 ML IV PRN (15:00)
--- NOTE | 2018-12-08 15:18 | PN ---
Progress Note (short form) - Note Progress Note: Renal follow up for ESRD on HD Pt seen and examined at the [facility] awake and alert denies any CP no SOB, N/V/D Last dialysis was Thursday Vital Signs Temperature 99.2 F 12/08/18 10:00 Pulse Rate 87 12/08/18 10:00 Respiratory Rate 20 12/08/18 10:00 Blood Pressure 138/84 12/08/18 10:00 O2 Sat by Pulse Oximetry (%) 97 12/08/18 09:00 Intake & Output 12/05/18 12/06/18 12/07/18 12/08/18 23:59 23:59 23:59 23:59 Intake Total 1150 260 270 10 Balance 1150 260 270 10 NAD RRR, no M/R CTA, no rales or wheeze mild abd tenderness no LE edema, clubbing or cyanosis left Arm AVF CBC, BMP 12/07/18 05:45 12/08/18 06:00 Current Medications Acetaminophen (Tylenol -) 650 mg PO Q4H PRN PRN Reason: FEVER Amlodipine Besylate (Norvasc -) 10 mg PO DAILY [facility] Last Admin: 12/07/18 09:13 Dose: 10 mg Aspirin (Ecotrin -) 81 mg PO DAILY [facility] Last Admin: 12/08/18 09:50 Dose: 81 mg Clonidine (Catapres -) 0.1 mg PO BID [facility] Last Admin: 12/07/18 21:47 Dose: 0.1 mg Sodium Chloride (Normal Saline -) 250 mls @ 3,000 mls/hr IV PRN PRN PRN Reason: Hypotension during Dialysis Stop: 12/06/18 13:45 Sodium Chloride (Normal Saline -) 250 mls @ 3,000 mls/hr IV PRN PRN PRN Reason: Hypotension during Dialysis Stop: 12/06/18 22:11 Sodium Chloride (Normal Saline -) 250 mls @ 3,000 mls/hr IV PRN PRN PRN Reason: Hypotension during Dialysis Stop: 12/09/18 15:00 Losartan Potassium (Cozaar -) 25 mg PO DAILY [facility] Last Admin: 12/07/18 13:37 Dose: 25 mg Methimazole (Tapazole -) 5 mg PO DAILY [facility] Last Admin: 12/08/18 09:49 Dose: 5 mg Metoprolol Tartrate (Lopressor -) 50 mg PO BID [facility] Last Admin: 12/08/18 11:56 Dose: 50 mg 53 year old gentleman with hx of ESRD on HD, Prior renal transplant (now not functioning), psoriasis, hypertension who presented with epigastric pain and admitted for r/o ACS and leukocytoiss. #ESRD on HD (TTS) #Leukoctysois/Fever #Epigastic pain #Chronic Anemia related to CKD #Hypertension #Uremic pericarditis/pericardial effusion ECHO shows moderate pericardial effusion, will arrange for additional dialysis today. Can resume outpatient dialysis tomorrow. will increase total treatment time and blood flow rate with outpatient dialysis to increase efficacy Thank you Gonzalo Barros DO
--- NOTE | 2018-12-08 16:09 | CONS ---
PULMONARY CONSULTATION DATE OF CONSULTATION: 12/08/2018 REFERRING PHYSICIAN: Douglas Zapata MD HISTORY: The patient is a 53-year-old black male with a past medical history that includes hypertension, end-stage renal disease maintained on hemodialysis 3 times weekly, history of renal transplant status post rejection, currently on transplant list, psoriasis, hypertension, history of bacteremia. Admitted to [facility] on December 02 with the complaint of chest pain midsternal, nonradiating associated with shortness of breath. The patient states he was at home and sitting and developed chest pain. He describes it as pressure-like sensation, nonradiating but associated with shortness of breath. He also complained of mild abdominal discomfort, nausea, and vomiting. He presented to the emergency room with above complaint. On admission, he was evaluated for Cardiology and Renal. He underwent dialysis. He was also evaluated by GI. He was placed on empiric antibiotics by Infectious Disease. Blood cultures were normal. No evidence of growth on admission. Antibiosis was discontinued. The patient was felt to have possible uremic pericarditis. Over the course of the hospitalization, his symptoms improved. At the current time, he denies any shortness of breath and/or chest pain. The patient is a nonsmoker. 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 There is no history of recent travel. There is no history of DVT or PE in the past. He denies any history of asthma or COPD. PAST MEDICAL HISTORY: Again includes end-stage renal disease on hemodialysis, hypertension, psoriasis, history of bacteremia, history of renal transplant. REVIEW OF SYSTEMS: No orthopnea, no PND, no chest pain, no palpitations, no cough, no hemoptysis, no abdominal pain. CURRENT MEDICATIONS: Include Tylenol, Cozaar, Tapazole, Lopressor, Catapres, Norvasc, normal saline, and Ecotrin. PHYSICAL EXAMINATION: General: The patient is a well-developed, well-nourished male awake, alert in no acute distress. Vital Signs: He is afebrile. Blood pressure is 138/84, respiratory rate is 20, O2 saturation is 97% on room air. HEENT: Normocephalic, atraumatic. Neck: Supple. Heart: Regular with S1, S2. Chest: Clear. Abdomen: Soft. Bowel sounds are positive. Extremities: No cyanosis or edema. LABORATORIES: WBC 6.3, hemoglobin 9.9, hematocrit 30.3, and a platelet count of 273,000. Chemistries: BUN 44.2, creatinine 9.9. Ferritin 1544. Chest x-ray on admission: No infiltrates, no effusions. IMPRESSION: 1. Chest pain syndrome, likely secondary to uremic pericarditis, currently resolved. 2. Fever, status post antibiotic therapy. Blood cultures negative. 3. Shortness of breath, resolved, most likely secondary to mild congestive heart failure, fluid overload. 4. End-stage renal disease on hemodialysis. 5. History of renal transplant. 6. Anemia. PLAN: Echocardiogram. Continue hemodialysis. Antibiotics discontinued as per Infectious Disease. ROX ZEPEDA M.D. [id number]
[2018-12-08] MEDS: cloNIDine HCL 0.1 MG TABLET PO SCH (18:15)
[2018-12-08 18:34] VITALS: PULSE 75; TEMP 98.2
[2018-12-08 19:19] VITALS: BP 160/90
[2018-12-08] MEDS: LOSARTAN POTASSIUM 25 MG TABLET PO SCH (19:19)
[2018-12-08] MEDS: amLODIPine BESYLATE 10 MG TABLET (FP) PO SCH (19:20)
[2018-12-09 04:10] LABS: SERUM IRON SATURATION 13 % (15-55); TOTAL IRON BINDING CAPACITY 115 ug/dL (250-450)
== END 2018-12-08 19:45 | disposition home or self-care (01) | DRG 314 ==
LOC: JER 07:01 → JERBED 12:36 → J5S 18:40 → J4W 12-03 12:03
PROVIDERS: ADMIT Family Medicine; ATTEND Family Medicine
PROC: 5A1D70Z Performance of Urinary Filtration, Intermittent, Less than 6 Hours Per Day (ICD-10-PCS; principal; 2018-12-02)
PROC: 5A1D70Z Performance of Urinary Filtration, Intermittent, Less than 6 Hours Per Day (ICD-10-PCS; 2018-12-04)
PROC: 5A1D70Z Performance of Urinary Filtration, Intermittent, Less than 6 Hours Per Day (ICD-10-PCS; 2018-12-05)
PROC: 5A1D70Z Performance of Urinary Filtration, Intermittent, Less than 6 Hours Per Day (ICD-10-PCS; 2018-12-06)
PROC: 5A1D70Z Performance of Urinary Filtration, Intermittent, Less than 6 Hours Per Day (ICD-10-PCS; 2018-12-08)
DX: I31.3 Pericardial effusion (noninflammatory) (principal); N18.6 End stage renal disease; I50.21 Acute systolic (congestive) heart failure; I13.2 Hypertensive heart and chronic kidney disease with heart failure and with stage 5 chronic kidney disease, or end stage renal disease; K57.92 Diverticulitis of intestine, part unspecified, without perforation or abscess without bleeding; Z94.0 Kidney transplant status; J98.11 Atelectasis; R16.0 Hepatomegaly, not elsewhere classified; I32 Pericarditis in diseases classified elsewhere; N28.1 Cyst of kidney, acquired; R50.9 Fever, unspecified; D72.829 Elevated white blood cell count, unspecified; D63.1 Anemia in chronic kidney disease; R10.13 Epigastric pain; E78.5 Hyperlipidemia, unspecified; L40.8 Other psoriasis; R07.89 Other chest pain; R11.2 Nausea with vomiting, unspecified; R93.1 Abnormal findings on diagnostic imaging of heart and coronary circulation; R00.2 Palpitations; I48.0 Paroxysmal atrial fibrillation; I44.0 Atrioventricular block, first degree; M51.37 Other intervertebral disc degeneration, lumbosacral region; Z87.891 Personal history of nicotine dependence; Z99.2 Dependence on renal dialysis
CPT/HCPCS: 36415; 71045-TC-FY; 74176-TC; 76700-TC; 80048; 80053; 80061; 82550; 82553; 82565; 82607; 82728; 82746; 82962; 83540; 83550; 83605; 83690; 83721; 83735; 83880; 84100; 84436; 84439; 84443; 84484; 84520; 85025; 85027; 85610; 85730; 86140; 86803; 87040; 87340; 87804; 93005; 93010; 93306-TC; 99283-25; G0480; J0131; J0735

== ENCOUNTER 2019-05-21 11:07 | Inpatient (IN) | payer OTHER, BC ==
--- NOTE | 2019-05-21 11:24 | PDOC ---
History of Present Illness - General Chief Complaint: Pain Stated Complaint: ABD PAIN - History of Present Illness Initial Comments: The pt is a 54M w/ a history of HTN, s/p failed kidney transplant, LUE AVF/G, and ESRD (iHD ,, (last today)) who presents for evaluation of 2 weeks of epigastric abdominal pain. The pain is achy, non-radiating, worse with laying down, better sitting up, and not alleviated by any medication he has tried. He denies any new/suspicious foods. He denies fevers/chills, chest pain, trouble breathing, sick contacts, current N /V, diarrhea, or changes in sensation. PCP: Dr. Navarro Fabric Worker Leader: Dr. Finney 05/21/19 11:49 Past History - Past Medical History Allergies/Adverse Reactions: Allergies Allergy/AdvReac Type Severity Reaction Status Date / Time No Known Drug Allergies Allergy Verified 05/21/19 11:15 Home Medications: Ambulatory Orders Atorvastatin Ca [Lipitor] 40 mg PO HS tablet 09/27/18 Aspirin Coated [Ecotrin -] 81 mg PO DAILY #30 tablet.ec 12/08/18 Methimazole [Tapazole -] 5 mg PO DAILY #30 tablet 12/08/18 Losartan Potassium [Cozaar -] 50 mg PO DAILY 05/21/19 Anemia: No Asthma: No Cancer: No Cardiac Disorders: No CVA: No COPD: No CHF: No Dementia: No Diabetes: No Dialysis: Yes () GI Disorders: No Disorders: Yes (diverticulosis) HTN: Yes Hypercholesterolemia: No Liver Disease: No Seizures: No Thyroid Disease: No - Surgical History Abdominal Surgery: Yes (08/2007 KIDNEY TRANSPLANT-2011REJECTED) Appendectomy: No Cardiac Surgery: No Cholecystectomy: No Lung Surgery: No Neurologic Surgery: No Orthopedic Surgery: No - Immunization History Immunization Up to Date: Yes - Psycho Social/Smoking Cessation Hx Smoking Status: No Smoking History: Never smoked Have you smoked in the past 12 months: No Number of Cigarettes Smoked Daily: 0 Cigars Per Day: 0 'Breaking Loose' booklet given: 12/02/18 Hx Alcohol Use: No Drug/Substance Use Hx: No Substance Use Type: None Hx Substance Use Treatment: No Review of Systems - Review of Systems Able to Perform ROS?: Yes Comments:: GENERAL/CONSTITUTIONAL: No fever or chills. No weakness HEAD, EYES, EARS, NOSE AND THROAT: No change in vision. No change in hearing. No sore throat CARDIOVASCULAR: No chest pain or shortness of breath RESPIRATORY: Denies cough, hemoptysis GASTROINTESTINAL: No diarrhea or constipation GENITOURINARY: Anuric MUSCULOSKELETAL: No joint or muscle swelling or pain. No neck or back pain SKIN: No rash NEUROLOGIC: No headache, vertigo, loss of consciousness, or change in strength/ sensation ENDOCRINE: No increased thirst. No abnormal weight change HEMATOLOGIC/LYMPHATIC: No anemia, easy bleeding, or history of blood clots ALLERGIC/IMMUNOLOGIC: No hives or skin allergy 05/21/19 11:23 Is the patient limited German proficient: No *Physical Exam - Vital Signs Last Vital Signs Temp Pulse Resp BP Pulse Ox 97.7 F 90 18 153/80 98 05/21/19 11:12 05/21/19 11:12 05/21/19 11:12 05/21/19 11:12 05/21/19 11:12 - Physical Exam GENERAL: Awake, alert, and oriented to person/place/time, in no acute distress HEAD: No signs of trauma, normocephalic, atraumatic EYES: PERRLA, EOMI, sclera anicteric, conjunctiva clear ENT: Hearing grossly normal, nares patent, oropharynx clear without exudates. Moist mucosa LUNGS: No distress, speaks in full sentences, clear to auscultation bilaterally HEART: Regular rate and rhythm, normal S1 and S2, no murmurs appreciated, peripheral pulses normal and equal bilaterally ABDOMEN: Soft, epigastric TTP w/o rebound or guarding, well healed transplant surgical scar, normoactive bowel sounds EXTREMITIES: LUE fistula w/ palpable thrill NEUROLOGICAL: Cranial nerves II through XII grossly intact. Normal speech, normal gait, no focal sensorimotor deficits SKIN: Warm, Dry 05/21/19 11:23 ED Treatment Course - LABORATORY CBC & Chemistry Diagram: 05/21/19 11:50 05/21/19 11:50 - RADIOLOGY Radiograph Interpretation: US/ABDOMEN US -LIMITED FINDINGS: The liver is enlarged measuring 21 cm in sagittal dimension Small amount of ascites is visualized on the submitted images There are no gallstones. However the gallbladder weems are thickened and there is pericholecystic fluid. Visualized portions of the pancreas, aorta and IVC unremarkable The right kidney is atrophic measuring 5.5 cm and is echogenic but no evidence of hydronephrosis. Several renal cysts are seen. IMPRESSION: Hepatomegaly Small amount of ascites. Abnormal gallbladder wall with prior ulcer fluid. Although a small portion of this could be secondary to ascites; cholecystitis should be considered. Recommend clinical correlation 05/21/19 13:51 Medical Decision Making - Medical Decision Making he pt is a 54M w/ a history of HTN, s/p failed kidney transplant, LUE AVF/G, and ESRD (iHD T,Th,Sa (last today)) who presents for evaluation of 2 weeks of epigastric abdominal pain ED Course CMP, CBC, Lipase Maalox, Pepcid, and Ofirmev for symptomatic relief 05/21/19 11:54 Transaminitis noted -Will add acute hepatitis panel -Will obtain RUQ US 05/21/19 12:37 No leukocytosis No anemia Lytes unremarkable Elevated Cr noted, pt ESRD Pt discussed w/ Dr. Rivera, pt will require HIDA scan Consult for GI placed Pt singed out to Dr. Ochoa 05/21/19 15:02 Discharge - Discharge Information Problems reviewed: Yes Clinical Impression/Diagnosis: Epigastric pain, Acalculous cholecystitis Condition: Good - Admission Yes - Follow up/Referral - Patient Discharge Instructions - Post Discharge Activity
--- NOTE | 2019-05-21 11:34 | PDOC ---
Attending Attestation - Resident Resident Name: Mani Oliva - ED Attending Attestation I have performed the following: I have examined & evaluated the patient, The case was reviewed & discussed with the resident, I agree w/resident's findings & plan - HPI HPI: 05/21/19 11:34 53 year old male with a significant past medical history of HTN, HLD, ESRD ( Dialysis ), s/p failed renal transplant, psoriasis, presenting with abdominal pain x 2 weeks, particularly over epigastrium/RUQ. The pain is achy, non-radiating, worse with laying down, better sitting up, and not alleviated by any medication he has tried. He denies any new/suspicious foods. denies fatty foods, spicy foods, caffeine, particular triggers. He denies fevers/chills, chest pain, trouble breathing, sick contacts, current N /V, diarrhea, or changes in sensation. 05/21/19 12:36 05/21/19 16:42 - Physicial Exam PE: 05/21/19 11:34 Agree with the resident's HPI and PE as documented in the electronic medical record. NAD, well appearing, EOMI, PERRL, nl conjunctiva, anicteric; neck supple. lungs clear, RRR, +diastolic heart murmur, abdomen soft +RUQ and epigastric TTP. +harman's with deep palpation of RUQ. no rebound, guarding. no CVAT. Back nontender. MARTIN x4, no focal neuro deficits. No peripheral edema. normal color for ethnicity, WWP. 05/21/19 13:13 05/21/19 16:42 05/21/19 16:44 - Medical Decision Making 05/21/19 11:34 Vital Signs Temp Pulse Resp BP Pulse Ox 97.7 F 90 18 153/80 98 05/21/19 11:12 05/21/19 11:12 05/21/19 11:12 05/21/19 11:12 05/21/19 11:12 vs reviewed wnl. reassuring ddx. pancreatitis, hepatitis, biliary colic, cholecystitis, choledocholithiasis , anemia, electrolyte/metabolic derangements, dehydration. infection. renal colic. Laboratory results are generally within normal limits. No WBC count, no anemia , creatinine/consistent with his ESRD. Finished dialysis today. LFTs are mildly elevated with ALT greater than AST, 138/85. Hepatitis panel will be sent. Bedside biliary ultrasound revealed no stones however gallbladder wall thickening and pericholecystic fluid is seen, CBD is normal for age less than 4 mm. Will order for official to confirm, suspicious for acalculus cholecystitis but advanced imaging indicated. 05/21/19 14:07 - surgery cs with Dr Pineda chief controller center. agree with impression and plan, HIDA, GI cs with Dr Felix admitting to dr guo for workup, abdominal pain/elevated liver enzymes, concern for acalc cholecystitis, further advanced imaging. ordered for MRCP/IV abx - zosyn per GI, see consult note and recommendation. 05/21/19 16:42 05/21/19 16:44
[2019-05-21] MEDS ORDERED: ACETAMINOPHEN 1000 MG/100 ML VIAL (NON FORMULARY) IVPB ONE (11:45)
[2019-05-21] MEDS ORDERED: FAMOTIDINE 20 MG/50 ML IVPB 20 MG/50 ML MG IVPB ONE ×2 (11:45→11:55)
[2019-05-21] MEDS ORDERED: MAG HYDROX/AL HYDROX/SIMETH 30 ML UNIT-DOSE CUP PO ONE (11:45)
[2019-05-21] MEDS ORDERED: ACETAMINOPHEN INJECTION 100 ML IVPB ONE (11:55)
[2019-05-21] MEDS ORDERED: MAG HYDROX/AL HYDROX/SIMETH 30 ML UNIT-DOSE CUP ONE (12:07)
[2019-05-21 12:08] LABS: BASO % 0.6 % (0-2.0); EOS % 2.1 % (0-4.5); HEMATOCRIT 37.6 % (35.4-49); HEMOGLOBIN 12.2 GM/dL (11.7-16.9); MCH 28.3 pg (25.7-33.7); MCHC 32.5 g/dl (32.0-35.9); MEAN CELL VOLUME 87.2 fl (80-96); MEAN PLT VOLUME 8.5 fl (7.5-11.1); MONO % 10.1 % (3.8-10.2); NEUT % 77.2 % (42.8-82.8); PLATELET COUNT 153 K/MM3 (134-434); RBC 4.31 M/mm3 (4.00-5.60); RDW 17.8 % (11.9-15.9); WHITE BLOOD COUNT 6.7 K/mm3 (4.0-10.0)
[2019-05-21 12:33] LABS: ALBUMIN 3.3 g/dl (3.4-5.0); BILIRUBIN,TOTAL 0.4 mg/dL (0.2-1); BLOOD UREA NITROGEN 45.2 mg/dL (7-18); CALCIUM 8.1 mg/dL (8.5-10.1); CREATININE 6.5 mg/dL (0.55-1.3); POTASSIUM 3.9 mmol/L (3.5-5.1)
--- NOTE | 2019-05-21 14:46 | CON.GI ---
Consult Consult Specialty:: GI: Dr. Wilkinson Referred by:: Dr. Curtis Ochoa Reason for Consultation:: Abdominal pain - History of Present Illness Chief Complaint: RUQ pain x 2-3 weeks History of Present Illness: 54M admitted through [facility] for evaluation of intermittent RUQ pain that has been progressing in intensity and duration for 2-3 weeks. Patient states that pain can worsen after meals, has been associated with a diminished appetite, nausea with an episode of vomiting yesterday. Abdominal US (reviewed with radiologist Dr. French) revealed small ascites (RUQ), thickened gallbladder wall, no obvious CBD dilatation. Visualized portions of the IVC was described as normal in appearance. There were no obvious gallstones. Lab work revealed normal WBC , mild transaminitis, ALP of 237 (noted 261 on outpatient labwork 03/25/19 with normal transaminases, normal prior to that and elevated 11/07-08/09 in review of [facility]). He denies history of liver disease, alcohol use, recent travel, IVDU. He denies fevers/chills. He denies rectal bleeding but states that the pain can preipitate a bowel movement. He explains that with the analgesia he was given in the ED, his appetie has improved somewhat. He described an episode of diverticulitis in 09/10 (1st episode) and having had a significant cardiac work-up in 10/10. On admission, non contrast CT scan of the abdomen and pelvis without contrast revealed a distended gallbladder without evidenice of wall thickening / stones and thickened sigmoid folds. He had colonoscopy / endoscopy in 2005 w/ Dr. Lebron. Colon was normal, EGD revealed h. pylori gastritis (uncertain if treated) and led to removal of a benign hyperplastic nahomi's gland. There is no family history of colorectal cancer or other GI malignancy. He was advised to follow-up after previous admission to discuss follow-up colonoscopy but he has not as of yet. - History Source History Provided By: Patient, Medical Record - Past Medical History Cardio/Vascular: Yes: HTN, Hyperlipdemia Gastrointestinal: Yes: Diverticulitis, Diverticulosis Renal/: Yes: Renal Failure, Hemodialysis Dermatology: Yes: Psoriasis Additional Medical History: hx mrsa and mssa bacteremia 2005 while he had permacath. hs bacteremia? with right chest wall cellulitis in 2011. 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 History of Recent Travel: No Home Medications - Allergies Allergies/Adverse Reactions: Allergies Allergy/AdvReac Type Severity Reaction Status Date / Time No Known Drug Allergies Allergy Verified 05/21/19 11:15 - Home Medications Home Medications: Ambulatory Orders Atorvastatin Ca [Lipitor] 40 mg PO HS tablet 09/27/18 Aspirin Coated [Ecotrin -] 81 mg PO DAILY #30 tablet.ec 12/08/18 Methimazole [Tapazole -] 5 mg PO DAILY #30 tablet 12/08/18 Losartan Potassium [Cozaar -] 50 mg PO DAILY 05/21/19 Family Medical History Other Family History: Other: Father (: 70: Diabetic complications), Mother ( Alive: healthy), Sister (1, healthy), Son (1, healthy), Daughter (3, healthy) Review of Systems - Review of Systems Constitutional: reports: Loss of Appetite. denies: Chills Cardiovascular: denies: Chest Pain Respiratory: denies: Cough Gastrointestinal: reports: Abdominal Pain, Diarrhea, Indigestion, Nausea, Vomiting. denies: Constipation, Melena Physical Exam-GI Vital Signs: Vital Signs: taken myself at time of evaluation 1435 Temperature 98.0F 05/21/19 Pulse Rate 87 05/21/19 Respiratory Rate 18 05/21/19 Blood Pressure 135/71 05/21/19 O2 Sat by Pulse Oximetry (%) Constitutional: Yes: Calm Eyes: No: Sclera Icterus Cardiovascular: Yes: Regular Rate and Rhythm. No: Murmur Respiratory: Yes: CTA Bilaterally Gastrointestinal Inspection: Yes: Scars (right lower abdominal scar (transplant site)) ...Auscultate: Yes: Normoactive Bowel Sounds ...Palpate: Yes: Guarding (voluntary guarding RUQ), Soft, Tenderness (TTP RUQ. + harman's sign) ...Percussion: No: Tympanitic Edema: No (No LE edema) Neurological: Yes: Alert Labs: CBC, BMP 05/21/19 11:50 05/21/19 11:50 Hepatic Panel Total Bilirubin 0.4 mg/dL (0.2-1) 05/21/19 11:50 AST 85 U/L (15-37) H 05/21/19 11:50 ALT 138 U/L (13-61) H 05/21/19 11:50 Alkaline Phosphatase 237 U/L (45-117) H 05/21/19 11:50 Albumin 3.3 g/dl (3.4-5.0) L 05/21/19 11:50 Imaging - Results Ultrasound: Report Reviewed Problem List - Problems (1) Right upper quadrant abdominal pain Assessment/Plan: Given exam and radiographic findings, rise in liver chemistries, an acalculous cholecystitis would need to be considered higher in the differential. He does not appear toxic and remains afebrile. Advise: Surgical evaluation NPO / IV hydration (would defer to renal re: IV hydration given that he is a dialysis patient) IV Abx for now: Ordered Zosyn 3.375g IVPB x 1 followed by 2.5g IV q8h. ID consult placed Ordered MRCP to further evaluate biliary tract and help exclude retained CBD stone. If worsening clinically (abdominal pain, fevers, leukocytosis, negative change in hemodyanmics) percutaneous cholecystostomy should be considered Acute hepatitis serologies are pending Avoid hepatotoxic agents Monitor liver chemistries Code(s): R10.11 - RIGHT UPPER QUADRANT PAIN
[2019-05-21 14:53] LABS: INR 1.67 (0.83-1.09); PROTHROMBIN TIME (PATIENT) 19.8 SEC (9.7-13.0)
[2019-05-21 14:56] LABS: ACTIVATED PTT 32.1 SECONDS (25.2-36.5)
[2019-05-21] MEDS ORDERED: PIPERACILLIN/TAZOB 3.375 GM 3.375 GM in DEXTROSE 5%-WATER - 50 ML IVPB ONE (14:59)
[2019-05-21] MEDS ORDERED: PIPERACILLIN/TAZOBACTAM 3.375 GM VIAL IVPB ONE (16:37)
[2019-05-21] MEDS ORDERED: DEXTROSE 5%-WATER - 50 ML IVPB ONE (16:37)
--- NOTE | 2019-05-21 17:41 | HP ---
Admitting History and Physical - Primary Care Physician PCP: Carina Ochoa S - Admission Chief Complaint: abd pain N/V History of Present Illness: The pt is a 54M w/ a history of HTN, s/p failed kidney transplant, LUE AVF/G, and ESRD (iHD T,Th, (last today)) who presents for evaluation of 2 weeks of epigastric abdominal pain. The pain is achy, non-radiating, worse with laying down, better sitting up, and not alleviated by any medication he has tried. He denies any new/suspicious foods. He vomied once yesterday. No appetite. at bedside He denies fevers/chills, chest pain, trouble breathing, sick contacts, current N /V, diarrhea. History Source: Patient - Past Medical History Cardiovascular: Yes: HTN, Hyperlipdemia Gastrointestinal: Yes: Diverticulitis, Diverticulosis Renal/: Yes: Renal Failure, Hemodialysis Dermatology: Yes: Psoriasis - Past Surgical History Past Surgical History: Yes: AV Fistula/Graft, Kidney Transplant (in 2007, failed in 2010) - Advance Directives Advance Directives: Yes: Living Will - Smoking History Smoking history: Never smoked Have you smoked in the past 12 months: No Aproximately how many cigarettes per day: 0 - Alcohol/Substance Use Hx Alcohol Use: No History of Substance Use: reports: None - Social History Usual Living Arrangement: Yes: With Spouse Do you think of yourself as: Straight/Heterosexual ADL: Independent 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 History of Recent Travel: No Home Medications - Allergies Allergies/Adverse Reactions: Allergies Allergy/AdvReac Type Severity Reaction Status Date / Time No Known Drug Allergies Allergy Verified 05/21/19 11:15 - Home Medications Home Medications: Ambulatory Orders Atorvastatin Ca [Lipitor] 40 mg PO HS tablet 09/27/18 Aspirin Coated [Ecotrin -] 81 mg PO DAILY #30 tablet.ec 12/08/18 Methimazole [Tapazole -] 5 mg PO DAILY #30 tablet 12/08/18 Losartan Potassium [Cozaar -] 50 mg PO DAILY 05/21/19 Family Medical History Family History: Unremarkable Review of Systems - Review of Systems Constitutional: reports: Loss of Appetite. denies: Chills, Fever Eyes: denies: Blind Spots, Blurred Vision, Double Vision HENT: denies: Ear Pain, Epistaxis Cardiovascular: denies: Chest Pain, Shortness of Breath Respiratory: denies: Cough, SOB Gastrointestinal: reports: Abdominal Pain, Vomiting. denies: Diarrhea Genitourinary: denies: Dysuria, Flank Pain Musculoskeletal: denies: Back Pain Neurological: denies: Change in LOC, Change in Speech, Confusion, Dizziness Hematology/Lymphatic: denies: Easily Bruised, Excessive Bleeding Psychiatric: denies: Anxiety, Depression Physical Examination Vital Signs: Vital Signs Temperature 98.4 F 05/21/19 16:17 Pulse Rate 88 05/21/19 16:17 Respiratory Rate 18 05/21/19 16:17 Blood Pressure 146/80 05/21/19 16:17 O2 Sat by Pulse Oximetry (%) 97 05/21/19 16:00 Constitutional: Yes: No Distress, Calm Eyes: Yes: Conjunctiva Clear HENT: Yes: Atraumatic Neck: Yes: Supple Cardiovascular: Yes: Regular Rate and Rhythm Respiratory: Yes: CTA Bilaterally Gastrointestinal: Yes: Soft. No: Tenderness Renal/: No: Hematuria Musculoskeletal: No: Joint Stiffness, Joint Swelling Extremities: No: Cold, Cool Edema: No Neurological: Yes: WNL, Alert, Oriented ...Motor Strength: WNL Psychiatric: Yes: WNL, Alert, Oriented. No: Agitated, Suicidal Ideation Labs: CBC, BMP 05/21/19 11:50 05/21/19 11:50 Imaging - Results Ultrasound: Report Reviewed Other: Report Reviewed Assessment/Plan The pt is a 54M w/ a history of HTN, s/p failed kidney transplant, LUE AVF/G, and ESRD (iHD ,, (last today)) who presents for evaluation of 2 weeks of epigastric abdominal pain. 1 episode N/V US c/w acalculous cholecystitis GI and surgery eval; NPO; IV ATB MRI abdomen HD per renal cardio eval h/o ASHD HTN, in view of possible surgery sq heparin DVT PFX d/w pt and at bedside
[2019-05-21] MEDS: ATORVASTATIN CA 40 MG TABLET (FP) PO SCH (22:27)
[2019-05-21] MEDS: HEPARIN NA (PORCINE) 5,000 UNITS/ML 1ML VIAL SQ SCH (22:27)
[2019-05-22] MEDS ORDERED: PIPERACILLIN/TAZOB 2.25 GM 2.25 GM in DEXTROSE 5%-WATER - 50 ML IVPB SCH (02:00)
[2019-05-22] MEDS ORDERED: DEXTROSE 5%-WATER - 50 ML IVPB ONE ×3 (02:12→17:17)
[2019-05-22] MEDS ORDERED: PIPERACILLIN/TAZOBACTAM 2.25 GM VIAL IVPB ONE ×3 (02:12→17:17)
[2019-05-22] MEDS: PIPERACILLIN/TAZOB 2.25 GM 2.25 GM in DEXTROSE 5%-WATER - 50 ML IVPB SCH ×3 (02:18→18:23)
[2019-05-22 07:44] LABS: BASO % 0.6 % (0-2.0); EOS % 1.8 % (0-4.5); HEMATOCRIT 37.8 % (35.4-49); HEMOGLOBIN 12.2 GM/dL (11.7-16.9); LYMPH % 11.5 % (8-40); MCH 28.6 pg (25.7-33.7); MCHC 32.3 g/dl (32.0-35.9); MEAN CELL VOLUME 88.4 fl (80-96); MEAN PLT VOLUME 8.9 fl (7.5-11.1); MONO % 9.4 % (3.8-10.2); NEUT % 76.7 % (42.8-82.8); PLATELET COUNT 142 K/MM3 (134-434); RBC 4.27 M/mm3 (4.00-5.60); RDW 18.2 % (11.9-15.9); WHITE BLOOD COUNT 5.9 K/mm3 (4.0-10.0)
[2019-05-22 07:51] LABS: INR 1.74 (0.83-1.09); PROTHROMBIN TIME (PATIENT) 20.7 SEC (9.7-13.0)
[2019-05-22 08:20] LABS: ALBUMIN 3.2 g/dl (3.4-5.0); BILIRUBIN,DIRECT 0.2 mg/dL (0.0-0.2); BILIRUBIN,TOTAL 0.7 mg/dL (0.2-1); BLOOD UREA NITROGEN 60.9 mg/dL (7-18); CALCIUM 8.5 mg/dL (8.5-10.1); POTASSIUM 5.3 mmol/L (3.5-5.1); TOT PROT 6.6 g/dl (6.4-8.2)
[2019-05-22 08:27] LABS: CREATININE 8.7 mg/dL (0.55-1.3)
--- NOTE | 2019-05-22 09:32 | PN ---
Progress Note, Physician Chief Complaint: in bed feeling better less abd pain, started renal diet consults reviewed and d/w pt - Current Medication List Current Medications: Active Medications Aspirin (Ecotrin -) 81 mg PO DAILY [facility] Atorvastatin Calcium (Lipitor -) 40 mg PO HS [facility] Last Admin: 05/21/19 22:27 Dose: Not Given Heparin Sodium (Porcine) (Heparin -) 5,000 unit SQ BID [facility] Last Admin: 05/21/19 22:27 Dose: Not Given Piperacillin Sod/Tazobactam (Sod 2.25 gm/ Dextrose) 50 mls @ 100 mls/hr IVPB Q8H-IV [facility]; Protocol Last Admin: 05/22/19 02:18 Dose: 100 mls/hr Losartan Potassium (Cozaar -) 50 mg PO DAILY [facility] Methimazole (Tapazole -) 5 mg PO DAILY [facility] - Objective Vital Signs: Vital Signs Temperature 97.8 F 05/22/19 06:00 Pulse Rate 88 05/22/19 06:00 Respiratory Rate 18 05/22/19 06:00 Blood Pressure 142/76 05/22/19 06:00 O2 Sat by Pulse Oximetry (%) 99 05/21/19 21:00 Constitutional: Yes: No Distress, Calm Eyes: Yes: Conjunctiva Clear HENT: Yes: Atraumatic Neck: Yes: Supple Cardiovascular: Yes: Regular Rate and Rhythm, Murmur Respiratory: Yes: CTA Bilaterally Gastrointestinal: Yes: Soft. No: Tenderness Genitourinary: No: Hematuria Musculoskeletal: No: Joint Stiffness, Joint Swelling Extremities: No: Cold, Cool, Cyanosis Edema: No Integumentary: No: Rash, Venous Stasis Changes Neurological: Yes: WNL, Alert, Oriented ...Motor Strength: WNL Psychiatric: Yes: WNL, Alert, Oriented. No: Agitated, Suicidal Ideation Labs: CBC, BMP 05/22/19 06:55 05/22/19 06:55 INR, PTT INR 1.74 (0.83-1.09) H 05/22/19 06:55 - ....Imaging Other: Report Reviewed Assessment/Plan The pt is a 54M w/ a history of HTN, s/p failed kidney transplant, LUE AVF/G, and ESRD/HD admitted with epigastric abdominal pain and 1 episode N/V US c/w acalculous cholecystitis GI and surgery eval; IV ATB MRI abdomen noted HD per renal cardio eval h/o ASHD HTN, in view of possible surgery sq heparin DVT PFX d/w pt and staff
--- NOTE | 2019-05-22 10:29 | PN.GI ---
GI Progress Note Subjective: States being hungry Still with RUQ pain MRCP without evidence of choledocholithiasis. contracted GB with pericholecystic fluid raising question of acute cholecystitis No acute events overnight - Objective Vital Signs: Vital Signs Temperature 97.8 F 05/22/19 06:00 Pulse Rate 88 05/22/19 06:00 Respiratory Rate 18 05/22/19 06:00 Blood Pressure 142/76 05/22/19 06:00 O2 Sat by Pulse Oximetry (%) 99 05/21/19 21:00 Constitutional: Calm Eyes: No: Sclera Icterus Cardiovascular: Yes: Regular Rate and Rhythm Respiratory: Yes: CTA Bilaterally Gastrointestinal Inspection: No: Distention ...Auscultate: Yes: Normoactive Bowel Sounds ...Palpate: Yes: Tenderness (RUQ TTP) ...Percussion: No: Tympanitic Edema: No (No LE edema) Neurological: Yes: Alert, Oriented Labs: CBC, BMP 05/22/19 06:55 05/22/19 06:55 INR, PTT INR 1.74 (0.83-1.09) H 05/22/19 06:55 Hepatic Panel Total Bilirubin 0.7 mg/dL (0.2-1) 05/22/19 06:55 Direct Bilirubin 0.2 mg/dL (0.0-0.2) 05/22/19 06:55 AST 71 U/L (15-37) H 05/22/19 06:55 ALT 143 U/L (13-61) H 05/22/19 06:55 Alkaline Phosphatase 198 U/L (45-117) H 05/22/19 06:55 Albumin 3.2 g/dl (3.4-5.0) L 05/22/19 06:55 Laboratory Tests 05/21/19 12:38 Hep A IgM Ab Confirm Negative Hep Bs Antigen Negative Hep B Core IgM Ab Negative Hepatitis C Ab (EIA) 0.1 Problem List - Problems (1) Right upper quadrant abdominal pain Assessment/Plan: Suspicion for acute cholecystitis Patient now hungry but with persistent RUQ tenderness to palpation Awaiting surgical evaluation. On IV Abx and ID consult called Said OK for ice chips and deferring advancement of diet until evaluated by surgery IV hydration per PMD/Renal Monitor liver chemistries Code(s): R10.11 - RIGHT UPPER QUADRANT PAIN
[2019-05-22] MEDS: ASPIRIN COATED 81 MG TABLET.EC PO SCH ×2 (10:58→11:09)
[2019-05-22] MEDS: LOSARTAN POTASSIUM 50 MG TABLET (FP) PO SCH (10:58)
[2019-05-22] MEDS: HEPARIN NA (PORCINE) 5,000 UNITS/ML 1ML VIAL SQ SCH ×3 (10:59→21:52)
[2019-05-22] MEDS: METHIMAZOLE 5 MG TABLET (FP) PO SCH (10:59)
--- NOTE | 2019-05-22 11:38 | PN ---
Progress Note (short form) - Note Progress Note: ID consult dictated imp/reccd 2 week history of RUQ pain some vomiting no fevers found to have abnl lfts, MRI no choledocholithiasis- ?cholycystitis awaiting surgical eval HIDA scan? continue zosyn adjusted for esrd Problem List - Problems (1) Abnormal LFTs Code(s): R94.5 - ABNORMAL RESULTS OF LIVER FUNCTION STUDIES (2) Acalculous cholecystitis Code(s): K81.9 - CHOLECYSTITIS, UNSPECIFIED (3) ESRD (end stage renal disease) on dialysis Code(s): N18.6 - END STAGE RENAL DISEASE; Z99.2 - DEPENDENCE ON RENAL DIALYSIS
--- NOTE | 2019-05-22 12:22 | PN ---
Progress Note (short form) - Note Progress Note: Coverage for Dr. Chandu Hinojosa Chief Complaint: Events noted, notes reviewed, abdominal discomfort, denies any chest pain or dyspnea History of Present Illness: Seen and examined. Full consult dictated - Current Medication List Current Medications Aspirin (Ecotrin -) 81 mg PO DAILY [facility] Last Admin: 05/22/19 11:09 Dose: Not Given Atorvastatin Calcium (Lipitor -) 40 mg PO HS [facility] Last Admin: 05/21/19 22:27 Dose: Not Given Heparin Sodium (Porcine) (Heparin -) 5,000 unit SQ BID [facility] Last Admin: 05/22/19 11:08 Dose: Not Given Piperacillin Sod/Tazobactam (Sod 2.25 gm/ Dextrose) 50 mls @ 100 mls/hr IVPB Q8H-IV [facility]; Protocol Last Admin: 05/22/19 10:58 Dose: 100 mls/hr Losartan Potassium (Cozaar -) 50 mg PO DAILY [facility] Last Admin: 05/22/19 10:58 Dose: 50 mg Methimazole (Tapazole -) 5 mg PO DAILY [facility] Last Admin: 05/22/19 10:59 Dose: 5 mg Review of Systems - Review of Systems Constitutional: no symptoms reported Respiratory: denies Cough or Sputum Production Cardiovascular: as noted above Gastrointestinal: denies Nausea, Vomiting, Diarrhea, Constipation reports Abdominal Pain Genitourinary: no symptoms reported Musculoskeletal: no symptoms reported Endocrine: no symptoms reported - Objective Vital Signs: Last Vital Signs Temp Pulse Resp BP Pulse Ox 97.8 F 88 18 142/76 99 05/22/19 06:00 05/22/19 06:00 05/22/19 06:00 05/22/19 06:00 05/21/19 21:00 Intake & Output 05/19/19 05/20/19 05/21/19 05/22/19 23:59 23:59 23:59 23:59 Intake Total 100 Balance 100 Weight 168 lb 170 lb 9.6 oz Neck: Supple Negative JVD No Bruit Cardiovascular: S1 S2 Regular Rate and Rhythm Grade 3/6 SM Apical Respiratory: clear to A&P Gastrointestinal: Soft Benign Normal Bowel Sounds Extremities: Negative Edema Labs: CBC, BMP 05/22/19 06:55 05/22/19 06:55 Hepatic Panel Total Bilirubin 0.7 mg/dL (0.2-1) 05/22/19 06:55 Direct Bilirubin 0.2 mg/dL (0.0-0.2) 05/22/19 06:55 AST 71 U/L (15-37) H 05/22/19 06:55 ALT 143 U/L (13-61) H 05/22/19 06:55 Alkaline Phosphatase 198 U/L (45-117) H 05/22/19 06:55 Albumin 3.2 g/dl (3.4-5.0) L 05/22/19 06:55 INR, PTT INR 1.74 (0.83-1.09) H 05/22/19 06:55 Assessment/Plan ASSESSMENT: 1. Abdominal discomfort etiology to be determined, acalculus cholecystitis is a suspect- evaluation in progress 2. CAD non obstructive disease angina pectoris 3. Exertional dyspnea in a patient with known diastolic/systolic LV dysfunction with clinical class 0 NYHA classification LV failure 4. Heart murmur, mitral valve regurgitation- clinically appears significant could be contributing to his clinical presentation with exertional dyspnea 5. Hypertensive cardiovascular disease 6. Hypercholesterolemia 7. Hyperthyroidism 8. ESRD on HD 9. Psoriasis PLAN: 1. Continue Cozaar 2. Continue Lipitior 3. Continue ASA 4. Echocardiography for evaluation of LV and valvular function considering the above noted prominent heart murmur 5. Evaluation of abdominal discomfort as planned Maximo Huizar MD
--- NOTE | 2019-05-22 14:05 | CONS ---
DATE OF CONSULTATION: DATE OF DICTATION: 05/22/2019 REQUESTED BY: Curtis Ochoa MD This is a 54-year-old man with a history of end-stage renal disease, on dialysis. He has a history of psoriasis as well. He presented to the ER on the with complaints of 2 weeks of right upper quadrant pain. He has had 1 episode of vomiting as well. He denies any fevers or chills. He was noted to have abnormal LFTs in the ER. He had an MRI of his abdomen done that showed no choledocholithiasis but evidence of possible cholecystitis. He is awaiting surgery evaluation. I am asked to see him for IV antibiotics. He is resting comfortably. He still reports he has abdominal discomfort. There is no history of any recent travel. He has no sick contacts. Past medical history is notable for hypertension, hyperlipidemia, end-stage renal disease, on dialysis. He has a history of psoriasis. He has had diverticulitis in the past as well. He has a history of MRSA and MSSA bacteremia in 2006. He had chest wall cellulitis in 2011, and he has had MSSA bacteremia in 2018. Surgical history is notable for failed kidney transplant and AV fistula graft. 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 He is independent. No recent travel. He is a former smoker. No known drug allergies. Current medications include atorvastatin, aspirin, Tapazole, and Cozaar. Review of systems is notable for diminished appetite. He has no fevers or chills. He still notes he has some abdominal discomfort. He denies constipation or blood in his stools. PHYSICAL EXAMINATION: Vital Signs: He has been afebrile. Temperature 97.8, pulse 88, blood pressure 142/76, respiratory rate 18, weight 77 kg. HEENT: Normocephalic. His eyes are anicteric. Neck: Supple. Lungs: Diminished breath sounds at the bases. Heart: Regular rate and rhythm. Abdomen: Soft. He has no distention. He has some midepigastric and right upper quadrant discomfort to deep palpation. Extremities: Without edema. Skin: Exam is notable for extensive psoriasis of his hands as well as of his lower legs. Labs are notable for a white count of 5.9, hemoglobin 12.2, platelets 142, BUN 60 and creatinine 8.7, AST of 71, ALT of 143, alkaline phosphatase of 198. No cultures were sent and he is on piperacillin and tazobactam. In summary, this is a 54-year-old man with end-stage renal disease, on dialysis, with a 2-week history of right upper quadrant pain, possible cholecystitis. He is awaiting surgical evaluation. Would continue Zosyn, adjusted for end-stage renal disease, with further plans per Surgery. BHARAT MACEDO M.D. DAQUAN/[id number]
--- NOTE | 2019-05-22 14:22 | CON.NEP ---
Consult Consult Specialty:: Nephrology - History of Present Illness Chief Complaint: abdominal pain History of Present Illness: 53 year old male with a significant past medical history of HTN, HLD, ESRD ( Dialysis ), s/p failed renal transplant, psoriasis, presenting with abdominal pain x 2 weeks, particularly over epigastrium/RUQ. The pain is achy, non-radiating, worse with laying down, better sitting up, and not alleviated by any medication he has tried. He denies any new/suspicious foods. denies fatty foods, spicy foods, caffeine, particular triggers. He denies fevers/chills, chest pain, trouble breathing, sick contacts, current N /V, diarrhea, or changes in sensation. His pain changes in intensity, its colicky - History Source History Provided By: Patient - Past Medical History Cardio/Vascular: Yes: HTN, Hyperlipdemia Gastrointestinal: Yes: Diverticulitis, Diverticulosis Renal/: Yes: Renal Failure, Hemodialysis Dermatology: Yes: Psoriasis Additional Medical History: hx mrsa and mssa bacteremia 2005 while he had permacath. hs bacteremia? with right chest wall cellulitis in 2011. 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 History of Recent Travel: No Home Medications - Allergies Allergies/Adverse Reactions: Allergies Allergy/AdvReac Type Severity Reaction Status Date / Time No Known Drug Allergies Allergy Verified 05/21/19 11:15 - Home Medications Home Medications: Ambulatory Orders Atorvastatin Ca [Lipitor] 40 mg PO HS tablet 09/27/18 Aspirin Coated [Ecotrin -] 81 mg PO DAILY #30 tablet.ec 12/08/18 Methimazole [Tapazole -] 5 mg PO DAILY #30 tablet 12/08/18 Losartan Potassium [Cozaar -] 50 mg PO DAILY 05/21/19 Review of Systems - Review of Systems Constitutional: reports: No Symptoms Eyes: reports: No Symptoms HENT: reports: No Symptoms Neck: reports: No Symptoms Cardiovascular: reports: No Symptoms Respiratory: reports: No Symptoms Gastrointestinal: reports: Abdominal Pain, Vomiting Genitourinary: reports: No Symptoms Breasts: reports: No Symptoms Reported Musculoskeletal: reports: No Symptoms Integumentary: reports: No Symptoms Neurological: reports: No Symptoms Endocrine: reports: No Symptoms Hematology/Lymphatic: reports: No Symptoms Psychiatric: reports: No Symptoms Nephrology Consult - Height Height: 5 ft 9 in - Weight Weight: 170 lb 9.6 oz - BMI Body Mass Index (BMI): 25.2 - Lab Results CBC,BMP: CBC, BMP 05/22/19 06:55 05/22/19 06:55 Anion Gap: Anion Gap Anion Gap 14 MMOL/L (8-16) 05/22/19 06:55 - Imaging Ultrasound: Report Reviewed MRI: Report Reviewed (suggestion of cholecystitis) - Physical Examination Vital Signs: Vital Signs Temperature 97.8 F 05/22/19 06:00 Pulse Rate 88 05/22/19 10:00 Respiratory Rate 18 05/22/19 10:00 Blood Pressure 146/80 05/22/19 10:00 O2 Sat by Pulse Oximetry (%) 98 05/22/19 09:00 Constitutional: Yes: Well Nourished, No Distress Eyes: Yes: Conjunctiva Clear, EOM Intact HENT: Yes: Atraumatic, Normocephalic Neck: Yes: Supple, Trachea Midline Cardiovascular: Yes: Regular Rate and Rhythm Respiratory: Yes: Regular, CTA Bilaterally Gastrointestinal: Yes: Normal Bowel Sounds, Soft, Tenderness Renal/: Yes: Anuria Access for Hemodialysis: AV Fistula Musculoskeletal: Yes: WNL Extremities: Yes: WNL Edema: No Peripheral Pulses WNL: No Wound/Incision: Yes: Clean/Dry Neurological: Yes: Alert, Oriented Psychiatric: Yes: Alert, Oriented Assessment/Plan IMPRESSION 54 year old gentleman with history of hypertension induced esrd who is currently on hemodialysis after a failed transplant. He now presents with abdominal pain and an MRI which is suggestive of acute cholecystitis. He treated his pain with otc antacids PLAN He will have a HIDA can be dialyzed again tomorrow ppi may need cholecystectomy, surgical and GI follow up MV
[2019-05-22] MEDS ORDERED: SODIUM CHLORIDE 250 ML IV PRN (14:23)
--- NOTE | 2019-05-22 15:09 | CONS ---
DATE OF CONSULTATION: 05/22/2019 CONSULTATION REQUESTED BY: Curtis Ochoa MD CHIEF COMPLAINT: Cardiovascular evaluation, abdominal discomfort, coverage for Dr. Oseas Hinojosa. A 54-year-old male, of descent, with known history of coronary artery disease, nonobstructive coronary artery disease on coronary angiography, angina pectoris, diastolic/systolic left ventricular dysfunction, with clinical class 0 [place] [employer] classification left ventricular failure, hypertensive cardiovascular disease, hypercholesterolemia, end-stage renal disease, on hemodialysis, psoriasis, who presented to [facility] Room for evaluation of right upper quadrant abdominal discomfort which has been noted over the last 2 weeks. Patient reported recurrent discomfort without any associated nausea or vomiting. Patient, in addition, has been reporting dyspnea with mild to moderate physical exertion, i.e., climbing 1 to 2 flights of stairs or walking up an incline. Patient denies any orthopnea or paroxysmal nocturnal dyspnea. Patient denies any peripheral edema. Patient denies any palpitations, dizziness, lightheadedness, or syncope. Patient has been reporting progressive fatigue and tiredness. Coronary artery disease, nonobstructive coronary artery disease, angina pectoris, diastolic/systolic left ventricular dysfunction, with clinical class 0 [place] [employer] classification left ventricular failure, hypertensive cardiovascular disease, hypercholesterolemia, hyperthyroidism, end-stage renal disease, on hemodialysis, psoriasis. SOCIAL HISTORY: Nonsmoker. FAMILY HISTORY: Positive coronary artery disease. ALLERGIES: None reported. Medical therapy currently includes aspirin 81 mg once a day, Lipitor 40 mg once a day, subcutaneous heparin 5000 units twice a day, antibiotic piperacillin with tazobactam every 8 hours, Cozaar 50 mg once a day, Tapazole (methimazole) 5 mg once a day. REVIEW OF SYSTEMS: Head and Neck: Denies headache, photophobia, blurring of vision. Respiratory: No cough or sputum production. Cardiovascular: As noted above. Gastrointestinal: Abdominal discomfort. Denied nausea, vomiting, diarrhea, constipation. Genitourinary: On hemodialysis. Musculoskeletal: No symptoms reported. PHYSICAL EXAMINATION: Vital Signs: Blood pressure is 142/76 mmHg. Pulse rate is 88 beats per minute. Head and Neck: Pupils equal, reactive to light and accommodation. Extraocular muscles are intact. Anicteric sclerae. Negative JVD. No bruit appreciated. Chest: Clear to auscultation and percussion. Cardiovascular: S1, S2 regular. Grade 3/6 systolic apical murmur. Abdomen: No rebound. Normoactive bowel sound. Extremities: 1+ distal pulses. No calf tenderness. EKG not available. Abdominal MRI report was noted. CBC revealed white cell count 5.9, hemoglobin 12.2, platelet count 142, INR 1.74. Basic metabolic profile revealed sodium 136, potassium 5.3, BUN 60.9, creatinine 8.7, with AST of 71, ALT of 143. ASSESSMENT: 1. Abdominal discomfort, etiology of which is to be determined, acalculous cholecystitis is a suspect, evaluation of which is currently in progress. 2. Coronary artery disease, nonobstructive coronary artery disease, angina pectoris, clinically stable. 3. Exertional dyspnea. Patient with known history of diastolic/systolic left ventricular dysfunction with clinical class 0 [place] [employer] classification left ventricular failure. 4. Heart murmur, mitral valve regurgitation is a suspect. Clinically appears to be significant, could be contributing to his clinical presentation with exertional dyspnea. 5. Hypertensive cardiovascular disease. 6. Hypercholesterolemia. 7. Hyperthyroidism. 8. End-stage renal disease, on hemodialysis. 9. History of psoriasis. RECOMMENDATION: 1. Continuation of Lipitor therapy. 2. Continuation of aspirin therapy. 3. Echocardiography for evaluation of left ventricular size and valvular function, considering the above-noted finding of a prominent heart murmur. 4. Evaluation of abdominal discomfort, as planned. Thank you for the kind referral. ERNESTO GOMES M.D. [id number]
--- NOTE | 2019-05-22 21:13 | CONS ---
DATE OF CONSULTATION: 05/22/2019 REASON FOR CONSULTATION: Acute acalculous cholecystitis. This is an emergency room consultation at the request of the emergency room physician. BRIEF HISTORY: This is a 54-year-old male with history of end-stage renal disease and failed renal transplant in the past, and known hepatomegaly. He presented to [facility] complaining of 1 month of upper abdominal pain. The pain was not associated with food. He was noted to have normal labs. His white blood cell count was normal without a shift. He had mildly elevated liver function test with an AST of 71, an ALT of 143, and alkaline phosphatase of 198. He had an ultrasound done of his gallbladder, which showed that it was contracted and thickened without stones. There was again noted hepatomegaly and some small amount of ascites with fluid around the gallbladder. He had an MRCP done, which showed no stones in the bile duct. It also showed a contracted gallbladder that was thickened with fluid around it. I was requested to evaluate the patient. I recommended at the time of May 21 for a HIDA scan to be done to evaluate for acute cholecystitis. That is yet to be done. The patient is currently hungry, asking for food. He is on the regular medical floor. His past medical history is as stated in HPI. In addition, he has diverticulosis and hypertension. Past surgical history includes a kidney transplant and an AV fistula. Social history is negative for alcohol, negative for tobacco. Home medications include Lipitor, aspirin, Tapazole, and losartan. REVIEW OF SYSTEMS: General: Denies fatigue or malaise. Cardiac: Denies chest pain or palpitations. Respiratory: No shortness of breath or wheeze. Gastrointestinal: No nausea, no vomiting, no diarrhea, no recent weight loss. Admits to right upper quadrant chronic abdominal pain. Genitourinary: Denies dysuria. Musculoskeletal: Denies joint pain. Psychiatric: Denies depression or hearing voices. PHYSICAL EXAMINATION: General: This is a well-developed, well-nourished 54-year-old male in no distress. Vital Signs: He is afebrile. HEENT: His head is normocephalic. Sclerae are anicteric. Neck: Supple. Chest: Clear. Abdomen: Soft. He has mild right upper quadrant tenderness over the palpation of his liver. He has a well-healed nephrectomy scar in the right lower quadrant and perhaps the remnant of the kidney can be felt. He has no obvious hernias. Extremities: His extremities have trace edema. REVIEW OF HIS LABORATORY: His AST is 71, his ALT is 143, his alkaline phosphatase is 198, his bilirubin is normal, his creatinine is 8.7. ASSESSMENT: This is a 54-year-old male with chronic right upper quadrant abdominal pain. He has hepatomegaly. He has kidney failure. He is on dialysis. On ultrasound as well as MRI, he does not have gallstones. Acalculous cholecystitis would be an unusual diagnosis in an ambulatory patient. He is also currently hungry and states his symptoms are unrelated to food. I think it is more likely that his pain is secondary to liver capsule stretch and distention. Also his gallbladder is noted to be contracted, which goes against cholecystitis, to cholecystitis. I reviewed his CAT scan from the summer. At that point, the gallbladder was distended; however, it was not noted to be thickened at that time. I recommended that the patient have a HIDA to rule out acute cholecystitis. I suspect this test will be negative. If the patient does have a positive HIDA scan, then could consider surgery, whether as inpatient or an outpatient. He currently has no signs of sepsis and I suspect he will tolerate diet. I have put him on a renal diet as well. If the HIDA scan is positive, then I will re-evaluate the patient. DO PHONG SHAHID/[id number]
[2019-05-22] MEDS: ATORVASTATIN CA 40 MG TABLET (FP) PO SCH (21:52)
[2019-05-23] MEDS ORDERED: MELATONIN 5 MG TABLETS PO ONE (00:47)
[2019-05-23] MEDS ORDERED: PIPERACILLIN/TAZOBACTAM 2.25 GM VIAL IVPB ONE ×2 (00:55→17:45)
[2019-05-23] MEDS ORDERED: DEXTROSE 5%-WATER - 50 ML IVPB ONE ×2 (00:55→17:45)
[2019-05-23] MEDS: PIPERACILLIN/TAZOB 2.25 GM 2.25 GM in DEXTROSE 5%-WATER - 50 ML IVPB SCH ×3 (01:09→18:00)
--- NOTE | 2019-05-23 06:22 | PN ---
Progress Note, Physician Chief Complaint: in bed NAD no pain - Current Medication List Current Medications: Active Medications Aspirin (Ecotrin -) 81 mg PO DAILY [facility] Last Admin: 05/22/19 11:09 Dose: Not Given Atorvastatin Calcium (Lipitor -) 40 mg PO HS [facility] Last Admin: 05/22/19 21:52 Dose: Not Given Heparin Sodium (Porcine) (Heparin -) 5,000 unit SQ BID [facility] Last Admin: 05/22/19 21:52 Dose: Not Given Piperacillin Sod/Tazobactam (Sod 2.25 gm/ Dextrose) 50 mls @ 100 mls/hr IVPB Q8H-IV [facility]; Protocol Last Admin: 05/23/19 01:09 Dose: 100 mls/hr Sodium Chloride (Normal Saline -) 250 mls @ 3,000 mls/hr IV PRN PRN PRN Reason: Hypotension during Dialysis Stop: 05/23/19 14:23 Losartan Potassium (Cozaar -) 50 mg PO DAILY [facility] Last Admin: 05/22/19 10:58 Dose: 50 mg Methimazole (Tapazole -) 5 mg PO DAILY [facility] Last Admin: 05/22/19 10:59 Dose: 5 mg - Objective Vital Signs: Vital Signs Temperature 97.7 F 05/23/19 02:06 Pulse Rate 88 05/23/19 02:06 Respiratory Rate 18 05/23/19 02:06 Blood Pressure 131/67 05/23/19 02:06 O2 Sat by Pulse Oximetry (%) 98 05/22/19 21:00 Constitutional: Yes: No Distress, Calm Eyes: Yes: Conjunctiva Clear HENT: Yes: Atraumatic Neck: Yes: Supple Cardiovascular: Yes: Regular Rate and Rhythm Respiratory: Yes: CTA Bilaterally Gastrointestinal: Yes: Soft. No: Tenderness Genitourinary: No: Hematuria Musculoskeletal: No: Joint Stiffness, Joint Swelling Extremities: No: Cold, Cool Edema: No Integumentary: No: Rash, Venous Stasis Changes Neurological: Yes: WNL, Alert, Oriented ...Motor Strength: WNL Psychiatric: Yes: WNL, Alert, Oriented. No: Agitated, Suicidal Ideation Labs: CBC, BMP 05/22/19 06:55 05/22/19 06:55 INR, PTT INR 1.74 (0.83-1.09) H 05/22/19 06:55 - ....Imaging Other: Report Reviewed Assessment/Plan The pt is a 54M w/ a history of HTN, s/p failed kidney transplant, LUE AVF/G, and ESRD/HD admitted with epigastric abdominal pain and 1 episode N/V US c/w acalculous cholecystitis GI and surgery f/u; HIDA scan? IV ATB echo pending HD per renal cardio eval h/o ASHD HTN sq heparin DVT PFX d/w pt and staff
[2019-05-23 10:33] LABS: ALBUMIN 3.1 g/dl (3.4-5.0); BILIRUBIN,DIRECT 0.2 mg/dL (0.0-0.2); BILIRUBIN,TOTAL 0.5 mg/dL (0.2-1)
[2019-05-23 12:20] VITALS: BMI 24.9
--- NOTE | 2019-05-23 12:32 | PN ---
Progress Note (short form) - Note Progress Note: surgery pt off the floor. recommend HIDA.
[2019-05-23] MEDS: HEPARIN NA (PORCINE) 5,000 UNITS/ML 1ML VIAL SQ SCH ×2 (14:16→21:48)
--- NOTE | 2019-05-23 15:03 | PN ---
Progress Note (short form) - Note Progress Note: Renal follow up for ESRD on HD Seen and examined at the bedside awake and alert still has mild abdominal discomfort s/p dialysis this am, tolerated it well no chest pain or shortness of breath Vital Signs Temperature 97.8 F 05/23/19 12:20 Pulse Rate 82 05/23/19 12:20 Respiratory Rate 18 05/23/19 12:20 Blood Pressure 127/66 05/23/19 12:20 O2 Sat by Pulse Oximetry (%) 98 05/22/19 21:00 Intake & Output 05/20/19 05/21/19 05/22/19 05/23/19 23:59 23:59 23:59 23:59 Intake Total 100 100 430 Balance 100 100 430 Weight 76.204 kg 77.383 kg 76.657 kg NAD awake and alert neck supple RRR no LE edema CBC, BMP 05/22/19 06:55 05/22/19 06:55 Current Medications Aspirin (Ecotrin -) 81 mg PO DAILY [facility] Last Admin: 05/22/19 11:09 Dose: Not Given Atorvastatin Calcium (Lipitor -) 40 mg PO HS [facility] Last Admin: 05/22/19 21:52 Dose: Not Given Heparin Sodium (Porcine) (Heparin -) 5,000 unit SQ BID [facility] Last Admin: 05/23/19 14:16 Dose: Not Given Piperacillin Sod/Tazobactam (Sod 2.25 gm/ Dextrose) 50 mls @ 100 mls/hr IVPB Q8H-IV [facility]; Protocol Last Admin: 05/23/19 14:16 Dose: Not Given Sodium Chloride (Normal Saline -) 250 mls @ 3,000 mls/hr IV PRN PRN PRN Reason: Hypotension during Dialysis Stop: 05/23/19 14:23 Losartan Potassium (Cozaar -) 50 mg PO DAILY [facility] Last Admin: 05/22/19 10:58 Dose: 50 mg Methimazole (Tapazole -) 5 mg PO DAILY [facility] Last Admin: 05/22/19 10:59 Dose: 5 mg 53 year old gentleman with history of ESRD on HD, hypertension HLD, hx of renal transplant (now non-functional) who presented with abdominal pain. 1. Abdominal pain with suspected cholecystitis 2. ESRD on HD 3. Moderate hyperkalemia 4. Hypertension s/p HD this AM, next planned treatment on for HIDA scan, seen by surgery continue Losartan for hyperternsion Renal diet, 1.2L fluid restriction Gonzalo Barros DO
--- NOTE | 2019-05-23 15:31 | ECHO ---
Name: AMANDA GONZÁLES Exam:Adult Echocardiogram Study Date: 05/23/2019 01:50 PM Age: 54 yrs Height: 69 in Weight: 170 lb BSA: 1.9 m2 MMode/2D Measurements & Calculations IVSd: 1.7 cm Ao root diam: 3.2 cm LVIDd: 5.0 cm LA dimension: 4.0 cm LVIDs: 3.5 cm ACS: 2.0 cm LVPWd: 1.2 cm EDV(Teich): 120.8 ml LVOT diam: 1.9 cm ESV(Teich): 51.7 ml RV S Jos: 11.3 cm/sec Doppler Measurements & Calculations MV E max jos: 176.6 cm/sec Ao V2 max: 282.0 cm/sec MV A max jos: 47.0 cm/sec Ao max P.8 mmHg MV E/A: 3.8 Ao V2 mean: 201.8 cm/sec MV dec time: 0.24 sec Ao mean P.9 mmHg Ao V2 VTI: 55.8 cm BONNIE(I,D): 1.0 cm2 AI P1/2t: 149.9 msec BONNIE(V,D): 0.93 cm2 AI max jos: 398.2 cm/sec LV V1 max P.4 mmHg AI max P.4 mmHg LV V1 mean P.0 mmHg AI dec slope: 778.2 cm/sec2 LV V1 max: 92.6 cm/sec LV V1 mean: 66.3 cm/sec LV V1 VTI: 19.9 cm MR max jos: 430.1 cm/sec SV(LVOT): 56.4 ml MR max P.1 mmHg TR max jos: 332.6 cm/sec PA V2 max: 52.3 cm/sec TR max P.7 mmHg PA max P.1 mmHg PI end-d jos: 191.8 cm/sec Med Peak E' Jos: 5.7 cm/sec Med E/e': 31.0 Lat Peak E' Jos: 10.1 cm/sec Lat E/e': 17.5 Procedure A complete two-dimensional transthoracic echocardiogram was performed (2D, M-mode, Doppler and color flow Doppler). Left Ventricle The left ventricle is normal in size. There is mild concentric left ventricular hypertrophy. Left surjit tricular systolic function is low normal. Ejection Fraction = 50-55%. LV diastology suggests restrictive physi ology with elevated filling pressure. No regional wall motion abnormalities noted. Right Ventricle The right ventricle is normal size. The right ventricular systolic function is normal. RV systolic TD I is 11 cm/s. Atria The left atrial size is normal. Right atrial size is normal. Mitral Valve There is mild to moderate mitral valve thickening. There is moderate mitral annular calcification. Fu nctional mitral valve stenosis secondary to MAC. There is mild mitral regurgitation. Tricuspid Valve The tricuspid valve is normal in structure and function. There is moderate tricuspid regurgitation. P ulmonary artery systolic pressure is at least 62 mmHg if RA pressure is assumed 3 mmHg : severe pulmonary HTN. Aortic Valve There is moderate aortic valve thickening. Mild to moderate valvular aortic stenosis. The calculated aortic valve area using the continuity equation is 1.0 cm2. Aortic mean pressure gradient= 20 mmHg. DI (dime nsionless index) is estimated 0.35. Moderate to severe aortic regurgitation. Pulmonic Valve The pulmonic valve is not well visualized. Mild pulmonic valvular regurgitation. Great Vessels The aortic root is normal size. Pericardium/Pleura There is no pericardial effusion. Interpretation Summary The left ventricle is normal in size. There is mild concentric left ventricular hypertrophy. Left ventricular systolic function is low normal. No regional wall motion abnormalities noted. Ejection Fraction = 50-55%. LV diastology suggests restrictive physiology with elevated filling pressure The right ventricular systolic function is normal. The left atrial size is normal. Right atrial size is normal. There is mild to moderate mitral valve thickening. There is moderate mitral annular calcification. Functional mitral valve stenosis secondary to MAC There is mild mitral regurgitation. There is moderate tricuspid regurgitation. Pulmonary artery systolic pressure is at least 62 mmHg if RA pressure is assumed 3 mmHg : severe pulm onary HTN There is moderate aortic valve thickening. Mild to moderate valvular aortic stenosis. The calculated aortic valve area using the continuity equation is 1.0 cm2. Aortic mean pressure gradient= 20 mmHg DI (dimensionless index) is estimated 0.35 Moderate to severe aortic regurgitation. Mild pulmonic valvular regurgitation. There is no pericardial effusion. Francesco Mathias MD 05/23/2019 03:31 PM
[2019-05-23] MEDS ORDERED: PT OWN MED DRAWER 7, Y5N ONE (17:48)
[2019-05-23] MEDS: LOSARTAN POTASSIUM 50 MG TABLET (FP) PO SCH ×2 (18:00→18:05)
[2019-05-23] MEDS: ASPIRIN COATED 81 MG TABLET.EC PO SCH ×2 (18:00→18:09)
[2019-05-23] MEDS: METHIMAZOLE 5 MG TABLET (FP) PO SCH (18:00)
[2019-05-23] MEDS: ATORVASTATIN CA 40 MG TABLET (FP) PO SCH (21:49)
[2019-05-24] MEDS: PIPERACILLIN/TAZOB 2.25 GM 2.25 GM in DEXTROSE 5%-WATER - 50 ML IVPB SCH ×2 (02:28→10:50)
--- NOTE | 2019-05-24 07:25 | PN ---
Progress Note, Physician Chief Complaint: A&Ox3; underwent hemodialysis this morning; now ambulatory, feels well. No chest pain or dyspnea. Still with abdominal discomfort, though improving. History of Present Illness: 53 year old black male with a significant past medical history of diastolic CHF with aortic valvular disease and significant pulmonary HTN, HLD, ESRD (Dialysis ), s/p failed renal transplant, psoriasis, presenting with abdominal pain x 2 weeks, particularly over epigastrium/RUQ. The pain is achy, non-radiating, worse with laying down, better sitting up, and not alleviated by any medication he has tried. He denies any new/suspicious foods. denies fatty foods, spicy foods, caffeine, particular triggers. He denies fevers/chills, chest pain, trouble breathing, sick contacts, current N /V, diarrhea, or changes in sensation. 05/21/19 12:36 - Current Medication List Current Medications: Active Medications Aspirin (Ecotrin -) 81 mg PO DAILY [facility] Last Admin: 05/23/19 18:09 Dose: Not Given Atorvastatin Calcium (Lipitor -) 40 mg PO HS [facility] Last Admin: 05/23/19 21:49 Dose: Not Given Heparin Sodium (Porcine) (Heparin -) 5,000 unit SQ BID [facility] Last Admin: 05/23/19 21:48 Dose: Not Given Piperacillin Sod/Tazobactam (Sod 2.25 gm/ Dextrose) 50 mls @ 100 mls/hr IVPB Q8H-IV [facility]; Protocol Last Admin: 05/24/19 02:28 Dose: 100 mls/hr Sodium Chloride (Normal Saline -) 250 mls @ 3,000 mls/hr IV PRN PRN PRN Reason: Hypotension during Dialysis Stop: 05/23/19 14:23 Losartan Potassium (Cozaar -) 50 mg PO DAILY [facility] Last Admin: 05/23/19 18:05 Dose: Not Given Methimazole (Tapazole -) 5 mg PO DAILY [facility] Last Admin: 05/23/19 18:00 Dose: 5 mg - Objective Vital Signs: Vital Signs Temperature 99.1 F 05/24/19 07:00 Pulse Rate 91 H 05/24/19 07:00 Respiratory Rate 18 05/24/19 07:00 Blood Pressure 158/93 05/24/19 07:00 O2 Sat by Pulse Oximetry (%) 98 05/23/19 21:00 Constitutional: Yes: Anxious Eyes: Yes: WNL HENT: Yes: WNL Cardiovascular: Yes: S1, S2, S4 Respiratory: Yes: Regular Gastrointestinal: Yes: Soft ...Rectal Exam: Yes: Deferred Genitourinary: Yes: Other (ESRD: on hemodialysis). No: Anuria Breast(s): Yes: WNL Musculoskeletal: Yes: WNL Edema: No Peripheral Pulses WNL: Yes Integumentary: Yes: Other (AV graft) Neurological: Yes: WNL ...Motor Strength: WNL Psychiatric: Yes: WNL Labs: CBC, BMP 05/22/19 06:55 05/22/19 06:55 INR, PTT INR 1.74 (0.83-1.09) H 05/22/19 06:55 Abnormal Lab Results 05/26/19 05/26/19 05/26/19 12:45 12:45 12:45 RDW 18.5 H Sodium 135 L Chloride 97 L Carbon Dioxide 20 L Anion Gap 18 H BUN 99.1 H Creatinine 13.5 H* Random Glucose 123 H Calcium 7.9 L ALT 88 H 90 H Alkaline Phosphatase 207 H 209 H Albumin 2.9 L 2.9 L - ....Imaging Chest X-ray: Image Reviewed EKG: Image Reviewed Problem List - Problems (1) Acalculous cholecystitis Assessment/Plan: f/u GI workup; ?for HIDA. Code(s): K81.9 - CHOLECYSTITIS, UNSPECIFIED (2) Anemia in CKD (chronic kidney disease) Code(s): N18.9 - CHRONIC KIDNEY DISEASE, UNSPECIFIED; D63.1 - ANEMIA IN CHRONIC KIDNEY DISEASE (3) ESRD (end stage renal disease) on dialysis Code(s): N18.6 - END STAGE RENAL DISEASE; Z99.2 - DEPENDENCE ON RENAL DIALYSIS (4) Tropic cardiac risk >20% in next 10 years Assessment/Plan: stress MIBI 09/2018: likely no myocardial ischemia (could not r/o small area of inferior wall ischemia) Chronic TNI elevation F/u ECHO for LVEF, regional wall motion, valve status (hx /AR, pulmonary HTN). Aggressive control of lipids. Code(s): Z91.89 - OTH PERSONAL RISK FACTORS, NOT ELSEWHERE CLASSIFIED (5) HTN (hypertension) Code(s): I10 - ESSENTIAL (PRIMARY) HYPERTENSION (6) Pulmonary HTN Code(s): I27.20 - PULMONARY HYPERTENSION, UNSPECIFIED (7) Aortic stenosis Assessment/Plan: f/u ECHO Code(s): I35.0 - NONRHEUMATIC AORTIC (VALVE) STENOSIS (8) Hyperlipidemia Assessment/Plan: on atorvastatin; f/u elevated LFTs. Code(s): E78.5 - HYPERLIPIDEMIA, UNSPECIFIED (9) Elevated LFTs Assessment/Plan: ?2ndayr to GI; CHF may also be contributing to elevation Code(s): R94.5 - ABNORMAL RESULTS OF LIVER FUNCTION STUDIES
--- NOTE | 2019-05-24 09:41 | PN ---
Progress Note (short form) - Note Progress Note: surgery HIDA unofficially negative. no cholecystitis. no gallstones on mri or u/s. the gb is not a source of pain. suspect pain is from liver capsule.
[2019-05-24] MEDS: ASPIRIN COATED 81 MG TABLET.EC PO SCH (09:44)
[2019-05-24] MEDS: HEPARIN NA (PORCINE) 5,000 UNITS/ML 1ML VIAL SQ SCH ×2 (09:44→21:00)
[2019-05-24] MEDS: LOSARTAN POTASSIUM 50 MG TABLET (FP) PO SCH (09:44)
[2019-05-24] MEDS ORDERED: PIPERACILLIN/TAZOBACTAM 2.25 GM VIAL IVPB ONE (09:49)
[2019-05-24] MEDS ORDERED: DEXTROSE 5%-WATER - 50 ML IVPB ONE (09:49)
[2019-05-24] MEDS: METHIMAZOLE 5 MG TABLET (FP) PO SCH (11:56)
--- NOTE | 2019-05-24 12:59 | PN.GI ---
GI Progress Note Subjective: Clinically improved States feeling well Liver chemistries remain elevated Patient seen by surgery: Dr. wong. feels this was not cholecystitis Patient has improved while admitted and on IV Abx - Objective Vital Signs: Vital Signs Temperature 99.1 F 05/24/19 07:00 Pulse Rate 91 H 05/24/19 07:00 Respiratory Rate 18 05/24/19 07:00 Blood Pressure 158/93 05/24/19 07:00 O2 Sat by Pulse Oximetry (%) 98 05/23/19 21:00 ...Auscultate: Yes: Normoactive Bowel Sounds ...Palpate: Yes: Soft. No: Tenderness ...Percussion: No: Tympanitic Edema: No (No LE edema) Labs: CBC, BMP 05/22/19 06:55 05/22/19 06:55 INR, PTT INR 1.74 (0.83-1.09) H 05/22/19 06:55 Problem List - Problems (1) Right upper quadrant abdominal pain Assessment/Plan: Clinically improved since admission. HIDA not officially read,negative per Dr. Wong. I left a message to have Dr. Khanna officially read the study. Discussed case with Dr. Wong. Valyermo he was high risk for surgery given severe pulmonary hyptertension and especially with negative HIDA that was not suggestive of acute cholecystitis. Liver chemistries remain elevated. Severe pulmonary HTN on echo. ? if component of passive congestion contributing to elevated liver chemistries. I have ordered CT scan of the abdomen with and without contrast to further evaluate liver parenchyma. This was discussed with Dr. Barros who stated that it could be performed today. Consider cardiac evaluation. Unclear if his pulmonary HTN has been worked-up in the past I stopped the statin in the interim Monitor LFTs Code(s): R10.11 - RIGHT UPPER QUADRANT PAIN
--- NOTE | 2019-05-24 13:30 | PN ---
Progress Note, Physician History of Present Illness: Pt is feeling better, "since I start antibiotic". Pt is tolerating PO food intake w/o abd pain. Pt w/o fever, chills, CP, SOB, palpitatons. - Current Medication List Current Medications: Active Medications Aspirin (Ecotrin -) 81 mg PO DAILY [facility] Last Admin: 05/24/19 09:44 Dose: Not Given Heparin Sodium (Porcine) (Heparin -) 5,000 unit SQ BID [facility] Last Admin: 05/24/19 09:44 Dose: Not Given Piperacillin Sod/Tazobactam (Sod 2.25 gm/ Dextrose) 50 mls @ 100 mls/hr IVPB Q8H-IV [facility]; Protocol Last Admin: 05/24/19 10:50 Dose: 100 mls/hr Sodium Chloride (Normal Saline -) 250 mls @ 3,000 mls/hr IV PRN PRN PRN Reason: Hypotension during Dialysis Stop: 05/23/19 14:23 Losartan Potassium (Cozaar -) 50 mg PO DAILY [facility] Last Admin: 05/24/19 09:44 Dose: Not Given Methimazole (Tapazole -) 5 mg PO DAILY [facility] Last Admin: 05/24/19 11:56 Dose: 5 mg - Objective Vital Signs: Vital Signs Temperature 99.1 F 05/24/19 07:00 Pulse Rate 91 H 05/24/19 07:00 Respiratory Rate 18 05/24/19 07:00 Blood Pressure 158/93 05/24/19 07:00 O2 Sat by Pulse Oximetry (%) 98 05/23/19 21:00 Constitutional: Yes: No Distress, Calm Cardiovascular: Yes: Regular Rate and Rhythm, S1, S2 Respiratory: Yes: Regular, CTA Bilaterally. No: Rales Gastrointestinal: Yes: Normal Bowel Sounds, Soft, Palpable Mass, Tenderness, Tenderness, Rebound Edema: No Neurological: Yes: Alert, Oriented Labs: CBC, BMP 05/22/19 06:55 05/22/19 06:55 INR, PTT INR 1.74 (0.83-1.09) H 05/22/19 06:55 Problem List - Problems (1) Abdominal pain Code(s): R10.9 - UNSPECIFIED ABDOMINAL PAIN Qualifiers: Abdominal location: generalized Qualified Code(s): R10.84 - Generalized abdominal pain (2) ESRD (end stage renal disease) on dialysis Code(s): N18.6 - END STAGE RENAL DISEASE; Z99.2 - DEPENDENCE ON RENAL DIALYSIS (3) Failed kidney transplant Code(s): T86.12 - KIDNEY TRANSPLANT FAILURE (4) HLD (hyperlipidemia) Code(s): E78.5 - HYPERLIPIDEMIA, UNSPECIFIED (5) HTN (hypertension) Code(s): I10 - ESSENTIAL (PRIMARY) HYPERTENSION Qualifiers: Hypertension type: essential hypertension Qualified Code(s): I10 - Essential (primary) hypertension Assessment/Plan Surgery note was reviewed. Case was d/w Dr. Beata Felix, pt to have abd/pelvis CT scan To f/u HIDA scan report. To f/u with ID regarding abtx. AM labs
--- NOTE | 2019-05-24 15:31 | PN ---
Progress Note (short form) - Note Progress Note: Renal follow up for ESRD on HD Seen and examined at the bedside awake and alert s/p CT of the Abd with contrast this AM no shortness of breath still has mild abdominal discomfort no fever or chills Vital Signs Temperature 97.6 F 05/24/19 15:00 Pulse Rate 88 05/24/19 15:00 Respiratory Rate 20 05/24/19 15:00 Blood Pressure 127/70 05/24/19 15:00 O2 Sat by Pulse Oximetry (%) 98 05/24/19 09:00 Intake & Output 05/21/19 05/22/19 05/23/19 05/24/19 23:59 23:59 23:59 23:59 Intake Total 100 100 430 50 Balance 100 100 430 50 Weight 76.204 kg 77.383 kg 76.657 kg NAD awake and alert neck supple RRR no LE edema CBC, BMP 05/22/19 06:55 05/22/19 06:55 Current Medications Aspirin (Ecotrin -) 81 mg PO DAILY [facility] Last Admin: 05/24/19 09:44 Dose: Not Given Heparin Sodium (Porcine) (Heparin -) 5,000 unit SQ BID [facility] Last Admin: 05/24/19 09:44 Dose: Not Given Piperacillin Sod/Tazobactam (Sod 2.25 gm/ Dextrose) 50 mls @ 100 mls/hr IVPB Q8H-IV [facility]; Protocol Last Admin: 05/24/19 10:50 Dose: 100 mls/hr Sodium Chloride (Normal Saline -) 250 mls @ 3,000 mls/hr IV PRN PRN PRN Reason: Hypotension during Dialysis Stop: 05/23/19 14:23 Losartan Potassium (Cozaar -) 50 mg PO DAILY [facility] Last Admin: 05/24/19 09:44 Dose: Not Given Methimazole (Tapazole -) 5 mg PO DAILY [facility] Last Admin: 05/24/19 11:56 Dose: 5 mg 53 year old gentleman with history of ESRD on HD, hypertension HLD, hx of renal transplant (now non-functional) who presented with abdominal pain. 1. Abdominal pain with suspected cholecystitis 2. ESRD on HD 3. Moderate hyperkalemia 4. Hypertension no acute indication for dialysis today, next planned HD is f/u CT C+, GI and surgery following continue Losartan for hyperternsion Renal diet, 1.2L fluid restriction Gonzalo Barros DO
--- NOTE | 2019-05-24 16:09 | PN ---
Progress Note (short form) - Note Progress Note: no abdominal pain no fevers hida scan negative-no plans for surgery Vital Signs Period Temp Pulse Resp BP Sys/Romeo Pulse Ox Last 24 Hr 97.6 F-99.1 F 87-94 18-20 127-158/68-93 98-98 cor-rrr lungs clear abd soft,nt ext no edema CBC, BMP 05/22/19 06:55 05/22/19 06:[address] scan noted a/p with lack of fever or leukocytosis and negative hida-will dc zosyn and observe esrd/hd d/w GI Problem List - Problems (1) Abnormal LFTs Code(s): R94.5 - ABNORMAL RESULTS OF LIVER FUNCTION STUDIES (2) Acalculous cholecystitis Code(s): K81.9 - CHOLECYSTITIS, UNSPECIFIED (3) ESRD (end stage renal disease) on dialysis Code(s): N18.6 - END STAGE RENAL DISEASE; Z99.2 - DEPENDENCE ON RENAL DIALYSIS
[2019-05-25 09:01] LABS: HEMATOCRIT 37.5 % (35.4-49); HEMOGLOBIN 12.2 GM/dL (11.7-16.9); MCH 28.7 pg (25.7-33.7); MCHC 32.6 g/dl (32.0-35.9); MEAN CELL VOLUME 87.9 fl (80-96); MEAN PLT VOLUME 8.1 fl (7.5-11.1); PLATELET COUNT 146 K/MM3 (134-434); RBC 4.26 M/mm3 (4.00-5.60); RDW 18.2 % (11.9-15.9); WHITE BLOOD COUNT 6.2 K/mm3 (4.0-10.0)
[2019-05-25 09:24] LABS: ALBUMIN 3.1 g/dl (3.4-5.0); BILIRUBIN,TOTAL 0.6 mg/dL (0.2-1); BLOOD UREA NITROGEN 70.5 mg/dL (7-18); CALCIUM 8.5 mg/dL (8.5-10.1); POTASSIUM 4.4 mmol/L (3.5-5.1)
[2019-05-25 09:28] LABS: CREATININE 10.9 mg/dL (0.55-1.3)
--- NOTE | 2019-05-25 09:32 | PN ---
Progress Note, Physician Chief Complaint: feeling better no pain no N/V - Current Medication List Current Medications: Active Medications Aspirin (Ecotrin -) 81 mg PO DAILY [facility] Last Admin: 05/24/19 09:44 Dose: Not Given Heparin Sodium (Porcine) (Heparin -) 5,000 unit SQ BID [facility] Last Admin: 05/24/19 21:00 Dose: Not Given Sodium Chloride (Normal Saline -) 250 mls @ 3,000 mls/hr IV PRN PRN PRN Reason: Hypotension during Dialysis Stop: 05/23/19 14:23 Losartan Potassium (Cozaar -) 50 mg PO DAILY [facility] Last Admin: 05/24/19 09:44 Dose: Not Given Methimazole (Tapazole -) 5 mg PO DAILY [facility] Last Admin: 05/24/19 11:56 Dose: 5 mg - Objective Vital Signs: Vital Signs Temperature 98.3 F 05/25/19 06:00 Pulse Rate 89 05/25/19 06:00 Respiratory Rate 18 05/25/19 06:00 Blood Pressure 136/76 05/25/19 06:00 O2 Sat by Pulse Oximetry (%) 98 05/24/19 21:00 Constitutional: Yes: No Distress Eyes: Yes: Conjunctiva Clear HENT: Yes: Atraumatic Neck: Yes: Supple Cardiovascular: Yes: Regular Rate and Rhythm Respiratory: Yes: CTA Bilaterally Gastrointestinal: Yes: Soft. No: Tenderness Genitourinary: No: Hematuria Musculoskeletal: No: Joint Stiffness, Joint Swelling Extremities: No: Cold, Cool, Cyanosis Edema: No Integumentary: No: Rash, Venous Stasis Changes Neurological: Yes: WNL, Alert, Oriented ...Motor Strength: WNL Psychiatric: Yes: WNL, Alert, Oriented. No: Agitated, Suicidal Ideation Labs: CBC, BMP 05/25/19 08:36 05/25/19 08:36 INR, PTT INR 1.74 (0.83-1.09) H 05/22/19 06:55 - ....Imaging Other: Report Reviewed Assessment/Plan The pt is a 54M w/ a history of HTN, s/p failed kidney transplant, LUE AVF/G, and ESRD/HD admitted with epigastric abdominal pain and 1 episode N/V HIDA scan negative for cholecystitis echo noted; pulm HTN, some Ao and Mi ds - d.wcardio most likely not the cause of his hepatomegaly; will d/w GI further w/u HD per renal sq heparin DVT PFX d/w pt and staff
[2019-05-25] MEDS ORDERED: PT OWN MED DRAWER 7, Y5N ONE (09:34)
[2019-05-25] MEDS: HEPARIN NA (PORCINE) 5,000 UNITS/ML 1ML VIAL SQ SCH ×2 (10:35→21:07)
[2019-05-25] MEDS: ASPIRIN COATED 81 MG TABLET.EC PO SCH (10:35)
[2019-05-25] MEDS: LOSARTAN POTASSIUM 50 MG TABLET (FP) PO SCH (10:36)
[2019-05-25] MEDS: METHIMAZOLE 5 MG TABLET (FP) PO SCH (10:36)
--- NOTE | 2019-05-25 11:07 | PN ---
Progress Note (short form) - Note Progress Note: Renal follow up for ESRD on HD Seen and examined at the bedside awake and alert no acute complaints still has mild abdominal discomfort no chest pain, fever, chills, or shortness of breath Vital Signs Temperature 98.4 F 05/25/19 10:00 Pulse Rate 95 H 05/25/19 10:00 Respiratory Rate 05/25/19 10:00 Blood Pressure 150/93 05/25/19 10:00 O2 Sat by Pulse Oximetry (%) 98 05/24/19 21:00 Intake & Output 05/22/19 05/23/19 05/24/19 05/25/19 23:59 23:59 23:59 23:59 Intake Total 100 430 50 Balance 100 430 50 Weight 77.383 kg 76.657 kg NAD awake and alert neck supple RRR no LE edema CBC, BMP 05/25/19 08:36 05/25/19 08:36 Current Medications Aspirin (Ecotrin -) 81 mg PO DAILY [facility] Last Admin: 05/25/19 10:35 Dose: Not Given Heparin Sodium (Porcine) (Heparin -) 5,000 unit SQ BID [facility] Last Admin: 05/25/19 10:35 Dose: Not Given Sodium Chloride (Normal Saline -) 250 mls @ 3,000 mls/hr IV PRN PRN PRN Reason: Hypotension during Dialysis Stop: 05/23/19 14:23 Losartan Potassium (Cozaar -) 50 mg PO DAILY [facility] Last Admin: 05/25/19 10:36 Dose: 50 mg Methimazole (Tapazole -) 5 mg PO DAILY [facility] Last Admin: 05/25/19 10:36 Dose: 5 mg 53 year old gentleman with history of ESRD on HD, hypertension HLD, hx of renal transplant (now non-functional) who presented with abdominal pain. 1. Abdominal pain with suspected cholecystitis 2. ESRD on HD 3. Moderate hyperkalemia 4. Hypertension For next planned dialysis tomorrow. Renal diet. 1.2L Fluid restriction. GI follow up regarding CT findings of hepatomegaly and hepatocellular disease. Continue Losartan 50mg daily. Gonzalo Barros DO
--- NOTE | 2019-05-25 12:29 | PN.GI ---
GI Progress Note Subjective: Sitting up, eating Denies abdominal pain CT scan revealed hepatocellular disease, normal appearing pancreas and slightly thickened GB wall with trace pericholecystic fluid. - Objective Vital Signs: Vital Signs Temperature 98.4 F 05/25/19 10:00 Pulse Rate 95 H 05/25/19 10:00 Respiratory Rate 20 05/25/19 10:00 Blood Pressure 150/93 05/25/19 10:00 O2 Sat by Pulse Oximetry (%) 98 05/24/19 21:00 Labs: CBC, BMP 05/25/19 08:36 05/25/19 08:36 INR, PTT INR 1.74 (0.83-1.09) H 05/22/19 06:55 Problem List - Problems (1) Right upper quadrant abdominal pain Assessment/Plan: Clinically much improved. Liver chemistries are improving and Mr. Clark is tolerating PO. Not clear if current symptomatology secondary to acute cholecystitis, ? if secondary to passive congestion in setting of severe pulmonary HTN. ID following. Would D/C IV Abx and observe Cardiology follow-up Avoid hepatotoxic agents. Statin was held for now Monitor LFTs Outpatient follow-up Code(s): R10.11 - RIGHT UPPER QUADRANT PAIN
--- NOTE | 2019-05-25 17:11 | PN ---
Progress Note (short form) - Note Progress Note: Coverage for Dr. Chandu Hinojosa Chief Complaint: Events noted, notes reviewed, abdominal discomfort, denies any chest pain or dyspnea History of Present Illness: Seen and examined. Events noted, notes reviewed, abdominal discomfort, denies any chest pain or dyspnea Asked by patient's primary care provider Dr. Vy Ochoa for a follow-up in reference to abnormal findings on echocardiography study which could be contributing to hepatic pathology/hepatocellular disease noted on multiple abdominal imaging studies- Evidence of hepatocellular disease but there is no evidence of hepatic venous congestion Echocardiography results noted, low normal left ventricular systolic function with estimated LVEF between 50-55%, severe pulmonary hypertension, mild to moderate aortic valve stenosis with moderate to severe aortic valve regurgitation - Current Medication List Current Medications Aspirin (Ecotrin -) 81 mg PO DAILY [facility] Last Admin: 05/25/19 10:35 Dose: Not Given Heparin Sodium (Porcine) (Heparin -) 5,000 unit SQ BID [facility] Last Admin: 05/25/19 10:35 Dose: Not Given Sodium Chloride (Normal Saline -) 250 mls @ 3,000 mls/hr IV PRN PRN PRN Reason: Hypotension during Dialysis Stop: 05/23/19 14:23 Losartan Potassium (Cozaar -) 50 mg PO DAILY [facility] Last Admin: 05/25/19 10:36 Dose: 50 mg Methimazole (Tapazole -) 5 mg PO DAILY [facility] Last Admin: 05/25/19 10:36 Dose: 5 mg Review of Systems - Review of Systems Constitutional: no symptoms reported Respiratory: denies Cough or Sputum Production Cardiovascular: as noted above Gastrointestinal: denies Nausea, Vomiting, Diarrhea, Constipation reports Abdominal Pain Genitourinary: no symptoms reported Musculoskeletal: no symptoms reported Endocrine: no symptoms reported - Objective Vital Signs: Last Vital Signs Temp Pulse Resp BP Pulse Ox 98.4 F 91 H 20 151/67 98 05/25/19 14:00 05/25/19 14:00 05/25/19 14:00 05/25/19 14:00 05/24/19 21:00 Intake & Output 05/22/19 05/23/19 05/24/19 05/25/19 23:59 23:59 23:59 23:59 Intake Total 100 430 50 Balance 100 430 50 Weight 170 lb 9.6 oz 169 lb Neck: Supple Negative JVD No Bruit Cardiovascular: S1 S2 Regular Rate and Rhythm Grade 3/6 SM Apical Respiratory: clear to A&P Gastrointestinal: Soft Benign Normal Bowel Sounds Extremities: Negative Edema Labs: CBC, BMP 05/25/19 08:36 05/25/19 08:36 Hepatic Panel Total Bilirubin 0.6 mg/dL (0.2-1) 05/25/19 08:36 Direct Bilirubin 0.2 mg/dL (0.0-0.2) 05/23/19 08:40 AST 29 U/L (15-37) 05/25/19 08:36 ALT 105 U/L (13-61) H 05/25/19 08:36 Alkaline Phosphatase 184 U/L (45-117) H 05/25/19 08:36 Albumin 3.1 g/dl (3.4-5.0) L 05/25/19 08:36 INR, PTT INR 1.74 (0.83-1.09) H 05/22/19 06:55 Assessment/Plan ASSESSMENT: 1. Abdominal discomfort etiology to be determined, acalculus cholecystitis is a suspect- evaluation in progress 2. Evidence of hepatocellular disease etiology of which is to be determined differential diagnosis includes fatty liver questionable hepatic cirrhosis 3. CAD non obstructive disease angina pectoris 4. Exertional dyspnea in a patient with known diastolic/systolic LV dysfunction with clinical class 0 NYHA classification LV failure 5. Aortic valve stenosis mild to moderate in severity, aortic valve regurgitation moderate to severe in severity 6. Hypertensive cardiovascular disease 7. Hypercholesterolemia 8. Severe pulmonary hypertension probably multifactorial- diastolic/systolic left ventricular dysfunction/valvular heart disease/chronic liver disease/ chronic kidney disease- clinically there is no evidence of right heart failure 9. Hyperthyroidism 10. ESRD on HD 11. Psoriasis PLAN: 1. Continue Cozaar 2. Continue ASA 3. Result of the above echocardiography was reviewed in detail with the patient , advised that additional evaluation would be indicated in the future for the above noted aortic valve pathology and the above-noted pulmonary hypertension including probable right heart cardiac catheterization coronary angiography 4. Above was reviewed in detail with patient's primary care provider and brand strategist, advise further evaluation of the above-noted hepatocellular disease Maximo Huizar MD
--- NOTE | 2019-05-25 17:41 | PN ---
Progress Note (short form) - Note Progress Note: Had d/w Dr. Huizar. No clinical evidence of right heart failure. Does not think liver abnormalities related to cardiac dysfunction. He is now off of antibiotics and liver chemistries improving / improved symptomatically. Do not think the finding of preexisting liver disease accounts for the relatively acute rise in liver chemistries. Outpatient evaluation of preexisting liver disease. Problem List - Problems (1) Right upper quadrant abdominal pain Code(s): R10.11 - RIGHT UPPER QUADRANT PAIN
--- NOTE | 2019-05-26 07:06 | PN ---
Progress Note, Physician Chief Complaint: afebrile feeling better no pain ate OK off ATB. - Current Medication List Current Medications: Active Medications Aspirin (Ecotrin -) 81 mg PO DAILY [facility] Last Admin: 05/25/19 10:35 Dose: Not Given Heparin Sodium (Porcine) (Heparin -) 5,000 unit SQ BID [facility] Last Admin: 05/25/19 21:07 Dose: Not Given Sodium Chloride (Normal Saline -) 250 mls @ 3,000 mls/hr IV PRN PRN PRN Reason: Hypotension during Dialysis Stop: 05/23/19 14:23 Losartan Potassium (Cozaar -) 50 mg PO DAILY [facility] Last Admin: 05/25/19 10:36 Dose: 50 mg Methimazole (Tapazole -) 5 mg PO DAILY [facility] Last Admin: 05/25/19 10:36 Dose: 5 mg - Objective Vital Signs: Vital Signs Temperature 98.1 F 05/26/19 05:31 Pulse Rate 96 H 05/26/19 05:31 Respiratory Rate 20 05/26/19 05:31 Blood Pressure 143/82 05/26/19 05:31 O2 Sat by Pulse Oximetry (%) 98 05/25/19 21:00 Constitutional: Yes: No Distress, Calm Eyes: Yes: Conjunctiva Clear HENT: Yes: Atraumatic Neck: Yes: Supple Cardiovascular: Yes: Regular Rate and Rhythm Respiratory: Yes: CTA Bilaterally Gastrointestinal: Yes: Soft. No: Tenderness Genitourinary: No: Hematuria Musculoskeletal: No: Joint Stiffness, Joint Swelling Extremities: No: Cold, Cool Edema: No Integumentary: No: Rash Neurological: Yes: Alert ...Motor Strength: WNL Psychiatric: Yes: Alert. No: Agitated Labs: CBC, BMP 05/25/19 08:36 05/25/19 08:36 INR, PTT INR 1.74 (0.83-1.09) H 05/22/19 06:55 - ....Imaging Other: Report Reviewed Assessment/Plan The pt is a 54M w/ a history of HTN, s/p failed kidney transplant, LUE AVF/G, and ESRD/HD admitted with epigastric abdominal pain and 1 episode N/V HIDA scan negative for cholecystitis; off ATB echo noted; pulm HTN, some Ao and Mi ds - d.w cardio most likely not the cause of his hepatomegaly; d/.w GI who advised outpt liver w/u HD per renal; DC planning ambulate; DC sq heparin d/w pt and staff
[2019-05-26] MEDS: ASPIRIN COATED 81 MG TABLET.EC PO SCH (09:19)
[2019-05-26] MEDS: HEPARIN NA (PORCINE) 5,000 UNITS/ML 1ML VIAL SQ SCH (09:20)
[2019-05-26] MEDS ORDERED: SODIUM CHLORIDE 250 ML IV PRN ×2 (11:50→11:51)
[2019-05-26] MEDS: METHIMAZOLE 5 MG TABLET (FP) PO SCH (12:18)
--- NOTE | 2019-05-26 13:00 | PN ---
Progress Note (short form) - Note Progress Note: Renal follow up for ESRD on HD Seen and examined at the bedside offers no acute complaints no abd pain today, no N/V denies any shortness of breath feels tired Vital Signs Temperature 97.7 F 05/26/19 10:00 Pulse Rate 90 05/26/19 10:00 Respiratory Rate 20 05/26/19 10:00 Blood Pressure 150/82 05/26/19 10:00 O2 Sat by Pulse Oximetry (%) 98 05/26/19 09:00 Intake & Output 05/23/19 05/24/19 05/25/19 05/26/19 23:59 23:59 23:59 23:59 Intake Total 430 50 Balance 430 50 Weight 76.657 kg NAD awake and alert neck supple RRR no LE edema CBC, BMP 05/25/19 08:36 05/25/19 08:36 Current Medications Aspirin (Ecotrin -) 81 mg PO DAILY [facility] Last Admin: 05/26/19 09:19 Dose: Not Given Heparin Sodium (Porcine) (Heparin -) 5,000 unit SQ BID [facility] Last Admin: 05/26/19 09:20 Dose: Not Given Heparin Sodium (Porcine) (Heparin -) 500 unit IVPUSH ONCE ONE Stop: 05/26/19 11:52 Heparin Sodium (Porcine) (Heparin -) 300 unit IVPUSH Q1H [facility] Stop: 05/26/19 14:01 Sodium Chloride (Normal Saline -) 250 mls @ 3,000 mls/hr IV PRN PRN PRN Reason: Hypotension during Dialysis Stop: 05/27/19 11:50 Sodium Chloride (Normal Saline -) 250 mls @ 3,000 mls/hr IV PRN PRN PRN Reason: Hypotension during Dialysis Stop: 05/27/19 11:51 Losartan Potassium (Cozaar -) 50 mg PO DAILY [facility] Last Admin: 05/25/19 10:36 Dose: 50 mg Methimazole (Tapazole -) 5 mg PO DAILY [facility] Last Admin: 05/26/19 12:18 Dose: 5 mg 53 year old gentleman with history of ESRD on HD, hypertension HLD, hx of renal transplant (now non-functional) who presented with abdominal pain. 1. Abdominal pain with hepatomegalty and abnormal LFT's 2. ESRD on HD 3. Moderate hyperkalemia 4. Hypertension for dialysis today with 2.5-3L UF as tolerated LFTs trending down. GI recommends outpatient work up at this time. discharge planning as per primary team. Gonzalo Barros DO
[2019-05-26 13:13] LABS: HEMOGLOBIN 11.7 GM/dL (11.7-16.9); MCH 28.5 pg (25.7-33.7); MCHC 32.6 g/dl (32.0-35.9); MEAN CELL VOLUME 87.5 fl (80-96); MEAN PLT VOLUME 8.4 fl (7.5-11.1); PLATELET COUNT 136 K/MM3 (134-434); RBC 4.11 M/mm3 (4.00-5.60); RDW 18.5 % (11.9-15.9)
[2019-05-26] MEDS: HEPARIN NA (PORCINE) 5,000 UNITS/ML 1ML VIAL IVPUSH SCH ×2 (13:14→15:20)
[2019-05-26] MEDS ORDERED: HEPARIN NA (PORCINE) 5,000 UNITS/ML 1ML VIAL IVPUSH ONE (13:15)
[2019-05-26 13:46] LABS: ALBUMIN 2.9 g/dl (3.4-5.0); BILIRUBIN,DIRECT 0.2 mg/dL (0.0-0.2); BILIRUBIN,TOTAL 0.4 mg/dL (0.2-1); TOT PROT 6.6 g/dl (6.4-8.2)
[2019-05-26 14:12] LABS: BLOOD UREA NITROGEN 99.1 mg/dL (7-18); CALCIUM 7.9 mg/dL (8.5-10.1); POTASSIUM 4.4 mmol/L (3.5-5.1)
[2019-05-26 14:17] LABS: CREATININE 13.5 mg/dL (0.55-1.3)
[2019-05-26 14:48] LABS: ALBUMIN 2.9 g/dl (3.4-5.0); BILIRUBIN,TOTAL 0.4 mg/dL (0.2-1); TOT PROT 6.7 g/dl (6.4-8.2)
[2019-05-26] MEDS: LOSARTAN POTASSIUM 50 MG TABLET (FP) PO SCH (17:27)
--- NOTE | 2019-05-26 18:54 | PN ---
Progress Note, Physician - Current Medication List Current Medications: Active Medications Aspirin (Ecotrin -) 81 mg PO DAILY [facility] Last Admin: 05/26/19 09:19 Dose: Not Given Heparin Sodium (Porcine) (Heparin -) 5,000 unit SQ BID [facility] Last Admin: 05/26/19 09:20 Dose: Not Given Sodium Chloride (Normal Saline -) 250 mls @ 3,000 mls/hr IV PRN PRN PRN Reason: Hypotension during Dialysis Stop: 05/27/19 11:50 Sodium Chloride (Normal Saline -) 250 mls @ 3,000 mls/hr IV PRN PRN PRN Reason: Hypotension during Dialysis Stop: 05/27/19 11:51 Losartan Potassium (Cozaar -) 50 mg PO DAILY [facility] Last Admin: 05/26/19 17:27 Dose: 50 mg Methimazole (Tapazole -) 5 mg PO DAILY [facility] Last Admin: 05/26/19 12:18 Dose: 5 mg - Objective Vital Signs: Vital Signs Temperature 98.2 F 05/26/19 18:00 Pulse Rate 86 05/26/19 18:00 Respiratory Rate 05/26/19 18:00 Blood Pressure 131/91 05/26/19 18:00 O2 Sat by Pulse Oximetry (%) 98 05/26/19 09:00 Labs: CBC, BMP 05/26/19 12:45 05/26/19 12:45 INR, PTT INR 1.74 (0.83-1.09) H 05/22/19 06:55 Problem List - Problems (1) Acalculous cholecystitis Code(s): K81.9 - CHOLECYSTITIS, UNSPECIFIED (2) Anemia in CKD (chronic kidney disease) Code(s): N18.9 - CHRONIC KIDNEY DISEASE, UNSPECIFIED; D63.1 - ANEMIA IN CHRONIC KIDNEY DISEASE (3) ESRD (end stage renal disease) on dialysis Code(s): N18.6 - END STAGE RENAL DISEASE; Z99.2 - DEPENDENCE ON RENAL DIALYSIS (4) [place] cardiac risk >20% in next 10 years Code(s): Z91.89 - OTH PERSONAL RISK FACTORS, NOT ELSEWHERE CLASSIFIED (5) HTN (hypertension) Code(s): I10 - ESSENTIAL (PRIMARY) HYPERTENSION (6) Pulmonary HTN Code(s): I27.20 - PULMONARY HYPERTENSION, UNSPECIFIED (7) Aortic stenosis Code(s): I35.0 - NONRHEUMATIC AORTIC (VALVE) STENOSIS (8) Hyperlipidemia Assessment/Plan: Keep LDL cholesterol <70 mg/dL; restart atorvastatin when LFTs allow. Code(s): E78.5 - HYPERLIPIDEMIA, UNSPECIFIED (9) Elevated LFTs Code(s): R94.5 - ABNORMAL RESULTS OF LIVER FUNCTION STUDIES
--- NOTE | 2019-05-26 19:29 | PN.GI ---
GI Progress Note Subjective: States feeling well, No abdominal pain Liver chemistries stable - Objective Vital Signs: Vital Signs Temperature 98.2 F 05/26/19 18:00 Pulse Rate 86 05/26/19 18:00 Respiratory Rate 20 05/26/19 18:00 Blood Pressure 131/91 05/26/19 18:00 O2 Sat by Pulse Oximetry (%) 98 05/26/19 09:00 Constitutional: Calm Eyes: No: Sclera Icterus Cardiovascular: Yes: Regular Rate and Rhythm Respiratory: Yes: CTA Bilaterally Gastrointestinal Inspection: No: Distention ...Auscultate: Yes: Normoactive Bowel Sounds ...Palpate: Yes: Soft. No: Hepatomegaly, Splenomegaly, Tenderness ...Percussion: No: Tympanitic Edema: No (No LE edema) Labs: CBC, BMP 05/26/19 12:45 05/26/19 12:45 INR, PTT INR 1.74 (0.83-1.09) H 05/22/19 06:55 Problem List - Problems (1) Right upper quadrant abdominal pain Assessment/Plan: Resolved There is concern for advanced liver disease from imaging. Mr. Clark denies a history of liver disease, alcohol use. Recent CT scan failed to reveal liver lesion and MRCP failed to reveal biliary tract lesions / stricturing. Acute hepatitis serologies were unrevealing. I explained that he will need continued work up of possible cirrhosis of the liver. he is being evaluated for renal re transplant at [facility]. I explained that I would arrange follow-up with Dr. Kelley Pepper, transplant developer [employer] at [facility] as part of continued evaluation. He was in agreement with the plan Hepatitis serologies to check surface antibody and amooth muscle antibody ordered for tomorrow as well as GGT. If GGT is not elevated, bone source of elevated ALP would need to be excluded per PMD. Code(s): R10.11 - RIGHT UPPER QUADRANT PAIN
--- NOTE | 2019-05-27 06:22 | DS ---
Physical Examination Vital Signs: Vital Signs Temperature 98.7 F 05/26/19 22:00 Pulse Rate 91 H 05/26/19 22:00 Respiratory Rate 05/26/19 22:00 Blood Pressure 132/76 05/26/19 22:00 O2 Sat by Pulse Oximetry (%) 98 05/26/19 21:00 Findings/Remarks: feeling well ate OK no N/V/ pain; wants to go home, d/w GI OK to DC home and f/ u outpt as advised Constitutional: Yes: No Distress, Calm Eyes: Yes: Conjunctiva Clear HENT: Yes: Atraumatic Neck: Yes: Supple Cardiovascular: Yes: Regular Rate and Rhythm Respiratory: Yes: CTA Bilaterally Gastrointestinal: Yes: Soft. No: Tenderness Renal/: No: Hematuria Musculoskeletal: No: Joint Stiffness, Joint Swelling Extremities: No: Cold, Cool, Cyanosis Edema: No Integumentary: No: Rash, Venous Stasis Changes Neurological: Yes: WNL, Alert, Oriented ...Motor Strength: WNL Psychiatric: Yes: WNL, Alert, Oriented. No: Agitated, Suicidal Ideation Labs: CBC, BMP 05/26/19 12:45 05/26/19 12:45 Discharge Summary Problems reviewed: Yes Reason For Visit: END STAGE RENAL FAILURE ON DIALYSIS Current Active Problems Abnormal LFTs (Acute) Acalculous cholecystitis (Acute) Aortic stenosis (Acute) ESRD (end stage renal disease) on dialysis (Acute) Elevated LFTs (Acute) Epigastric pain (Acute) Failed kidney transplant (Acute) [place] cardiac risk >20% in next 10 years (Acute) HLD (hyperlipidemia) (Acute) HTN (hypertension) (Acute) Hyperlipidemia (Acute) Pulmonary HTN (Acute) Right upper quadrant abdominal pain (Acute) Procedures: Principal: 54 YOM HTN ESRD / HD admited with N/V abd pain; Other Procedures: seen by ID and GI and surgery; tx ATB for cholecystitis but HIDA negative; ATB stopped;. hepatomegaly; GI advised outpt f/u dr Pepper. HD per renal. seen by cardiology - echo c/w pulm HTN but no R sided CHF clinically and no SOB / RODRIGUEZ. Hospital Course: improved with above DC home and f/u as advised Condition: Good - Instructions Diet, Activity, Other Instructions: f/u PCP GI cardiology in 1-2 weeks; liver ds w/u as outpt per GI; hold lipitor for now until seen by GI outpt (1-2 weeks) HD per renal; renal and liver transplant center f/u [facility]; - liver transplant dr Evgeny MCCAULEY if worse or recurrent c/o; Referrals: Carina Ochoa [Primary Care Provider] - Jose Diez DO [Staff Physician] - Oseas Hinojosa MD [Staff Physician] - Gonzalo Barros MD [Staff Physician] - Disposition: VNS/HOME HEALTH CARE - Home Medications Comprehensive Discharge Medication List: Ambulatory Orders Atorvastatin Ca [Lipitor] 40 mg PO HS tablet 09/27/18 Aspirin Coated [Ecotrin -] 81 mg PO DAILY #30 tablet.ec 12/08/18 Methimazole [Tapazole -] 5 mg PO DAILY #30 tablet 12/08/18 Losartan Potassium [Cozaar -] 50 mg PO DAILY 05/21/19
[2019-05-27 09:15] LABS: BILIRUBIN,DIRECT 0.3 mg/dL (0.0-0.2); BILIRUBIN,TOTAL 0.6 mg/dL (0.2-1); TOT PROT 6.9 g/dl (6.4-8.2)
[2019-05-27 09:53] LABS: INR 1.46 (0.83-1.09); PROTHROMBIN TIME (PATIENT) 17.3 SEC (9.7-13.0)
[2019-05-27] MEDS: ASPIRIN COATED 81 MG TABLET.EC PO SCH (10:05)
[2019-05-27] MEDS: LOSARTAN POTASSIUM 50 MG TABLET (FP) PO SCH (10:06)
[2019-05-27] MEDS: METHIMAZOLE 5 MG TABLET (FP) PO SCH (10:06)
--- NOTE | 2019-05-27 10:16 | PN ---
Progress Note (short form) - Note Progress Note: LFTS continue to improve. Plan per yesterday's progress note Problem List - Problems (1) Right upper quadrant abdominal pain Code(s): R10.11 - RIGHT UPPER QUADRANT PAIN
--- NOTE | 2019-05-27 13:30 | PN ---
Progress Note (short form) - Note Progress Note: Renal follow up for ESRD on HD Seen and examined at the bedside no acute complaints no shortness of breath, chest pain or abdominal pain tolerating diet Vital Signs Temperature 98.8 F 05/27/19 06:00 Pulse Rate 96 H 05/27/19 10:00 Respiratory Rate 18 05/27/19 10:00 Blood Pressure 136/76 05/27/19 10:00 O2 Sat by Pulse Oximetry (%) 96 05/27/19 09:00 Intake & Output 05/24/19 05/25/19 05/26/19 05/27/19 23:59 23:59 23:59 23:59 Intake Total 50 950 0 Output Total 3500 Balance 50 -2550 0 NAD awake and alert neck supple RRR no LE edema CBC, BMP 05/26/19 12:45 05/26/19 12:45 Current Medications Aspirin (Ecotrin -) 81 mg PO DAILY [facility] Last Admin: 05/27/19 10:05 Dose: 81 mg Losartan Potassium (Cozaar -) 50 mg PO DAILY [facility] Last Admin: 05/27/19 10:06 Dose: 50 mg Methimazole (Tapazole -) 5 mg PO DAILY [facility] Last Admin: 05/27/19 10:06 Dose: 5 mg 53 year old gentleman with history of ESRD on HD, hypertension HLD, hx of renal transplant (now non-functional) who presented with abdominal pain. 1. Abdominal pain with hepatomegalty and abnormal LFT's 2. ESRD on HD 3. Moderate hyperkalemia 4. Hypertension No acute need for dialysis today. Next treatment tomorrow as an outpatient. LFTs trending down. for outpatient work up as per GI. discharge planning as per primary team. Gonzalo Barros DO
[2019-05-27 16:35] VITALS: BP 130/80; PULSE 100; TEMP 99
[2019-05-28 20:09] LABS: HEP B CORE AB, TOT Negative (Negative)
== END 2019-05-27 15:24 | disposition home health service (06) | DRG 441 ==
LOC: JER 11:07 → JERBED 14:50 → J5S 15:42
PROVIDERS: ADMIT Specialist; ATTEND Specialist
PROC: 5A1D70Z Performance of Urinary Filtration, Intermittent, Less than 6 Hours Per Day (ICD-10-PCS; principal; 2019-05-26)
DX: R16.0 Hepatomegaly, not elsewhere classified (principal); N18.6 End stage renal disease; I50.42 Chronic combined systolic (congestive) and diastolic (congestive) heart failure; I13.2 Hypertensive heart and chronic kidney disease with heart failure and with stage 5 chronic kidney disease, or end stage renal disease; R10.11 Right upper quadrant pain; I25.10 Atherosclerotic heart disease of native coronary artery without angina pectoris; E87.5 Hyperkalemia; R94.5 Abnormal results of liver function studies; I27.20 Pulmonary hypertension, unspecified; E78.5 Hyperlipidemia, unspecified; K74.60 Unspecified cirrhosis of liver; L40.9 Psoriasis, unspecified; I35.0 Nonrheumatic aortic (valve) stenosis; E05.90 Thyrotoxicosis, unspecified without thyrotoxic crisis or storm; Z99.2 Dependence on renal dialysis
CPT/HCPCS: 36415; 74178-TC; 74181-TC; 76705-TC; 78226-TC; 80048; 80053; 80074; 80076; 82105; 82140; 82728; 82977; 83516; 83540; 83550; 83690; 85025; 85027; 85610; 85651; 85730; 86038; 86704; 86706; 86707; 86708; 86709; 87340; 93306-TC; 99284-25; A9537; J0131; J1644

== ENCOUNTER 2019-06-16 10:54 | Inpatient (IN) | payer OTHER, BC ==
[2019-06-16] MEDS ORDERED: SODIUM CHLORIDE 0.9% 500 ML INFUS.BAG IV ONE (11:45)
[2019-06-16 12:09] LABS: EOS % 6.5 % (0-4.5); HEMATOCRIT 22.2 % (35.4-49); HEMOGLOBIN 7.3 GM/dL (11.7-16.9); LYMPH % 9.9 % (8-40); MCH 28.7 pg (25.7-33.7); MEAN CELL VOLUME 86.9 fl (80-96); MEAN PLT VOLUME 9.1 fl (7.5-11.1); MONO % 8.9 % (3.8-10.2); NEUT % 73.7 % (42.8-82.8); PLATELET COUNT 162 K/MM3 (134-434); RBC 2.55 M/mm3 (4.00-5.60); RDW 18.4 % (11.9-15.9); WHITE BLOOD COUNT 7.4 K/mm3 (4.0-10.0)
[2019-06-16 12:23] LABS: INR 1.96 (0.83-1.09); PROTHROMBIN TIME (PATIENT) 23.3 SEC (9.7-13.0)
[2019-06-16 12:25] LABS: ACTIVATED PTT 30.5 SECONDS (25.2-36.5)
--- NOTE | 2019-06-16 12:26 | PDOC ---
History of Present Illness - History of Present Illness Initial Comments: The pt is a 54M w/ a history of HTN, s/p failed kidney transplant, LUE AVF/G, and ESRD (iHD T,Th,Sa (last yesterday as an extra session)) who presents for evaluation of hematemesis x2. Pt reports one episode yesterday evening and once this morning. The pt reports associated generalized weakness/fatigue. Also endorses 1 month of NB diarrhea and RODRIGUEZ. Denies fevers/chills, CARMONA, vision changes, chest pain, 06/16/19 12:23 <Mani Oliva - Last Filed: 06/16/19 17:32> <Mishel Carranza - Last Filed: 06/16/19 18:36> - General Chief Complaint: Hemoptysis Stated Complaint: Nausea/Vomiting Past History - Past Medical History Anemia: No Asthma: No Cancer: No Cardiac Disorders: No CVA: No COPD: No CHF: No Dementia: No Diabetes: No Dialysis: Yes GI Disorders: No Disorders: Yes (diverticulosis) HTN: Yes Hypercholesterolemia: No Liver Disease: No Seizures: No Thyroid Disease: Yes (hyperthyroidism) - Surgical History Abdominal Surgery: Yes (08/2007 KIDNEY TRANSPLANT-2011REJECTED) Appendectomy: No Cardiac Surgery: No Cholecystectomy: No Lung Surgery: No Neurologic Surgery: No Orthopedic Surgery: No - Immunization History Immunization Up to Date: Yes - Psycho Social/Smoking Cessation Hx Smoking Status: No Smoking History: Never smoked Have you smoked in the past 12 months: No Number of Cigarettes Smoked Daily: 0 Cigars Per Day: 0 Information on smoking cessation initiated: No 'Breaking Loose' booklet given: 12/02/18 Hx Alcohol Use: No Drug/Substance Use Hx: No Substance Use Type: None Hx Substance Use Treatment: No <Mani Oliva - Last Filed: 06/16/19 17:32> <Mishel Carranza - Last Filed: 06/16/19 18:36> - Past Medical History Allergies/Adverse Reactions: Allergies Allergy/AdvReac Type Severity Reaction Status Date / Time No Known Drug Allergies Allergy Verified 06/16/19 11:24 Home Medications: Ambulatory Orders Aspirin Coated [Ecotrin -] 81 mg PO DAILY #30 tablet.ec 12/08/18 Methimazole [Tapazole -] 5 mg PO DAILY #30 tablet 12/08/18 Losartan Potassium [Cozaar -] 50 mg PO DAILY 05/21/19 Review of Systems - Review of Systems Able to Perform ROS?: Yes Comments:: GENERAL/CONSTITUTIONAL: +generalized weakness; No fever or chills HEAD, EYES, EARS, NOSE AND THROAT: No change in vision. No change in hearing. No sore throat CARDIOVASCULAR: No chest pain or shortness of breath RESPIRATORY: Denies cough, hemoptysis GASTROINTESTINAL: +hematemesis; +diarrhea; denies melena/BRBPR MUSCULOSKELETAL: No joint or muscle swelling or pain. No neck or back pain SKIN: No rash NEUROLOGIC: No headache, vertigo, loss of consciousness, or change in strength/ sensation ENDOCRINE: No increased thirst. No abnormal weight change HEMATOLOGIC/LYMPHATIC: +anemia ALLERGIC/IMMUNOLOGIC: No hives or skin allergy 06/16/19 14:49 Is the patient limited Mauritian proficient: No <Mani Oliva - Last Filed: 06/16/19 17:32> *Physical Exam - Vital Signs Last Vital Signs Temp Pulse Resp BP Pulse Ox 97.9 F 102 H 19 127/78 99 06/16/19 11:24 06/16/19 11:24 06/16/19 11:24 06/16/19 11:24 06/16/19 11:24 - Physical Exam GENERAL: Awake, alert, and oriented to person/place/time, in no acute distress HEAD: No signs of trauma, normoc ephalic, atraumatic EYES: PERRLA, EOMI, sclera anicteric, conjunctiva clear ENT: Hearing grossly normal, nares patent, oropharynx clear without exudates. Moist mucosa LUNGS: No distress, speaks in full sentences, clear to auscultation bilaterally HEART: Regular rate and rhythm, normal S1 and S2, no murmurs appreciated, peripheral pulses normal and equal bilaterally ABDOMEN: Soft, generalized TTP w/o rebound or guarding; pulsatile abdominal mass ; normoactive bowel sounds EXTREMITIES: Normal inspection, Normal range of motion, no edema. No clubbing or cyanosis NEUROLOGICAL: Cranial nerves II through XII grossly intact. Normal speech, no focal sensorimotor deficits SKIN: Warm, Dry 06/16/19 14:50 <Mani Oliva - Last Filed: 06/16/19 17:32> - Vital Signs Last Vital Signs Temp Pulse Resp BP Pulse Ox 99.0 F 102 H 18 112/55 L 100 06/16/19 17:00 06/16/19 17:00 06/16/19 17:00 06/16/19 17:00 06/16/19 16:00 <Mishel Carranza Kathie - Last Filed: 06/16/19 18:36> ED Treatment Course - LABORATORY CBC & Chemistry Diagram: 06/16/19 11:40 06/16/19 11:40 - RADIOLOGY Radiograph Interpretation: CT/CHEST CTA CT/ABDOMEN/PELVIS CTA W/WO CONTR Impression: The thoracoabdominal aorta demonstrates no CT evidence of aneurysm or dissection. Mild cardiomegaly as on prior studies. Note is again made of mild dilatation of the main pulmonary artery suggestive of increased pulmonary arterial pressure. Follow-up evaluation as clinically indicated. In comparison to a CT exam of 05/24/2019 increased concentric subcutaneous soft tissue stranding is seen as well as increased bilateral flank subcutaneous edema. Marked bilateral renal atrophy is again noted. Renal osteodystrophy. Prior bilateral sacroiliitis as on prior studies. Stable 5.3 x 3.5 cm partially calcified right upper pelvic soft tissue lesion which is also unchanged in comparison to a 2017 CT exam. 06/16/19 17:33 - Medications Given in the ED: ED Medications Discontinued Medications Generic Name Dose Route Start Last Admin Trade Name Freq PRN Reason Stop Dose Admin Sodium Chloride 250 ml 06/16/19 11:45 06/16/19 11:51 Normal Saline - IV 06/16/19 11:46 250 ml ONCE ONE Administration <Mani Oliva - Last Filed: 06/16/19 17:32> - LABORATORY CBC & Chemistry Diagram: 06/16/19 11:40 06/16/19 11:40 - ADDITIONAL ORDERS Additional order review: Laboratory Results 06/16/19 06/16/19 06/16/19 12:00 11:40 11:40 PT with INR INR PTT (Actin FS) Sodium Potassium Chloride Carbon Dioxide Anion Gap BUN Creatinine Est GFR (CKD-EPI)AfAm Est GFR (CKD-EPI)NonAf Random Glucose Calcium Magnesium Total Bilirubin AST ALT Alkaline Phosphatase Troponin I 0.24 H Total Protein Albumin Stool Occult Blood Positive Blood Type O POSITIVE Antibody Screen Negative Crossmatch See Detail 06/16/19 06/16/19 11:40 11:40 PT with INR 23.30 H INR 1.96 H PTT (Actin FS) 30.5 Sodium 142 Potassium 4.5 Chloride 100 Carbon Dioxide 26 Anion Gap 16 BUN 133.5 H* Creatinine 10.6 H* Est GFR (CKD-EPI)AfAm 5.75 Est GFR (CKD-EPI)NonAf 4.96 Random Glucose 88 Calcium 6.9 L* Magnesium 2.3 Total Bilirubin 0.4 AST 23 ALT 38 Alkaline Phosphatase 134 H Troponin I Total Protein 5.1 L Albumin 2.1 L Stool Occult Blood Blood Type Antibody Screen Crossmatch 06/16/19 11:40 RBC 2.55 L MCV 86.9 MCHC 33.0 RDW 18.4 H MPV 9.1 Neutrophils % 73.7 Lymphocytes % 9.9 Monocytes % 8.9 Eosinophils % 6.5 H D Basophils % 1.0 - Medications Given in the ED: ED Medications Discontinued Medications Generic Name Dose Route Start Last Admin Trade Name Freq PRN Reason Stop Dose Admin Ceftriaxone Sodium 1,000 mg/ 50 mls @ 100 mls/hr 06/16/19 12:56 06/16/19 14: 09 Dextrose IVPB 06/16/19 13:25 100 mls/hr ONCE ONE Administration Sodium Chloride 250 ml 06/16/19 11:45 06/16/19 11:51 Normal Saline - IV 06/16/19 11:46 250 ml ONCE ONE Administration <Mishel Carranza - Last Filed: 06/16/19 18:36> Medical Decision Making - Medical Decision Making The pt is a 54M w/ a history of HTN, s/p failed kidney transplant, LUE AVF/G, and ESRD (iHD ,, (last yesterday as an extra session)) who presents for evaluation of hematemesis x2. ED Course Labs sent ECG CTA CAP No leukocytosis Lytes wnl Cr elevated, ESRD LFTs wnl Trop I 0.24, likely demand, no CP, will not give ASA 2/2 bleed ECG w/ NSR; HR 99; QTc 508; no ERIC; T waves mildly peaked in V3, no ERIC -K wnl Anemia noted Will transfuse 2u pRBC Consent obtained Case discussed with Dr. Razo, pt started on Protonix gtt, octreotide gtt, Ceftriaxone 1g once given ICU consulted Pt signed out to Dr. Don Hinojosa and Papo also updated on case CTA in process 06/16/19 14:45 CTA CAP w/o evidence of aneurysm/dissection 06/16/19 17:34 <Mani Oliva - Last Filed: 06/16/19 17:32> - Critical Care Time Total Critical Care Time (minutes): 40 (GIB) Critical Care Statement: The care of this patient involved high complexity decision making to prevent further life threatening deterioration of the patient 's condition and/or to evaluate & treat vital organ system(s) failure or risk of failure. <Mishel Carranza - Last Filed: 06/16/19 18:36> Discharge - Discharge Information Problems reviewed: Yes - Admission Yes <Mani Oliva - Last Filed: 06/16/19 17:32> <Mishel Carranza - Last Filed: 06/16/19 18:36> - Discharge Information Clinical Impression/Diagnosis: Upper GI bleed, ESRD (end stage renal disease) on dialysis Hematemesis Qualifiers: Nausea presence: without nausea Qualified Code(s): K92.0 - Hematemesis Condition: Guarded
--- NOTE | 2019-06-16 12:33 | PDOC ---
Attending Attestation - Resident Resident Name: NielsbariKiannaMani - ED Attending Attestation I have performed the following: I have examined & evaluated the patient, The case was reviewed & discussed with the resident, I agree w/resident's findings & plan - HPI HPI: 06/16/19 12:32 54M w/ a history of HTN, s/p failed kidney transplant, LUE AVF/G, and ESRD (iHD T,, (last yesterday as an extra session)) who presents for evaluation of hematemesis x2. Pt reports one episode yesterday evening and once this morning. The pt reports associated generalized weakness/fatigue. Also endorses 1 month of NB diarrhea and RODRIGUEZ. - Physicial Exam PE: 06/16/19 12:32 Agree with the resident's HPI and PE as documented in the electronic medical record. NAD, well appearing, EOMI, PERRL, nl conjunctiva, anicteric; neck supple. lungs clear, Mild tachycardia, no murmur, abdomen soft nontender. no rebound, guarding. Back nontender. MARTIN x4, no focal neuro deficits. No peripheral edema. normal color for ethnicity, [facility]. 06/16/19 12:32 - Critical Care Time Total Critical Care Time: 40 (GIB) Critical Care Statement: The care of this patient involved high complexity decision making to prevent further life threatening deterioration of the patient 's condition and/or to evaluate & treat vital organ system(s) failure or risk of failure. - Medical Decision Making 06/16/19 12:33 Vital Signs Temp Pulse Resp BP Pulse Ox 97.9 F 102 H 19 127/78 99 06/16/19 11:24 06/16/19 11:24 06/16/19 11:24 06/16/19 11:24 06/16/19 11:24 Vital signs reviewed, afebrile, mild tachycardia 102 otherwise hemodynamically appropriate, saturations 99% on room air CT abdomen and pelvis reviewed from previous records, from 05/24/2019 with hepatomegaly and thick-walled gallbladder with trace pericholecystic fluid and admitted for further imaging/HIDA for elucidation. Trace ascites is noted. At that time aorta was not commented on. Nuclear study was normal negative for acute cholecystitis or biliary obstruction bedside sono with borderline aorta, 3.18 cm at max. caliber otherwise were consistently 2.1-2.5cm. CTA indicated to eval for dissection/AAA as etiology of anemia, sentinal bleed, AP. Laboratory results here for acute anemia, H/H7 0.3/22.2 significant drop from his previous baseline of hemoglobin 11-12 as well as hematocrit 36-37. ESRD, and uric, electrolytes are normal, troponin elevated 0.24 will need trending, dry chain operator rule out ACS versus demand ischemia stool guaiac is positive also in the setting of hematemesis this could be upper GI bleed, Protonix drip is indicated, ICU admission. consultation with GI, Dr Felix - may have underlying liver disease, additional recs of octreotide and ceftriaxone in case of varices needs EGD ICU admit nephro cs with Dr Sánchez/ will need HD in 24 hours due to contrast administration with benefits outweighing risks. cards cs given elevated trop. admitting to Dr Ochoa, ICU, higher level of care, for GIB workup 06/16/19 18:35 CT negative for aneurysm or dissection there is mild cardiomegaly similar to previous, increased pulmonary arterial pressures noted. Also compared to prior CT imaging there is increased concentric subcutaneous soft tissue stranding and bilateral flank subcutaneous edema of unclear etiology. Bilateral renal atrophy consistent with ESRD, renal osteodystrophy, bilateral sacroiliitis similar to previous results and right upper pelvic soft tissue lesion which is stable at 5.3 x 3.5 cm Heart Score/ECG Review #1 ECG reviewed & interpreted by me at: 12:25 General ECG Interpretation: Sinus Rhythm, Normal Rate, Normal Intervals 06/16/19 12:33 EKG normal sinus rhythm at 99 bpm, no interval abnormalities, narrow QRS, ST and T wave segments and morphology normal. Nonspecific T wave abnormalities
[2019-06-16 12:38] LABS: ALBUMIN 2.1 g/dl (3.4-5.0); BILIRUBIN,TOTAL 0.4 mg/dL (0.2-1); MAGNESIUM 2.3 mg/dL (1.8-2.4); POTASSIUM 4.5 mmol/L (3.5-5.1); TOT PROT 5.1 g/dl (6.4-8.2)
[2019-06-16 12:45] LABS: BLOOD UREA NITROGEN 133.5 mg/dL (7-18); CREATININE 10.6 mg/dL (0.55-1.3)
[2019-06-16 12:46] LABS: CALCIUM 6.9 mg/dL (8.5-10.1)
[2019-06-16] MEDS ORDERED: CEFTRIAXONE 1,000 MG in DEXTROSE 5%-WATER - 50 ML IVPB ONE (12:56)
[2019-06-16] MEDS ORDERED: OCTREOTIDE ACETATE 200 MCG, OCTREOTIDE ACETATE 1,000 MCG in DEXTROSE 5%-WATER - 496 ML IVPB SCH (13:00)
--- NOTE | 2019-06-16 13:28 | CON.GI ---
Consult Consult Specialty:: GI Referred by:: ER Reason for Consultation:: Hematemesis - History of Present Illness Chief Complaint: Vomited dark liquid, diarrhea History of Present Illness: 54M admitted for evaluation of vomiting. Patient vomited significant amount of dark liquid at around 1am. No clotes were noted. He also described non-bloody diarrhea. nausea persisted and he had another episode of dark emesis this morning, prompting ER evaluation. Pulse 102 on admission and triage BP not documented in [facility] as of yet. No further vomiting and diarrhea. Being evaluated for possible chronic liver disease based on recent imaging studies. Noted to have severe pulmonary HTN on recent Echo. Hgb7.3 today. Usually runs between 10-11 in review of [facility]. Had dialysis yesterday. INR 1.92 today. Troponins elevated. - Past Medical History Cardio/Vascular: Yes: HTN, Hyperlipdemia Gastrointestinal: Yes: Diverticulitis, Diverticulosis Renal/: Yes: Renal Failure, Hemodialysis Dermatology: Yes: Psoriasis Additional Medical History: hx mrsa and mssa bacteremia 2005 while he had permacath. hs bacteremia? with right chest wall cellulitis in 2011. 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 Review of Systems - Review of Systems Constitutional: denies: Chills Cardiovascular: denies: Chest Pain Gastrointestinal: denies: Nausea, Vomiting Physical Exam-GI Vital Signs: Vital Signs performed by myself 1PM Temperature 97.9 F 06/16/19 Pulse Rate 101 H 06/16/19 Respiratory Rate 16 06/16/19 Blood Pressure 126/74 06/16/19 O2 Sat by Pulse Oximetry (%) 99 06/16/19 Constitutional: Yes: Calm Eyes: No: Sclera Icterus Cardiovascular: Yes: Tachycardia. No: Murmur Respiratory: Yes: CTA Bilaterally Gastrointestinal Inspection: No: Distention ...Auscultate: Yes: Normoactive Bowel Sounds ...Palpate: Yes: Soft. No: Hepatomegaly, Splenomegaly, Tenderness ...Percussion: No: Tympanitic ...Rectal Exam: Yes: Other (No external lesions, no masses, scant brown stool, no blood / melena) Edema: No (No LE edema) Neurological: Yes: Alert Psychiatric: Yes: Alert, Oriented Labs: CBC, BMP 06/16/19 11:40 06/16/19 11:40 INR, PTT INR 1.96 (0.83-1.09) H 06/16/19 11:40 Problem List - Problems (1) Vomiting Assessment/Plan: With decrease in baseline H/H, elevated BUN despite having had dialysis yesterday and concern for underlying chronic liver disease, Upper GI blood loss needs to be excluded, including variceal hemorrhage. Discussed with patient and his . Advise: NPO except meds Starting renally dosed Abx: ie ceftriaxone Octreotide infusion: 50mcg bolus followed by 50mcg/hr Protonix infusion: 80mg bolus followed by 8mg/hr ICU admission Cardiology evaluation Transfuse to Keep Hgb >7 Transfuse 2 unites FFP Upper endoscopy for further intraluminal evaluation +/- banding of varices. Discussed potential risks of the procedure like but not limited to bleeding, perforation requiting surgery to repair, infection, sedation medication effects all of which could be potentially life threatening. Discussed potential need for endotracheal intubation for airway protection. He has agreed to the procedure. Code(s): R11.10 - VOMITING, UNSPECIFIED
--- NOTE | 2019-06-16 14:02 | CONSULT ---
Consultation: REQUESTING PROVIDER: Dr. Ochoa CONSULT REQUEST: We have been asked to medically evaluate this patient for ICU management of GI bleed. HISTORY OF PRESENT ILLNESS: 54M Hx of HTN, s/p failed kidney transplant, ESRD (HD ,,) extra this past Thursday, HLD, diverticulosis, diverticulitis, psoriasis, who presents with 2 episodes of hematemsis since late last night. He describes the emesis as dark and filled with numerous clots. He also has had nonbloody diarrhea for the past day. He endorses feeling weak. Patient notes that he follows with Dr. Diez and has a planned endoscopy scheduled. Patient was noted to be tachycardic on presentation, with Hgb of 7.3 down from baseline in 10-11 range. Patient is set to receive 2 units of PRBC, 2 units of FFP, octeotride drip, and protonix. Patient had elevated troponins on admission, but denies chest pain and shortness of breath. REVIEW OF SYSTEMS: CONSTITUTIONAL: Absent: fever, chills, diaphoresis, generalized weakness, malaise, loss of appetite, weight change HEENT: Absent: rhinorrhea, nasal congestion, throat pain, throat swelling, difficulty swallowing, mouth swelling, ear pain, eye pain, visual changes CARDIOVASCULAR: Absent: chest pain, syncope, palpitations, irregular heart rate, lightheadednes s, peripheral edema RESPIRATORY: Absent: cough, shortness of breath, dyspnea with exertion, orthopnea, wheezing, stridor, hemoptysis GASTROINTESTINAL: Present: abdominal pain, nausea, vomiting, diarrhea Absent: abdominal distension, constipation, melena, hematochezia GENITOURINARY: Absent: dysuria, frequency, urgency, hesitancy, hematuria, flank pain, genital pain MUSCULOSKELETAL: Absent: myalgia, arthralgia, joint swelling, back pain, neck pain SKIN: Absent: rash, itching, pallor HEMATOLOGIC/IMMUNOLOGIC: Absent: easy bleeding, easy bruising, lymphadenopathy, frequent infections ENDOCRINE: Absent: unexplained weight gain, unexplained weight loss, heat intolerance, cold intolerance NEUROLOGIC: Absent: headache, focal weakness or paresthesias, dizziness, unsteady gait, seizure, mental status changes, bladder or bowel incontinence PSYCHIATRIC: Absent: anxiety, depression, suicidal or homicidal ideation, hallucinations. PHYSICAL EXAMINATION Vital Signs - 24 hr 06/16/19 11:24 Temperature 97.9 F Pulse Rate 102 H Respiratory 19 Rate Blood Pressure 127/78 O2 Sat by Pulse 99 Oximetry (%) GENERAL: Awake, alert, and fully oriented, in no acute distress. HEAD: Normal with no signs of trauma. EYES: Pupils equal, mild scleral icterus. EARS, NOSE, THROAT: Moist mucous membranes. LUNGS:LCTAB HEART: Regular rate and rhythm, normal S1 and S2 ABDOMEN: Tender to palpation in the RUQ. Normoactive bowel sounds. Non distended. No fluid wave shift observed. MUSCULOSKELETAL: Normal range of motion at all joints. No bony deformities or tenderness. No CVA tenderness. UPPER EXTREMITIES: 2+ pulses, warm, well-perfused. No cyanosis. No clubbing. Cap refill <2 seconds. No peripheral edema. LOWER EXTREMITIES: 2+ pulses, warm, well-perfused. No calf tenderness. No peripheral edema. NEUROLOGICAL: Cranial nerves II-XII intact. Normal speech. Normal gait. PSYCHIATRIC: Cooperative. Good eye contact. Appropriate mood and affect. SKIN: Psoriasis on b/l legs. No weeping, or open wounds. Laboratory Results - last 24 hr 06/16/19 06/16/19 06/16/19 11:40 11:40 11:40 WBC 7.4 RBC 2.55 L Hgb 7.3 L Hct 22.2 L D MCV 86.9 MCH 28.7 MCHC 33.0 RDW 18.4 H Plt Count 162 MPV 9.1 Absolute Neuts (auto) 5.4 Neutrophils % 73.7 Lymphocytes % 9.9 Monocytes % 8.9 Eosinophils % 6.5 H D Basophils % 1.0 Nucleated RBC % 0 PT with INR 23.30 H INR 1.96 H PTT (Actin FS) 30.5 Sodium 142 Potassium 4.5 Chloride 100 Carbon Dioxide 26 Anion Gap 16 BUN 133.5 H* Creatinine 10.6 H* Est GFR (CKD-EPI)AfAm 5.75 Est GFR (CKD-EPI)NonAf 4.96 Random Glucose 88 Calcium 6.9 L* Magnesium 2.3 Total Bilirubin 0.4 AST 23 ALT 38 Alkaline Phosphatase 134 H Troponin I Total Protein 5.1 L Albumin 2.1 L Stool Occult Blood Blood Type Antibody Screen Crossmatch 06/16/19 06/16/19 06/16/19 11:40 11:40 12:00 WBC RBC Hgb Hct MCV MCH MCHC RDW Plt Count MPV Absolute Neuts (auto) Neutrophils % Lymphocytes % Monocytes % Eosinophils % Basophils % Nucleated RBC % PT with INR INR PTT (Actin FS) Sodium Potassium Chloride Carbon Dioxide Anion Gap BUN Creatinine Est GFR (CKD-EPI)AfAm Est GFR (CKD-EPI)NonAf Random Glucose Calcium Magnesium Total Bilirubin AST ALT Alkaline Phosphatase Troponin I 0.24 H Total Protein Albumin Stool Occult Blood Positive Blood Type O POSITIVE Antibody Screen Negative Crossmatch See Detail Active Medications Generic Name Dose Route Start Last Admin Trade Name Freq PRN Reason Stop Dose Admin Pantoprazole Sodium 80 mg/ 100 mls @ 10 mls/hr 06/16/19 12:45 Sodium Chloride IVPB 06/19/19 12:44 Q10H ORIANA 8 MG/HR Octreotide Acetate 200 mcg/ 500 mls @ 20.833 mls/hr 06/16/19 13:00 Octreotide Acetate 1,000 mcg/ IVPB Dextrose ASDIR ORIANA Protocol ASSESSMENT/PLAN: 54M Hx of HTN, s/p failed kidney transplant, ESRD (HD ) extra this past Thursday, HLD, diverticulosis, diverticulitis, psoriasis who presents today with GI bleed, likely upper. Neuro -Patient is AAOx3 -will continue to follow Cardiovascular -Patient has hx of HTN, HLD, recent episode of pericarditis -Follow up echo -Trend troponins -Hold Losartan -Cardiology consulted, appreciate recs Pulm -Satting well on RA -Continue to monitor GI -Hx of GI bleeds. -CTA/P shows -Endoscopy tomorrow morning -NPO for now -Octeotride drip -PPI drip -GI consulted, appreciate recs Renal -ESRD () with extra session yesterday -For HD tomorrow -Potassium normal level today Endo -Continue methimazole ID -Ceftriaxone given -Continue ceftriaxone daily F: NS@ E: Monitor CMP N: NPO after midnight. Icechips for now Lines: Peripheral IVs in place. Dispo: We will continue to follow the patient. Thank you for this consultative opportunity. Visit type - Emergency Visit Emergency Visit: Yes ED Registration Date: 06/16/19 Care time: The patient presented to the Emergency Department on the above date and was hospitalized for further evaluation of their emergent condition. - New Patient This patient is new to me today: Yes Date on this admission: 06/16/19 - Critical Care Critical Care patient: Yes Total Critical Care Time (in minutes): 45 Critical Care Statement: The care of this patient involved high complexity decision making to prevent further life threatening deterioration of the patient's condition and/or to evaluate & treat vital organ system(s) failure or risk of failure. ATTENDING PHYSICIAN STATEMENT I saw and evaluated the patient. I reviewed the resident's note and discussed the case with the resident. I agree with the resident's findings and plan as documented. SUBJECTIVE: OBJECTIVE: ASSESSMENT AND PLAN:
[2019-06-16] MEDS ORDERED: CEFTRIAXONE 1 GM/50 ML BAG ONE (14:19)
--- NOTE | 2019-06-16 14:20 | PN ---
Teaching Attending Note Name of Resident: Bryce Landers ATTENDING PHYSICIAN STATEMENT I saw and evaluated the patient. I reviewed the resident's note and discussed the case with the resident. I agree with the resident's findings and plan as documented. SUBJECTIVE: Pt seen and examined in the ER. 2 episodes of hematemesis with clots. Anemic to Hgb 7.3. Reports RUQ tenderness/discomfort. OBJECTIVE: Vital Signs Period Temp Pulse Resp BP Sys/Romeo Pulse Ox Last 24 Hr 97.9 F 102 19 127/78 99 Intake & Output 06/13/19 06/14/19 06/15/19 06/16/19 23:59 23:59 23:59 23:59 Weight 78.1 kg Gen: NAD but pale Heart: RRR Lung: decreased breath sounds at the bases Abd: RUQ tenderness, no rebound Ext: no edema CBC, BMP 06/16/19 11:40 06/16/19 11:40 Active Medications Pantoprazole Sodium 80 mg/ (Sodium Chloride) 100 mls @ 10 mls/hr IVPB Q10H ORIANA Stop: 06/19/19 12:44 Octreotide Acetate 200 mcg/Octreotide Acetate 1,000 mcg/Dextrose 500 mls @ 20.833 mls/hr IVPB ASDIR ORIANA; Protocol Last Admin: 06/16/19 14:08 Dose: 20.833 mls/hr ASSESSMENT AND PLAN: GI Bleed likely Upper Acute Blood Loss Anemia Coagulopathy r/o Liver Cirrhosis ESRD on HD HTN - transfuse PRBC, FFP - monitor CBC, coags - protonix, octreotide gtts - empiric antibiotics - GI plans for endoscopy - for CTA A/P - ensure large bore peripheral access - ICU monitoring for now
--- NOTE | 2019-06-16 15:00 | CONSULT ---
Consult - text type - Consultation Consultation Note: Renal Consult for ESRD on HD This is a 54 year old gentleman with history of ESRD on HD (TTS ), hypertension, psoriasis, hx of renal transplant now not failed presented from home with hematemesis x 2 episodes. Seen and examined in the ER. He last had dialysis yesterday. He had his last episode of vomiting this am. Denies any abdominal pain, chest pain, fever, chills. Denies any melena. PMhx: as above Allergies: NKDA Family Hx: NC Social Hx: No T/A/D ROS: As per HPI, all other pertinent ros negative Home Medications Medication Instructions Recorded Aspirin Coated [Ecotrin -] 81 mg PO DAILY #30 tablet.ec 12/08/18 Methimazole [Tapazole -] 5 mg PO DAILY #30 tablet 12/08/18 Losartan Potassium [Cozaar -] 50 mg PO DAILY 05/21/19 Vital Signs Temperature 98.6 F 06/16/19 14:50 Pulse Rate 104 H 06/16/19 14:50 Respiratory Rate 18 06/16/19 14:50 Blood Pressure 127/70 06/16/19 14:50 O2 Sat by Pulse Oximetry (%) 99 06/16/19 11:24 Intake & Output 06/13/19 06/14/19 06/15/19 06/16/19 23:59 23:59 23:59 23:59 Weight 78.1 kg NAD awake and alert neck supple RRR CTA soft NT/ND no LE edema, clubbing or cyanosis CBC, BMP 06/16/19 11:40 06/16/19 11:40 Current Medications Chlorhexidine Gluconate (Hibiclens For Decolonization -) 1 applic TP HS ORIANA Pantoprazole Sodium 80 mg/ (Sodium Chloride) 100 mls @ 10 mls/hr IVPB Q10H ORIANA Stop: 06/19/19 12:44 Octreotide Acetate 200 mcg/Octreotide Acetate 1,000 mcg/Dextrose 500 mls @ 20.833 mls/hr IVPB ASDIR ORIANA; Protocol Last Admin: 06/16/19 14:08 Dose: 20.833 mls/hr Mupirocin (Bactroban Ointment (For Decolonization) -) 1 applic NS BID ORIANA Stop: 06/21/19 21:59 54 year old gentleman with history of ESRD on HD (TTS), hypertension, psoriasis, hx of renal transplant now not failed presented from home with hematemesis x 2 episodes. 1. Acute GI bleed/Hematemesis 2. Acute on Chronic Anemia 3. ESRD on HD 4. Hx of hypertension To get PRBC/FFP as per GI recommendations. On PPI and octreotide gtt. Endoscopy when stable as per GI will defer dialysis to tomorrow morning to allow for PRBC transfusion very high BUN likely related to upper GI bleed. f/u CT studies hold antihypertensives for now Thank you Gonzalo Barros DO
--- NOTE | 2019-06-16 16:09 | HP ---
Admitting History and Physical - Primary Care Physician PCP: Carina Ochoa S - Admission Chief Complaint: UGI bleed History of Present Illness: The pt is a 54M w/ a history of HTN, s/p failed kidney transplant, LUE AVF/G, and ESRD (HD ,,) who presents for evaluation of hematemesis x2. Pt reports one episode yesterday evening and once this morning. The pt reports associated generalized weakness/fatigue. Also endorses 1 month of NB diarrhea and RODRIGUEZ. Denies fevers/chills, CARMONA, vision changes, chest pain, abd pain. History Source: Patient, Medical Record Limitations to Obtaining History: No Limitations - Past Medical History Cardiovascular: Yes: HTN, Hyperlipdemia Gastrointestinal: Yes: Diverticulitis, Diverticulosis Renal/: Yes: Renal Failure, Hemodialysis Dermatology: Yes: Psoriasis - Past Surgical History Past Surgical History: Yes: AV Fistula/Graft, Kidney Transplant (in 2007, failed in 2010) - Smoking History Smoking history: Never smoked Have you smoked in the past 12 months: No Aproximately how many cigarettes per day: 0 - Alcohol/Substance Use Hx Alcohol Use: No History of Substance Use: reports: None - Social History Usual Living Arrangement: Yes: With Spouse Do you think of yourself as: Straight/Heterosexual ADL: Independent 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 denies: Chills, Fever, Lethargy, Loss of Appetite Eyes: denies: Blind Spots, Blurred Vision, Double Vision HENT: denies: Epistaxis, Throat Pain Neck: denies: Decreased ROM, Pain on Movement, Stiffness Cardiovascular: denies: Chest Pain, Palpitations, Shortness of Breath Respiratory: denies: Cough, Hemoptysis, SOB, SOB on Exertion, Wheezing Gastrointestinal: reports: Vomiting, Vomiting Blood. denies: Abdominal Pain, Bloating, Constipation, Diarrhea, Melena, Nausea, Rectal Bleeding Genitourinary: reports: Other (not making any urine). denies: Burning, Dysuria , Flank Pain Musculoskeletal: denies: Back Pain Integumentary: denies: Blister, Bruising Neurological: denies: Change in LOC, Change in Speech, Confusion, Dizziness, Headache, Seizure, Syncope, Tremors Endocrine: denies: Excessive Sweating, Flushing, Intolerance to Cold, Intolerance to Heat, Unexplained Weight Loss Hematology/Lymphatic: denies: Easily Bruised, Excessive Bleeding, Swollen Glands Psychiatric: denies: Altered Sleep Pattern, Anxiety, Depression, Hallucinations , Suicidal Physical Examination Vital Signs: Vital Signs Temperature 98.6 F 06/16/19 15:00 Pulse Rate 104 H 06/16/19 15:00 Respiratory Rate 18 06/16/19 15:00 Blood Pressure 127/70 06/16/19 15:00 O2 Sat by Pulse Oximetry (%) 99 06/16/19 11:24 Constitutional: Yes: No Distress, Calm Eyes: Yes: Conjunctiva Clear HENT: Yes: Atraumatic Neck: Yes: Supple Cardiovascular: Yes: Regular Rate and Rhythm Respiratory: Yes: CTA Bilaterally Gastrointestinal: Yes: Soft. No: Tenderness Renal/: No: CVA Tenderness - Left, CVA Tenderness - Right, Hematuria Musculoskeletal: No: Joint Stiffness, Joint Swelling Extremities: Yes: Other (LUE AVF). No: Cold, Cool, Cyanosis Integumentary: No: Rash, Venous Stasis Changes Neurological: Yes: WNL, Alert, Oriented ...Motor Strength: WNL Psychiatric: Yes: WNL, Alert, Oriented. No: Agitated, Suicidal Ideation Labs: CBC, BMP 06/16/19 11:40 06/16/19 11:40 Imaging - Results Chest X-ray: Report Reviewed Other: Report Reviewed Assessment/Plan The pt is a 54M w/ a history of HTN, s/p failed kidney transplant, LUE AVF/G, and ESRD / HD who presents for evaluation of hematemesis x2. Pt reports one episode yesterday evening and once this morning. The pt reports associated generalized weakness/fatigue. Also endorses 1 month of NB diarrhea and RODRIGUEZ. Denies fevers/chills, CARMONA, vision changes, chest pain, abd pain. Is in baby ASA at home no Nsaids no etoh. recently diagnosed with liver ds was supposed to see dr Pepper at [facility] but said he is still waiting for clau (d/w pt and at bedside in ICU if they are unable to get clau after H DC with dr Pepper to call me or dr Felix and we will expedite the process). Hg 7 in ER started on PRBC and FFP (going in now) admit to ICU hold asa; iv PPI GI called cardiology eval; ICU eval serial labs Keep NPO for now - will need EGD soon HD per renal; d/w pt and d/w GI dr Felix prognosis guarded T time 75 min
[2019-06-16] MEDS: PANTOPRAZOLE SODIUM 80 MG in SODIUM CHLORIDE 100 ML IVPB SCH (16:54)
[2019-06-16] MEDS ORDERED: MORPHINE SULFATE 2 MG/ML VIAL IVPUSH PRN (17:41)
[2019-06-16] MEDS ORDERED: PHYTONADIONE 10 MG/1 ML AMP SQ ONE (17:53)
[2019-06-16] MEDS: MUPIROCIN 2% TOPICAL OINTMENT FOR DECOLONIZATION NS SCH (21:01)
[2019-06-16] MEDS: CHLORHEXIDINE GLUCONATE 4% CLEANSER FOR DECOLONIZATION TP SCH (21:01)
[2019-06-17] MEDS: PANTOPRAZOLE SODIUM 80 MG in SODIUM CHLORIDE 100 ML IVPB SCH ×2 (00:22→08:53)
[2019-06-17 06:43] LABS: BASO % 0.5 % (0-2.0); EOS % 4.5 % (0-4.5); HEMATOCRIT 14.2 % (35.4-49); LYMPH % 9.1 % (8-40); MCH 29.3 pg (25.7-33.7); MCHC 34.6 g/dl (32.0-35.9); MEAN CELL VOLUME 84.6 fl (80-96); MEAN PLT VOLUME 9.1 fl (7.5-11.1); NEUT % 78.9 % (42.8-82.8); PLATELET COUNT 103 K/MM3 (134-434); RBC 1.67 M/mm3 (4.00-5.60); RDW 16.7 % (11.9-15.9); WHITE BLOOD COUNT 10.4 K/mm3 (4.0-10.0)
[2019-06-17 06:47] LABS: INR 1.65 (0.83-1.09); PROTHROMBIN TIME (PATIENT) 19.6 SEC (9.7-13.0)
[2019-06-17] MEDS ORDERED: SODIUM CHLORIDE 250 ML IV PRN ×2 (07:00→22:58)
[2019-06-17 07:09] LABS: HEMOGLOBIN 4.9 GM/dL (11.7-16.9)
[2019-06-17 07:11] LABS: ALBUMIN 1.9 g/dl (3.4-5.0); ALK PHOS 84 U/L (45-117); ANION GAP 16 MMOL/L (8-16); BILIRUBIN,TOTAL 0.7 mg/dL (0.2-1); CHLORIDE 100 mmol/L (98-107); CO2 25 mmol/L (21-32); GLUCOSE,RANDOM 103 mg/dL (74-106); MAGNESIUM 2.3 mg/dL (1.8-2.4); PHOSPHOROUS 7.8 mg/dL (2.5-4.9); POTASSIUM 5.1 mmol/L (3.5-5.1); SGOT/AST 12 U/L (15-37); SGPT/ALT 22 U/L (13-61); SODIUM 141 mmol/L (136-145); TOT PROT 4.1 g/dl (6.4-8.2)
[2019-06-17 07:21] LABS: BLOOD UREA NITROGEN > 150.0 mg/dL (7-18); CREATININE 11.7 mg/dL (0.55-1.3)
--- NOTE | 2019-06-17 07:57 | PN.GI ---
GI Progress Note Subjective: Hgb noted 4.69 with worsening thrombocytopenia as well. Three dark BM's reported overnight. S/P 2 U PRBC and FFP overnight. Opted to optimize through the night as he remained hemodynamically stable without overt bleeding yesterday. - Objective Vital Signs: Vital Signs Temperature 98.7 F 06/17/19 06:00 Pulse Rate 88 06/17/19 06:00 Respiratory Rate 14 06/17/19 06:00 Blood Pressure 119/59 L 06/17/19 06:00 O2 Sat by Pulse Oximetry (%) 100 06/16/19 20:00 Constitutional: Calm Eyes: No: Sclera Icterus Cardiovascular: Yes: Regular Rate and Rhythm Respiratory: Yes: CTA Bilaterally Gastrointestinal Inspection: No: Distention ...Auscultate: Yes: Normoactive Bowel Sounds ...Palpate: Yes: Soft. No: Hepatomegaly, Splenomegaly, Tenderness Edema: No (No LE edema) Neurological: Yes: Alert Labs: CBC, BMP 06/17/19 05:40 06/17/19 05:40 INR, PTT INR 1.65 (0.83-1.09) H 06/17/19 05:40 Problem List - Problems (1) Upper GI bleed Assessment/Plan: Remains hemodynamically stable despite the drop in H/H Repeat Hgb 4.8 Advise: Keep 4 U PRBC on hold, transfuse to keep Hgb >7 Plan for EGD once patient has received more blood Continue NPO, Octreotide, PPI drips Code(s): K92.2 - GASTROINTESTINAL HEMORRHAGE, UNSPECIFIED
[2019-06-17 08:07] LABS: HEMATOCRIT 14.4 % (35.4-49); MCH 28.7 pg (25.7-33.7); MCHC 33.8 g/dl (32.0-35.9); MEAN CELL VOLUME 84.9 fl (80-96); MEAN PLT VOLUME 8.3 fl (7.5-11.1); PLATELET COUNT 113 K/MM3 (134-434); RBC 1.69 M/mm3 (4.00-5.60); RDW 16.6 % (11.9-15.9); WHITE BLOOD COUNT 11.2 K/mm3 (4.0-10.0)
[2019-06-17 08:10] LABS: HEMOGLOBIN 4.8 GM/dL (11.7-16.9)
[2019-06-17] MEDS ORDERED: CALCIUM GLUCONATE 10% - 1,000 MG/10 ML VIAL IVPUSH ONE (08:13)
[2019-06-17] MEDS ORDERED: METOCLOPRAMIDE HCL INJECTION 10 MG/2 ML VIAL IM ONE (08:16)
[2019-06-17] MEDS ORDERED: EPOETIN ALFA 20,000 UNIT/1 ML VIAL IVPUSH ONE (09:00)
[2019-06-17] MEDS ORDERED: DESMOPRESSIN ACETATE 4 MCG/ML AMP IVPB ONE (09:23)
[2019-06-17] MEDS ORDERED: PT OWN MED DRAWER 7, Y5N ONE ×3 (09:23→17:29)
--- NOTE | 2019-06-17 09:42 | PN ---
Progress Note, Physician Chief Complaint: in ICU awake alert receiveing PRBC (now 3rd unit) did not have anymore vomiting or UGI bleed had 1 melena stool VSS but Hg 4.8 -on transfusions no CP SOB abdominal pain, but upset because he wants to eat - d/w pt he is NPO until EGD VSS HR 90 BP 130s/70s - Current Medication List Current Medications: Active Medications Albumin Human (Albumin Human 25%) 12.5 gm IVPB Q30M PENDING SALE TO [facility] Stop: 06/17/19 10:31 Chlorhexidine Gluconate (Hibiclens For Decolonization -) 1 applic TP HS PENDING SALE TO [facility] Last Admin: 06/16/19 21:01 Dose: 1 applic Desmopressin Acetate (Ddavp Injection -) 20 mcg IVPB ONCE ONE Stop: 06/17/19 09:24 Pantoprazole Sodium 80 mg/ (Sodium Chloride) 100 mls @ 10 mls/hr IVPB Q10H PENDING SALE TO [facility] Stop: 06/19/19 12:44 Last Admin: 06/17/19 08:53 Dose: Not Given Octreotide Acetate 200 mcg/Octreotide Acetate 1,000 mcg/Dextrose 500 mls @ 20.833 mls/hr IVPB ASDIR ORIANA; Protocol Last Admin: 06/16/19 14:08 Dose: 20.833 mls/hr Sodium Chloride (Normal Saline -) 250 mls @ 3,000 mls/hr IV PRN PRN PRN Reason: Hypotension during Dialysis Stop: 06/18/19 06:59 Ceftriaxone Sodium 1 gm/ (Dextrose) 50 mls @ 200 mls/hr IVPB DAILY PENDING SALE TO [facility]; Protocol Methimazole (Tapazole -) 5 mg PO DAILY PENDING SALE TO [facility] Morphine Sulfate (Morphine Sulfate) 1 mg IVPUSH Q4H PRN PRN Reason: PAIN LEVEL 6-10 Last Admin: 06/16/19 18:42 Dose: 1 mg Mupirocin (Bactroban Ointment (For Decolonization) -) 1 applic NS BID PENDING SALE TO [facility] Stop: 06/21/19 21:59 Last Admin: 06/16/19 21:01 Dose: 1 applic - Objective Vital Signs: Vital Signs Temperature 97.8 F 06/17/19 08:00 Pulse Rate 92 H 06/17/19 08:00 Respiratory Rate 18 06/17/19 08:00 Blood Pressure 119/65 06/17/19 08:00 O2 Sat by Pulse Oximetry (%) 100 06/16/19 20:00 Constitutional: Yes: No Distress, Calm Eyes: Yes: Conjunctiva Clear HENT: Yes: Atraumatic Neck: Yes: Supple Cardiovascular: Yes: Regular Rate and Rhythm Respiratory: Yes: CTA Bilaterally Gastrointestinal: Yes: Soft. No: Tenderness Genitourinary: No: Hematuria Musculoskeletal: No: Joint Stiffness, Joint Swelling Extremities: No: Cold, Cool, Cyanosis Edema: No Integumentary: No: Rash, Venous Stasis Changes Neurological: Yes: WNL, Alert, Oriented ...Motor Strength: WNL Psychiatric: Yes: WNL, Alert, Oriented. No: Agitated, Suicidal Ideation Labs: CBC, BMP 06/17/19 08:00 06/17/19 05:40 INR, PTT INR 1.65 (0.83-1.09) H 06/17/19 05:40 - ....Imaging Other: Report Reviewed Assessment/Plan The pt is a 54M w/ a history of HTN, s/p failed kidney transplant, LUE AVF/G, and ESRD / HD who presents for evaluation of hematemesis x2. receiving now 3rd PRBC - repeat Hg pending (previously 4.8 from 7) not actively bleeding hold asa; iv PPI d/w GI dr Beata Felix will have EGD today after PRBCs; will also call surgery dr Hawkins to eval pt cardiology f/u dw/ dr Hinojosa no absolute CI for EGD serial labs Keep NPO for now - d/w pt he understood and agreed with all the above HD per renal prognosis guarded; d/w pt and staff T time 40 min
--- NOTE | 2019-06-17 10:10 | CON.CARD ---
Consult Consult Specialty:: cardioloogy Reason for Consultation:: CAD; now with GI bleed - History of Present Illness Chief Complaint: Pt A&Ox3; feels weak; the swelling in his stomach went down after he vomited, "but it was blood". His is at bedside. History of Present Illness: 54M black man with PM history of HTN, s/p failed kidney transplant, LUE AVF/ Graft,ESRD (HD T,, (last yesterday as an extra session), HLD, diastolic CHF (ECHO 05/12: normal LVEF; mild-moderate ; severe pulmonary HTN; mod-severe aortic regurgitation), CAD (mild apical ischemia on stress MIBI 09/2018), who presents for evaluation of hematemesis x2. Pt reports one episode yesterday evening and once this morning. The pt reports associated generalized weakness/ fatigue. Also endorses 1 month of NB diarrhea and RODRIGUEZ. - History Source History Provided By: Patient, Family Member (), Medical Record Limitations to Obtaining History: No Limitations - Past Medical History Cardio/Vascular: Yes: HTN, Hyperlipdemia, Murmur, Pulmonary Hypertension (severe ), Other (mild-moderate ; moderately severe AR) Gastrointestinal: Yes: Diverticulitis, Diverticulosis Renal/: Yes: Renal Failure, Hemodialysis Dermatology: Yes: Psoriasis Additional Medical History: hx mrsa and mssa bacteremia 2005 while he had permacath. hs bacteremia? with right chest wall cellulitis in 2011. 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 History of Recent Travel: No Home Medications - Allergies Allergies/Adverse Reactions: Allergies Allergy/AdvReac Type Severity Reaction Status Date / Time No Known Drug Allergies Allergy Verified 06/16/19 11:24 - Home Medications Home Medications: Ambulatory Orders Aspirin Coated [Ecotrin -] 81 mg PO DAILY #30 tablet.ec 12/08/18 Methimazole [Tapazole -] 5 mg PO DAILY #30 tablet 12/08/18 Losartan Potassium [Cozaar -] 50 mg PO DAILY 05/21/19 Family Medical History Family History: Denies Review of Systems - Review of Systems Constitutional: reports: Weakness Eyes: reports: No Symptoms HENT: reports: No Symptoms Neck: reports: No Symptoms Cardiovascular: reports: No Symptoms Respiratory: reports: No Symptoms Gastrointestinal: reports: Nausea, Vomiting Blood Genitourinary: reports: Other Breasts: reports: No Symptoms Reported Musculoskeletal: reports: No Symptoms Integumentary: reports: No Symptoms Neurological: reports: No Symptoms Endocrine: reports: No Symptoms Hematology/Lymphatic: reports: No Symptoms Psychiatric: reports: No Symptoms - Risk Factors Known Risk Factors: Yes: Age, Gender, Hypercholesterolemia, Hypertension, Race, Other (CAD; diastolic CHF) Vital Signs: Vital Signs Temperature 98 F 06/17/19 10:00 Pulse Rate 89 06/17/19 10:00 Respiratory Rate 18 06/17/19 10:00 Blood Pressure 113/56 L 06/17/19 10:00 O2 Sat by Pulse Oximetry (%) 100 06/17/19 09:00 Constitutional: Yes: Anxious Eyes: Yes: WNL HENT: Yes: WNL Neck: Yes: WNL Respiratory: Yes: WNL Gastrointestinal: Yes: Soft, Tenderness Renal/: Yes: Oliguria, Other (HD 3x/wk) Cardiovascular: Yes: Regular Rate and Rhythm JVD: No Carotid Bruit: No PMI: Non-Displaced Heart Sounds: Yes: S1, S2 Murmur: Yes: Systolic Murmur (2/6 SUE, RSB-->apex) Musculoskeletal: Yes: Joint Stiffness Extremities: Yes: Cool Edema: No Peripheral Pulses WNL: Yes Integumentary: Yes: Other (UE AV graft) Neurological: Yes: Alert, Oriented ...Motor Strength: WNL Psychiatric: Yes: WNL - Other Data Labs, Other Data: CBC, BMP 06/17/19 08:00 06/17/19 05:40 INR, PTT INR 1.65 (0.83-1.09) H 06/17/19 05:40 Troponin, BNP 06/16/19 11:40 Troponin I 0.24 H Troponin, BNP 06/16/19 11:40 Troponin I 0.24 H Abnormal Lab Results 06/16/19 06/16/19 06/16/19 11:40 11:40 11:40 WBC RBC 2.55 L Hgb 7.3 L Hct 22.2 L D RDW 18.4 H Plt Count Absolute Neuts (auto) Eosinophils % 6.5 H D PT with INR 23.30 H INR 1.96 H BUN 133.5 H* Creatinine 10.6 H* Calcium 6.9 L* Phosphorus AST Alkaline Phosphatase 134 H Troponin I Total Protein 5.1 L Albumin 2.1 L Crossmatch 06/16/19 06/16/19 06/17/19 11:40 11:40 05:40 WBC 10.4 H RBC 1.67 L Hgb 4.9 L* Hct 14.2 L RDW 16.7 H Plt Count 103 L D Absolute Neuts (auto) 8.2 H Eosinophils % PT with INR INR BUN Creatinine Calcium Phosphorus AST Alkaline Phosphatase Troponin I 0.24 H Total Protein Albumin Crossmatch See Detail 06/17/19 06/17/19 06/17/19 05:40 05:40 08:00 WBC 11.2 H RBC 1.69 L Hgb 4.8 L* Hct 14.4 L RDW 16.6 H Plt Count 113 L Absolute Neuts (auto) Eosinophils % PT with INR 19.60 H INR 1.65 H BUN > 150.0 H* Creatinine 11.7 H* Calcium 7.0 L Phosphorus 7.8 H AST 12 L Alkaline Phosphatase Troponin I Total Protein 4.1 L Albumin 1.9 L Crossmatch Echo: Report Reviewed Ejection Fraction %: LVEF > or = 40 % Imaging - Results Chest X-ray: Image Reviewed EKG: Image Reviewed Problem List - Problems (1) ESRD (end stage renal disease) on dialysis Code(s): N18.6 - END STAGE RENAL DISEASE; Z99.2 - DEPENDENCE ON RENAL DIALYSIS (2) HTN (hypertension) Code(s): I10 - ESSENTIAL (PRIMARY) HYPERTENSION Qualifiers: Hypertension type: essential hypertension Qualified Code(s): I10 - Essential (primary) hypertension (3) Hematemesis Assessment/Plan: see "upper GI bleed" Code(s): K92.0 - HEMATEMESIS Qualifiers: Nausea presence: without nausea Qualified Code(s): K92.0 - Hematemesis (4) Upper GI bleed Assessment/Plan: Stress MIBI 10/10: normal LVEF; small area of mild apical ishemia. Telemetry: NSR; no arrhythmias From a cardiac perspective, there are no absolute contrindications for Mr. Clark to undergo GI procedure (endoscopy) this admission. Code(s): K92.2 - GASTROINTESTINAL HEMORRHAGE, UNSPECIFIED (5) Vomiting Code(s): R11.10 - VOMITING, UNSPECIFIED (6) Abdominal pain Code(s): R10.9 - UNSPECIFIED ABDOMINAL PAIN Qualifiers: Abdominal location: generalized Qualified Code(s): R10.84 - Generalized abdominal pain (7) Anxiety Code(s): F41.9 - ANXIETY DISORDER, UNSPECIFIED (8) Aortic stenosis Code(s): I35.0 - NONRHEUMATIC AORTIC (VALVE) STENOSIS (9) [place] cardiac risk >20% in next 10 years Code(s): Z91.89 - OTH PERSONAL RISK FACTORS, NOT ELSEWHERE CLASSIFIED (10) HLD (hyperlipidemia) Code(s): E78.5 - HYPERLIPIDEMIA, UNSPECIFIED (11) Nausea & vomiting Code(s): R11.2 - NAUSEA WITH VOMITING, UNSPECIFIED (12) Elevated troponin Assessment/Plan: chroniic mild elevation TNI, likely related to demand from ESRD, anemia, CHF. Stress MIBI 09/2018: small, mild ischemia of apex. Code(s): R74.8 - ABNORMAL LEVELS OF OTHER SERUM ENZYMES Assessment/Plan CCU time spent: 75 minutes.
[2019-06-17] MEDS: MUPIROCIN 2% TOPICAL OINTMENT FOR DECOLONIZATION NS SCH ×2 (10:35→21:17)
--- NOTE | 2019-06-17 11:31 | ECHO ---
Name: AMANDA GONZÁLES Exam:Adult Echocardiogram Study Date: 06/17/2019 08:51 AM Age: 54 yrs Reason For Study: LV Function Height: 69 in Weight: 172 lb BSA: 1.9 m2 MMode/2D Measurements & Calculations IVSd: 1.7 cm Ao root diam: 3.0 cm LVIDd: 5.7 cm LA dimension: 3.9 cm LVIDs: 3.1 cm LVPWd: 1.3 cm EDV(Teich): 157.3 ml LVOT diam: 2.0 cm ESV(Teich): 38.4 ml LVLd ap4: 8.8 cm SV(MOD-sp4): 35.2 ml EDV(MOD-sp4): 91.5 ml LVLs ap4: 8.4 cm ESV(MOD-sp4): 56.3 ml LAV (MOD-bp): 110.0 ml Doppler Measurements & Calculations MV V2 max: 196.2 cm/sec MV E max rickey: 187.0 cm/sec MV max P.4 mmHg MV A max rickey: 188.8 cm/sec MV V2 mean: 140.3 cm/sec MV E/A: 0.99 MV mean P.6 mmHg MV dec time: 0.17 sec MV V2 VTI: 44.5 cm Ao V2 max: 354.7 cm/sec AI max rickey: 336.6 cm/sec Ao max P.3 mmHg AI max P.3 mmHg Ao V2 mean: 265.9 cm/sec AI dec slope: 332.6 cm/sec2 Ao mean P.5 mmHg Ao V2 VTI: 67.4 cm AI P1/2t: 296.5 msec BONNIE(V,D): 1.1 cm2 LV V1 max P.1 mmHg MR max rickey: 372.4 cm/sec LV V1 max: 123.1 cm/sec MR max P.5 mmHg TR max rickey: 234.1 cm/sec PA V2 max: 146.6 cm/sec TR max P.2 mmHg PA max P.6 mmHg PI Vmax: 161.5 cm/sec Left Ventricle There is moderate concentric left ventricular hypertrophy. Left ventricular systolic function is low normal. Ejection Fraction = 50%. Diastolic dysfunction, Grade II, consistent with elevated left atrial pressu re. Right Ventricle The right ventricle is grossly normal size. The right ventricular systolic function is grossly normal . Atria The left atrium is mildly dilated. Right atrial size is normal. Mitral Valve There is moderate mitral valve thickening. There is moderate mitral annular calcification. Functional mitral valve stenosis secondary to MAC. Tricuspid Valve The tricuspid valve is not well visualized, but is grossly normal. There is mild tricuspid regurgitat ion. There was insufficient TR detected to calculate RV systolic pressure. Aortic Valve Moderate valvular aortic stenosis. Mild to moderate aortic regurgitation. Pulmonic Valve The pulmonic valve is not well seen, but is grossly normal. There is no pulmonic valvular stenosis. T race to mild pulmonic valvular regurgitation. Great Vessels The aortic root is normal size. Pericardium/Pleura There is no pericardial effusion. Interpretation Summary There is moderate concentric left ventricular hypertrophy. Left ventricular systolic function is low normal. Ejection Fraction = 50%. Diastolic dysfunction, Grade II, consistent with elevated left atrial pressure. The left atrium is mildly dilated. There is moderate mitral valve thickening. There is moderate mitral annular calcification. Functional mitral valve stenosis secondary to MAC There is mild tricuspid regurgitation. Moderate valvular aortic stenosis. Mild to moderate aortic regurgitation. There is no pericardial effusion. MD Kline *Nicole 06/17/2019 11:31 AM
[2019-06-17] MEDS ORDERED: CEFTRIAXONE 1 GM in DEXTROSE 5%-WATER - 50 ML IVPB SCH (12:00)
[2019-06-17 12:23] LABS: EOS % 6.4 % (0-4.5); LYMPH % 9.1 % (8-40); MCH 29.8 pg (25.7-33.7); MCHC 34.7 g/dl (32.0-35.9); MEAN CELL VOLUME 85.8 fl (80-96); MEAN PLT VOLUME 8.7 fl (7.5-11.1); MONO % 6.9 % (3.8-10.2); NEUT % 76.6 % (42.8-82.8); PLATELET COUNT 116 K/MM3 (134-434); RDW 15.6 % (11.9-15.9); WHITE BLOOD COUNT 10.8 K/mm3 (4.0-10.0)
[2019-06-17 12:34] LABS: HEMOGLOBIN 6.2 GM/dL (11.7-16.9)
--- NOTE | 2019-06-17 12:34 | PN ---
Progress Note (short form) - Note Progress Note: Renal follow up for ESRD on HD Seen and examined at the bedside awake and alert offers no acute complaints Hgb noted to 4.8 this morning has melena overnight currently getting PRBC transfusion no chest pain or shortness of breath Vital Signs Temperature 98 F 06/17/19 10:00 Pulse Rate 89 06/17/19 12:00 Respiratory Rate 18 06/17/19 12:00 Blood Pressure 114/49 L 06/17/19 12:00 O2 Sat by Pulse Oximetry (%) 100 06/17/19 09:00 Intake & Output 06/14/19 06/15/19 06/16/19 06/17/19 23:59 23:59 23:59 23:59 Intake Total 450 1810 Balance 450 1810 Weight 78.1 kg 78.613 kg NAD awake and alert neck supple RRR CTA soft NT/ND no LE edema, clubbing or cyanosis CBC, BMP 06/17/19 12:10 Current Medications Chlorhexidine Gluconate (Hibiclens For Decolonization -) 1 applic TP HS ORIANA Last Admin: 06/16/19 21:01 Dose: 1 applic Pantoprazole Sodium 80 mg/ (Sodium Chloride) 100 mls @ 10 mls/hr IVPB Q10H ORIANA Stop: 06/19/19 12:44 Last Admin: 06/17/19 08:53 Dose: Not Given Octreotide Acetate 200 mcg/Octreotide Acetate 1,000 mcg/Dextrose 500 mls @ 20.833 mls/hr IVPB ASDIR ORIANA; Protocol Last Admin: 06/16/19 14:08 Dose: 20.833 mls/hr Sodium Chloride (Normal Saline -) 250 mls @ 3,000 mls/hr IV PRN PRN PRN Reason: Hypotension during Dialysis Stop: 06/18/19 06:59 Ceftriaxone Sodium 1 gm/ (Dextrose) 50 mls @ 200 mls/hr IVPB DAILY [facility]; Protocol Methimazole (Tapazole -) 5 mg PO DAILY [facility] Morphine Sulfate (Morphine Sulfate) 1 mg IVPUSH Q4H PRN PRN Reason: PAIN LEVEL 6-10 Last Admin: 06/16/19 18:42 Dose: 1 mg Mupirocin (Bactroban Ointment (For Decolonization) -) 1 applic NS BID ORIANA Stop: 06/21/19 21:59 Last Admin: 06/17/19 10:35 Dose: 1 applic Current Medications Chlorhexidine Gluconate (Hibiclens For Decolonization -) 1 applic TP HS ORIANA Last Admin: 06/16/19 21:01 Dose: 1 applic Pantoprazole Sodium 80 mg/ (Sodium Chloride) 100 mls @ 10 mls/hr IVPB Q10H ORIANA Stop: 06/19/19 12:44 Last Admin: 06/17/19 08:53 Dose: Not Given Octreotide Acetate 200 mcg/Octreotide Acetate 1,000 mcg/Dextrose 500 mls @ 20.833 mls/hr IVPB ASDIR ORIANA; Protocol Last Admin: 06/16/19 14:08 Dose: 20.833 mls/hr Sodium Chloride (Normal Saline -) 250 mls @ 3,000 mls/hr IV PRN PRN PRN Reason: Hypotension during Dialysis Stop: 06/18/19 06:59 Ceftriaxone Sodium 1 gm/ (Dextrose) 50 mls @ 200 mls/hr IVPB DAILY [facility]; Protocol Methimazole (Tapazole -) 5 mg PO DAILY [facility] Morphine Sulfate (Morphine Sulfate) 1 mg IVPUSH Q4H PRN PRN Reason: PAIN LEVEL 6-10 Last Admin: 06/16/19 18:42 Dose: 1 mg Mupirocin (Bactroban Ointment (For Decolonization) -) 1 applic NS BID [facility] Stop: 06/21/19 21:59 Last Admin: 06/17/19 10:35 Dose: 1 applic 54 year old gentleman with history of ESRD on HD (TTS), hypertension, psoriasis, hx of renal transplant now not failed presented from home with hematemesis x 2 episodes. 1. Acute GI bleed/Hematemesis 2. Acute on Chronic Anemia 3. ESRD on HD 4. Hx of hypertension Will defer dialysis until Hgb improved to around 6.5 to get additional PRBC off dialysis EGD planned for this afternoon will transfuse an additional 2 units PRBC on HD s/p DDAVP this am for treatment of possible uremic platelet dysfunction May likely require additional dialysis tomorrow for clearance and UF Case discussed with GI and ICU team Thank you Gonzalo Barros DO
--- NOTE | 2019-06-17 12:39 | PN ---
Teaching Attending Note Name of Resident: Kasie Rosenthal ATTENDING PHYSICIAN STATEMENT I saw and evaluated the patient. I reviewed the resident's note and discussed the case with the resident. I agree with the resident's findings and plan as documented. SUBJECTIVE: Patient seen and examined in the ICU. No occult bleeding overnight. No CP or SOB. ECHO being done at bedside. Intake & Output 06/14/19 06/15/19 06/16/19 06/17/19 23:59 23:59 23:59 23:59 Intake Total 450 1810 Balance 450 1810 Weight 172 lb 2.896 oz 173 lb 5 oz Last Vital Signs Temp Pulse Resp BP Pulse Ox 98 F 89 18 114/49 L 100 06/17/19 10:00 06/17/19 12:00 06/17/19 12:00 06/17/19 12:00 06/17/19 09:00 Active Medications Chlorhexidine Gluconate (Hibiclens For Decolonization -) 1 applic TP HS ORIANA Last Admin: 06/16/19 21:01 Dose: 1 applic Pantoprazole Sodium 80 mg/ (Sodium Chloride) 100 mls @ 10 mls/hr IVPB Q10H ORIANA Stop: 06/19/19 12:44 Last Admin: 06/17/19 08:53 Dose: Not Given Octreotide Acetate 200 mcg/Octreotide Acetate 1,000 mcg/Dextrose 500 mls @ 20.833 mls/hr IVPB ASDIR ORINAA; Protocol Last Admin: 06/16/19 14:08 Dose: 20.833 mls/hr Sodium Chloride (Normal Saline -) 250 mls @ 3,000 mls/hr IV PRN PRN PRN Reason: Hypotension during Dialysis Stop: 06/18/19 06:59 Ceftriaxone Sodium 1 gm/ (Dextrose) 50 mls @ 200 mls/hr IVPB DAILY [facility]; Protocol Methimazole (Tapazole -) 5 mg PO DAILY [facility] Morphine Sulfate (Morphine Sulfate) 1 mg IVPUSH Q4H PRN PRN Reason: PAIN LEVEL 6-10 Last Admin: 06/16/19 18:42 Dose: 1 mg Mupirocin (Bactroban Ointment (For Decolonization) -) 1 applic NS BID ORIANA Stop: 06/21/19 21:59 Last Admin: 06/17/19 10:35 Dose: 1 applic Gen: NAD Heart: RRR Lung: decreased breath sounds at the bases Abd: Mild RUQ tenderness, (+) BS, no rebound Ext: no edema Laboratory Results - last 24 hr 06/16/19 06/16/19 06/16/19 11:40 11:40 11:40 WBC RBC Hgb Hct MCV MCH MCHC RDW Plt Count MPV Absolute Neuts (auto) Neutrophils % Lymphocytes % Monocytes % Eosinophils % Basophils % Nucleated RBC % PT with INR INR Sodium 142 Potassium 4.5 Chloride 100 Carbon Dioxide 26 Anion Gap 16 BUN 133.5 H* Creatinine 10.6 H* Est GFR (CKD-EPI)AfAm 5.75 Est GFR (CKD-EPI)NonAf 4.96 POC Glucometer Random Glucose 88 Calcium 6.9 L* Phosphorus Magnesium 2.3 Total Bilirubin 0.4 AST 23 ALT 38 Alkaline Phosphatase 134 H Troponin I 0.24 H Total Protein 5.1 L Albumin 2.1 L Blood Type O POSITIVE Antibody Screen Negative Crossmatch See Detail 06/17/19 06/17/19 06/17/19 05:40 05:40 05:40 WBC 10.4 H RBC 1.67 L Hgb 4.9 L* Hct 14.2 L MCV 84.6 MCH 29.3 MCHC 34.6 RDW 16.7 H Plt Count 103 L D MPV 9.1 Absolute Neuts (auto) 8.2 H Neutrophils % 78.9 Lymphocytes % 9.1 Monocytes % 7.0 Eosinophils % 4.5 Basophils % 0.5 Nucleated RBC % 0 PT with INR 19.60 H INR 1.65 H Sodium 141 Potassium 5.1 Chloride 100 Carbon Dioxide 25 Anion Gap 16 BUN > 150.0 H* Creatinine 11.7 H* Est GFR (CKD-EPI)AfAm 5.10 Est GFR (CKD-EPI)NonAf 4.40 POC Glucometer Random Glucose 103 Calcium 7.0 L Phosphorus 7.8 H Magnesium 2.3 Total Bilirubin 0.7 AST 12 L ALT 22 Alkaline Phosphatase 84 Troponin I Total Protein 4.1 L Albumin 1.9 L Blood Type Antibody Screen Crossmatch 06/17/19 06/17/19 06/17/19 05:48 08:00 12:10 WBC 11.2 H 10.8 H RBC 1.69 L 2.10 L Hgb 4.8 L* 6.2 L* Hct 14.4 L 18.0 L D MCV 84.9 85.8 MCH 28.7 29.8 MCHC 33.8 34.7 RDW 16.6 H 15.6 Plt Count 113 L 116 L MPV 8.3 8.7 Absolute Neuts (auto) 8.2 H Neutrophils % 76.6 Lymphocytes % 9.1 Monocytes % 6.9 Eosinophils % 6.4 H Basophils % 1.0 Nucleated RBC % 0 PT with INR INR Sodium Potassium Chloride Carbon Dioxide Anion Gap BUN Creatinine Est GFR (CKD-EPI)AfAm Est GFR (CKD-EPI)NonAf POC Glucometer 109 Random Glucose Calcium Phosphorus Magnesium Total Bilirubin AST ALT Alkaline Phosphatase Troponin I Total Protein Albumin Blood Type Antibody Screen Crossmatch ASSESSMENT AND PLAN: GI Bleed likely Upper Acute Blood Loss Anemia Coagulopathy r/o Liver Cirrhosis ESRD on HD HTN - Normal transfusion thresholds - monitor CBC, coags - protonix, octreotide drips - ensure large bore peripheral access - For endoscopic evaluation - Floor if stable Dr Nava
[2019-06-17] MEDS ORDERED: MIDAZOLAM HCL 2 MG/2 ML SINGLE DOSE VIAL ONE ×2 (12:46)
[2019-06-17] MEDS ORDERED: KETAMINE HCL 500 MG/10 ML VIAL ONE (12:46)
[2019-06-17] MEDS: METHIMAZOLE 5 MG TABLET (FP) PO SCH (12:55)
[2019-06-17 13:22] LABS: ALBUMIN 2.1 g/dl (3.4-5.0); BILIRUBIN,TOTAL 0.6 mg/dL (0.2-1); CALCIUM 7.2 mg/dL (8.5-10.1); POTASSIUM 5.6 mmol/L (3.5-5.1); TOT PROT 4.5 g/dl (6.4-8.2)
--- NOTE | 2019-06-17 13:32 | PN ---
Progress Note (short form) - Note Progress Note: EGD complete. Findings d/w Dr. Ochoa. Report placed in procedural section of the physical chart and will be scanned into [employer] Problem List - Problems (1) Upper GI bleed Code(s): K92.2 - GASTROINTESTINAL HEMORRHAGE, UNSPECIFIED
[2019-06-17 13:59] LABS: CREATININE 12.3 mg/dL (0.55-1.3)
[2019-06-17 14:00] LABS: BLOOD UREA NITROGEN 155.9 mg/dL (7-18)
--- NOTE | 2019-06-17 14:09 | EKG ---
Test Reason : Blood Pressure : / mmHG Vent. Rate : 099 BPM Atrial Rate : 099 BPM P-R Int : 170 ms QRS Dur : 102 ms QT Int : 396 ms P-R-T Axes : 061 -12 074 degrees QTc Int : 508 ms NORMAL SINUS RHYTHM POSSIBLE LEFT ATRIAL ENLARGEMENT NONSPECIFIC T WAVE ABNORMALITY PROLONGED QT ABNORMAL ECG Confirmed by CORRINE ROSA MD ([id number]) on 06/17/2019 2:08:55 PM Referred By: Confirmed By:CORRINE ROSA MD
[2019-06-17] MEDS ORDERED: cefTRIAXone SODIUM 1 GM VIAL ONE ×2 (14:56→21:12)
[2019-06-17] MEDS ORDERED: DEXTROSE 5%-WATER - 50 ML IVPB ONE ×2 (14:56→21:12)
--- NOTE | 2019-06-17 15:38 | CONSULT ---
- Consultation REQUESTING PROVIDER: CONSULT REQUEST: We have been asked to surgically evaluate this patient for GI bleed. PCP:Carina Ochoa HISTORY OF PRESENT ILLNESS: The patient is a 54 yo male who presents to the ER with the complaints of vomiting blood. He denies any history of abd pain, no ulcers or bleeding in the past. He had a colonscopy which revealed hemorrhoids. He denies rectal bleeding today. No history of liver disease. s/p 2 untis PRBC overnight and FFP. His H&H came back as 10/05 x2, the patient was transfused 1 more unit of PRBC with improvement in his H7H. EGD revealed-? ashok mccormick tear, no active bleeding in duodenal ulcer, granulomatous area in stomach. PMHx: ESRD, on HD via left AV fistula PSHx: kidney transplant 2007/failed in 2010 Home Medications Medication Instructions Recorded Aspirin Coated [Ecotrin -] 81 mg PO DAILY #30 tablet.ec 12/08/18 Methimazole [Tapazole -] 5 mg PO DAILY #30 tablet 12/08/18 Losartan Potassium [Cozaar -] 50 mg PO DAILY 05/21/19 Allergies Allergy/AdvReac Type Severity Reaction Status Date / Time No Known Drug Allergies Allergy Verified 06/16/19 11:24 REVIEW OF SYSTEMS: HEMATOLOGIC/IMMUNOLOGIC: Absent: easy bleeding, easy bruising, lymphadenopathy GI: had colonscopy in the past which revealed hemorrhoids PHYSICAL EXAM: GENERAL: Awake, alert, and fully oriented, in no acute distress. ABDOMEN: Soft, nontender, not distended. UPPER EXTREMITIES: LUE with thrill to fistula Vital Signs Temperature 98 F 06/17/19 10:00 Pulse Rate 87 06/17/19 14:00 Respiratory Rate 18 06/17/19 14:00 Blood Pressure 102/47 L 06/17/19 14:00 O2 Sat by Pulse Oximetry (%) 100 06/17/19 09:00 Lab Results WBC 10.8 K/mm3 (4.0-10.0) H 06/17/19 12:10 RBC 2.10 M/mm3 (4.00-5.60) L 06/17/19 12:10 Hgb 6.2 GM/dL (11.7-16.9) L* 06/17/19 12:10 Hct 18.0 % (35.4-49) L D 06/17/19 12:10 MCV 85.8 fl (80-96) 06/17/19 12:10 MCHC 34.7 g/dl (32.0-35.9) 06/17/19 12:10 RDW 15.6 % (11.9-15.9) 06/17/19 12:10 Plt Count 116 K/MM3 (134-434) L 06/17/19 12:10 Sodium 140 mmol/L (136-145) 06/17/19 12:10 Potassium 5.6 mmol/L (3.5-5.1) H 06/17/19 12:10 Chloride 100 mmol/L (98-107) 06/17/19 12:10 Carbon Dioxide 22 mmol/L (21-32) 06/17/19 12:10 Anion Gap 17 MMOL/L (8-16) H 06/17/19 12:10 BUN 155.9 mg/dL (7-18) H* 06/17/19 12:10 Creatinine 12.3 mg/dL (0.55-1.3) H* 06/17/19 12:10 Random Glucose 91 mg/dL (74-106) 06/17/19 12:10 Calcium 7.2 mg/dL (8.5-10.1) L 06/17/19 12:10 Blood Type O POSITIVE 06/16/19 11:40 Antibody Screen Negative 06/16/19 11:40 INR 1.65 (0.83-1.09) H 06/17/19 05:40 A/p: 54 yo male with ?ashok mccormick tear, small duodenal ulcer No active bleeding Plan for clears today and npo after midnight IV protonix 40mg IV BID no nsaid HD today Plan for colonoscopy tomorrow Transfuse as needed D/w Dr. Hawkins
--- NOTE | 2019-06-17 16:25 | PN ---
Physical Exam: SUBJECTIVE: Patient seen and examined. Had 1 bloody/ maroon colored BM today. Received 2U pRBC & 1U FFP overnight-- hgb 4.8-- now receiving 3 more units, 1U FFP, 1U platelets, 20mcg ddavp, 1g Ca gluconate. S/p EGD today, no active bleeding, possible ashok mccormick tear. OBJECTIVE: Vital Signs Period Temp Pulse Resp BP Sys/Romeo Pulse Ox Last 24 Hr 97.8 F-99.0 F 87-102 12-18 100-119/47-65 100-100 GENERAL: AOx3. In NAD. HEENT: Mild conjunctival pallor. MMM. LUNGS: Breath sounds equal, clear to auscultation bilaterally, no wheezes, no crackles, no accessory muscle use. HEART: Regular rate and rhythm, S1, S2 without murmurs ABDOMEN: Soft, nontender, nondistended, normoactive bowel sounds, no guarding EXTREMITIES: 2+ pulses, warm, well-perfused, no edema. NEUROLOGICAL: Cranial nerves II through XII grossly intact. PSYCH: Normal mood, normal affect. SKIN: b/l LE psoriasis Laboratory Results - last 24 hr 06/16/19 06/17/19 06/17/19 11:40 05:40 05:40 WBC 10.4 H RBC 1.67 L Hgb 4.9 L* Hct 14.2 L MCV 84.6 MCH 29.3 MCHC 34.6 RDW 16.7 H Plt Count 103 L D MPV 9.1 Absolute Neuts (auto) 8.2 H Neutrophils % 78.9 Lymphocytes % 9.1 Monocytes % 7.0 Eosinophils % 4.5 Basophils % 0.5 Nucleated RBC % 0 PT with INR 19.60 H INR 1.65 H Sodium Potassium Chloride Carbon Dioxide Anion Gap BUN Creatinine Est GFR (CKD-EPI)AfAm Est GFR (CKD-EPI)NonAf POC Glucometer Random Glucose Calcium Phosphorus Magnesium Total Bilirubin AST ALT Alkaline Phosphatase Total Protein Albumin Blood Type O POSITIVE Antibody Screen Negative Crossmatch See Detail 06/17/19 06/17/19 06/17/19 05:40 05:48 08:00 WBC 11.2 H RBC 1.69 L Hgb 4.8 L* Hct 14.4 L MCV 84.9 MCH 28.7 MCHC 33.8 RDW 16.6 H Plt Count 113 L MPV 8.3 Absolute Neuts (auto) Neutrophils % Lymphocytes % Monocytes % Eosinophils % Basophils % Nucleated RBC % PT with INR INR Sodium 141 Potassium 5.1 Chloride 100 Carbon Dioxide 25 Anion Gap 16 BUN > 150.0 H* Creatinine 11.7 H* Est GFR (CKD-EPI)AfAm 5.10 Est GFR (CKD-EPI)NonAf 4.40 POC Glucometer 109 Random Glucose 103 Calcium 7.0 L Phosphorus 7.8 H Magnesium 2.3 Total Bilirubin 0.7 AST 12 L ALT 22 Alkaline Phosphatase 84 Total Protein 4.1 L Albumin 1.9 L Blood Type Antibody Screen Crossmatch 06/17/19 06/17/19 06/17/19 12:10 12:10 15:39 WBC 10.8 H RBC 2.10 L Hgb 6.2 L* Hct 18.0 L D MCV 85.8 MCH 29.8 MCHC 34.7 RDW 15.6 Plt Count 116 L MPV 8.7 Absolute Neuts (auto) 8.2 H Neutrophils % 76.6 Lymphocytes % 9.1 Monocytes % 6.9 Eosinophils % 6.4 H Basophils % 1.0 Nucleated RBC % 0 PT with INR INR Sodium 140 Potassium 5.6 H Chloride 100 Carbon Dioxide 22 Anion Gap 17 H BUN 155.9 H* Creatinine 12.3 H* Est GFR (CKD-EPI)AfAm 4.80 Est GFR (CKD-EPI)NonAf 4.15 POC Glucometer 104 Random Glucose 91 Calcium 7.2 L Phosphorus Magnesium Total Bilirubin 0.6 AST 13 L ALT 23 Alkaline Phosphatase 95 Total Protein 4.5 L Albumin 2.1 L Blood Type Antibody Screen Crossmatch Active Medications Generic Name Dose Route Start Last Admin Trade Name Freq PRN Reason Stop Dose Admin Chlorhexidine Gluconate 1 applic 06/16/19 22:00 06/16/19 21:01 Hibiclens For Decolonization - TP 1 applic HS ORIANA Administration Sodium Chloride 250 mls @ 3,000 mls/hr 06/17/19 07:00 Normal Saline - IV 06/18/19 06:59 PRN PRN Hypotension during Dialysis Ceftriaxone Sodium 1 gm/ 50 mls @ 200 mls/hr 06/17/19 12:00 06/17/19 14:59 Dextrose IVPB 200 mls/hr DAILY ORIANA Administration Protocol Methimazole 5 mg 06/17/19 10:00 06/17/19 12:55 Tapazole - PO Not Given DAILY [facility] Morphine Sulfate 1 mg 06/16/19 17:41 06/16/19 18:42 Morphine Sulfate IVPUSH 1 mg Q4H PRN Administration PAIN LEVEL 6-10 Mupirocin 1 applic 06/16/19 22:00 06/17/19 10:35 Bactroban Ointment (For Decolonization) - NS 06/21/19 21:59 1 applic BID ORIANA Administration Pantoprazole Sodium 40 mg 06/17/19 22:00 Protonix Iv IVPUSH BID [facility] ASSESSMENT/PLAN: 54 y.o. M PMH HTN, s/p failed kidney transplant, ESRD (HD //) w/ HD this past Thursday, HLD, diverticulosis, hyperthyroidism, diverticulitis, psoriasis who presents today with GI bleed, likely upper. 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 Hinojosa): chronic mild elevation TNI, likely related to demand from ESRD, anemia, CHF. Stress MIBI 09/2018: small, mild ischemia of apex. #Pulm -mild dilation of pulm artery seen on chest CTA suggestive of incr pulm a. pressure -saturating well on RA -continue to monitor o2 sat #GI -Hematemesis x2 on admission -CTA A/P: no bleeds noted. Stable 5.3 x 3.5 cm partially calcified right upper pelvic soft tissue lesion which is also unchanged in comparison to a 2017 CT exam. -EGD: no active bleeding, poss ashok mccormick tear -PPI 40mg IV BID; drip d/c'd -octreotide drip d/c'd -Receiving 3U pRBC (giving 2U w/ HD), 1U FFP, 1U platelets, 20mcg DDAVP, 1g Ca gluconate today post EGD -Advanced to clears -GI Dr. Felix following -Transfusion threshold <7 -F/u post transfusion cbc; hgb improved to 6.2 from 4.8 after 1 U pRBC #Renal -ESRD on HD -HD today as hgb shows improvement after 1 UpRBC -s/p DDAVP for poss uremic plt dysfunction -f/u renal as patient may need additional HD tomorrow -Dr. Barros following -CTA A/P: bilateral flank subcutaneous edema. Marked bilateral renal atrophy is again noted. Renal osteodystrophy. #Endo -hyperthyroid on methimazole #ID -C/w ceftriaxone -mild leukocytosis, downtrending #FENLTD -continue dialysis via LUE AVfistula -trend cmp replete lytes prn -advanced to clears & tolerating -large bore peripheral IV's #PPX -protonix 40mg IV BID #Dispo -continue to monitor in ICU Visit type - Emergency Visit Emergency Visit: Yes ED Registration Date: 06/16/19 Care time: The patient presented to the Emergency Department on the above date and was hospitalized for further evaluation of their emergent condition. - New Patient This patient is new to me today: Yes Date on this admission: 06/17/19 - Critical Care Critical Care patient: Yes Total Critical Care Time (in minutes): 45 Critical Care Statement: The care of this patient involved high complexity decision making to prevent further life threatening deterioration of the patient 's condition and/or to evaluate & treat vital organ system(s) failure or risk of failure. ATTENDING PHYSICIAN STATEMENT I saw and evaluated the patient. I reviewed the resident's note and discussed the case with the resident. I agree with the resident's findings and plan as documented. SUBJECTIVE: OBJECTIVE: ASSESSMENT AND PLAN:
[2019-06-17 16:33] LABS: HEMATOCRIT 21.3 % (35.4-49); HEMOGLOBIN 7.1 GM/dL (11.7-16.9); MCH 28.8 pg (25.7-33.7); MCHC 33.6 g/dl (32.0-35.9); MEAN CELL VOLUME 85.7 fl (80-96); MEAN PLT VOLUME 8.9 fl (7.5-11.1); PLATELET COUNT 121 K/MM3 (134-434); RBC 2.48 M/mm3 (4.00-5.60); RDW 15.3 % (11.9-15.9)
[2019-06-17] MEDS: ALBUMIN HUMAN 25% 12.5 GM/50 ML VIAL IVPB SCH ×2 (17:27→17:28)
[2019-06-17] MEDS: CEFTRIAXONE 1 GM in DEXTROSE 5%-WATER - 50 ML IVPB SCH (21:17)
[2019-06-17] MEDS: CHLORHEXIDINE GLUCONATE 4% CLEANSER FOR DECOLONIZATION TP SCH (21:18)
[2019-06-17] MEDS: PANTOPRAZOLE SODIUM 40 MG VIAL IVPUSH SCH (21:18)
[2019-06-17 21:40] LABS: BASO % 0.7 % (0-2.0); EOS % 6.2 % (0-4.5); HEMATOCRIT 24.8 % (35.4-49); HEMOGLOBIN 8.5 GM/dL (11.7-16.9); LYMPH % 7.6 % (8-40); MCH 28.8 pg (25.7-33.7); MCHC 34.2 g/dl (32.0-35.9); MEAN CELL VOLUME 84.3 fl (80-96); MEAN PLT VOLUME 8.5 fl (7.5-11.1); MONO % 7.6 % (3.8-10.2); NEUT % 77.9 % (42.8-82.8); PLATELET COUNT 127 K/MM3 (134-434); RBC 2.94 M/mm3 (4.00-5.60); RDW 14.5 % (11.9-15.9); WHITE BLOOD COUNT 10.6 K/mm3 (4.0-10.0)
--- NOTE | 2019-06-18 02:26 | PN ---
Progress Note, Physician Chief Complaint: Pt groggy; returned from endoscopy.Sister and at bedside History of Present Illness: 54M black man with PM history of HTN, s/p failed kidney transplant, LUE AVF/ Graft,ESRD (HD T,, (last yesterday as an extra session), HLD, diastolic CHF (ECHO 05/12: normal LVEF; mild-moderate ; severe pulmonary HTN; mod-severe aortic regurgitation), CAD (mild apical ischemia on stress MIBI 09/2018), who presents for evaluation of hematemesis x2. Pt reports one episode yesterday evening and once this morning. The pt reports associated generalized weakness/ fatigue. Also endorses 1 month of NB diarrhea and RODRIGUEZ. - Current Medication List Current Medications: Active Medications Chlorhexidine Gluconate (Hibiclens For Decolonization -) 1 applic TP HS [facility] Last Admin: 06/17/19 21:18 Dose: 1 applic Sodium Chloride (Normal Saline -) 250 mls @ 3,000 mls/hr IV PRN PRN PRN Reason: Hypotension during Dialysis Stop: 06/18/19 06:59 Ceftriaxone Sodium 1 gm/ (Dextrose) 50 mls @ 200 mls/hr IVPB DAILY [facility]; Protocol Last Admin: 06/17/19 21:17 Dose: 200 mls/hr Sodium Chloride (Normal Saline -) 250 mls @ 3,000 mls/hr IV PRN PRN PRN Reason: Hypotension during Dialysis Stop: 06/18/19 22:58 Methimazole (Tapazole -) 5 mg PO DAILY [facility] Last Admin: 06/17/19 12:55 Dose: Not Given Morphine Sulfate (Morphine Sulfate) 1 mg IVPUSH Q4H PRN PRN Reason: PAIN LEVEL 6-10 Last Admin: 06/16/19 18:42 Dose: 1 mg Mupirocin (Bactroban Ointment (For Decolonization) -) 1 applic NS BID [facility] Stop: 06/21/19 21:59 Last Admin: 06/17/19 21:17 Dose: 1 applic Pantoprazole Sodium (Protonix Iv) 40 mg IVPUSH BID [facility] Last Admin: 06/17/19 21:18 Dose: 40 mg - Objective Vital Signs: Vital Signs Temperature 97.6 F 06/17/19 22:00 Pulse Rate 90 06/17/19 22:00 Respiratory Rate 92 H 06/18/19 00:00 Blood Pressure 116/61 06/18/19 00:00 O2 Sat by Pulse Oximetry (%) 100 06/18/19 00:02 Constitutional: Yes: Calm Eyes: Yes: WNL HENT: Yes: WNL Neck: Yes: WNL Cardiovascular: Yes: Murmur (2/4 diastolic murmur, RSB-->apex), S1, S2 Gastrointestinal: Yes: Soft ...Rectal Exam: Yes: Deferred Genitourinary: No: Anuria Breast(s): Yes: WNL Musculoskeletal: Yes: WNL Extremities: Yes: WNL Edema: No Peripheral Pulses WNL: Yes Labs: CBC, BMP 06/17/19 21:05 06/17/19 12:10 INR, PTT INR 1.65 (0.83-1.09) H 06/17/19 05:40 - ....Imaging Chest X-ray: Image Reviewed EKG: Image Reviewed Problem List - Problems (1) ESRD (end stage renal disease) on dialysis Assessment/Plan: hemodialysis 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 Code(s): N18.6 - END STAGE RENAL DISEASE; Z99.2 - DEPENDENCE ON RENAL DIALYSIS (2) HTN (hypertension) Code(s): I10 - ESSENTIAL (PRIMARY) HYPERTENSION Qualifiers: Hypertension type: essential hypertension Qualified Code(s): I10 - Essential (primary) hypertension (3) Hematemesis Assessment/Plan: see "GI bleed" Code(s): K92.0 - HEMATEMESIS Qualifiers: Nausea presence: without nausea Qualified Code(s): K92.0 - Hematemesis (4) Vomiting Code(s): R11.10 - VOMITING, UNSPECIFIED (5) Abdominal pain Code(s): R10.9 - UNSPECIFIED ABDOMINAL PAIN Qualifiers: Abdominal location: generalized Qualified Code(s): R10.84 - Generalized abdominal pain (6) Anxiety Code(s): F41.9 - ANXIETY DISORDER, UNSPECIFIED (7) Aortic stenosis Code(s): I35.0 - NONRHEUMATIC AORTIC (VALVE) STENOSIS (8) [place] cardiac risk >20% in next 10 years Code(s): Z91.89 - OTH PERSONAL RISK FACTORS, NOT ELSEWHERE CLASSIFIED (9) HLD (hyperlipidemia) Code(s): E78.5 - HYPERLIPIDEMIA, UNSPECIFIED (10) Nausea & vomiting Code(s): R11.2 - NAUSEA WITH VOMITING, UNSPECIFIED (11) Elevated troponin Assessment/Plan: chroniic mild elevation TNI, likely related to demand from ESRD, anemia, CHF. Stress MIBI 09/2018: small, mild ischemia of apex. Code(s): R74.8 - ABNORMAL LEVELS OF OTHER SERUM ENZYMES (12) GI bleed Assessment/Plan: Pt received PRBCs and FFP. s/p EGD today: ?Joyce Nick tear and duodenal ulcer. For colonoscopy in am. Code(s): K92.2 - GASTROINTESTINAL HEMORRHAGE, UNSPECIFIED Assessment/Plan CCU time spent: 35 minutes
--- NOTE | 2019-06-18 06:59 | PN ---
Progress Note, Physician Chief Complaint: in bed NAD VSS no recurrent bleeding, no pain; ate OK; Hg 8 - wants to go home; for HD today pt is hungry, wants to eat regular food - Current Medication List Current Medications: Active Medications Chlorhexidine Gluconate (Hibiclens For Decolonization -) 1 applic TP HS [facility] Last Admin: 06/17/19 21:18 Dose: 1 applic Sodium Chloride (Normal Saline -) 250 mls @ 3,000 mls/hr IV PRN PRN PRN Reason: Hypotension during Dialysis Stop: 06/18/19 06:59 Ceftriaxone Sodium 1 gm/ (Dextrose) 50 mls @ 200 mls/hr IVPB DAILY [facility]; Protocol Last Admin: 06/17/19 21:17 Dose: 200 mls/hr Sodium Chloride (Normal Saline -) 250 mls @ 3,000 mls/hr IV PRN PRN PRN Reason: Hypotension during Dialysis Stop: 06/18/19 22:58 Methimazole (Tapazole -) 5 mg PO DAILY [facility] Last Admin: 06/17/19 12:55 Dose: Not Given Morphine Sulfate (Morphine Sulfate) 1 mg IVPUSH Q4H PRN PRN Reason: PAIN LEVEL 6-10 Last Admin: 06/16/19 18:42 Dose: 1 mg Mupirocin (Bactroban Ointment (For Decolonization) -) 1 applic NS BID [facility] Stop: 06/21/19 21:59 Last Admin: 06/17/19 21:17 Dose: 1 applic Pantoprazole Sodium (Protonix Iv) 40 mg IVPUSH BID [facility] Last Admin: 06/17/19 21:18 Dose: 40 mg - Objective Vital Signs: Vital Signs Temperature 98.1 F 06/18/19 06:00 Pulse Rate 88 06/18/19 06:00 Respiratory Rate 17 06/18/19 06:00 Blood Pressure 121/63 06/18/19 06:00 O2 Sat by Pulse Oximetry (%) 100 06/18/19 00:02 Constitutional: Yes: No Distress, Calm Eyes: Yes: Conjunctiva Clear HENT: Yes: Atraumatic Neck: Yes: Supple Cardiovascular: Yes: Regular Rate and Rhythm Respiratory: Yes: CTA Bilaterally Gastrointestinal: Yes: Soft Genitourinary: No: Hematuria Extremities: No: Cold, Cool Edema: No Integumentary: No: Rash, Venous Stasis Changes Neurological: Yes: Alert, Oriented ...Motor Strength: WNL Psychiatric: Yes: Alert, Oriented. No: Agitated, Suicidal Ideation Labs: INR, PTT INR 1.65 (0.83-1.09) H 06/17/19 05:40 - ....Imaging Other: Report Reviewed Assessment/Plan The pt is a 54M w/ a history of HTN, s/p failed kidney transplant, LUE AVF/G, and ESRD / HD admitted with hematemesis x2. s/p 4 U PRBC PRBC - Hg better no bleeding hold asa; iv PPI per GI per GI s/p EGD Old healed ulcer, erythematous area duodenum (not biopsied) and Joyce Nick tear; will need further w/u repeat EGD; colonoscopy, SM capsule endoscopy; also heme eval (called) - d/w pt the above he understood, is aware and he agreed cardiology f/u dr Hinojosa serial labs advanced diet HD per renal prognosis guarded; d.w pt and at bedside the above d/w pt and staff T time 40 min
[2019-06-18 07:07] LABS: HEMATOCRIT 26.1 % (35.4-49); MCH 29.3 pg (25.7-33.7); MCHC 34.5 g/dl (32.0-35.9); MEAN CELL VOLUME 85.1 fl (80-96); MEAN PLT VOLUME 8.6 fl (7.5-11.1); PLATELET COUNT 113 K/MM3 (134-434); RBC 3.06 M/mm3 (4.00-5.60); WHITE BLOOD COUNT 11.9 K/mm3 (4.0-10.0)
--- NOTE | 2019-06-18 07:33 | PN ---
Progress Note (short form) - Note Progress Note: Pulm/CCM SUBJECTIVE: H/h trending up without further transfusion. Diet being advanced Vital Signs Temp 98.1 F 06/18/19 06:00 Pulse 88 06/18/19 06:00 Resp 17 06/18/19 06:00 BP 121/63 06/18/19 06:00 Pulse Ox 100 06/18/19 00:02 Intake & Output 06/17/19 06/17/19 06/18/19 11:59 23:59 11:59 Intake Total 1810 1110 470 Output Total 1500 0 Balance 1810 -390 470 Weight 78.613 kg 80.195 kg Intake: IV 360 10 octreotide 240 protonix 120 IVPB 500 400 50 Oral 100 Packed Cells 950 700 Fresh Frozen Plasma 320 Output: Urine 0 Void 0 Fluid Removed, 1500 Hemodialysis Other: Voiding Method Toilet # Unmeasured Voids Void 0 Bowel Movement Yes No Weight Measurement Method Built in Bedscale Built in Bedscale Active Medications Chlorhexidine Gluconate (Hibiclens For Decolonization -) 1 applic TP HS [facility] Last Admin: 06/17/19 21:18 Dose: 1 applic Ceftriaxone Sodium 1 gm/ (Dextrose) 50 mls @ 200 mls/hr IVPB DAILY [facility]; Protocol Last Admin: 06/17/19 21:17 Dose: 200 mls/hr Sodium Chloride (Normal Saline -) 250 mls @ 3,000 mls/hr IV PRN PRN PRN Reason: Hypotension during Dialysis Stop: 06/18/19 22:58 Methimazole (Tapazole -) 5 mg PO DAILY [facility] Last Admin: 06/17/19 12:55 Dose: Not Given Morphine Sulfate (Morphine Sulfate) 1 mg IVPUSH Q4H PRN PRN Reason: PAIN LEVEL 6-10 Last Admin: 06/16/19 18:42 Dose: 1 mg Mupirocin (Bactroban Ointment (For Decolonization) -) 1 applic NS BID [facility] Stop: 06/21/19 21:59 Last Admin: 06/17/19 21:17 Dose: 1 applic Pantoprazole Sodium (Protonix Iv) 40 mg IVPUSH BID [facility] Last Admin: 06/17/19 21:18 Dose: 40 mg Gen: NAD Heart: RRR Lung: decreased breath sounds at the bases Abd: Mild RUQ tenderness, (+) BS, no rebound Ext: no edema CBC, BMP 06/18/19 05:38 ASSESSMENT AND PLAN: GI Bleed 2/2 likely ashok-mccormick tear Acute Blood Loss Anemia Coagulopathy r/o Liver Cirrhosis ESRD on HD HTN - Normal transfusion thresholds - monitor CBC, coags - protonix BID - ensure large bore peripheral access - S/p EGD, advance diet as tolerated\ - [facility] Floor today post HD [id number]
[2019-06-18 07:52] LABS: ALBUMIN 2.5 g/dl (3.4-5.0); BILIRUBIN,TOTAL 0.5 mg/dL (0.2-1); BLOOD UREA NITROGEN 68.4 mg/dL (7-18); CREATININE 6.9 mg/dL (0.55-1.3); PHOSPHOROUS 6.6 mg/dL (2.5-4.9); POTASSIUM 4.6 mmol/L (3.5-5.1); TOT PROT 5.1 g/dl (6.4-8.2)
[2019-06-18] MEDS ORDERED: DEXTROSE 5%-WATER - 50 ML IVPB ONE (08:34)
[2019-06-18] MEDS ORDERED: PT OWN MED DRAWER 7, Y5N ONE (08:34)
[2019-06-18] MEDS ORDERED: cefTRIAXone SODIUM 1 GM VIAL ONE (08:34)
[2019-06-18] MEDS: PANTOPRAZOLE SODIUM 40 MG VIAL IVPUSH SCH ×2 (09:52→21:34)
[2019-06-18] MEDS: CEFTRIAXONE 1 GM in DEXTROSE 5%-WATER - 50 ML IVPB SCH (09:52)
[2019-06-18] MEDS: METHIMAZOLE 5 MG TABLET (FP) PO SCH (09:53)
--- NOTE | 2019-06-18 10:01 | PN ---
Progress Note (short form) - Note Progress Note: RENAL pt denies complaints currently in icu Last Vital Signs Temp Pulse Resp BP Pulse Ox 98.1 F 88 17 121/63 100 06/18/19 06:00 06/18/19 06:00 06/18/19 06:00 06/18/19 06:00 06/18/19 00:02 lungs clear cvs s1s2 rr abd soft ext no edema neuro a+ox3 CBC, BMP 06/18/19 05:38 06/18/19 05:38 Current Medications Generic Name Dose Route Start Last Admin Trade Name Freq PRN Reason Stop Dose Admin Chlorhexidine Gluconate 1 applic 06/16/19 22:00 06/17/19 21:18 Hibiclens For Decolonization - TP 1 applic HS ORIANA Administration Ceftriaxone Sodium 1 gm/ 50 mls @ 200 mls/hr 06/17/19 19:30 06/17/19 21:17 Dextrose IVPB 200 mls/hr DAILY ORIANA Administration Protocol Sodium Chloride 250 mls @ 3,000 mls/hr 06/17/19 22:58 Normal Saline - IV 06/18/19 22:58 PRN PRN Hypotension during Dialysis Methimazole 5 mg 06/17/19 10:00 06/17/19 12:55 Tapazole - PO Not Given DAILY [facility] Morphine Sulfate 1 mg 06/16/19 17:41 06/16/19 18:42 Morphine Sulfate IVPUSH 1 mg Q4H PRN Administration PAIN LEVEL 6-10 Mupirocin 1 applic 06/16/19 22:00 06/17/19 21:17 Bactroban Ointment (For Decolonization) - NS 06/21/19 21:59 1 applic BID ORIANA Administration Pantoprazole Sodium 40 mg 06/17/19 22:00 06/17/19 21:18 Protonix Iv IVPUSH 40 mg BID ORIANA Administration 54 year old gentleman with history of ESRD on HD (TTS), hypertension, psoriasis, hx of renal transplant now failed presented from home with hematemesis x 2 episodes. 1. Acute GI bleed/Hematemesis 2. Acute on Chronic Anemia 3. ESRD on HD 4. Hx of hypertension Pt was dialyzed yesterday and is doing well. Will be dialyzed again today to keep on usual schedule of t-t-s monitor hgb MV
[2019-06-18] MEDS: MUPIROCIN 2% TOPICAL OINTMENT FOR DECOLONIZATION NS SCH ×2 (10:09→21:35)
--- NOTE | 2019-06-18 10:59 | PN.GI ---
GI Progress Note Subjective: GI NOte( covering Dr Diez): Small amount of melena overnight but Hb is stable. Tolerating solid diet - Objective Vital Signs: Vital Signs Temperature 98 F 06/18/19 10:48 Pulse Rate 88 06/18/19 10:48 Respiratory Rate 18 06/18/19 10:48 Blood Pressure 123/57 L 06/18/19 10:48 O2 Sat by Pulse Oximetry (%) 100 06/18/19 00:02 Laboratory Tests 06/17/19 06/17/19 06/17/19 05:40 15:45 21:05 Hgb 4.9 L* 7.1 L 8.5 L 06/18/19 05:38 Hgb 9.0 L Constitutional: Calm ...Auscultate: Yes: Normoactive Bowel Sounds ...Palpate: Yes: Soft, Other (nontender) Labs: CBC, BMP 06/18/19 05:38 06/18/19 05:38 INR, PTT INR 1.65 (0.83-1.09) H 06/17/19 05:40 Assessment/Plan Assessment: - Bleeding has subsided Plan: - Follow CBCs - If bleeding persists will need colonoscopy and enteroscopy. I suspect that he will ultimately need a capsule endoscopy Problem List - Problems (1) GI bleed Code(s): K92.2 - GASTROINTESTINAL HEMORRHAGE, UNSPECIFIED (2) Gastric ulcer Code(s): K25.9 - GASTRIC ULCER, UNSP ACUTE OR CHRONIC, W/O HEMOR OR PERF (3) ESRD (end stage renal disease) on dialysis Code(s): N18.6 - END STAGE RENAL DISEASE; Z99.2 - DEPENDENCE ON RENAL DIALYSIS
[2019-06-18 11:12] VITALS: BMI 25.9
--- NOTE | 2019-06-18 13:27 | PN ---
Progress Note, Physician Chief Complaint: Cardiology for Dr. Hinojosa History of Present Illness: Small amount of melena overnight but Hb is stable. Tolerating solid diet, undergoing bedside HD. - Current Medication List Current Medications: Active Medications Chlorhexidine Gluconate (Hibiclens For Decolonization -) 1 applic TP HS [facility] Last Admin: 06/17/19 21:18 Dose: 1 applic Ceftriaxone Sodium 1 gm/ (Dextrose) 50 mls @ 200 mls/hr IVPB DAILY [facility]; Protocol Last Admin: 06/18/19 09:52 Dose: 200 mls/hr Sodium Chloride (Normal Saline -) 250 mls @ 3,000 mls/hr IV PRN PRN PRN Reason: Hypotension during Dialysis Stop: 06/18/19 22:58 Methimazole (Tapazole -) 5 mg PO DAILY [facility] Last Admin: 06/18/19 09:53 Dose: 5 mg Morphine Sulfate (Morphine Sulfate) 1 mg IVPUSH Q4H PRN PRN Reason: PAIN LEVEL 6-10 Last Admin: 06/16/19 18:42 Dose: 1 mg Mupirocin (Bactroban Ointment (For Decolonization) -) 1 applic NS BID [facility] Stop: 06/21/19 21:59 Last Admin: 06/18/19 10:09 Dose: 1 applic Pantoprazole Sodium (Protonix Iv) 40 mg IVPUSH BID [facility] Last Admin: 06/18/19 09:52 Dose: 40 mg - Objective Vital Signs: Vital Signs Temperature 98.2 F 06/18/19 11:55 Pulse Rate 87 06/18/19 13:00 Respiratory Rate 18 06/18/19 13:00 Blood Pressure 130/82 06/18/19 13:00 O2 Sat by Pulse Oximetry (%) 100 06/18/19 10:00 Constitutional: Yes: No Distress, Calm, Thin Neck: Yes: Supple Cardiovascular: Yes: Regular Rate and Rhythm, Murmur (2/6 SM) Respiratory: Yes: Regular, CTA Bilaterally Gastrointestinal: Yes: Normal Bowel Sounds, Soft Edema: No Labs: CBC, BMP 06/18/19 05:38 06/18/19 05:38 INR, PTT INR 1.65 (0.83-1.09) H 06/17/19 05:40 - ....Imaging EKG: Report Reviewed (Tele: NSR) Assessment/Plan 06/17/2019 Echo: Mod cLVH low normal LV EF 50%, grade II diastolic dysfunction, elevated LA pressure, mild LAE, functional MS 2/2 MAC, mild TR, mod , mild- mod AR, no pericardial effusions Problem List - Problems (1) ESRD (end stage renal disease) on dialysis Assessment/Plan: hemodialysis per household appliance assembler. Code(s): N18.6 - END STAGE RENAL DISEASE; Z99.2 - DEPENDENCE ON RENAL DIALYSIS (2) HTN (hypertension) Code(s): I10 - ESSENTIAL (PRIMARY) HYPERTENSION Qualifiers: Hypertension type: essential hypertension Qualified Code(s): I10 - Essential (primary) hypertension (3) Hematemesis Assessment/Plan: see "GI bleed" Code(s): K92.0 - HEMATEMESIS Qualifiers: Nausea presence: without nausea Qualified Code(s): K92.0 - Hematemesis (4) Vomiting Code(s): R11.10 - VOMITING, UNSPECIFIED (5) Abdominal pain Code(s): R10.9 - UNSPECIFIED ABDOMINAL PAIN Qualifiers: Abdominal location: generalized Qualified Code(s): R10.84 - Generalized abdominal pain (6) Anxiety Code(s): F41.9 - ANXIETY DISORDER, UNSPECIFIED (7) Aortic stenosis Code(s): I35.0 - NONRHEUMATIC AORTIC (VALVE) STENOSIS (8) [place] cardiac risk >20% in next 10 years Code(s): Z91.89 - OTH PERSONAL RISK FACTORS, NOT ELSEWHERE CLASSIFIED (9) HLD (hyperlipidemia) Code(s): E78.5 - HYPERLIPIDEMIA, UNSPECIFIED (10) Nausea & vomiting Code(s): R11.2 - NAUSEA WITH VOMITING, UNSPECIFIED (11) Elevated troponin Assessment/Plan: chronic mild elevation TNI, likely related to demand from ESRD, anemia, CHF. Stress MIBI 09/2018: small, mild ischemia of apex. Code(s): R74.8 - ABNORMAL LEVELS OF OTHER SERUM ENZYMES (12) GI bleed Assessment/Plan: Pt received PRBCs and FFP. s/p EGD today: ?Ashok Nick tear and duodenal ulcer. For colonoscopy in am. Code(s): K92.2 - GASTROINTESTINAL HEMORRHAGE, UNSPECIFIED 1. GI Bleed 2/2 likely ashok-nick tear/hematemesis 2. Acute on chronic Blood Loss Anemia 3. Coagulopathy 4. r/o Liver Cirrhosis 5. ESRD on HD TTHS 6. HTN 7. Hyperthyroidism P:1. Normal transfusion thresholds 2. Monitor CBC, coags 3. Protonix BID 4. S/p EGD, advance diet as tolerated
[2019-06-18] MEDS: CHLORHEXIDINE GLUCONATE 4% CLEANSER FOR DECOLONIZATION TP SCH (21:35)
[2019-06-19 06:13] LABS: BASO % 0.9 % (0-2.0); EOS % 12.3 % (0-4.5); HEMATOCRIT 24.8 % (35.4-49); HEMOGLOBIN 8.5 GM/dL (11.7-16.9); LYMPH % 7.6 % (8-40); MCH 29.6 pg (25.7-33.7); MCHC 34.3 g/dl (32.0-35.9); MEAN CELL VOLUME 86.2 fl (80-96); MEAN PLT VOLUME 7.7 fl (7.5-11.1); MONO % 11.6 % (3.8-10.2); NEUT % 67.6 % (42.8-82.8); PLATELET COUNT 140 K/MM3 (134-434); RBC 2.88 M/mm3 (4.00-5.60); RDW 15.3 % (11.9-15.9); WHITE BLOOD COUNT 11.9 K/mm3 (4.0-10.0)
--- NOTE | 2019-06-19 09:06 | PN ---
Progress Note, Physician Chief Complaint: OOB to chair NAD VSS no c/o, ate regular food, no bleeding; he wants to go home today and he said he already spoke with his to come pick him up (she is on her way to ) d/w GI dr Wilkinson (covering for dr Felix): no active bleeding, Hg stable 9 pt ate OK; can go home but will need outpt w/u over the next 1-2 weeks: colonoscopy, SB capsule endoscopy and repeat EGD, also heme eval; pt said he was just seen by a heme and told "everything OK" (however no consult available in [facility] yet) and he said he will f/u closely outpt with GI, heme, cardio and liver center at [facility] dr Pepper; I offered him to have colonoscopy here on 06/[address] Felix (prep tomorrow) but he refused; dw pt EGD findings and that he might have another GI source of bleeding not yet idenified and he should have the above tests mary kate; he understands, is aware and said he will call GI dr Felix tomorrow for clau with him in his office; d/w pt to let us know if not able to be seen by GI, liver dr and josé manuel over the next few days - he said he will no ASA no Nsaids per GI for now; to take PPI bid for now until he sees GI outpt ; RTER if any new c/o; d/w pt - Current Medication List Current Medications: Active Medications Chlorhexidine Gluconate (Hibiclens For Decolonization -) 1 applic TP HS [facility] Last Admin: 06/18/19 21:35 Dose: 1 applic Ceftriaxone Sodium 1 gm/ (Dextrose) 50 mls @ 200 mls/hr IVPB DAILY [facility]; Protocol Last Admin: 06/18/19 09:52 Dose: 200 mls/hr Sodium Chloride (Normal Saline -) 250 mls @ 3,000 mls/hr IV PRN PRN PRN Reason: Hypotension during Dialysis Stop: 06/18/19 22:58 Methimazole (Tapazole -) 5 mg PO DAILY [facility] Last Admin: 06/18/19 09:53 Dose: 5 mg Morphine Sulfate (Morphine Sulfate) 1 mg IVPUSH Q4H PRN PRN Reason: PAIN LEVEL 6-10 Last Admin: 06/16/19 18:42 Dose: 1 mg Mupirocin (Bactroban Ointment (For Decolonization) -) 1 applic NS BID [facility] Stop: 06/21/19 21:59 Last Admin: 06/18/19 21:35 Dose: 1 applic Pantoprazole Sodium (Protonix Iv) 40 mg IVPUSH BID [facility] Last Admin: 06/18/19 21:34 Dose: 40 mg - Objective Vital Signs: Vital Signs Temperature 98.1 F 06/19/19 02:00 Pulse Rate 83 06/19/19 07:00 Respiratory Rate 18 06/19/19 07:00 Blood Pressure 126/61 06/19/19 07:00 O2 Sat by Pulse Oximetry (%) 100 06/18/19 19:56 Constitutional: Yes: No Distress, Calm Eyes: Yes: Conjunctiva Clear HENT: Yes: Atraumatic Neck: Yes: Supple Cardiovascular: Yes: Regular Rate and Rhythm Respiratory: Yes: CTA Bilaterally Gastrointestinal: Yes: Soft. No: Tenderness Genitourinary: No: Hematuria Musculoskeletal: No: Joint Stiffness, Joint Swelling Extremities: Yes: Other. No: Cold, Cool Edema: No Integumentary: No: Rash, Venous Stasis Changes Neurological: Yes: WNL, Alert, Oriented ...Motor Strength: WNL Psychiatric: Yes: WNL, Alert, Oriented. No: Agitated, Suicidal Ideation Labs: CBC, BMP 06/19/19 05:55 06/18/19 05:38 INR, PTT INR 1.65 (0.83-1.09) H 06/17/19 05:40 - ....Imaging Other: Report Reviewed Assessment/Plan The pt is a 54M w/ a history of HTN, s/p failed kidney transplant, LUE AVF/G, and ESRD / HD admitted with hematemesis x2. s/p PRBC - Hg better and stable around 9, no bleeding hold asa; can switch to po PPI per GI GI f/u see above, heme f/u; cardiology f/u dr Hinojosa serial labs advanced diet HD per renal pt wants to go home today, d/w GI OK to DC home today with close f/u, d.w pt all the above d/w pt and staff T time 40 min
--- NOTE | 2019-06-19 09:22 | PN ---
Progress Note (short form) - Note Progress Note: RENAL pt denies complaints currently in icu tolerated hd well yesterday Last Vital Signs Temp Pulse Resp BP Pulse Ox 98.1 F 83 18 126/61 100 06/19/19 02:00 06/19/19 07:00 06/19/19 07:00 06/19/19 07:00 06/18/19 19:56 lungs clear cvs s1s2 rr abd soft ext no edema neuro a+ox3 CBC, BMP 06/19/19 05:55 06/18/19 05:38 Current Medications Generic Name Dose Route Start Last Admin Trade Name Freq PRN Reason Stop Dose Admin Chlorhexidine Gluconate 1 applic 06/16/19 22:00 06/18/19 21:35 Hibiclens For Decolonization - TP 1 applic HS [facility] Administration Ceftriaxone Sodium 1 gm/ 50 mls @ 200 mls/hr 06/17/19 19:30 06/18/19 09:52 Dextrose IVPB 200 mls/hr DAILY [facility] Administration Protocol Sodium Chloride 250 mls @ 3,000 mls/hr 06/17/19 22:58 Normal Saline - IV 06/18/19 22:58 PRN PRN Hypotension during Dialysis Methimazole 5 mg 06/17/19 10:00 06/18/19 09:53 Tapazole - PO 5 mg DAILY [facility] Administration Morphine Sulfate 1 mg 06/16/19 17:41 06/16/19 18:42 Morphine Sulfate IVPUSH 1 mg Q4H PRN Administration PAIN LEVEL 6-10 Mupirocin 1 applic 06/16/19 22:00 06/18/19 21:35 Bactroban Ointment (For Decolonization) - NS 06/21/19 21:59 1 applic BID [facility] Administration Pantoprazole Sodium 40 mg 06/17/19 22:00 06/18/19 21:34 Protonix Iv IVPUSH 40 mg BID [facility] Administration 54 year old gentleman with history of ESRD on HD (TTS), hypertension, psoriasis, hx of renal transplant now failed presented from home with hematemesis x 2 episodes. 1. Acute GI bleed/Hematemesis 2. Acute on Chronic Anemia 3. ESRD on HD 4. Hx of hypertension Pt was dialyzed yesterday and is doing well. NIRMAL
[2019-06-19] MEDS ORDERED: PT OWN MED DRAWER 7, Y5N ONE (10:06)
[2019-06-19] MEDS ORDERED: DEXTROSE 5%-WATER - 50 ML IVPB ONE (10:06)
[2019-06-19] MEDS ORDERED: cefTRIAXone SODIUM 1 GM VIAL ONE (10:06)
[2019-06-19] MEDS: METHIMAZOLE 5 MG TABLET (FP) PO SCH (10:09)
[2019-06-19] MEDS: MUPIROCIN 2% TOPICAL OINTMENT FOR DECOLONIZATION NS SCH ×2 (10:09→21:34)
[2019-06-19] MEDS: CEFTRIAXONE 1 GM in DEXTROSE 5%-WATER - 50 ML IVPB SCH (10:09)
[2019-06-19] MEDS: PANTOPRAZOLE SODIUM 40 MG VIAL IVPUSH SCH ×2 (10:09→21:34)
--- NOTE | 2019-06-19 10:28 | PN ---
Progress Note (short form) - Note Progress Note: Progress Note Pulm/CCM Pt seen and examined in the ICU. Hgb stable at 8.5. No episodes overnight. Tolerating regular diet. Planning discharge home tomorrow. Seen by hematology. Active Medications Chlorhexidine Gluconate (Hibiclens For Decolonization -) 1 applic TP HS [facility] Last Admin: 06/18/19 21:35 Dose: 1 applic Ceftriaxone Sodium 1 gm/ (Dextrose) 50 mls @ 200 mls/hr IVPB DAILY [facility]; Protocol Last Admin: 06/19/19 10:09 Dose: 200 mls/hr Sodium Chloride (Normal Saline -) 250 mls @ 3,000 mls/hr IV PRN PRN PRN Reason: Hypotension during Dialysis Stop: 06/18/19 22:58 Methimazole (Tapazole -) 5 mg PO DAILY [facility] Last Admin: 06/19/19 10:09 Dose: 5 mg Morphine Sulfate (Morphine Sulfate) 1 mg IVPUSH Q4H PRN PRN Reason: PAIN LEVEL 6-10 Last Admin: 06/16/19 18:42 Dose: 1 mg Mupirocin (Bactroban Ointment (For Decolonization) -) 1 applic NS BID [facility] Stop: 06/21/19 21:59 Last Admin: 06/19/19 10:09 Dose: 1 applic Pantoprazole Sodium (Protonix Iv) 40 mg IVPUSH BID [facility] Last Admin: 06/19/19 10:09 Dose: 40 mg Vital Signs Period Temp Pulse Resp BP Sys/Romeo Pulse Ox Last 24 Hr 97.9 F-98.2 F 74-91 17-20 97-130/55-82 99-100 Intake & Output 06/16/19 06/17/19 06/18/19 06/19/19 23:59 23:59 23:59 23:59 Intake Total 450 2920 1380 300 Output Total 1500 2500 0 Balance 450 1420 -1120 300 Weight 78.1 kg 78.613 kg 79.832 kg 78.426 kg
--- NOTE | 2019-06-19 12:35 | PN.GI ---
GI Progress Note Subjective: GI NOte: No further bleeding noted in fact no BMs. Tolerating solids. I informed him of the need for further GI workup with colonoscopy. He wants to pursue this as an outpatient - Objective Vital Signs: Vital Signs Temperature 98.4 F 06/19/19 11:00 Pulse Rate 89 06/19/19 11:00 Respiratory Rate 16 06/19/19 11:00 Blood Pressure 129/67 06/19/19 11:00 O2 Sat by Pulse Oximetry (%) 99 06/19/19 09:00 Laboratory Tests 06/17/19 06/17/19 06/17/19 08:00 12:10 15:45 Hgb 4.8 L* 6.2 L* 7.1 L 06/17/19 06/18/19 06/19/19 21:05 05:38 05:55 Hgb 8.5 L 9.0 L 8.5 L Constitutional: Calm ...Auscultate: Yes: Normoactive Bowel Sounds ...Palpate: Yes: Soft, Other (nontender) Labs: CBC, BMP 06/19/19 05:55 06/18/19 05:38 INR, PTT INR 1.65 (0.83-1.09) H 06/17/19 05:40 Assessment/Plan Assessment: - Resolved bleeding d Plan: - Discussed need for colonoscopy and enteroscopy andl ultimately a capsule endoscopy. He wants to followup with Dr Diez as an outpatient I discussed the case with Dr. Ochoa and have no objections to discharge Problem List - Problems (1) GI bleed Code(s): K92.2 - GASTROINTESTINAL HEMORRHAGE, UNSPECIFIED (2) Gastric ulcer Code(s): K25.9 - GASTRIC ULCER, UNSP ACUTE OR CHRONIC, W/O HEMOR OR PERF (3) ESRD (end stage renal disease) on dialysis Code(s): N18.6 - END STAGE RENAL DISEASE; Z99.2 - DEPENDENCE ON RENAL DIALYSIS
--- NOTE | 2019-06-19 12:40 | PN ---
Progress Note (short form) - Note Progress Note: Attending Surgeon In ICU; tolerating a regular diet; no bleeding a/t the patient; seen by GI VSS AF abdo-soft; flat and non tender H/H stable IMP: s/p UGIB PLAN: Concur w/ a/p as outlined by GI; he will f/u as an outpatient w/ Dr. Caitlyn Diez. Venkatesh Hawkins MD FACS
--- NOTE | 2019-06-19 12:54 | PN ---
Progress Note, Physician Chief Complaint: Cardiology for Dr. Hinojosa History of Present Illness: Denies further bleeding Hb is stable. Tolerating solid diet, wants outpatient colonosopy. - Current Medication List Current Medications: Active Medications Chlorhexidine Gluconate (Hibiclens For Decolonization -) 1 applic TP HS [facility] Last Admin: 06/18/19 21:35 Dose: 1 applic Ceftriaxone Sodium 1 gm/ (Dextrose) 50 mls @ 200 mls/hr IVPB DAILY [facility]; Protocol Last Admin: 06/19/19 10:09 Dose: 200 mls/hr Sodium Chloride (Normal Saline -) 250 mls @ 3,000 mls/hr IV PRN PRN PRN Reason: Hypotension during Dialysis Stop: 06/18/19 22:58 Methimazole (Tapazole -) 5 mg PO DAILY [facility] Last Admin: 06/19/19 10:09 Dose: 5 mg Morphine Sulfate (Morphine Sulfate) 1 mg IVPUSH Q4H PRN PRN Reason: PAIN LEVEL 6-10 Last Admin: 06/16/19 18:42 Dose: 1 mg Mupirocin (Bactroban Ointment (For Decolonization) -) 1 applic NS BID [facility] Stop: 06/21/19 21:59 Last Admin: 06/19/19 10:09 Dose: 1 applic Pantoprazole Sodium (Protonix Iv) 40 mg IVPUSH BID [facility] Last Admin: 06/19/19 10:09 Dose: 40 mg - Objective Vital Signs: Vital Signs Temperature 98.4 F 06/19/19 11:00 Pulse Rate 89 06/19/19 11:00 Respiratory Rate 16 06/19/19 11:00 Blood Pressure 129/67 06/19/19 11:00 O2 Sat by Pulse Oximetry (%) 99 06/19/19 09:00 Constitutional: Yes: No Distress, Calm, Thin Neck: Yes: Supple Cardiovascular: Yes: Regular Rate and Rhythm Respiratory: Yes: Regular, CTA Bilaterally Gastrointestinal: Yes: Normal Bowel Sounds, Soft Edema: No Labs: CBC, BMP 06/19/19 05:55 06/18/19 05:38 INR, PTT INR 1.65 (0.83-1.09) H 06/17/19 05:40 - ....Imaging EKG: Report Reviewed (Tele: NSR) Assessment/Plan 06/17/2019 Echo: Mod cLVH low normal LV EF 50%, grade II diastolic dysfunction, elevated LA pressure, mild LAE, functional MS 2/2 MAC, mild TR, mod , mild- mod AR, no pericardial effusions Problem List - Problems (1) ESRD (end stage renal disease) on dialysis Assessment/Plan: hemodialysis per podiatry teacher. Code(s): N18.6 - END STAGE RENAL DISEASE; Z99.2 - DEPENDENCE ON RENAL DIALYSIS (2) HTN (hypertension) Code(s): I10 - ESSENTIAL (PRIMARY) HYPERTENSION Qualifiers: Hypertension type: essential hypertension Qualified Code(s): I10 - Essential (primary) hypertension (3) Hematemesis Assessment/Plan: see "GI bleed" Code(s): K92.0 - HEMATEMESIS Qualifiers: Nausea presence: without nausea Qualified Code(s): K92.0 - Hematemesis (4) Vomiting Code(s): R11.10 - VOMITING, UNSPECIFIED (5) Abdominal pain Code(s): R10.9 - UNSPECIFIED ABDOMINAL PAIN Qualifiers: Abdominal location: generalized Qualified Code(s): R10.84 - Generalized abdominal pain (6) Anxiety Code(s): F41.9 - ANXIETY DISORDER, UNSPECIFIED (7) Aortic stenosis Code(s): I35.0 - NONRHEUMATIC AORTIC (VALVE) STENOSIS (8) [place] cardiac risk >20% in next 10 years Code(s): Z91.89 - OTH PERSONAL RISK FACTORS, NOT ELSEWHERE CLASSIFIED (9) HLD (hyperlipidemia) Code(s): E78.5 - HYPERLIPIDEMIA, UNSPECIFIED (10) Nausea & vomiting Code(s): R11.2 - NAUSEA WITH VOMITING, UNSPECIFIED (11) Elevated troponin Assessment/Plan: chronic mild elevation TNI, likely related to demand from ESRD, anemia, CHF. Stress MIBI 09/2018: small, mild ischemia of apex. Code(s): R74.8 - ABNORMAL LEVELS OF OTHER SERUM ENZYMES (12) GI bleed Assessment/Plan: Pt received PRBCs and FFP. s/p EGD: ?Ashok Nick tear and duodenal ulcer. For colonoscopy as outpatient Code(s): K92.2 - GASTROINTESTINAL HEMORRHAGE, UNSPECIFIED 1. GI Bleed 2/2 likely ashok-nick tear/hematemesis 2. Acute on chronic Blood Loss Anemia 3. Coagulopathy 4. r/o Liver Cirrhosis 5. ESRD on HD TTHS 6. HTN 7. Hyperthyroidism P:1. Normal transfusion thresholds 2. Monitor CBC, coags 3. Protonix BID 4. S/p EGD, advance diet as tolerated, colonoscopy, enteroscopy and ultimately capsule endoscopy as outpatient
--- NOTE | 2019-06-19 14:50 | CONSULT ---
Consult Consult Specialty:: Hematology Referred by:: Medicine Reason for Consultation:: GI bleed, with concern for coagulopathy. - History of Present Illness Chief Complaint: Patient, with ESRF on HD, presented with hematemesis and significant drop in Hb, noted to have prolonged PT on admission - 23.3. Normal PTT. History of Present Illness: As above. No prior history of a bleeding diathesis. No prior use of anticoagulants - (other than heparin with dialysis). No known history of liver disease. - History Source History Provided By: Patient, Medical Record Limitations to Obtaining History: No Limitations - Past Medical History Cardio/Vascular: Yes: HTN, Hyperlipdemia, Murmur, Pulmonary Hypertension (severe ), Other (mild-moderate ; moderately severe AR) Gastrointestinal: Yes: Diverticulitis, Diverticulosis Renal/: Yes: Renal Failure, Hemodialysis Dermatology: Yes: Psoriasis Additional Medical History: hx mrsa and mssa bacteremia 2005 while he had permacath. hs bacteremia? with right chest wall cellulitis in 2011. 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 History of Recent Travel: No Home Medications - Allergies Allergies/Adverse Reactions: Allergies Allergy/AdvReac Type Severity Reaction Status Date / Time No Known Drug Allergies Allergy Verified 06/16/19 11:24 - Home Medications Home Medications: Ambulatory Orders Methimazole [Tapazole -] 5 mg PO DAILY #30 tablet 12/08/18 Losartan Potassium [Cozaar -] 50 mg PO DAILY 05/21/19 Pantoprazole Sodium [Protonix -] 40 mg PO BID #30 tablet.ec 06/19/19 Review of Systems - Review of Systems Constitutional: reports: No Symptoms Eyes: reports: No Symptoms HENT: reports: No Symptoms Neck: reports: Swollen Glands Cardiovascular: denies: Edema, Shortness of Breath Respiratory: denies: SOB Gastrointestinal: denies: Abdominal Pain Genitourinary: reports: No Symptoms Musculoskeletal: reports: No Symptoms Neurological: reports: No Symptoms Hematology/Lymphatic: denies: Easily Bruised, Excessive Bleeding Psychiatric: reports: No Symptoms Physical Exam Vital Signs: Vital Signs Temperature 98.4 F 06/19/19 13:00 Pulse Rate 86 06/19/19 13:00 Respiratory Rate 18 06/19/19 13:00 Blood Pressure 141/67 06/19/19 13:00 O2 Sat by Pulse Oximetry (%) 99 06/19/19 09:00 Constitutional: Yes: No Distress, Calm Eyes: Yes: Conjunctiva Clear HENT: Yes: Normocephalic Neck: Yes: Trachea Midline. No: Lymphadenopathy Cardiovascular: Yes: S1, S2. No: Gallop, Murmur Respiratory: Yes: Regular, CTA Bilaterally Gastrointestinal: Yes: Normal Bowel Sounds, Soft. No: Hepatomegaly, Splenomegaly Labs: CBC, BMP 06/19/19 05:55 06/18/19 05:38 Assessment/Plan Dialysis patient (failed kidney transplant) with no history of coagulopathy, presenting with hematemesis (source unclear - possibly small bowel), noted on admission to have a prolonged PT (23secs), with a normal PTT. No known liver disease. Low index of suspicion that this finding is of clinical relevance, but certainly warrants investigation. Repeat PT and PTT. Check fibrinogen. If PT remains elevated then obtain mixing study, and check Factor levels (7, 10 , 2) Dose empiric vitamin K reasonable
[2019-06-19] MEDS: CHLORHEXIDINE GLUCONATE 4% CLEANSER FOR DECOLONIZATION TP SCH (21:34)
[2019-06-20 07:07] LABS: INR 1.26 (0.83-1.09); PROTHROMBIN TIME (PATIENT) 14.9 SEC (9.7-13.0)
[2019-06-20 07:10] LABS: ACTIVATED PTT 26.7 SECONDS (25.2-36.5)
[2019-06-20 07:30] LABS: BASO % 0.4 % (0-2.0); EOS % 13.3 % (0-4.5); HEMATOCRIT 24.7 % (35.4-49); HEMOGLOBIN 8.5 GM/dL (11.7-16.9); LYMPH % 7.5 % (8-40); MCHC 34.3 g/dl (32.0-35.9); MEAN CELL VOLUME 87.4 fl (80-96); MEAN PLT VOLUME 7.9 fl (7.5-11.1); MONO % 7.7 % (3.8-10.2); NEUT % 71.1 % (42.8-82.8); PLATELET COUNT 152 K/MM3 (134-434); RBC 2.83 M/mm3 (4.00-5.60); RDW 15.5 % (11.9-15.9)
[2019-06-20 07:39] LABS: ALBUMIN 2.3 g/dl (3.4-5.0); BILIRUBIN,TOTAL 0.3 mg/dL (0.2-1); MAGNESIUM 2.1 mg/dL (1.8-2.4); PHOSPHOROUS 5.9 mg/dL (2.5-4.9); POTASSIUM 3.9 mmol/L (3.5-5.1); TOT PROT 5.1 g/dl (6.4-8.2)
[2019-06-20 07:48] LABS: CALCIUM 6.9 mg/dL (8.5-10.1); CREATININE 8.5 mg/dL (0.55-1.3)
--- NOTE | 2019-06-20 08:57 | DS ---
Physical Examination Vital Signs: Vital Signs Temperature 97.5 F L 06/20/19 06:44 Pulse Rate 85 06/20/19 06:44 Respiratory Rate 21 H 06/20/19 06:44 Blood Pressure 107/57 L 06/20/19 06:44 O2 Sat by Pulse Oximetry (%) 99 06/19/19 22:31 Findings/Remarks: OOB to chair ate OK no bleed H&H stable wants to go home, d/w GI OK to DC home will f/u outpt Constitutional: Yes: No Distress, Calm Eyes: Yes: Conjunctiva Clear HENT: Yes: Atraumatic Neck: Yes: Supple Cardiovascular: Yes: Regular Rate and Rhythm Respiratory: Yes: CTA Bilaterally Gastrointestinal: Yes: Soft. No: Tenderness Renal/: No: Hematuria Musculoskeletal: No: Joint Stiffness, Joint Swelling Extremities: No: Cold, Cool, Cyanosis Edema: No Integumentary: No: Rash, Venous Stasis Changes Neurological: Yes: WNL, Alert, Oriented ...Motor Strength: WNL Psychiatric: Yes: WNL, Alert, Oriented. No: Agitated, Suicidal Ideation Labs: CBC, BMP 06/20/19 06:20 06/20/19 06:20 Discharge Summary Problems reviewed: Yes Reason For Visit: ESRD,ANEMIA,UPPER GASTROINT HEMORRHAGE,HEMATEMESIS Current Active Problems ESRD (end stage renal disease) on dialysis (Acute) ESRD (end stage renal disease) on dialysis (Acute) GI bleed (Acute) Gastric ulcer (Acute) HTN (hypertension) (Acute) Hematemesis (Acute) Vomiting (Acute) Procedures: Principal: 54 YOM ESRD/HD, HTN, liver ds, pulm HTN admitted with UGI bleed severe anemia Other Procedures: EGD Joyce Nick, healed PUDs, GI and heme eval;. alos seen by cardiology and pulm ICU; received 4 U PRBC; IV PPI Hospital Course: improved with above DC home f/u outpt as advised; f./u GI for repeat EGD, colonoscopy and further w/u check labs in 1 week; RTER if recurrent bleed; Condition: Guarded - Instructions Diet, Activity, Other Instructions: f/u PCP and GI in 1-2 weeks; outpt f/u colonoscopy per GI dr Diez; liver w/u C dr Pepper; f/u labs in 1-2 weeks; cardiology dr Hinojosa and heme dr Chilel f/u; dialysis per renal; RTER if worse or recurrent c/o; po protonix until seen by GI dr Diez in office Referrals: Carina Ochoa [Primary Care Provider] - Jose Diez DO [Staff Physician] - Oseas Hinojosa MD [Staff Physician] - Rafael Chilel MD [Staff Physician] - Gonzalo Barros MD [Staff Physician] - Disposition: HOME - Home Medications Comprehensive Discharge Medication List: Ambulatory Orders Methimazole [Tapazole -] 5 mg PO DAILY #30 tablet 12/08/18 Losartan Potassium [Cozaar -] 50 mg PO DAILY 05/21/19 Pantoprazole Sodium [Protonix -] 40 mg PO BID #30 tablet.ec 06/19/19
[2019-06-20 09:24] VITALS: BP 132/66
[2019-06-20] MEDS ORDERED: PT OWN MED DRAWER 7, Y5N ONE (10:26)
[2019-06-20] MEDS ORDERED: DEXTROSE 5%-WATER - 50 ML IVPB ONE (10:26)
[2019-06-20] MEDS ORDERED: cefTRIAXone SODIUM 1 GM VIAL ONE (10:26)
[2019-06-20] MEDS: METHIMAZOLE 5 MG TABLET (FP) PO SCH (10:28)
[2019-06-20] MEDS: CEFTRIAXONE 1 GM in DEXTROSE 5%-WATER - 50 ML IVPB SCH (10:29)
[2019-06-20] MEDS: PANTOPRAZOLE SODIUM 40 MG VIAL IVPUSH SCH (10:29)
[2019-06-20] MEDS: MUPIROCIN 2% TOPICAL OINTMENT FOR DECOLONIZATION NS SCH (10:29)
--- NOTE | 2019-06-20 10:38 | PN ---
Progress Note, Physician History of Present Illness: 54M black man with PM history of HTN, s/p failed kidney transplant, LUE AVF/ Graft,ESRD (HD T,, (last yesterday as an extra session), HLD, diastolic CHF (ECHO 05/12: normal LVEF; mild-moderate ; severe pulmonary HTN; mod-severe aortic regurgitation), CAD (mild apical ischemia on stress MIBI 09/2018), who presents for evaluation of hematemesis x2. Pt reports one episode yesterday evening and once this morning. The pt reports associated generalized weakness/ fatigue. Also endorses 1 month of NB diarrhea and RODRIGUEZ. - Current Medication List Current Medications: Active Medications Chlorhexidine Gluconate (Hibiclens For Decolonization -) 1 applic TP HS [facility] Last Admin: 06/19/19 21:34 Dose: 1 applic Ceftriaxone Sodium 1 gm/ (Dextrose) 50 mls @ 200 mls/hr IVPB DAILY [facility]; Protocol Last Admin: 06/20/19 10:29 Dose: 200 mls/hr Sodium Chloride (Normal Saline -) 250 mls @ 3,000 mls/hr IV PRN PRN PRN Reason: Hypotension during Dialysis Stop: 06/18/19 22:58 Methimazole (Tapazole -) 5 mg PO DAILY [facility] Last Admin: 06/20/19 10:28 Dose: 5 mg Mupirocin (Bactroban Ointment (For Decolonization) -) 1 applic NS BID [facility] Stop: 06/21/19 21:59 Last Admin: 06/20/19 10:29 Dose: 1 applic Pantoprazole Sodium (Protonix Iv) 40 mg IVPUSH BID [facility] Last Admin: 06/20/19 10:29 Dose: 40 mg - Objective Vital Signs: Vital Signs Temperature 97.5 F L 06/20/19 06:44 Pulse Rate 97 H 06/20/19 08:00 Respiratory Rate 21 H 06/20/19 08:00 Blood Pressure 132/66 06/20/19 08:00 O2 Sat by Pulse Oximetry (%) 99 06/19/19 22:31 Eyes: Yes: WNL, Conjunctiva Clear, EOM Intact HENT: Yes: WNL, Atraumatic, Normocephalic Neck: Yes: WNL, Supple, Trachea Midline Cardiovascular: Yes: WNL, Regular Rate and Rhythm Respiratory: Yes: WNL, Regular, CTA Bilaterally Gastrointestinal: Yes: WNL, Normal Bowel Sounds Genitourinary: Yes: WNL Musculoskeletal: Yes: WNL Extremities: Yes: WNL Edema: No Integumentary: Yes: WNL Neurological: Yes: WNL, Alert, Oriented ...Motor Strength: WNL Psychiatric: Yes: WNL Labs: CBC, BMP 06/20/19 06:20 06/20/19 06:20 INR, PTT INR 1.26 (0.83-1.09) H 06/20/19 06:20 Assessment/Plan Assessment/Plan 06/17/2019 Echo: Mod cLVH low normal LV EF 50%, grade II diastolic dysfunction, elevated LA pressure, mild LAE, functional MS 2/2 MAC, mild TR, mod , mild- mod AR, no pericardial effusions Problem List - Problems (1) ESRD (end stage renal disease) on dialysis Assessment/Plan: hemodialysis per associate. Code(s): N18.6 - END STAGE RENAL DISEASE; Z99.2 - DEPENDENCE ON RENAL DIALYSIS (2) HTN (hypertension) Code(s): I10 - ESSENTIAL (PRIMARY) HYPERTENSION Qualifiers: Hypertension type: essential hypertension Qualified Code(s): I10 - Essential (primary) hypertension (3) Hematemesis Assessment/Plan: see "GI bleed" Code(s): K92.0 - HEMATEMESIS Qualifiers: Nausea presence: without nausea Qualified Code(s): K92.0 - Hematemesis (4) Vomiting Code(s): R11.10 - VOMITING, UNSPECIFIED (5) Abdominal pain Code(s): R10.9 - UNSPECIFIED ABDOMINAL PAIN Qualifiers: Abdominal location: generalized Qualified Code(s): R10.84 - Generalized abdominal pain (6) Anxiety Code(s): F41.9 - ANXIETY DISORDER, UNSPECIFIED (7) Aortic stenosis Code(s): I35.0 - NONRHEUMATIC AORTIC (VALVE) STENOSIS (8) [place] cardiac risk >20% in next 10 years Code(s): Z91.89 - OTH PERSONAL RISK FACTORS, NOT ELSEWHERE CLASSIFIED (9) HLD (hyperlipidemia) Code(s): E78.5 - HYPERLIPIDEMIA, UNSPECIFIED (10) Nausea & vomiting Code(s): R11.2 - NAUSEA WITH VOMITING, UNSPECIFIED (11) Elevated troponin Assessment/Plan: chronic mild elevation TNI, likely related to demand from ESRD, anemia, CHF. Stress MIBI 09/2018: small, mild ischemia of apex. Code(s): R74.8 - ABNORMAL LEVELS OF OTHER SERUM ENZYMES (12) GI bleed Assessment/Plan: Pt received PRBCs and FFP. s/p EGD: ?Ashok Nick tear and duodenal ulcer. For colonoscopy as outpatient Code(s): K92.2 - GASTROINTESTINAL HEMORRHAGE, UNSPECIFIED 1. GI Bleed 2/2 likely ashok-nick tear/hematemesis 2. Acute on chronic Blood Loss Anemia 3. Coagulopathy 4. r/o Liver Cirrhosis 5. ESRD on HD TTHS 6. HTN 7. Hyperthyroidism P:1. Normal transfusion thresholds 2. Monitor CBC, coags 3. Protonix BID 4. S/p EGD, advance diet as tolerated, colonoscopy, enteroscopy and ultimately capsule endoscopy as outpatient cc time spent 37 min
--- NOTE | 2019-06-20 11:00 | PN ---
Teaching Attending Note Name of Resident: Kasie Rosenthal ATTENDING PHYSICIAN STATEMENT I saw and evaluated the patient. I reviewed the resident's note and discussed the case with the resident. I agree with the resident's findings and plan as documented. SUBJECTIVE: Feels well. No occult bleeding noted. No acute events overnight. Tolerating PO intake. Intake & Output 06/17/19 06/18/19 06/19/19 06/20/19 23:59 23:59 23:59 23:59 Intake Total 2920 1380 830 350 Output Total 1500 2500 0 0 Balance 1420 -1120 830 350 Weight 173 lb 5 oz 176 lb 172 lb 14.4 oz 181 lb 1.6 oz Last Vital Signs Temp Pulse Resp BP Pulse Ox 97.5 F L 97 H 21 H 132/66 99 06/20/19 06:44 06/20/19 08:00 06/20/19 08:00 06/20/19 08:00 06/19/19 22:31 Active Medications Chlorhexidine Gluconate (Hibiclens For Decolonization -) 1 applic TP HS COUNTS INCLUDE 234 BEDS AT THE [facility] Last Admin: 06/19/19 21:34 Dose: 1 applic Ceftriaxone Sodium 1 gm/ (Dextrose) 50 mls @ 200 mls/hr IVPB DAILY COUNTS INCLUDE 234 BEDS AT THE [facility]; Protocol Last Admin: 06/20/19 10:29 Dose: 200 mls/hr Sodium Chloride (Normal Saline -) 250 mls @ 3,000 mls/hr IV PRN PRN PRN Reason: Hypotension during Dialysis Stop: 06/18/19 22:58 Methimazole (Tapazole -) 5 mg PO DAILY COUNTS INCLUDE 234 BEDS AT THE [facility] Last Admin: 06/20/19 10:28 Dose: 5 mg Mupirocin (Bactroban Ointment (For Decolonization) -) 1 applic NS BID COUNTS INCLUDE 234 BEDS AT THE [facility] Stop: 06/21/19 21:59 Last Admin: 06/20/19 10:29 Dose: 1 applic Pantoprazole Sodium (Protonix Iv) 40 mg IVPUSH BID COUNTS INCLUDE 234 BEDS AT THE [facility] Last Admin: 06/20/19 10:29 Dose: 40 mg Gen: NAD Heart: RRR Lung: decreased breath sounds at the bases Abd: NT, (+) BS, no rebound Ext: no edema Laboratory Results - last 24 hr 06/16/19 06/20/19 06/20/19 11:40 06:20 06:20 WBC 10.0 RBC 2.83 L Hgb 8.5 L Hct 24.7 L MCV 87.4 MCH 30.0 MCHC 34.3 RDW 15.5 Plt Count 152 MPV 7.9 Absolute Neuts (auto) 7.1 Neutrophils % 71.1 Lymphocytes % 7.5 L Monocytes % 7.7 Eosinophils % 13.3 H Basophils % 0.4 Nucleated RBC % 0 PT with INR INR PTT (Actin FS) D-Dimer Sodium 140 Potassium 3.9 Chloride 100 Carbon Dioxide 31 Anion Gap 10 BUN 54.0 H Creatinine 8.5 H* Est GFR (CKD-EPI)AfAm 7.51 Est GFR (CKD-EPI)NonAf 6.48 Random Glucose 96 Calcium 6.9 L* Phosphorus 5.9 H Magnesium 2.1 Total Bilirubin 0.3 AST 18 ALT 22 Alkaline Phosphatase 110 Total Protein 5.1 L Albumin 2.3 L Blood Type O POSITIVE Antibody Screen Negative Crossmatch See Detail 06/20/19 06/20/19 06:20 06:20 WBC RBC Hgb Hct MCV MCH MCHC RDW Plt Count MPV Absolute Neuts (auto) Neutrophils % Lymphocytes % Monocytes % Eosinophils % Basophils % Nucleated RBC % PT with INR 14.90 H INR 1.26 H PTT (Actin FS) 26.7 D-Dimer 977 H Sodium Potassium Chloride Carbon Dioxide Anion Gap BUN Creatinine Est GFR (CKD-EPI)AfAm Est GFR (CKD-EPI)NonAf Random Glucose Calcium Phosphorus Magnesium Total Bilirubin AST ALT Alkaline Phosphatase Total Protein Albumin Blood Type Antibody Screen Crossmatch ASSESSMENT AND PLAN: GI Bleed likely Upper Acute Blood Loss Anemia Coagulopathy r/o Liver Cirrhosis ESRD on HD HTN - Normal transfusion thresholds - PO as tolerated - DC planning Dr Nava
--- NOTE | 2019-06-20 11:10 | PN ---
Physical Exam: SUBJECTIVE: Patient seen and examined. No acute events overnight. Tolerating PO diet. ambulating well. OBJECTIVE: Vital Signs Period Temp Pulse Resp BP Sys/Romeo Pulse Ox Last 24 Hr 97.5 F-98.5 F 85-97 16-22 107-141/57-67 99 GENERAL: AOx3 NAD HEENT: NCAT. MMM. Clear sclera. LUNGS: Breath sounds equal, clear to auscultation bilaterally HEART: Regular rate and rhythm, S1, S2 without murmur, rub or gallop. ABDOMEN: Soft, nontender, nondistended, normoactive bowel sounds EXTREMITIES: 2+ pulses, warm, well-perfused, no edema. PSYCH: Normal mood, normal affect. SKIN: Warm, dry Laboratory Results - last 24 hr 06/16/19 06/20/19 06/20/19 11:40 06:20 06:20 WBC 10.0 RBC 2.83 L Hgb 8.5 L Hct 24.7 L MCV 87.4 MCH 30.0 MCHC 34.3 RDW 15.5 Plt Count 152 MPV 7.9 Absolute Neuts (auto) 7.1 Neutrophils % 71.1 Lymphocytes % 7.5 L Monocytes % 7.7 Eosinophils % 13.3 H Basophils % 0.4 Nucleated RBC % 0 PT with INR INR PTT (Actin FS) D-Dimer Sodium 140 Potassium 3.9 Chloride 100 Carbon Dioxide 31 Anion Gap 10 BUN 54.0 H Creatinine 8.5 H* Est GFR (CKD-EPI)AfAm 7.51 Est GFR (CKD-EPI)NonAf 6.48 Random Glucose 96 Calcium 6.9 L* Phosphorus 5.9 H Magnesium 2.1 Total Bilirubin 0.3 AST 18 ALT 22 Alkaline Phosphatase 110 Total Protein 5.1 L Albumin 2.3 L Blood Type O POSITIVE Antibody Screen Negative Crossmatch See Detail 06/20/19 06/20/19 06:20 06:20 WBC RBC Hgb Hct MCV MCH MCHC RDW Plt Count MPV Absolute Neuts (auto) Neutrophils % Lymphocytes % Monocytes % Eosinophils % Basophils % Nucleated RBC % PT with INR 14.90 H INR 1.26 H PTT (Actin FS) 26.7 D-Dimer 977 H Sodium Potassium Chloride Carbon Dioxide Anion Gap BUN Creatinine Est GFR (CKD-EPI)AfAm Est GFR (CKD-EPI)NonAf Random Glucose Calcium Phosphorus Magnesium Total Bilirubin AST ALT Alkaline Phosphatase Total Protein Albumin Blood Type Antibody Screen Crossmatch Active Medications Generic Name Dose Route Start Last Admin Trade Name Edilberto PRN Reason Stop Dose Admin Chlorhexidine Gluconate 1 applic 06/16/19 22:00 06/19/19 21:34 Hibiclens For Decolonization - TP 1 applic HS ORIANA Administration Ceftriaxone Sodium 1 gm/ 50 mls @ 200 mls/hr 06/17/19 19:30 06/20/19 10:29 Dextrose IVPB 200 mls/hr DAILY ORIANA Administration Protocol Sodium Chloride 250 mls @ 3,000 mls/hr 06/17/19 22:58 Normal Saline - IV 06/18/19 22:58 PRN PRN Hypotension during Dialysis Methimazole 5 mg 06/17/19 10:00 06/20/19 10:28 Tapazole - PO 5 mg DAILY ORIANA Administration Mupirocin 1 applic 06/16/19 22:00 06/20/19 10:29 Bactroban Ointment (For Decolonization) - NS 06/21/19 21:59 1 applic BID ORIANA Administration Pantoprazole Sodium 40 mg 06/17/19 22:00 06/20/19 10:29 Protonix Iv IVPUSH 40 mg BID ORIANA Administration ASSESSMENT/PLAN: 54 y.o. M PMH HTN, s/p failed kidney transplant, ESRD (HD /) w/ HD this past Thursday, HLD, diverticulosis, hyperthyroidism, diverticulitis, psoriasis who presents today with GI bleed, likely upper. #[employer] -AOx3 -no acute issues #CV -hx of HTN, HLD, recent episode of pericarditis -Echo: mod concentric LVH, EF 50%, grade II diastolic dysfunction, LA mildly dilated, mod mitral valve thickening & mitral annular calcification, functional MV stenosis 2/2 MAC, mild TR, mod valvular ao stenosis, mild to mod ao stenosis -holding home anti HTN meds -Cardiology following #Pulm -saturating well on RA -no acute issues -continue to monitor o2 sat #GI -No further episodes of bleeding -EGD: no active bleeding, poss ashok mccormick tear -PPI 40mg IV BID -tolerating po diet -GI recommending outpatient colonoscopy & capsule endoscopy w/ Dr. Diez -surgery recs appreciated #Heme/onc -PT mildly elevated but improving -S/p total 3U pRBC (giving 2U w/ HD), 3U FFP, 1U platelets, 20mcg DDAVP, 1g Ca gluconate -H&H stable, continue to monitor #Renal -ESRD on HD -Dr. Barros following -CTA A/P 06/16: bilateral flank subcutaneous edema. Marked bilateral renal atrophy is again noted. Renal osteodystrophy. #Endo -continue methimazole for hyperthyroidism #ID -leukocytosis downtrended -day #4 abx ceftriaxone #FENLTD -continue HD -trend cmp replete lytes prn -tolerating renal diet -large bore peripheral IV's #PPX -protonix 40mg IV BID #Dispo home w/ outpatient GI follow up Visit type - Emergency Visit Emergency Visit: No - New Patient This patient is new to me today: No - Critical Care Critical Care patient: Yes Total Critical Care Time (in minutes): 45 Critical Care Statement: The care of this patient involved high complexity decision making to prevent further life threatening deterioration of the patient 's condition and/or to evaluate & treat vital organ system(s) failure or risk of failure. ATTENDING PHYSICIAN STATEMENT I saw and evaluated the patient. I reviewed the resident's note and discussed the case with the resident. I agree with the resident's findings and plan as documented. SUBJECTIVE: OBJECTIVE: ASSESSMENT AND PLAN:
--- NOTE | 2019-06-20 12:12 | PN ---
Progress Note (short form) - Note Progress Note: Renal follow up for ESRD on HD Seen and examined in the ICU awake and alert chart reviewed no further bleeding noted s/p dialysis on Thursday no shortness of breath today Hgb stable Vital Signs Temperature 97.5 F L 06/20/19 06:44 Pulse Rate 97 H 06/20/19 08:00 Respiratory Rate 21 H 06/20/19 08:00 Blood Pressure 132/66 06/20/19 08:00 O2 Sat by Pulse Oximetry (%) 99 06/19/19 22:31 Intake & Output 06/17/19 06/18/19 06/19/19 06/20/19 23:59 23:59 23:59 23:59 Intake Total 2920 1380 830 350 Output Total 1500 2500 0 0 Balance 1420 -1120 830 350 Weight 78.613 kg 79.832 kg 78.426 kg 82.146 kg NAD awake and alert neck supple RRR CTA soft NT/ND no LE edema, clubbing or cyanosis CBC, BMP 06/20/19 06:20 06/20/19 06:20 Current Medications Chlorhexidine Gluconate (Hibiclens For Decolonization -) 1 applic TP HS [facility] Last Admin: 06/19/19 21:34 Dose: 1 applic Ceftriaxone Sodium 1 gm/ (Dextrose) 50 mls @ 200 mls/hr IVPB DAILY [facility]; Protocol Last Admin: 06/20/19 10:29 Dose: 200 mls/hr Sodium Chloride (Normal Saline -) 250 mls @ 3,000 mls/hr IV PRN PRN PRN Reason: Hypotension during Dialysis Stop: 06/18/19 22:58 Methimazole (Tapazole -) 5 mg PO DAILY [facility] Last Admin: 06/20/19 10:28 Dose: 5 mg Mupirocin (Bactroban Ointment (For Decolonization) -) 1 applic NS BID [facility] Stop: 06/21/19 21:59 Last Admin: 06/20/19 10:29 Dose: 1 applic Pantoprazole Sodium (Protonix Iv) 40 mg IVPUSH BID [facility] Last Admin: 06/20/19 10:29 Dose: 40 mg 54 year old gentleman with history of ESRD on HD (TTS), hypertension, psoriasis, hx of renal transplant now not failed presented from home with hematemesis x 2 episodes. 1. Acute GI bleed/Hematemesis 2. Acute on Chronic Anemia 3. ESRD on HD 4. Hx of hypertension No acute indication for dialysis today. Last treatment was Thursday. HGb stable. NO further bleeding noted. GI work up to continue as an outpatient. Continue PPI. Next planned dialysis is tomorrow. Can be done as a outpatient. Thank you Gonzalo Barros DO
[2019-06-20 13:28] VITALS: PULSE 92; TEMP 98
== END 2019-06-20 13:15 | disposition home or self-care (01) | DRG 368 ==
LOC: JER 10:54 → JERBED 12:39 → JICU 14:56
PROVIDERS: ADMIT Internal Medicine; ATTEND Internal Medicine
PROC: 30233N1 Transfusion of Nonautologous Red Blood Cells into Peripheral Vein, Percutaneous Approach (ICD-10-PCS; 2019-06-17)
PROC: 5A1D70Z Performance of Urinary Filtration, Intermittent, Less than 6 Hours Per Day (ICD-10-PCS; 2019-06-17)
PROC: 0DJ08ZZ Inspection of Upper Intestinal Tract, Via Natural or Artificial Opening Endoscopic (ICD-10-PCS; 2019-06-17)
PROC: 30233K1 Transfusion of Nonautologous Frozen Plasma into Peripheral Vein, Percutaneous Approach (ICD-10-PCS; principal; 2019-06-17 10:15)
PROC: 5A1D70Z Performance of Urinary Filtration, Intermittent, Less than 6 Hours Per Day (ICD-10-PCS; 2019-06-18)
DX: K22.6 Gastro-esophageal laceration-hemorrhage syndrome (principal); N18.6 End stage renal disease; Z94.0 Kidney transplant status; N17.9 Acute kidney failure, unspecified; I24.8 Other forms of acute ischemic heart disease; D62 Acute posthemorrhagic anemia; D68.9 Coagulation defect, unspecified; I13.2 Hypertensive heart and chronic kidney disease with heart failure and with stage 5 chronic kidney disease, or end stage renal disease; I50.30 Unspecified diastolic (congestive) heart failure; K22.10 Ulcer of esophagus without bleeding; K57.90 Diverticulosis of intestine, part unspecified, without perforation or abscess without bleeding; E05.90 Thyrotoxicosis, unspecified without thyrotoxic crisis or storm; D69.6 Thrombocytopenia, unspecified; K29.80 Duodenitis without bleeding; L40.9 Psoriasis, unspecified; I27.20 Pulmonary hypertension, unspecified; I35.1 Nonrheumatic aortic (valve) insufficiency; R11.2 Nausea with vomiting, unspecified; R74.8 Abnormal levels of other serum enzymes; I25.10 Atherosclerotic heart disease of native coronary artery without angina pectoris; Z99.2 Dependence on renal dialysis; N25.0 Renal osteodystrophy; D72.829 Elevated white blood cell count, unspecified; K74.60 Unspecified cirrhosis of liver
CPT/HCPCS: 36415; 36430; 36511; 71275-TC; 74174-TC; 80048; 80053; 82272; 82962; 83735; 84100; 84484; 85025; 85027; 85379; 85610; 85730; 86850; 86900; 86901; 86922; 93005; 93010; 93306-TC; 99283-25; J0885; J2597; P9017; P9034; P9038; P9058; Q9967

== ENCOUNTER → 2021-03-18 | Day surgery (SDC) | payer OTHER, BC ==
[2021-03-18 11:41] LABS: HEMATOCRIT 40.5 % (35.4-49); HEMOGLOBIN 13.7 GM/dL (11.7-16.9); MCHC 33.9 g/dl (32.0-35.9); MEAN CELL VOLUME 94.4 fl (80-96); PLATELET COUNT 100 10^3/uL (134-434); RBC 4.29 M/mm3 (4.00-5.60); RDW 16.7 % (11.9-15.9); WHITE BLOOD COUNT 5.8 K/mm3 (4.0-10.0)
[2021-03-18 11:47] LABS: INR 1.52 (0.83-1.09); PROTHROMBIN TIME (PATIENT) 17.1 SEC (9.7-13.0)
[2021-03-18 13:20] LABS: ANISOCYTOSIS 1+; MACROCYTOSIS 1+; OVALOCYTE 1+; PLATELET ESTIMATE DECREASED
[2021-03-18 16:42] LABS: BF WBC & OTHER NUCLEATED CELLS 232 /mm3
[2021-03-18 18:22] LABS: BODY FLUID MACROPHAGES 20 %; BODY FLUID MESOTHELIAL 1 %; BODY FLUID MONOCYTE 13 %; BODYL FLD EOSINOPHIL 6 %
== END | disposition home or self-care (01) ==
LOC: JRADIR 11:02
PROVIDERS: ATTEND Internal Medicine Gastroenterology
PROC: 0W9G3ZX Drainage of Peritoneal Cavity, Percutaneous Approach, Diagnostic (ICD-10-PCS; principal; 2021-03-18)
PROC: BW40ZZZ Ultrasonography of Abdomen (ICD-10-PCS; 2021-03-18)
DX: R18.8 Other ascites (principal)
CPT/HCPCS: 36415; 49083; 76942-TC; 82042; 82150; 82465; 82945; 83615; 83986; 84157; 84478; 85025; 85610; 87070; 87075; 87102; 87116; 87205; 87206; 87210; 88108; 88305-TC